=== PATIENT | female | born 1955 | race African-American/Black ===

== ENCOUNTER 2020-08-01 15:35 | Inpatient (IN) | payer MEDICARE, MEDICAID, SELFPAY ==
--- NOTE | ~2020-08-01 | XR_ITS ---
EXAMINATION: XR retrograde pyelo w/stent LT EXAM DATE: 08/02/2020 13:10 INDICATION: Left-sided obstructive nephropathy. TECHNIQUE: Fluoroscopy used during XR retrograde pyelo w/stent LT performed by Dr. Mario luna MD. The DAP for this procedure was 797 radcm2. FINDINGS: Left ureter was cannulated, injected. There is mild left hydroureteronephrosis. A double-J ureteral stent was placed. Bilateral hip replacements. Correlate with procedure note. IMPRESSION: Fluoroscopy used during XR retrograde pyelo w/stent LT. Reviewed, dictated and finalized at location A. S PROGRAM MANAGER
--- NOTE | ~2020-08-01 | XR_ITS ---
EXAMINATION: XR abdomen/kub 1V INDICATION: Left hydronephrosis and lower abdominal pain TECHNIQUE: Supine view of the abdomen is obtained. COMPARISON: None FINDINGS: No definite urolithiasis is identified. Vascular calcifications are noted. The bowel gas pa ttern is normal. There are changes of bilateral total hip arthroplasty. There is severe lower lumbar spondylosis. IMPRESSION: 1. No definite urolithiasis identified. Consider CT if there is high clinical suspicion for urolithia sis. Reviewed, dictated and finalized at location A. ESSION: 1. No definite urolithiasis identified. Consider CT if there is high clinical s uspicion for urolithiasis.
--- NOTE | ~2020-08-01 | XR_ITS ---
EXAMINATION: XR abdomen obstructive series DATE: 08/03/2020 11:42 INDICATION: Abdominal pain. TECHNIQUE: Upright and supine views of the abdomen were obtained. COMPARISON: CT abdomen and pelvis 08/02/2020 FINDINGS: There are no dilated loops of bowel. There is a left internal ureteral stent in expected po sition. There is no free intraperitoneal gas. There are bilateral hip arthroplasties. IMPRESSION: 1. Nonobstructive bowel gas pattern. Reviewed, dictated and finalized at location A. [employer]
--- NOTE | ~2020-08-01 | CT_ITS ---
EXAMINATION: CT abdomen pelvis wo con EXAM DATE: 08/02/2020 08:45 INDICATION: Left hydronephrosis TECHNIQUE: Spiral CT of the abdomen and pelvis was performed without contrast. Axial, coronal and sag ittal images were reviewed. The dose-length product (DLP) for this examination was 887.01 mGy-cm. T he exposure was tailored according to patient size (auto mA exposure control), and iterative reconstr uction (ASIR) was used as additional dose reduction technique. There is no prior study for compariso n. FINDINGS: There is mild left hydroureteronephrosis and perinephric fat stranding to the mid ureter. D istal half of the ureter is not distended. Can't evaluate the distal aspect of the ureters due to den se metallic artifact from the hip replacements. Fibroid uterus. The bladder is unremarkable. There is bilateral adrenal hyperplasia. Liver, spleen, pancreas are unremarkable. Gallbladder is unremark able. No biliary obstruction. There is no retroperitoneal or pelvic lymphadenopathy. There is mod erate to severe scattered arteriosclerotic disease. Probable identification of a normal appendix. No pericecal inflammation. The stomach and small ugo l are unremarkable. There is expected amount of colonic stool. No free intraperitoneal gas. The heart is normal in size. There are no pericardial or pleural effusions. The lung bases are unremark able. There are no osteoblastic or osteolytic lesions identified. IMPRESSION: 1. Mild left-sided hydronephrosis and proximal hydroureter, mild perinephric fat stranding. No nephr olithiasis. Can't evaluate the distal aspect of the ureters for obstructing stones due to artifact fr om hip replacements. 2. Fibroid uterus. 3. Adrenal hyperplasia. Reviewed, dictated and finalized at location A. [employer]KER [employer] IMPRESSION: 1. Mild left-sided hydronephrosis and proximal hydroureter, mild perinephric f at stranding. No nephrolithiasis. Can't evaluate the distal aspect of the urete rs for obstructing stones due to artifact from hip replacements. 2. Fibroid uterus. 3. Adrenal hyperplasia.
--- NOTE | 2020-08-01 14:30 | ADMGEN ---
This patient, Barbi Fernandes, was admitted to Medical Room 258-01. Patient/family oriented to hospital policies and general routines including ID bracelet, bed and alarms, visiting hours, pain management, procedures, bathroom and other care routines, personal items, smoking policy, room service/diet, and visiting hours. Information on how to activate the Rapid Response Team has been discussed. Patient/Family are encouraged to report perceived risks to care and to ask questions if they do not understand what they are told or what they should do.
[2020-08-01 15:00] VITALS: BP 145/87; PULSE 98; RESP 22; TEMP 36.4; O2SAT 96; BMI 32.3
--- NOTE | 2020-08-01 15:46 | PM.IMHP ---
H&P: HPI History of Present Illness Date/Time: 08/01/20 15:46 Chief Complaint: Abdominal pain Narrative: Barbi Fernandes is a 64 year old female who is a direct admit from [facility]. The patient does have chronic back pain and typically takes Arcadia for this pain. She has had nausea vomiting and diarrhea for at least 2 days. She is not been able to keep her Arcadia down. She is pointing to her left upper quadrant when I ask her were discomfort is. The patient came to [facility] with the nausea vomiting diarrhea for 2 days. She also took a laxative because she thought that maybe she was just constipated from the pain medication. This did cause her some diarrhea. However did not take away her discomfort. She does have some acid reflux and took some Rolaids and that did not help her discomfort either. She denied any burning when she urinates. She has not had any past history of having any kidney stones in the past. She was rating her pain an 8. She has a history of asthma but is not complaining of any shortness of breath at this time. The patient was given Zofran at the outside facility. She did not receive any pain medication as far as I could tell. She had Rocephin 1 g and IV fluids as well. Patient had blood cultures drawn there. The patient had a positive UA for UTI. I am unable to locate labs from [facility] and I am unable to locate any imaging however a disc did accompany her records that were sent. The patient stated that she was told that she does have a kidney stone. According to the ED records at [facility] it was noted that the patient had calculus of the kidney with calculus of ureter with UTI and vomiting. It is not known how big the kidney stone is or whether not she had hydronephrosis. These things were not documented on the papers that I received from [facility]. It looks like the patient received a COVID-19 rapid AG but I am not finding the results. My understanding that urology has been consulted for transfer. However I did consult them when the patient arrived. Patient is being admitted for observation on the date of service of 08/01/2020. Review of Systems Review of Systems: All systems reviewed & are unremarkable except as noted in HPI and below Constitutional: Constitutional: Reports as per HPI and Reports no additional constitutional complaints Eyes: Eyes: Reports as per HPI and Reports no additional eye complaints ENT: Reports system reviewed and no additional complaints, except as documented and Reports Normal hearing present Cardiovascular: Cardiovascular: Reports no additional cardiovascular complaints Respiratory: Respiratory: Reports no additional respiratory complaints and Reports no additional respiratory complaints Gastrointestinal: Gastrointestinal: Reports as per HPI and Reports no additional gastrointestinal complaints Musculoskeletal: Musculoskeletal: Reports no additional musculoskeletal complaints Integumentary/Breasts: Skin/Breast: Reports system reviewed and no additional complaints, except as docu and Reports as per HPI Neurologic: Reports system reviewed and no additional complaints, except as documented, Reports as per HPI and Reports Normal hearing present Psychiatric: Psychiatric: Reports no additional psychiatric complaints and Reports as per HPI Endocrine: Endocrine: Reports no additional endocrine complaints Hematologic/Lymphatic: Hematologic/Lymphatic: Reports no additional hematologic/lymphatic complaints Allergic/Immunologic: Allergic/Immunologic: Reports no additional allergic/immunologic complaints [facility] Past Medical History Medical History (Updated 08/01/20 @ 16:06 by Allie Moffett NP) Asthma Chronic back pain Chronic GERD Hiatal hernia Hypertension Nephrolithiasis Osteoarthritis Surgical History Surgical History (Updated 08/01/20 @ 16:06 by Allie Moffett NP) History of total hip replacement
[2020-08-01 16:04] LABS: Hematocrit 39.1 % (37.0-47.0); Mean Corpuscular HGB Conc 33.2 g/dl (32-36); Mean Corpuscular Hemoglobin 31.8 pg (26-34); Mean Corpuscular Volume 95.6 fl (80-100); Mean Platelet Volume 9.5 fl (7.4-10.4); Platelet Count Result 291 k/mm3 (150-375); Red Blood Count 4.09 M/mm3 (4.2-5.4); Red Cell Distribution Width 13.1 % (11.5-14.5); White Blood Count 17.6 K/mm3 (4.5-10.0)
[2020-08-01 16:15] LABS: Lactic Acid Reflex 1.5 mmol/L (0.7-2.1); Magnesium 2.1 mg/dL (1.6-2.3)
[2020-08-01 16:26] LABS: Band Neutrophils Percent 3 % (0-6); Lymphocytes Absolute Manual 0.17 K/mm3 (1.1-4.5); Monocytes Percent Manual 8 % (3-9); Neutrophils Absolute Manual 16.01 K/mm3 (1.7-7.2); Neutrophils Percent Manual 88 % (46-73); Platelet Estimate Adequate (Adequate); Total Cells Counted 100
[2020-08-01] MEDS: ONDANSETRON INJ 4 MG/2 ML VIAL IV PUSH (16:33)
[2020-08-01] MEDS: DEXTROSE 5%/0.9% SOD CHL 1,000 ML 100 ML IV CONT (16:33)
--- NOTE | 2020-08-01 16:53 | WPDURCON ---
Assessment and Plan Assessment and plan (1) UTI (urinary tract infection): Code(s): N39.0 - Urinary tract infection, site not specified Status: Acute Assessment and Plan: Continue Rocephin, obtain culture results from [facility] when posted. No need to repeat culture now as it will likely be negative d/t being on antibiotics. (2) Nephrolithiasis: Code(s): N20.0 - Calculus of kidney Status: Acute Assessment and Plan: Obtain Consent: Cystoscopy, left ureteroscopy with possible stone extraction, left stent placement, left retrograde pyelogram, possible holmium laser. Keep NPO after midnight. If unable to remove stone tomorrow, will place stent only and schedule for a ureteroscopy when UTI is resolved. Dr. Barreto will see patient in the morning prior to surgery. She is scheduled in the OR on 08/02/2020 at 1230. Urology Consult Note HPI Date Seen: 08/01/20 Requesting Physician: Talia Murillo MD Primary Care Provider: Hari Dowd, Consult Narrative Narrative: Barbi Fernandes is a 64 year old female who presented initially to [facility] for left abdominal pain and left flank pain, nausea and diarrhea that started two days ago. She states she also has pelvic pressure and thought maybe she had a UTI as she has had some in the past but not chronically. She denies history of a kidney stone or pyelonephritis. Her CT abdomen/pelvis from [facility] shows left moderate hydronephrosis and hydroureter without visualization of a distal ureteral calculi, likely d/t beam hardening artifact throughout the pelvis from bilateral hip arthroplasty. Her KUB shows multiple small calcifications which are identified int he pelvis bilaterally, some of which represent venous and arterial vascular calcifications. There is a left pelvic 3mm calculi which may represent a distal ureteral calculi. WBC is 17,000, no creatinine at this time. Urine culture is pending at [facility] that was done prior to starting Rocephin. Blood cultures are being done here but are pending. She is afebrile and denies dysuria, frequency, urgency or hematuria. Review of Systems Cardiovascular: Cardiovascular: Reports no additional cardiovascular complaints and Denies chest pain Respiratory: Respiratory: Reports no additional respiratory complaints Gastrointestinal: Gastrointestinal: Reports abdominal pain, Reports diarrhea, Reports nausea and Denies vomiting Genitourinary: Genitourinary: Denies hematuria, Denies nocturia, Denies dysuria, Reports pelvic pain and Denies urinary urgency PMF Past Medical History Medical History Asthma Chronic back pain Chronic GERD Hiatal hernia Hypertension Nephrolithiasis Osteoarthritis Surgical History Surgical History History of total hip replacement Family History Family History Mother Hypertension Social History Social History Social History: Patient stated she smoked about 30 years ago but has not smoke since then. She is disabled. She does not have a durable power banking attorney. She desires to be a full code. She has 3 children. She does not use alcohol marijuana or illicit drugs. Smoking status: Former smoker Tobacco type: cigarettes Alcohol intake: never Substance use type: marijuana Last use: 07/31/20 Gender identity (if verbalized by the patient): Female Spiritual care concerns: No Meds Home Medications and Allergies Home Medications Medication Instructions Recorded Confirmed Type albuterol sulfate 2.5 mg INHALATION TID PRN 08/01/20 08/01/20 History albuterol sulfate [ProAir HFA] 2 puff INHALATION Q4H PRN 08/01/20 08/01/20 History cetirizine [Zyrtec] 10 mg PO DAILY 08/01/20 08/01/20 History famotidine [Pepcid] 20 mg PO BID 08/01/20 03
[2020-08-01 18:00] VITALS: BP 157/76; PULSE 96; RESP 18; TEMP 36.6; O2SAT 97
[2020-08-01 20:00] VITALS: BP 171/86; PULSE 95; RESP 20; TEMP 36.1; O2SAT 97
[2020-08-01] MEDS: ALBUTEROL SULFATE NEB 2.5 MG/3 ML INH INHALATION (20:41)
[2020-08-01 20:44] VITALS: PULSE 96; RESP 18
[2020-08-01 20:49] VITALS: PULSE 93; RESP 18
--- NOTE | 2020-08-01 20:57 | PC.NURSE ---
[facility] ED called to report positive blood cultures for gram negative bacilli in both aerobic and anaerobic tubes, second check showing positive for gram negative bacilli in anaerobic tube only. Allie Moffett has been notified of results.
[2020-08-01] MEDS: PANTOPRAZOLE SODIUM IV 40 MG VIAL IV PUSH (21:19)
[2020-08-01 22:35] LABS: Add Urine Microscopic? YES; Appearance Urine Cloudy (Clear); Bilirubin Urine Negative (Negative); Blood Urine 1+ (Negative); Color Urine Yellow (Yellow); Glucose Urine UA Negative (Negative); Ketones Urine Negative (Negative); Leukocyte Esterase Ur 3+ LEU/UL (Negative); Mucus Urine Moderate /lpf; Nitrate Urine Negative (Negative); Protein Urine 2+ mg/dL (Negative); RBC Urine 21-50 /hpf (0-2); Specific Grav Ur 1.023 (1.001-1.035); Squamous Epithelial Cell Urine Many /hpf (Few); Urobilinogen Urine Negative mg/dL (<2.0); WBC Urine >75 /hpf
[2020-08-02] VITALS (15 sets, daily range): BP systolic 130–178; BP diastolic 69–101; PULSE 76–105; RESP 13–23; TEMP 36.1–36.9; O2SAT 92–100
[2020-08-02] MEDS: DEXTROSE 5%/0.9% SOD CHL 1,000 ML 100 ML IV CONT ×2 (04:50→19:20)
[2020-08-02 05:33] LABS: Basophils Percent Auto 0.1 % (0.2-1.2); Hematocrit 35.7 % (37.0-47.0); Hemoglobin 11.8 g/dL (12.0-15.0); Immature Granulocyte Absolute 0.08 K/mm3 (0.00-0.031); Immature Granulocyte Percent A 0.5 % (0-0.5); Lymphocytes Absolute Auto 1.19 K/mm3 (0.9-3.2); Lymphocytes Percent Auto 8.2 % (18.3-44.2); Mean Corpuscular HGB Conc 33.1 g/dl (32-36); Mean Corpuscular Hemoglobin 31.4 pg (26-34); Mean Corpuscular Volume 94.9 fl (80-100); Mean Platelet Volume 9.8 fl (7.4-10.4); Monocytes Absolute Auto 1.4 K/mm3 (0.1-0.6); Monocytes Percent Auto 9.7 % (2.6-8.5); Neutrophils Absolute Auto 11.9 K/mm3 (1.3-6.7); Neutrophils Percent Auto 81.5 % (45.5-73.1); Platelet Count Result 278 k/mm3 (150-375); Red Blood Count 3.76 M/mm3 (4.2-5.4); White Blood Count 14.6 K/mm3 (4.5-10.0)
[2020-08-02 05:48] LABS: Anion Gap 2 mmol/L (8-16); Blood Urea Nitrogen 22 mg/dL (7-17); Calcium 9.3 mg/dL (8.4-10.2); Carbon Dioxide 36 mmol/L (22-30); Chloride 102 mmol/L (98-107); Estimated CRCL calculation 79 ml/min; Estimated Glomerular Filt Rate > 60; Glucose 132 mg/dL (65-105); Potassium 3.3 mmol/L (3.4-5.0); Sodium 140 mmol/L (137-145)
[2020-08-02 06:40] LABS: Thyroid Stimulating Hormone Reflex 0.918 uIU/mL (0.465-4.68)
[2020-08-02] MEDS: FLUTICASONE PROPIONATE 0.05% NA SPR 16 GM BTL (*BKC) 2 SPRAY NASAL (08:23)
[2020-08-02] MEDS: PANTOPRAZOLE SODIUM IV 40 MG VIAL IV PUSH (08:24)
[2020-08-02] MEDS: ALBUTEROL SULFATE NEB 2.5 MG/3 ML INH INHALATION (08:56)
--- NOTE | 2020-08-02 11:51 | PC.NURSE ---
Pt to OR per stretcher. Family at bedside. Report to MELVI Dunn.
--- NOTE | 2020-08-02 12:04 | WPDHPUPDATE1 ---
History and Physical Update Update Date/Time: 08/02/20 12:04 History and Physical has been reviewed, including an updated exam of the patient. There are NO changes in the patient's condition. Risks, benefits, and alternatives have been discussed and questions answered. Patient agrees to proceed with procedure. Proceed with cysto, left retrograde, left ureteroscopy with possible stone extracion, laser and stent.
--- NOTE | 2020-08-02 12:09 | WPDANESEPPF ---
Anes - Initial Pre Proc Eval Procedure: Operation Date: 08/02/20 12:30 Proposed Procedures p Cystoscopy, Left Ureteroscopy with Stone Extraction, Left Stent Placement, Left Retrograde Pyeolgram - Mario Barreto MD s Possible Holmium Laser Procedure - Mario Barreto MD Date/Time: 08/02/20 12:09 Surgeon: Thea Leija PA-C Pre Op Diagnosis: Kidney Stone Patient Data Age: 64 Gender: F Height: 5 ft 2 in Weight: 80.3 kg Last Vital Signs Temp 36.8 C 08/02/20 12:05 Pulse 86 08/02/20 12:05 Resp 18 08/02/20 12:05 BP 130/82 08/02/20 12:05 Pulse Ox 99 08/02/20 12:05 Allergies Allergy/AdvReac Type Severity Reaction Status Date / Time No Known Allergies Allergy Unknown Unverified 08/01/20 14:40 Home Medications Medication Instructions Recorded Confirmed Type albuterol sulfate 2.5 mg INHALATION TID PRN 08/01/20 08/01/20 History albuterol sulfate [ProAir HFA] 2 puff INHALATION Q4H PRN 08/01/20 08/01/20 History cetirizine [Zyrtec] 10 mg PO DAILY 08/01/20 08/01/20 History famotidine [Pepcid] 20 mg PO BID 08/01/20 08/01/20 History fluticasone propionate [Flonase] 2 spray INTRANASAL DAILY 08/01/20 08/01/20 History hydrocodone-acetaminophen 1 tablet PO BID PRN 08/01/20 08/01/20 History ibuprofen 800 mg PO TID PRN 08/01/20 08/01/20 History losartan-hydrochlorothiazide 1 tablet PO DAILY 08/01/20 08/01/20 History [Hyzaar] montelukast [Singulair] 10 mg PO DAILY 08/01/20 08/01/20 History umeclidinium [Incruse Ellipta] 1 inh INHALATION DAILY 08/01/20 08/01/20 History Laboratory Tests 08/01/20 08/01/20 08/01/20 15:54 15:54 15:54 WBC 17.6 K/mm3 H K/mm3 (4.5-10.0) RBC 4.09 M/mm3 L M/mm3 (4.2-5.4) Hgb 13.0 g/dL g/dL (12.0-15.0) Hct 39.1 % % (37.0-47.0) MCV 95.6 fl fl (80-100) MCH 31.8 pg pg (26-34) MCHC 33.2 g/dl g/dl (32-36) RDW 13.1 % % (11.5-14.5) Plt Count 291 k/mm3 k/mm3 (150-375) MPV 9.5 fl fl (7.4-10.4) Immature Gran % (Auto) Not Reportable Neut % (Auto) Not Reportable Lymph % (Auto) Not Reportable Harris % (Auto) Not Reportable Eos % (Auto) Not Reportable Baso % (Auto) Not Reportable Lymph # (Auto) Not Reportable Harris # (Auto) Not Reportable Eos # (Auto) Not Reportable Baso # (Auto) Not Reportable Abs Immat Gran (auto) Not Reportable Absolute Neuts (auto) Not Reportable Absolute Nucleated RBC Not Reportable Total Counted 100 Neutrophils % (Manual) 88 % H % (46-73) Band Neutrophils % 3 % % (0-6) Lymphocytes % (Manual) 1.0 % L % (18-44) Monocytes % (Manual) 8 % % (3-9) Nucleated RBC % Not Reportable Abs Neuts (Manual) 16.01 K/mm3 H K/mm3 (1.7-7.2) Abs Lymphs (Manual) 0.17 K/mm3 L K/mm3 (1.1-4.5) Abs Monocytes (Manual) 1.40 K/mm3 H K/mm3 (0.1-0.90) Platelet Estimate Adequate (Adequate) Sodium Potassium Chloride Carbon Dioxide Anion Gap BUN Creatinine Estim Creat Clear Calc Estimated GFR Glucose Lactic Acid 1.5 mmol/L mmol/L (0.7-2.1) Calcium Magnesium 2.1 mg/dL mg/dL (1.6-2.3) TSH (Reflex) Urine Color Urine Appearance Urine pH Ur Specific Conway Urine Protein Urine Glucose (UA) Urine Ketones Ur Blood (Man) Urine Nitrate Urine Bilirubin Urine Urobilinogen Leukocyte Esterase Rfl Urine RBC Urine WBC Ur Squamous Epith Cells Urine Mucus
[2020-08-02] MEDS: LACTATED RINGERS 1,000 ML 30 ML IV CONT (12:13)
--- NOTE | 2020-08-02 12:21 | SUR.PREOP ---
1205; DR MCHUGH DOESNT WANT ANOTHER ANTIBIOTIC. LAST DOSE ROCEPHIN AT 1811 ON 08/01/20
[2020-08-02] MEDS: LIDOCAINE HCL 2% GEL UROJET 10 ML PKG MUCOUS MEM (12:39)
--- NOTE | 2020-08-02 13:17 | P.OP_ITS ---
Procedure Note - Detailed Date of procedure: 08/02/20 Pre-op diagnosis: Kidney Stone Left hydroureter Post-op diagnosis: same Procedure performed: Cystoscopy, left retrograde pyelogram, dilation of left ureteral narrowing, left ureteroscopy, left ureteral stent placement 6 Ghanaian contour Description of procedure: Patient is taken the operative suite and correctly identified. Once anesthesia was obtained she was placed in dorsal lithotomy position and prepped and draped usual sterile fashion. Twenty-two Ghanaian scope was inserted the bladder. The bladder is inspected. There are no tumors noted the patient is za trigone has prominent mounds were the ureteral orifices are there somewhat pinpoint in nature. We were able to only manipulate a wire in with the use of a rigid ureteral scope. We then dilated with an 8/10 dilator. It was felt to be tight along the mid ureter which coincided to the CT scan. We placed a 2nd access wire. We then used a mini flexible ureteral scope inserted over the wire. The kidney was inspected in its entirety. There is no tumors noted. The ureter was then inspected on the way out. There were no tumors noted. There was an area of narrowing which coincided again to the CT scan. This obviously was dilated with the 8/10 dilator. No stones were noted. A 6 Ghanaian contour stent was then placed without any difficulty with the proximal end coiled in the renal pelvis and the distal in the bladder. 2% viscous lidocaine was inserted urethra. She is taken recovery room stable condition. From urologic standpoint she can be discharged home later today. Will plan on removing the stent in 1-2 weeks time. Anesthesia: GLMA Surgeon: Mario Barreto MD Drains: Yes Packing: No Pathology: none sent Complications: No immediate complications Condition: stable Disposition: PACU
[2020-08-02] MEDS: fentaNYL CITRATE INJ (*CRX) 100 MCG/2 ML VIAL 25 MCG IV PUSH ×4 (13:36→13:49)
--- NOTE | 2020-08-02 14:15 | PC.NURSE ---
Pt returned from OR per stretcher. Report received from MELVI Gayle.
--- NOTE | 2020-08-02 14:19 | PC.NURSE ---
On 08/02/20, the student, [Nathaly Sesay ], provided care and completed [facility] documentation on this patient. I have reviewed the student's documentation and agree with the findings.
--- NOTE | 2020-08-02 14:31 | PM.IMPN ---
Progress Note: A&P Assessment and Plan (1) Nephrolithiasis: Code(s): N20.0 - Calculus of kidney Status: Acute Assessment and Plan: Patient was transferred to our facility from [facility] in [place] due to the kidney stone for urology services. Urology evaluated the patient and placed her NPO after midnight for a cystoscopy today. Patient underwent a cystoscopy today 08/02/2020 which showed dilation of left ureteral narrowing, left ureteroscopy, left ureteral stent placement Plan is for the patient follow-up with urology as an outpatient for stent removal in 2 weeks. Continue monitoring. Urology is input is greatly appreciated. (2) UTI (urinary tract infection): Code(s): N39.0 - Urinary tract infection, site not specified Status: Acute Assessment and Plan: Blood and urine cultures are pending. Continue Rocephin. Will call [place] tomorrow with culture results to see if we are treating her appropriately. Patient still having significant leukocytosis with a left shift today. Will keep overnight to continue IV antibiotics and to recheck labs in the morning. Patient and daughter understand agree with the plan all questions answered. (3) Chronic back pain: Code(s): M54.9 - Dorsalgia, unspecified; G89.29 - Other chronic pain Status: Acute Assessment and Plan: Patient still having her chronic back pain. Will restart her home medications at this time since she is not having any more issues with vomiting. (4) Asthma: Code(s): J45.909 - Unspecified asthma, uncomplicated Status: Chronic Assessment and Plan: Continue with inhalers. (5) Chronic GERD: Code(s): K21.9 - Gastro-esophageal reflux disease without esophagitis Status: Chronic Assessment and Plan: Continue with home medications. Time Spent With Patient Time with patient: 25 - 35 minutes Subjective Date/time seen: 08/02/20 14:31 Interval history: Date of service 08/02/2020: Patient is feeling slightly better after her cystoscopy this afternoon. She is having some abdominal discomfort and what she calls gas pains . She does report some slight belching but does not report any flatulence. She is having some slight nausea, no vomiting. Patient was having some urinary issues prior to arrival with pressure feeling at the end of her urinary stream and emptying her bladder. She denies much issues at this time. She denies any fevers, chills, chest pain, shortness of breath, cough, leg swelling, calf pain, or any other symptoms at this time. Review of Systems Review of Systems: All systems reviewed & are unremarkable except as noted in HPI and below Exam Narrative: Exam Narrative: General: 64-year-old woman sitting up on the side of the bed talking to her daughter. Appears comfortable. In no acute distress. Skin: No jaundice or cyanosis. Good skin turgor. Neck: Full range of motion. Supple. Respiratory: Lungs are clear. No wheezing, rales or rhonchi. No bony chest wall tenderness. Cardiovascular: The heart has a regular rate and rhythm without murmur. Lower extremities: No lower extremity edema. Distal pulses are easily palpated. No calf tenderness to palpation. Gastrointestinal: The abdomen is soft, nontender and nondistended with active bowel sounds. Psychiatric: Lucid and oriented. Memory intact. Neurologic: No focal deficits. Speech is clear. No facial drooping. Objective Data Vital Signs Vital Signs: Vital Signs - 24 hr 08/01/20 15:00 08/01/20 18:00 08/01/20 20:00 Temperature 97.5 F L 97.8 F 96.9 F L Pulse Rate 98 96 95 Respiratory Rate 22 H 18 20 Blood Pressure 145/87 H 157/76 H 171/86 H Pulse Oximetry 96 97 97 03/
[2020-08-02] MEDS: MONTELUKAST SODIUM 10 MG TABLET PO (15:34)
[2020-08-02] MEDS: POTASSIUM CHLORIDE 20 MEQ TABLET 40 MEQ PO (15:34)
[2020-08-02] MEDS: LORATADINE 10 MG TABLET PO (15:35)
[2020-08-02] MEDS: SIMETHICONE 80 MG TAB.CHEW PO (17:51)
[2020-08-02] MEDS: FAMOTIDINE 20 MG TABLET PO (18:40)
[2020-08-03 00:32] VITALS: BP 156/89; PULSE 76; RESP 20; TEMP 36.2; O2SAT 100
[2020-08-03] MEDS: SIMETHICONE 80 MG TAB.CHEW PO ×2 (02:54→05:17)
[2020-08-03 05:04] VITALS: BP 162/86; PULSE 87; RESP 20; TEMP 36.1; O2SAT 100
[2020-08-03 05:05] VITALS: BP 162/86; PULSE 87; RESP 20; TEMP 36.1; O2SAT 100
[2020-08-03 05:42] LABS: Basophils Percent Auto 0.2 % (0.2-1.2); Hematocrit 35.6 % (37.0-47.0); Hemoglobin 11.2 g/dL (12.0-15.0); Immature Granulocyte Absolute 0.08 K/mm3 (0.00-0.031); Immature Granulocyte Percent A 0.6 % (0-0.5); Lymphocytes Absolute Auto 1.61 K/mm3 (0.9-3.2); Lymphocytes Percent Auto 12.7 % (18.3-44.2); Mean Corpuscular HGB Conc 31.5 g/dl (32-36); Mean Corpuscular Volume 98.6 fl (80-100); Monocytes Absolute Auto 1.1 K/mm3 (0.1-0.6); Monocytes Percent Auto 8.6 % (2.6-8.5); Neutrophils Absolute Auto 9.8 K/mm3 (1.3-6.7); Neutrophils Percent Auto 77.9 % (45.5-73.1); Platelet Count Result 263 k/mm3 (150-375); Red Blood Count 3.61 M/mm3 (4.2-5.4); White Blood Count 12.6 K/mm3 (4.5-10.0)
[2020-08-03 05:54] LABS: Anion Gap 2 mmol/L (8-16); Blood Urea Nitrogen 19 mg/dL (7-17); Calcium 8.8 mg/dL (8.4-10.2); Carbon Dioxide 32 mmol/L (22-30); Chloride 106 mmol/L (98-107); Estimated CRCL calculation 69 ml/min; Estimated Glomerular Filt Rate > 60; Glucose 109 mg/dL (65-105); Potassium 3.9 mmol/L (3.4-5.0); Sodium 140 mmol/L (137-145)
[2020-08-03] MEDS: DEXTROSE 5%/0.9% SOD CHL 1,000 ML 100 ML IV CONT (06:00)
--- NOTE | 2020-08-03 07:09 | PCRCNOTE ---
Pt refused her respiratory meds. She is tired and has gas .
[2020-08-03] MEDS: polyethylene glycoL 3350 17 GM POWD.PACK PO (09:06)
[2020-08-03] MEDS: FLUTICASONE PROPIONATE 0.05% NA SPR 16 GM BTL (*BKC) 2 SPRAY NASAL (09:08)
[2020-08-03] MEDS: LOSARTAN POTASSIUM 100 MG TABLET PO (09:08)
[2020-08-03] MEDS: FAMOTIDINE 20 MG TABLET PO ×2 (09:08→16:34)
[2020-08-03] MEDS: MONTELUKAST SODIUM 10 MG TABLET PO (09:08)
[2020-08-03] MEDS: hydroCHLOROthiazide 25 MG TABLET PO (09:08)
[2020-08-03] MEDS: LORATADINE 10 MG TABLET PO (09:08)
[2020-08-03] MEDS: BISACODYL 10 MG SUPPOSITORY RECTAL (09:19)
--- NOTE | 2020-08-03 09:59 | WPDANESPN ---
Anes - Prog Note Post-Op Date/Time: 08/03/20 09:59 Cardiovascular status: normal Respiratory status: normal Airway patency: baseline Mental status: baseline Post-Op hydration status: normal Vital Signs: Last Vital Signs Temp 96.9 F L 08/03/20 05:05 Pulse 87 08/03/20 05:05 Resp 20 08/03/20 05:05 BP 162/86 H 08/03/20 05:05 Pulse Ox 100 08/03/20 05:05 Pain Score (VAS): 06/11 I/O: Intake & Output 08/02/20 08/03/20 08/03/20 23:59 07:59 15:59 Intake Total 1690 1390 514 Output Total 800 600 Balance 890 790 514 Laboratory Tests 08/03/20 05:11 08/03/20 05:11 08/03/20 08/03/20 05:11 05:11 WBC 12.6 H RBC 3.61 L Hgb 11.2 L Hct 35.6 L MCV 98.6 MCH 31.0 MCHC 31.5 L RDW 13.0 Plt Count 263 MPV 10.0 Immature Gran % (Auto) 0.6 H Neut % (Auto) 77.9 H Lymph % (Auto) 12.7 L [place] % (Auto) 8.6 H Eos % (Auto) 0.0 Baso % (Auto) 0.2 Lymph # (Auto) 1.61 [place] # (Auto) 1.1 H Eos # (Auto) 0.0 Baso # (Auto) 0.0 Abs Immat Gran (auto) 0.08 H Absolute Neuts (auto) 9.8 H Absolute Nucleated RBC 0.0 Nucleated RBC % 0.0 Sodium 140 Potassium 3.9 Chloride 106 Carbon Dioxide 32 H Anion Gap 2 L BUN 19 H Creatinine 0.70 Estim Creat Clear Calc 69 Estimated GFR > 60 Glucose 109 H Calcium 8.8 Microbiology 08/01/20 17:15 Urine Clean Catch Urine Culture - Final 08/01/20 15:54 Blood Blood Culture - Preliminary 08/01/20 15:54 Blood Blood Culture - Preliminary Post-procedural complaints: none Patient Feedback: Patient satisfied with anesthetic care.
--- NOTE | 2020-08-03 11:44 | WPDUROPN2 ---
Progress Note: A&P Assessment and Plan (1) Nephrolithiasis: Code(s): N20.0 - Calculus of kidney Status: Acute Assessment and Plan: Resolved, will need to follow up next week on 08/09/2020 in the office with DR. Barreto for stent removal. (2) Bladder spasm: Code(s): N32.89 - Other specified disorders of bladder Status: Acute Assessment and Plan: She is c/o pelvic pressure after urination. Urine culture is negative, likely stent irritation, will start Oxybutynin PRN. OK to discharge home at any time, no further evaluation. Subjective Subjective Date/Time Seen: 08/03/20 11:44 POD #1 Cystoscopy, left retrograde pyelogram, left dilation of the ureter, left stent placement, left ureteroscopy. Review of Systems Cardiovascular: Cardiovascular: Denies chest pain Respiratory: Respiratory: Reports no additional respiratory complaints Gastrointestinal: Gastrointestinal: Denies abdominal pain, Denies nausea and Denies vomiting Genitourinary: Genitourinary: Denies hematuria, Denies dysuria, Reports pelvic pain, Denies flank pain and Denies urinary urgency Exam Resp: Effort & Inspection: normal respiratory effort Cardio: Rate: regular rate GI: GI Palp: Yes Soft to palpation and No Tenderness to palpation present (GI) : General: Yes no CVA tenderness Extrem: General: no edema Objective Data Vital Signs Vital Signs: Vital Signs - 24 hr 08/02/20 12:05 08/02/20 13:17 08/02/20 13:31 Temperature 98.3 F 98.5 F Pulse Rate 86 105 H 97 Respiratory Rate 18 17 22 H Blood Pressure 130/82 172/78 H Pulse Oximetry 99 98 98 08/02/20 13:45 08/02/20 14:00 08/02/20 14:45 Temperature 98.3 F Pulse Rate 98 93 88 Respiratory Rate 23 H 13 19 Blood Pressure 152/78 H 133/81 158/79 H Pulse Oximetry 100 92 96 08/02/20 15:00 08/02/20 16:02 08/02/20 20:00 Temperature 98.1 F 97.9 F 97 F L Pulse Rate 89 85 76 Respiratory Rate 17 19 20 Blood Pressure 159/69 H 155/70 H 133/81 Pulse Oximetry 96 97 98 08/02/20 22:02 08/03/20 00:32 08/03/20 05:04 Temperature 97 F L 97.1 F L 96.9 F L Pulse Rate 76 76 87 Respiratory Rate 20 20 20 Blood Pressure 133/81 156/89 H 162/86 H Pulse Oximetry 98 100 100 08/03/20 05:05 Temperature 96.9 F L Pulse Rate 87 Respiratory Rate 20 Blood Pressure 162/86 H Pulse Oximetry 100 Intake/Output Intake/Output: Intake & Output 07/31/20 08/01/20 08/02/20 08/03/20 23:59 23:59 23:59 23:59 Intake Total 150 2910 1904 Output Total 1200 600 Balance 150 1710 1304 Meds/Results Medications: Active Medications Generic Name Dose Route Start Last Admin Trade Name Freq PRN Reason Stop Dose Admin Hydrocodone Bitart/Acetaminophen 1 tab 08/02/20 16:26 Hydrocodone/Acetaminophen (*Crx) 10-325 Mg Tablet PO BID PRN Pain (Scale Score 7-10) Albuterol 2 puff 08/01/20 16:38 Albuterol Sulfate (*Sp) Aerosol 1 Puff INHALATION Q4HRT PRN Shortness Of Breath Or Wheezing Albuterol 2.5 mg 08/01/20 20:00 08/03/20 07:07 Albuterol Sulfate Neb 2.5 Mg/3 Ml Inh INHALATION Not Given TIDRT ROBI Famotidine 20 mg 08/02/20 17:00 08/03/20 09:08 Famotidine 20 Mg Tablet PO 20 mg BID ROBI Administration Fluticasone Propionate 2 spray 08/02/20 09:00 08/03/20 09:08 Fluticasone Propionate 0.05% Na Spr 16 Gm Btl (*Bkc) NASAL 2 spray DAILY ROBI Administration Hydrochlorothiazide 25 mg 08/03/20 09:00 08/03/20 09:08 Hydrochlorothiazide 25 Mg Tablet PO 25 mg QAM ROBI Administration Hydromorphone HCl 0.5 mg 08/01/20 15:40 Hydromorphone Hcl Inj (*Crx) 1 Mg/Ml Syr IV PUSH Q3H PRN BREAKTHROUGH PAIN Ceftriaxone Sodium 2 gm in 100 mls @ 200 mls/hr 08/03/20 09:00 08/03/20 10:42 Rocephin 2 Gm/D5w 100 Ml IVPB 200 mls/hr Q24H ROBI Administration Loratadine 10 mg 08/02/20 09:00 08/03/20 09:08 Loratadine 10 Mg Tablet PO 09/01/20 09:01 10 mg DAILY ROBI Administration Losartan Nestor
[2020-08-03 12:00] VITALS: BP 132/64; PULSE 94; RESP 16; TEMP 36.1; O2SAT 100
[2020-08-03] MEDS: OXYBUTYNIN CHLORIDE 5 MG TABLET PO ×2 (12:19→16:54)
--- NOTE | 2020-08-03 14:30 | PM.IMPN ---
Progress Note: A&P Assessment and Plan (1) Bacteremia: Code(s): R78.81 - Bacteremia Status: Acute Assessment and Plan: I received information from [facility] which is where the patient originally went to the emergency room and her urine culture and blood cultures were positive x2 for E coli bacteremia with sensitivities to IV Rocephin. Patient is doing better at this time, IV Rocephin was switched to 2 g Q 24 hours for treatment of bacteremia Still with some leukocytosis will continue with IV antibiotics at this time Continue monitoring vital signs Blood cultures are facility are negative to date When she is stable for discharge he will need 10 days oral treatment for bacteremia Continue monitoring. (2) E. coli UTI: Code(s): N39.0 - Urinary tract infection, site not specified; B96.20 - Unspecified Escherichia coli [E. coli] as the cause of diseases classified elsewhere Status: Acute Assessment and Plan: Positive UTI at [facility]. Sensitive to Rocephin. She is receiving IV Rocephin at this time urinary symptoms are improving. (3) Nephrolithiasis: Code(s): N20.0 - Calculus of kidney Status: Acute Assessment and Plan: Patient was transferred to our facility from [facility] in [place] due to the kidney stone for urology services. Patient underwent a cystoscopy 08/02/2020 which showed left ureteral narrowing (underwent dilation), left ureteroscopy, left ureteral stent placement Plan is for the patient follow-up with urology as an outpatient for stent removal in 2 weeks. Continue monitoring. Urology is input is greatly appreciated. (4) Chronic back pain: Code(s): M54.9 - Dorsalgia, unspecified; G89.29 - Other chronic pain Status: Acute Assessment and Plan: Patient still having her chronic back pain. Continue home medications at this time since she is not having any more issues with vomiting. (5) Asthma: Code(s): J45.909 - Unspecified asthma, uncomplicated Status: Chronic Assessment and Plan: Continue with inhalers. (6) Chronic GERD: Code(s): K21.9 - Gastro-esophageal reflux disease without esophagitis Status: Chronic Assessment and Plan: Continue with home medications. (7) Bladder spasm: Code(s): N32.89 - Other specified disorders of bladder Status: Acute Assessment and Plan: Urology started p.r.n. oxybutynin for spasming. Time Spent With Patient Time with patient: 25 - 35 minutes Subjective Date/time seen: 08/03/20 14:30 Interval history: Date of service 08/03/2020: Patient states she is feeling well but feels bloated and has not been passing much gas since her procedure. She is concerned for constipation but she is not eat much in the last 4 days because of her nausea and vomiting. She is having some abdominal discomfort and what she calls gas pains . She has taken some MiraLax and a suppository without any relief yet. She is having some slight nausea, no vomiting. Patient was having some urinary issues prior to arrival with pressure feeling at the end of her urinary stream and emptying her bladder. She denies much issues at this time. She denies any fevers, chills, chest pain, shortness of breath, cough, leg swelling, calf pain, or any other symptoms at this time. Review of Systems Review of Systems: All systems reviewed & are unremarkable except as noted in HPI and below Exam Narrative: Exam Narrative: General: 64-year-old woman sitting up on the side of the bed talking to the nurses. Appears comfortable. In no acute d
[2020-08-03 16:00] VITALS: BP 140/77; PULSE 78; RESP 18; TEMP 36.4; O2SAT 100
[2020-08-03 21:45] VITALS: BP 143/72; PULSE 78; RESP 18; TEMP 36.1; O2SAT 100
[2020-08-04 01:49] VITALS: BP 135/82; PULSE 77; RESP 18; TEMP 35.9; O2SAT 100
[2020-08-04] MEDS: SIMETHICONE 80 MG TAB.CHEW PO ×2 (03:27→07:20)
[2020-08-04 05:35] LABS: Basophils Absolute Auto 0.1 K/mm3 (0.0-0.1); Basophils Percent Auto 0.5 % (0.2-1.2); Eosinophils Percent Auto 0.4 % (0-4.4); Hematocrit 36.3 % (37.0-47.0); Hemoglobin 11.6 g/dL (12.0-15.0); Immature Granulocyte Absolute 0.08 K/mm3 (0.00-0.031); Immature Granulocyte Percent A 0.8 % (0-0.5); Lymphocytes Absolute Auto 1.52 K/mm3 (0.9-3.2); Lymphocytes Percent Auto 15.3 % (18.3-44.2); Mean Corpuscular Hemoglobin 31.4 pg (26-34); Mean Corpuscular Volume 98.1 fl (80-100); Monocytes Absolute Auto 0.8 K/mm3 (0.1-0.6); Monocytes Percent Auto 7.9 % (2.6-8.5); Neutrophils Absolute Auto 7.5 K/mm3 (1.3-6.7); Neutrophils Percent Auto 75.1 % (45.5-73.1); Platelet Count Result 264 k/mm3 (150-375); Red Cell Distribution Width 12.9 % (11.5-14.5)
[2020-08-04 05:51] LABS: Anion Gap 0 mmol/L (8-16); Blood Urea Nitrogen 16 mg/dL (7-17); Calcium 9.1 mg/dL (8.4-10.2); Carbon Dioxide 32 mmol/L (22-30); Chloride 107 mmol/L (98-107); Estimated CRCL calculation 69 ml/min; Estimated Glomerular Filt Rate > 60; Glucose 91 mg/dL (65-105); Potassium 3.9 mmol/L (3.4-5.0); Sodium 139 mmol/L (137-145)
[2020-08-04 06:52] VITALS: BP 140/75; PULSE 81; RESP 18; TEMP 36.1; O2SAT 98
[2020-08-04 08:20] VITALS: BP 133/78; PULSE 95; RESP 16; TEMP 36.4; O2SAT 100
[2020-08-04] MEDS: FAMOTIDINE 20 MG TABLET PO (09:16)
[2020-08-04] MEDS: OXYBUTYNIN CHLORIDE 5 MG TABLET PO (09:17)
[2020-08-04] MEDS: LOSARTAN POTASSIUM 100 MG TABLET PO (09:18)
[2020-08-04] MEDS: MONTELUKAST SODIUM 10 MG TABLET PO (09:19)
[2020-08-04] MEDS: hydroCHLOROthiazide 25 MG TABLET PO (09:19)
[2020-08-04 09:20] VITALS: RESP 16; O2SAT 100
[2020-08-04] MEDS: LORATADINE 10 MG TABLET PO (09:20)
[2020-08-04] MEDS: FLUTICASONE PROPIONATE 0.05% NA SPR 16 GM BTL (*BKC) 2 SPRAY NASAL (09:22)
--- NOTE | 2020-08-04 11:00 | PM.DS ---
DS: Admitting Diagnosis Admitting Diagnosis Admitting Diagnosis: Flank/abdominal pain DS: Discharge Diagnosis Discharge Diagnosis (1) Bacteremia: Code(s): R78.81 - Bacteremia Status: Acute Assessment and Plan: I received information from [facility] which is where the patient originally went to the emergency room and her urine culture and blood cultures were positive x2 for E coli bacteremia with sensitivities to IV Rocephin. Patient is doing better at this time, IV Rocephin was switched to 2 g Q 24 hours for treatment of bacteremia Patient's leukocytosis had normalized, afebrile, non tachycardic, normal blood pressure and oxygenation. Blood cultures at our hospital and urine cultures were negative for any growth. Will give the patient 10 more days of Levaquin for treatment of bacteremia. (2) E. coli UTI: Code(s): N39.0 - Urinary tract infection, site not specified; B96.20 - Unspecified Escherichia coli [E. coli] as the cause of diseases classified elsewhere Status: Acute Assessment and Plan: Positive UTI at [facility]. Sensitive to Rocephin. Continue Levaquin for 10 days which is sensitive (3) Nephrolithiasis: Code(s): N20.0 - Calculus of kidney Status: Acute Assessment and Plan: Patient was transferred to our facility from [facility] in [place] due to the kidney stone for urology services. Patient underwent a cystoscopy 08/02/2020 which showed left ureteral narrowing (underwent dilation), left ureteroscopy, left ureteral stent placement Plan is for the patient follow-up with urology as an outpatient for stent removal in 2 weeks. (4) Chronic back pain: Code(s): M54.9 - Dorsalgia, unspecified; G89.29 - Other chronic pain Status: Acute Assessment and Plan: Patient still having her chronic back pain. Continue home medications at this time since she is not having any more issues with vomiting. (5) Asthma: Code(s): J45.909 - Unspecified asthma, uncomplicated Status: Chronic Assessment and Plan: Continue with inhalers. (6) Chronic GERD: Code(s): K21.9 - Gastro-esophageal reflux disease without esophagitis Status: Chronic Assessment and Plan: Continue with home medications. (7) Bladder spasm: Code(s): N32.89 - Other specified disorders of bladder Status: Acute Assessment and Plan: Urology started p.r.n. oxybutynin for spasming. DS: Summary Hospital Course Reason for hospitalization: Patient is a 64-year-old woman with a history of asthma, hypertension, chronic back pain, who was transferred to our hospital from [facility] for urology services for possible left-sided kidney stone. She had been started on IV ceftriaxone for possible UTI. Repeat urine and blood cultures were taken on arrival. She was placed NPO overnight for urology services. 08/02/2020 she underwent a cystoscopy with dilation of the left ureteral narrowing, left utero scabby, left ureteral stent placement. The patient was kept overnight for further monitoring of her urine culture and blood culture results. I called [facility] on 08/03/2020 to get her culture results which were growing E coli in her urine and both blood cultures. It was sensitive to IV ceftriaxone. Due to her bacteremia ceftriaxone was increased to 2 g and she was admitted for another day of antibiotics and monitoring are repeat blood and urine culture results which ended up coming back negative. Patient was feeling much better and she was stable for discharge to continue oral Levaquin for
--- NOTE | 2020-08-04 14:04 | PC.NURSE ---
On 08/04/20, the student, [Vivian Collazo ], provided care and completed [facility] documentation on this patient. I have reviewed the student's documentation and agree with the findings.
--- NOTE | 2020-08-04 15:25 | PC.NURSE ---
On 08/04/20, the student, [Vivian Collazo ], provided care and completed [facility] documentation on this patient. I have reviewed the student's documentation and agree with the findings.
== END 2020-08-04 11:30 | disposition home or self-care (01) | DRG 660 ==
PROVIDERS: Nurse Practitioner; Physician Assistant; Urology; Admitting Provider Family Medicine; PCP Family Medicine; Visit Provider Family Medicine
PROC: 0T778DZ Dilation of Left Ureter with Intraluminal Device, Via Natural or Artificial Opening Endoscopic (ICD-10-PCS; CPT 52352; principal; 2020-08-02 12:30)
DX: N13.6 Pyonephrosis (principal); R78.81 Bacteremia; B96.20 Unspecified Escherichia coli [E. coli] as the cause of diseases classified elsewhere; N20.0 Calculus of kidney; N32.89 Other specified disorders of bladder; M54.9 Dorsalgia, unspecified; G89.29 Other chronic pain; J45.909 Unspecified asthma, uncomplicated; K21.9 Gastro-esophageal reflux disease without esophagitis; I10 Essential (primary) hypertension; Z79.899 Other long term (current) drug therapy; Z87.891 Personal history of nicotine dependence; Z96.649 Presence of unspecified artificial hip joint
CPT/HCPCS: 36415; 74018; 74019; 74176; 74420; 80048; 81001; 83605; 83735; 84443; 85025; 87040; 87086; 94640; 96361; 96365; 96375; A9270; C1758; C1769; C2617; C9113; G0378; J0696; J1100; J2250; J2405; J2704; J3010; J7042; J7120; Q9966

== ENCOUNTER 2020-08-28 12:59 | Outpatient (CLI) | payer MEDICARE, MEDICAID, SELFPAY ==
--- NOTE | ~2020-08-28 | CT_ITS ---
EXAMINATION: CT abdomen pelvis wo/w con EXAM DATE: 08/28/2020 13:34 INDICATION: Hydronephrosis. Kidney stones, urinary tract infection. TECHNIQUE: Spiral CT of the abdomen and pelvis was performed without contrast. The patient was then injected with small bolus intravenous Omnipaque 350, followed by delay of approximately 10 minutes to allow collecting system to opacify. A post contrast scan abdomen and pelvis was performed during inj ection of remaining contrast. A total of 130 cc intravenous contrast was administered. The dose-eugenia th product (DLP) for this examination was 1764.75 mGy-cm. The exposure was tailored according to pat ient size (auto mA exposure control), and iterative reconstruction (ASIR) was used as additional dose reduction technique. Comparison is made to prior examination from 08/02/2020. FINDINGS: Mildly patulous left renal collecting system compared to the contralateral side, with impr ovement compared to prior study. Previously seen left perinephric fat stranding has resolved. Mid po rtions of both ureters are nondistended. The distal most aspects poorly visualized from metallic ivon fact due to hip replacements. The kidneys enhance symmetrically. There are no suspicious renal lesi ons. Again there is large mass contiguous to the uterus most likely an exophytic fibroid measuring 1 0 cm. The liver, spleen, and pancreas are unremarkable. There is left adrenal hyperplasia. Gallbladder is u nremarkable. No biliary obstruction. There is no retroperitoneal or pelvic lymphadenopathy. There is moderate scattered arteriosclerotic disease. The appendix is not positively visualized. There is no pericecal inflammatory change to suggest appe ndicitis. The stomach and small bowel are unremarkable. There is expected amount of colonic stool. No free intraperitoneal gas. The heart is normal in size. There are no pericardial or pleural e ffusions. The lung bases are unremarkable. There are no osteoblastic or osteolytic lesions identifi ed. There is severe lower lumbar facet arthropathy IMPRESSION: 1. Resolution of previously seen left perinephric fat stranding. Mildly patulous left collecting sys tem, could be transient. Bladder and distal aspects of the ureters are poorly evaluated due to artifa ct from hip replacements. 2. 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 3. Left adrenal hyperplasia. Reviewed, dictated and finalized at location A. IMPRESSION: 1. Resolution of previously seen left perinephric fat stranding. Mildly patulo us left collecting system, could be transient. Bladder and distal aspects of th e ureters are poorly evaluated due to artifact from hip replacements. 2. 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 3. Left adrenal hyperplasia.
== END 2020-08-28 13:00 | disposition home or self-care (01) ==
PROVIDERS: PCP Family Medicine; Visit Provider Urology
DX: N13.30 Unspecified hydronephrosis (principal)
CPT/HCPCS: 74178; Q9967

== ENCOUNTER 2021-02-13 15:42 | Emergency (ER) | payer MEDICARE, MEDICAID, SELFPAY ==
--- NOTE | ~2021-02-13 | US_ITS ---
EXAMINATION: US venous doppler LE RT EXAM DATE: 02/13/2021 16:45 INDICATION: edema, erythema, pain right leg. TECHNIQUE: Multiple grayscale, color flow, Doppler sonographic images of the right upper extremity ve ins obtained by technologist. Compression was performed where able. There is no prior study for monalisa glover. FINDINGS: Right upper extremity: Jugular vein: ------------> Normal. Subclavian vein: --------> Normal. Axillary vein:------------> Normal. Brachial vein:-----------> Normal. Basilic vein: ------------> Normal. Cephalic vein: ----------> Normal. Radial vein: ------------> Normal. Ulnar vein: > Normal. IMPRESSION: No deep venous thrombosis of the right upper extremity. Reviewed, dictated and finalized at location B.
[2021-02-13 15:54] VITALS: BP 164/105; PULSE 91; RESP 16; TEMP 36.7; O2SAT 99
--- NOTE | 2021-02-13 16:55 | ED.LOWEXIN ---
HPI - Extremity Injury (Lower) General Chief Complaint: Extremity Injury, Lower Stated Complaint: ?Rt leg DVT Time Seen by Provider: 02/13/21 16:17 Source: patient Mode of arrival: ambulatory Limitations: no limitations History of Present Illness HPI Narrative: This is a 65 year old female that presents to the ER for right lower extremity pain and swelling noted since yesterday. No recent injuries. Also reports redness. Reports pain in the foot and calf. She was seen at [facility] and started on Eliquis for suspected DVT. She was supposed to have an US scheduled for outpatient. She was unable to do this which prompted her to be seen at [place] today. Denies fever. Related Data Home Medications Medication Instructions Recorded Confirmed Incruse Ellipta 1 inh INHALATION DAILY 08/01/20 08/01/20 albuterol sulfate 2.5 mg INHALATION TID PRN 08/01/20 08/01/20 albuterol sulfate [ProAir HFA] 2 puff INHALATION Q4H PRN 08/01/20 08/01/20 cetirizine [Zyrtec] 10 mg PO DAILY 08/01/20 08/01/20 famotidine [Pepcid] 20 mg PO BID 08/01/20 08/01/20 fluticasone propionate 2 spray INTRANASAL DAILY 08/01/20 08/01/20 hydrocodone-acetaminophen 1 tablet PO BID PRN 08/01/20 08/01/20 ibuprofen 800 mg PO TID PRN 08/01/20 08/01/20 losartan-hydrochlorothiazide 1 tablet PO DAILY 08/01/20 08/01/20 [Hyzaar] montelukast [Singulair] 10 mg PO DAILY 08/01/20 08/01/20 Allergies Allergy/AdvReac Type Severity Reaction Status Date / Time No Known Allergies Allergy Unknown Unverified 08/01/20 14:40 Review of Systems Review of Systems: CONSTITUTIONAL: Denies fever CARDIOVASCULAR: Denies chest pain RESPIRATORY: Denies dyspnea. MUSCULOSKELETAL: Reports myalgia. All systems reviewed & are unremarkable except as noted in HPI and below PMFSH Past Medical History Medical History Asthma Chronic back pain Chronic GERD Hiatal hernia Hypertension Nephrolithiasis Osteoarthritis Surgical History Surgical History History of total hip replacement Family History Family History Mother Hypertension Social History Social History Social History: Patient stated she smoked about 30 years ago but has not smoke since then. She is disabled. 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 She desires to be a full code. She has 3 children. She does not use alcohol marijuana or illicit drugs. Smoking status: Former smoker Tobacco type: cigarettes Alcohol intake: never Substance use type: marijuana Last use: 07/31/20 Gender identity (if verbalized by the patient): Female Spiritual care concerns: No Exam Narrative: GENERAL: Well-appearing, well-nourished, and in no acute distress. HEAD: Normocephalic, atraumatic. EYES: EOMI. CHEST: No respiratory distress. HEART: Regular rate EXTREMITIES: Normal range of motion. Mild edema about the right lower leg and foot with overlying redness. Normal DP pulses. Normal sensation SKIN: Warm, dry, no rash. NEURO: No focal deficits. Alert and oriented x3. PSYCH: Normal mood and affect Course Vital Signs Vital signs: Vital Signs Temperature 98.0 F 02/13/21 15:54 Pulse Rate 91 02/13/21 15:54 Respiratory Rate 16 02/13/21 15:54 Blood Pressure 164/105 H 02/13/21 15:54 Pulse Oximetry 99 02/13/21 15:54 Temperature 98.0 F 02/13/21 15:54 Pulse Rate 91 02/13/21 15:54 Respiratory Rate 16 02/13/21 15:54 Blood Pressure 164/105 H 02/13/21 15:54 Pulse Oximetry 99 02/13/21 15:54 MDM - Extremity Injury (Lower) MDM Narrative Medical decision making narrative: Patient presents the emergency department for right lower extremity swelling and pain. Also with mild erythema. She is afebrile and nontoxic-appearing. Vitals are stable. CBC is without concerning
[2021-02-13 17:05] LABS: Basophils Percent Auto 0.4 % (0.2-1.2); Eosinophils Absolute Auto 0.1 K/mm3 (0-0.3); Eosinophils Percent Auto 1.5 % (0-4.4); Hematocrit 39.5 % (37.0-47.0); Hemoglobin 12.7 g/dL (12.0-15.0); Immature Granulocyte Absolute 0.05 K/mm3 (0.00-0.031); Immature Granulocyte Percent A 0.7 % (0-0.5); Lymphocytes Absolute Auto 1.22 K/mm3 (0.9-3.2); Lymphocytes Percent Auto 16.2 % (18.3-44.2); Mean Corpuscular HGB Conc 32.2 g/dl (32-36); Mean Corpuscular Hemoglobin 31.1 pg (26-34); Mean Corpuscular Volume 96.8 fl (80-100); Mean Platelet Volume 9.9 fl (7.4-10.4); Monocytes Absolute Auto 0.9 K/mm3 (0.1-0.6); Monocytes Percent Auto 12.4 % (2.6-8.5); Neutrophils Absolute Auto 5.2 K/mm3 (1.3-6.7); Neutrophils Percent Auto 68.8 % (45.5-73.1); Platelet Count Result 264 k/mm3 (150-375); Red Blood Count 4.08 M/mm3 (4.2-5.4); White Blood Count 7.5 K/mm3 (4.5-10.0)
[2021-02-13 17:14] LABS: INR 1.2; Prothrombin Time 15.4 Seconds (11.1-14.7)
[2021-02-13 17:15] LABS: Partial Thromboplastin Time 38.5 SECONDS (22.3-36.8)
[2021-02-13 17:20] LABS: Anion Gap 8 mmol/L (8-16); Blood Urea Nitrogen 16 mg/dL (7-17); Calcium 9.4 mg/dL (8.4-10.2); Carbon Dioxide 33 mmol/L (22-30); Chloride 98 mmol/L (98-107); Estimated CRCL calculation 75 ml/min; Estimated Glomerular Filt Rate > 60; Glucose 102 mg/dL (65-110); Potassium 2.9 mmol/L (3.4-5.0); Sodium 139 mmol/L (137-145)
[2021-02-13 17:25] LABS: CRP 6.7 mg/dL (<1.0)
[2021-02-13 17:40] LABS: Erythrocyte Sedimentation Rate 65 mm/hr (0-20)
[2021-02-13] MEDS: POTASSIUM CHLORIDE 20 MEQ TABLET 40 MEQ PO (17:48)
[2021-02-13] MEDS: ACETAMINOPHEN 500 MG TABLET 1000 MG PO (18:16)
[2021-02-13 18:24] VITALS: BP 131/96; PULSE 84; RESP 18; O2SAT 98
[2021-02-13 18:35] VITALS: TEMP 36.7
== END 2021-02-13 18:30 | disposition home or self-care (01) ==
PROVIDERS: Physician Assistant; Emergency Provider Emergency Medicine; PCP Family Medicine
DX: E87.6 Hypokalemia (principal); L03.115 Cellulitis of right lower limb; G89.29 Other chronic pain; I10 Essential (primary) hypertension; M19.90 Unspecified osteoarthritis, unspecified site; Z87.09 Personal history of other diseases of the respiratory system; Z87.19 Personal history of other diseases of the digestive system
CPT/HCPCS: 36415; 80048; 85025; 85610; 85652; 85730; 86140; 93971; 99284; A9270

== ENCOUNTER 2021-02-19 08:12 | Observation (INO) | payer MEDICARE, MEDICAID, SELFPAY ==
--- NOTE | ~2021-02-19 | US_ITS ---
EXAMINATION: US venous doppler LE RT DATE: 02/19/2021 12:32 INDICATION: Right lower limb edema. TECHNIQUE: Grayscale ultrasound images without and with compression and Doppler ultrasound images of the right lower extremity veins were obtained. COMPARISON: Ultrasound 02/13/2021 FINDINGS: The visualized portions of right common femoral vein, profunda (deep) femoral vein, femoral vein, pop liteal vein, peroneal veins, posterior tibial veins, and greater saphenous vein outflow are patent. IMPRESSION: 1. No deep venous thrombosis. Reviewed, dictated and finalized at location A.
--- NOTE | ~2021-02-19 | XR_ITS ---
EXAMINATION: XR ankle RT min 3V DATE: 02/19/2021 09:41 INDICATION: Right ankle pain. TECHNIQUE: 4 views of right ankle were obtained. COMPARISON: None. FINDINGS: Bone alignment is normal. No fracture. There is mild osteoarthritis of the ankle joint and talonavicular joint. There are enthesophytes at the posterior and plantar aspects of calcaneal tubero sity. Ankle soft tissue swelling is noted. IMPRESSION: 1. Polyarticular osteoarthritis. Reviewed, dictated and finalized at location A.
--- NOTE | ~2021-02-19 | XR_ITS ---
EXAMINATION: XR tibia fibula RT 2V EXAM DATE: 02/19/2021 09:41 INDICATION: Right leg pain, cellulitis. TECHNIQUE: Right tibia/fibula frontal and lateral projections obtained and reviewed. There is no eduard or study for comparison. FINDINGS: Right tibial and fibular shafts unremarkable. There is moderate right knee, mild ankle eduard iris osteoarthritis. There are no acute fractures or dislocations identified. There is no subcutaneo us gas. There is soft tissue swelling, subcutaneous edema over the lower leg. There are no radiopaq ue foreign bodies. IMPRESSION: Subcutaneous edema. Osteoarthritis. Reviewed, dictated and finalized at location B.
[2021-02-19 08:10] VITALS: BP 132/77; PULSE 82; RESP 16; TEMP 36.8; O2SAT 98
--- NOTE | 2021-02-19 09:06 | ED.GENADULT ---
HPI - General Adult General Chief complaint: Extremity Problem,Nontraumatic Stated complaint: right leg pain/swelling Time Seen by Provider: 02/19/21 08:14 History of Present Illness HPI narrative: Patient is a 65-year-old female with history of hypertension and COPD who comes into the ED today with concerns that her right leg cellulitis is not responding to the oral antibiotics. Patient reports that for about the last 10 days she has had right leg pain and swelling, this started shortly after coming back from a trip from [place]. While on the trip she did not do any swimming or was not any type of hot tubs. She denies any fevers or nausea or any systemic symptoms. She was seen here on February 13 for the symptoms, Doppler was negative for DVT, she had a normal WBC of 7.5. Her potassium was 2.9 incidentally. She was diagnosed with cellulitis and started on Keflex to take 4 times a day for 7 days. She has been compliant with this but has not noticed any change in her symptoms prompting her to return to the ED today. She does note that about 15 years ago she had cellulitis in her right leg that ended a requiring IV antibiotics. Related Data Home Medications Medication Instructions Recorded Confirmed Incruse Ellipta 1 inh INHALATION DAILY 08/01/20 08/01/20 albuterol sulfate 2.5 mg INHALATION TID PRN 08/01/20 08/01/20 albuterol sulfate [ProAir HFA] 2 puff INHALATION Q4H PRN 08/01/20 08/01/20 cetirizine [Zyrtec] 10 mg PO DAILY 08/01/20 08/01/20 famotidine [Pepcid] 20 mg PO BID 08/01/20 08/01/20 fluticasone propionate 2 spray INTRANASAL DAILY 08/01/20 08/01/20 hydrocodone-acetaminophen 1 tablet PO BID PRN 08/01/20 08/01/20 ibuprofen 800 mg PO TID PRN 08/01/20 08/01/20 losartan-hydrochlorothiazide 1 tablet PO DAILY 08/01/20 08/01/20 [Hyzaar] montelukast [Singulair] 10 mg PO DAILY 08/01/20 08/01/20 Allergies Allergy/AdvReac Type Severity Reaction Status Date / Time No Known Allergies Allergy Unknown Verified 02/19/21 08:20 Review of Systems Constitutional: Constitutional: Reports as per HPI, Denies fever(s), Denies night sweats and Denies weakness Cardiovascular: Cardiovascular: Denies chest pain, Denies edema, Denies leg edema, Denies dyspnea and Denies orthopnea Respiratory: Respiratory: Denies cough and Denies dyspnea Gastrointestinal: Gastrointestinal: Denies abdominal pain, Denies constipation, Denies diarrhea, Denies nausea and Denies vomiting Musculoskeletal: Musculoskeletal: Denies abnormal gait, Denies back pain, Denies numbness and Denies tingling Comments: See HPI for right leg pain Integumentary/Breasts: Comments: See HPI for right leg edema Neurologic: Denies Abnormal speech present, Denies abnormal gait, Denies numbness, Denies tingling and Denies weakness Psychiatric: Psychiatric: Denies homicidal ideation and Denies suicidal ideation FOR[facility]LY [facility], [facility] Past Medical History Medical History Asthma Chronic back pain Chronic GERD Hiatal hernia Hypertension Nephrolithiasis Osteoarthritis Surgical History Surgical History History of total hip replacement Family History Family History Mother Hypertension Social History Social History Social History: Patient stated she smoked about 30 years ago but has not smoke since then. She is disabled. She does not have a durable power environmental attorney. She desires to be a full code. She has 3 children. She does not use alcohol marijuana or illicit drugs. Smoking status: Former smoker Tobacco type: cigarettes Alcohol intake: never Substance use type: marijuana Last use: 07/31/20 Gender identity (if verbalized by the patient): Female Spiritual care concerns: No Exam Const: General: cooperative, healthy appearing, no acute distr
[2021-02-19] MEDS: KETOROLAC 15 MG/ML VIAL (*BKC) IV PUSH (10:08)
[2021-02-19] MEDS: CLINDAMYCIN 600 MG/D5W 50 ML 600 MG/50 ML PIGGYBACK 100 MG IVPB ×2 (10:10→17:09)
[2021-02-19 10:13] LABS: Basophils Percent Auto 0.3 % (0.2-1.2); Eosinophils Absolute Auto 0.1 K/mm3 (0-0.3); Eosinophils Percent Auto 0.8 % (0-4.4); Hematocrit 42.3 % (37.0-47.0); Hemoglobin 13.6 g/dL (12.0-15.0); Immature Granulocyte Absolute 0.08 K/mm3 (0.00-0.031); Immature Granulocyte Percent A 0.7 % (0-0.5); Lymphocytes Absolute Auto 1.35 K/mm3 (0.9-3.2); Lymphocytes Percent Auto 12.5 % (18.3-44.2); Mean Corpuscular HGB Conc 32.2 g/dl (32-36); Mean Corpuscular Hemoglobin 31.6 pg (26-34); Mean Corpuscular Volume 98.4 fl (80-100); Mean Platelet Volume 9.6 fl (7.4-10.4); Monocytes Absolute Auto 0.6 K/mm3 (0.1-0.6); Monocytes Percent Auto 5.5 % (2.6-8.5); Neutrophils Absolute Auto 8.7 K/mm3 (1.3-6.7); Neutrophils Percent Auto 80.2 % (45.5-73.1); Platelet Count Result 376 k/mm3 (150-375); Red Cell Distribution Width 13.2 % (11.5-14.5); White Blood Count 10.8 K/mm3 (4.5-10.0)
[2021-02-19 10:27] LABS: Alanine Aminotransferase 16 U/L (4-35); Albumin Level 4.4 g/dL (3.5-5.1); Alkaline Phosphatase 93 U/L (38-126); Anion Gap 7 mmol/L (8-16); Aspartate Amino Transferase 25 U/L (14-36); Bilirubin,Total 0.6 mg/dL (0.2-1.3); Blood Urea Nitrogen 13 mg/dL (7-17); Calcium 10.1 mg/dL (8.4-10.2); Carbon Dioxide 33 mmol/L (22-30); Chloride 101 mmol/L (98-107); Estimated CRCL calculation 68 ml/min; Estimated Glomerular Filt Rate > 60; Glucose 94 mg/dL (65-110); Magnesium 2.3 mg/dL (1.6-2.3); Potassium 3.6 mmol/L (3.4-5.0); Sodium 141 mmol/L (137-145)
[2021-02-19] MEDS: MORPHINE SULFATE (*CRX) 4 MG/ML INJ IV PUSH (10:56)
[2021-02-19] MEDS: BENZONATATE 100 MG CAPSULE 200 MG PO (12:32)
--- NOTE | 2021-02-19 13:25 | PM.IMHP ---
H&P: HPI History of Present Illness Date/Time: 02/19/21 13:25 Chief Complaint: Worsening right leg cellulitis. Narrative: This is a 65-year-old female with hypertension, COPD, and GERD who presented to the emergency department earlier today via private vehicle from home for evaluation of worsening right leg cellulitis. For about the last 10 days she has had pain and swelling in her right leg which started shortly after returning back from a trip to [place], [place]. She was seen in the emergency department last week on the at which time she was diagnosed with cellulitis and sent home on Keflex for total of 7 days. Venous Doppler ultrasound at that time was negative for DVT. She has been compliant with her antibiotics however has not noticed any significant improvement she continues to have discomfort in that leg with weight-bearing. She is now being admitted for IV antibiotics. She reports a history of cellulitis in the same leg about 15 years ago also requiring IV antibiotics. No known history of MRSA. She has not had any bites or scratches to the leg. She was not in any swimming pools or hot tubs while on vacation. She has not had fever, chills, or sweats. No nausea or vomiting. Review of Systems Review of Systems: Twelve systems were reviewed with pertinent positives and negatives as per HPI. Except as documented, all other systems were reviewed and are negative. [facility] Past Medical History Medical History Anxiety Asthma Chronic back pain Chronic GERD Chronic obstructive pulmonary disease Hiatal hernia Hypertension Nephrolithiasis Osteoarthritis Surgical History Surgical History (Updated 02/19/21 @ 13:36 by Laurel Jaquez PA-C) History of section History of total hip replacement (05/2013) History of total left hip replacement (12/2014) Family History Family History Mother Hypertension Social History Social History (Updated 02/19/21 @ 22:01 by Laurel Jaquez PA-C) Social History: Lives in [place], [place]. She has 3 children. Former [employer]. She smoked a pack of cigarettes a day for 27 years and quit in 1989. No alcohol or drug abuse. Candy Bowen, daughter. Code status: Full code. Meds Home Medications and Allergies Home Medications Medication Instructions Recorded Confirmed Type Incruse Ellipta 1 inh INHALATION DAILY 08/01/20 02/19/21 History albuterol sulfate [ProAir HFA] 2 puff INHALATION Q4H PRN 08/01/20 02/19/21 History cetirizine [Zyrtec] 10 mg PO DAILY 08/01/20 02/19/21 History famotidine [Pepcid] 20 mg PO BID 08/01/20 02/19/21 History fluticasone propionate 2 spray INTRANASAL DAILY 08/01/20 02/19/21 History hydrocodone-acetaminophen 1 tablet PO BID PRN 08/01/20 02/19/21 History ibuprofen 800 mg PO TID PRN 08/01/20 02/19/21 History losartan-hydrochlorothiazide 1 tablet PO DAILY 08/01/20 02/19/21 History [Hyzaar] montelukast [Singulair] 10 mg PO DAILY 08/01/20 02/19/21 History oxybutynin chloride 5 mg PO TID 7 Days #21 tablet 08/03/20 02/19/21 Rx Saccharomyces boulardii [Florastor] 250 mg PO DAILY #14 cap 08/04/20 02/19/21 Rx levofloxacin 750 mg PO DAILY 10 Days #10 tablet 08/04/20 02/19/21 Rx Allergies Allergy/AdvReac Type Severity Reaction Status Date / Time No Known Allergies Allergy Unknown Verified 02/19/21 19:13 Vital Signs Vital Signs - 24 hr 02/19/21 08:10 Temperature 98.2 F Pulse Rate 82 Respiratory Rate 16 Blood Pressure 132/77 Pulse Oximetry 98 Exam Narrative: General: Well-developed, well-nourished female sitting up in bed no distress. Weight: 81.8 kg. BMI: 33.0. HEENT: Normocephalic, atraumatic. PERRL, EOMI. Sclerae anicteric. Moist mucous membranes. Neck: Supple. Respiratory: Lungs are clear to auscultation bilaterally. Cardiovascular: Regular rate and rhythm with S1-S2. Gastrointestinal: Abdomen is soft, nontender, and
[2021-02-19 13:40] VITALS: BP 108/59; PULSE 80; RESP 16; O2SAT 97
[2021-02-19 14:00] VITALS: BP 131/63; PULSE 78; RESP 24; TEMP 36.3; O2SAT 98
--- NOTE | 2021-02-19 14:47 | ADMGEN ---
This patient, Barbi Fernandes, was admitted to [facility] S[facility] Room 327-01 at 1355. Patient/family oriented to hospital policies and general routines including ID bracelet, bed and alarms, visiting hours, pain management, procedures, bathroom and other care routines, personal items, smoking policy, room service/diet, and visiting hours. Information on how to activate the Rapid Response Team has been discussed. Patient/Family are encouraged to report perceived risks to care and to ask questions if they do not understand what they are told or what they should do.
[2021-02-19 15:41] LABS: CRP 3.3 mg/dL (<1.0)
[2021-02-19 22:00] VITALS: BP 130/70; PULSE 97; RESP 20; TEMP 36.6; O2SAT 98
[2021-02-20] MEDS: guaiFENesin 200 MG/10 ML UDC PO
[2021-02-20] MEDS: CLINDAMYCIN 600 MG/D5W 50 ML 600 MG/50 ML PIGGYBACK 100 MG IVPB ×3 (02:25→17:32)
[2021-02-20 06:00] VITALS: BP 135/73; PULSE 91; RESP 20; TEMP 37.1; O2SAT 99
[2021-02-20] MEDS: HYDROcodone/acetaminophen (*CRX) 10-325 MG TABLET 1 TAB PO ×2 (06:52→17:48)
[2021-02-20] MEDS: MONTELUKAST SODIUM 10 MG TABLET PO (08:35)
[2021-02-20] MEDS: LOSARTAN POTASSIUM 100 MG TABLET PO (08:35)
[2021-02-20] MEDS: FAMOTIDINE 20 MG TABLET PO ×2 (08:35→17:32)
[2021-02-20] MEDS: SACCHAROMYCES BOULARDII 250 MG CAPSULE PO (08:35)
[2021-02-20] MEDS: hydroCHLOROthiazide 25 MG TABLET PO (08:35)
[2021-02-20] MEDS: LORATADINE 10 MG TABLET PO (08:35)
[2021-02-20] MEDS: FLUTICASONE PROPIONATE 0.05% NA SPR 16 GM BTL (*BKC) 2 SPRAY NASAL (08:36)
[2021-02-20] MEDS: UMECLIDINIUM BROMIDE 62.5 MCG ELLIPTA 1 PUFF INHALATION (08:56)
[2021-02-20 08:59] VITALS: PULSE 107; RESP 20
[2021-02-20 09:01] VITALS: O2SAT 93
[2021-02-20] MEDS: ENOXAPARIN 40 MG/0.4 ML SYRINGE SUB-Q (10:35)
--- NOTE | 2021-02-20 13:50 | PM.IMPN ---
Progress Note: A&P Assessment and Plan (1) Cellulitis of right leg: Code(s): L03.115 - Cellulitis of right lower limb Status: Acute Assessment and Plan: Leg is red and swollen with an opening between the 3rd and 4th toe IV clindamycin Encourage elevation of affected extremity. Trend white count White blood cell count 10.8 Wound care nurse consult (2) Hypertension: Code(s): I10 - Essential (primary) hypertension Status: Chronic Assessment and Plan: Current blood pressure 135/73 Continue losartan/hydrochlorothiazide Trend blood pressures Adjust medications as needed (3) Chronic obstructive pulmonary disease: Code(s): J44.9 - Chronic obstructive pulmonary disease, unspecified Status: Acute Assessment and Plan: No acute issues. Continue maintenance inhalers. Continue singular 10 mg p.o. daily Incruse Ellipta 1 inhalation daily albuterol Time Spent With Patient Time with patient: 25 - 35 minutes Subjective Date/time seen: 02/20/21 10:00 Interval history: Patient is 65-year-old female who is here for right lower leg cellulitis. Patient states that she feels good today however she does have pain in that right foot. Her pain is at the ankle and it is hard for her to walk on it. She also reports that she has an opening between the 3rd and 4th toe. Leg does look red no heat however it is swollen with 2-3 pitting edema. She denied having chest pain, shortness of breath, weakness, fatigue, sweats, fevers, chills. Patient did state that she is ready to go home however I think the patient needs more IV antibiotics. Review of Systems Review of Systems: All systems reviewed & are unremarkable except as noted in HPI and below Exam Const: General: cooperative, healthy appearing, comfortable, no acute distress, well developed, alert and awake Nutritional Appearance: well nourished Orientation/consciousness: oriented to person, oriented to place, oriented to time and patient oriented x3 Limitations: physical limitations HENMT: Head: normal to inspection Ears: hearing grossly normal bilaterally General nose exam: Normal external nose present Mouth: Yes Normal oral and palatal mucosa present, Yes lip normal and Yes tongue normal Teeth and gingiva: abnormal tooth and associated gingiva and poor dentition Eyes: General: appearance normal, both eyes and all related structures Neck: Neck: normal visual inspection, full ROM, trachea midline and supple Chest: Chest palpation & inspection: normal inspection of the chest Resp: Effort & Inspection: normal respiratory effort and able to speak in complete sentences Auscultation: clear to auscultation bilaterally Cardio: Jugular venous distension: no JVD Rate: regular rate Rhythm: regular rhythm Heart sounds: S1 normal heart sound present and S2 normal heart sound present Peripheral pulses: Peripheral pulses 2+ throughout GI: Inspection: normal to inspection GI Palp: Yes Soft to palpation and No Tenderness to palpation present (GI) Auscultation: normal bowel sounds Skin: General skin exam: normal color and no rashes or lesions noted Lesions: no lesions Rashes: no rashes Trauma: no lacerations or abrasions Wounds: no wounds Hair: normal Nails: normal Neuro: General: patient oriented x3, moves all extremities and Normal light touch and pain sensation Speech: normal speech Gait exam (Neuro): Normal gait present Extrem: General: normal to inspection, full ROM and capillary refill normal Right upper extremity: normal to inspection, full ROM and normal capillary refill Left upper extremity: normal to inspection, full ROM and normal capillary refill Right lower extremity: normal to inspection, full ROM, normal capillary refill and edema Details: pitting and 2+ Left lower extremity: normal to inspection, full ROM and normal capillary refill Psych: Appearance: grossly normal Objective Data Vital Sign
[2021-02-20 14:00] VITALS: BP 135/81; PULSE 84; RESP 24; TEMP 36.4; O2SAT 98
[2021-02-20] MEDS: MICONAZOLE NITRATE 2% CREAM 30 GM TUBE 1 APPLIC TOPICAL ×2 (16:11→21:38)
[2021-02-20 20:30] VITALS: PULSE 89; RESP 20; O2SAT 95
[2021-02-20 22:00] VITALS: BP 100/58; PULSE 89; RESP 20; TEMP 36.8; O2SAT 95
[2021-02-21] MEDS: CLINDAMYCIN 600 MG/D5W 50 ML 600 MG/50 ML PIGGYBACK 100 MG IVPB ×3 (02:56→17:17)
[2021-02-21] MEDS: HYDROcodone/acetaminophen (*CRX) 10-325 MG TABLET 1 TAB PO ×3 (03:17→20:32)
[2021-02-21 06:00] VITALS: BP 103/76; PULSE 84; RESP 20; TEMP 36.7; O2SAT 96
[2021-02-21 07:05] LABS: Basophils Percent Auto 0.5 % (0.2-1.2); Eosinophils Absolute Auto 0.1 K/mm3 (0-0.3); Eosinophils Percent Auto 1.1 % (0-4.4); Hematocrit 36.3 % (37.0-47.0); Hemoglobin 11.5 g/dL (12.0-15.0); Immature Granulocyte Absolute 0.05 K/mm3 (0.00-0.031); Immature Granulocyte Percent A 0.6 % (0-0.5); Lymphocytes Absolute Auto 1.58 K/mm3 (0.9-3.2); Lymphocytes Percent Auto 18.8 % (18.3-44.2); Mean Corpuscular HGB Conc 31.7 g/dl (32-36); Mean Corpuscular Hemoglobin 31.1 pg (26-34); Mean Corpuscular Volume 98.1 fl (80-100); Mean Platelet Volume 9.9 fl (7.4-10.4); Monocytes Absolute Auto 0.6 K/mm3 (0.1-0.6); Monocytes Percent Auto 6.7 % (2.6-8.5); Neutrophils Absolute Auto 6.1 K/mm3 (1.3-6.7); Neutrophils Percent Auto 72.3 % (45.5-73.1); Platelet Count Result 347 k/mm3 (150-375); Red Cell Distribution Width 13.1 % (11.5-14.5); White Blood Count 8.4 K/mm3 (4.5-10.0)
[2021-02-21 07:16] LABS: Alanine Aminotransferase 13 U/L (4-35); Albumin Level 3.9 g/dL (3.5-5.1); Alkaline Phosphatase 69 U/L (38-126); Anion Gap 6 mmol/L (8-16); Aspartate Amino Transferase 21 U/L (14-36); Bilirubin,Total 0.3 mg/dL (0.2-1.3); Blood Urea Nitrogen 19 mg/dL (7-17); Calcium 9.6 mg/dL (8.4-10.2); Carbon Dioxide 30 mmol/L (22-30); Chloride 102 mmol/L (98-107); Estimated CRCL calculation 60 ml/min; Estimated Glomerular Filt Rate > 60; Glucose 130 mg/dL (65-110); Magnesium 2.1 mg/dL (1.6-2.3); Sodium 138 mmol/L (137-145)
--- NOTE | 2021-02-21 08:14 | PM.IMPN ---
Progress Note: A&P Assessment and Plan (1) Cellulitis of right leg: Code(s): L03.115 - Cellulitis of right lower limb Status: Acute Assessment and Plan: Leg is red and swollen with an opening between the 3rd and 4th toe IV clindamycin Encourage elevation of affected extremity. Trend white count White blood cell count 8.4 Wound care nurse consult (2) Hypertension: Code(s): I10 - Essential (primary) hypertension Status: Chronic Assessment and Plan: Current blood pressure 103/76 Continue losartan/hydrochlorothiazide Trend blood pressures Adjust medications as needed (3) Chronic obstructive pulmonary disease: Code(s): J44.9 - Chronic obstructive pulmonary disease, unspecified Status: Acute Assessment and Plan: No acute issues. Probably the cause of the chronic Continue maintenance inhalers. Continue singular 10 mg p.o. daily Incruse Ellipta 1 inhalation daily albuterol Time Spent With Patient Time with patient: Greater than 35 minutes Subjective Date/time seen: 02/21/21 08:14 Interval history: Patient is 65-year-old female who is here for right lower leg cellulitis. patient stated that she is doing okay today however she still has pain when she walks and her right ankle is hurting. She did state that the redness has gone down and swelling. She also stated that she is ready to go home however it seems that she has some heat in that leg particular in the ankle with 2 to 3+ pitting edema. She does also have a cough which she said she has had for about 10 years. She stated that she does not anything up with the and that is chronic. She denied having chest pain, shortness of breath, weakness, fatigue, sweats, fevers, chills. Review of Systems Review of Systems: All systems reviewed & are unremarkable except as noted in HPI and below Exam Const: General: cooperative, healthy appearing, comfortable, no acute distress, well developed, alert, awake and Physically active Nutritional Appearance: well nourished, obese and overweight Orientation/consciousness: oriented to person, oriented to place, oriented to time and patient oriented x3 Limitations: physical limitations HENMT: Head: normal to inspection Ears: hearing grossly normal bilaterally General nose exam: Normal external nose present Mouth: Yes Normal oral and palatal mucosa present, Yes lip normal and Yes tongue normal Teeth and gingiva: abnormal tooth and associated gingiva and poor dentition Eyes: General: appearance normal, both eyes and all related structures Neck: Neck: normal visual inspection, full ROM, trachea midline and supple Chest: Chest palpation & inspection: normal inspection of the chest Resp: Effort & Inspection: normal respiratory effort and able to speak in complete sentences Auscultation: clear to auscultation bilaterally Cardio: Jugular venous distension: no JVD Rate: regular rate Rhythm: regular rhythm Heart sounds: S1 normal heart sound present and S2 normal heart sound present Peripheral pulses: Peripheral pulses 2+ throughout GI: Inspection: normal to inspection Auscultation: normal bowel sounds Skin: General skin exam: normal color and no rashes or lesions noted Lesions: no lesions Rashes: no rashes Trauma: no lacerations or abrasions Wounds: no wounds Hair: normal Nails: normal Neuro: General: oriented to person, oriented to place, oriented to time, patient oriented x3, moves all extremities and Normal light touch and pain sensation Speech: normal speech Gait exam (Neuro): Normal gait present Extrem: General: normal to inspection, full ROM and capillary refill normal Right upper extremity: normal to inspection, full ROM and normal capillary refill Left upper extremity: normal to inspection, full ROM and normal capillary refill Right lower extremity: normal to inspection, full ROM, normal capillary refill, edema Details: pitting and 2+ and ankl
[2021-02-21] MEDS: hydroCHLOROthiazide 25 MG TABLET PO (08:17)
[2021-02-21] MEDS: SACCHAROMYCES BOULARDII 250 MG CAPSULE PO (08:17)
[2021-02-21] MEDS: MONTELUKAST SODIUM 10 MG TABLET PO (08:17)
[2021-02-21] MEDS: LOSARTAN POTASSIUM 100 MG TABLET PO (08:17)
[2021-02-21] MEDS: MICONAZOLE NITRATE 2% CREAM 30 GM TUBE 1 APPLIC TOPICAL ×2 (08:17→20:32)
[2021-02-21] MEDS: LORATADINE 10 MG TABLET PO (08:17)
[2021-02-21] MEDS: ENOXAPARIN 40 MG/0.4 ML SYRINGE SUB-Q (08:17)
[2021-02-21] MEDS: FAMOTIDINE 20 MG TABLET PO ×2 (08:17→17:18)
[2021-02-21] MEDS: FLUTICASONE PROPIONATE 0.05% NA SPR 16 GM BTL (*BKC) 2 SPRAY NASAL (08:18)
[2021-02-21 09:39] VITALS: O2SAT 95
[2021-02-21] MEDS: UMECLIDINIUM BROMIDE 62.5 MCG ELLIPTA 1 PUFF INHALATION (09:39)
[2021-02-21 14:00] VITALS: BP 123/65; PULSE 84; RESP 12; TEMP 36.2; O2SAT 97
[2021-02-21] MEDS: BISACODYL 5 MG TABLET EC 10 MG PO (16:07)
[2021-02-21 22:00] VITALS: BP 132/70; PULSE 81; RESP 18; TEMP 36.4; O2SAT 100
[2021-02-22] MEDS: guaiFENesin/DEXTROMETHORPHAN 10 ML UDC PO (00:59)
[2021-02-22] MEDS: CLINDAMYCIN 600 MG/D5W 50 ML 600 MG/50 ML PIGGYBACK 100 MG IVPB ×2 (01:03→09:37)
[2021-02-22 06:00] VITALS: BP 133/71; PULSE 84; RESP 18; TEMP 36.4; O2SAT 98
[2021-02-22 07:09] LABS: Basophils Percent Auto 0.4 % (0.2-1.2); Eosinophils Absolute Auto 0.1 K/mm3 (0-0.3); Eosinophils Percent Auto 1.6 % (0-4.4); Hematocrit 36.9 % (37.0-47.0); Hemoglobin 11.6 g/dL (12.0-15.0); Immature Granulocyte Absolute 0.05 K/mm3 (0.00-0.031); Immature Granulocyte Percent A 0.6 % (0-0.5); Lymphocytes Absolute Auto 1.64 K/mm3 (0.9-3.2); Lymphocytes Percent Auto 21.3 % (18.3-44.2); Mean Corpuscular HGB Conc 31.4 g/dl (32-36); Mean Corpuscular Volume 98.7 fl (80-100); Mean Platelet Volume 10.1 fl (7.4-10.4); Monocytes Absolute Auto 0.5 K/mm3 (0.1-0.6); Monocytes Percent Auto 6.7 % (2.6-8.5); Neutrophils Absolute Auto 5.4 K/mm3 (1.3-6.7); Neutrophils Percent Auto 69.4 % (45.5-73.1); Platelet Count Result 340 k/mm3 (150-375); Red Blood Count 3.74 M/mm3 (4.2-5.4); White Blood Count 7.7 K/mm3 (4.5-10.0)
[2021-02-22 07:32] LABS: Alanine Aminotransferase 11 U/L (4-35); Albumin Level 3.9 g/dL (3.5-5.1); Alkaline Phosphatase 70 U/L (38-126); Anion Gap 2 mmol/L (8-16); Aspartate Amino Transferase 21 U/L (14-36); Bilirubin,Total 0.3 mg/dL (0.2-1.3); Blood Urea Nitrogen 18 mg/dL (7-17); Calcium 9.6 mg/dL (8.4-10.2); Carbon Dioxide 33 mmol/L (22-30); Chloride 102 mmol/L (98-107); Estimated CRCL calculation 60 ml/min; Estimated Glomerular Filt Rate > 60; Glucose 102 mg/dL (65-110); Magnesium 2.2 mg/dL (1.6-2.3); Potassium 4.6 mmol/L (3.4-5.0); Sodium 137 mmol/L (137-145)
[2021-02-22 08:53] VITALS: PULSE 103; RESP 20
[2021-02-22] MEDS: UMECLIDINIUM BROMIDE 62.5 MCG ELLIPTA 1 PUFF INHALATION (08:53)
[2021-02-22 08:55] VITALS: O2SAT 97
[2021-02-22] MEDS: ENOXAPARIN 40 MG/0.4 ML SYRINGE SUB-Q (09:29)
[2021-02-22] MEDS: hydroCHLOROthiazide 25 MG TABLET PO (09:30)
[2021-02-22] MEDS: LORATADINE 10 MG TABLET PO (09:30)
[2021-02-22] MEDS: FLUTICASONE PROPIONATE 0.05% NA SPR 16 GM BTL (*BKC) 2 SPRAY NASAL (09:30)
[2021-02-22] MEDS: FAMOTIDINE 20 MG TABLET PO (09:30)
[2021-02-22] MEDS: LOSARTAN POTASSIUM 100 MG TABLET PO (09:31)
[2021-02-22] MEDS: MONTELUKAST SODIUM 10 MG TABLET PO (09:31)
[2021-02-22] MEDS: SACCHAROMYCES BOULARDII 250 MG CAPSULE PO (09:31)
[2021-02-22] MEDS: MICONAZOLE NITRATE 2% CREAM 30 GM TUBE 1 APPLIC TOPICAL (09:33)
--- NOTE | 2021-02-22 11:46 | PM.DS ---
DS: Admitting Diagnosis Discharge Date date of service 02/22/2021 at 11:00 a.m. Admitting Diagnosis cellulitis to the right lower extremity DS: Discharge Diagnosis Discharge Diagnosis (1) Cellulitis of right leg: Code(s): L03.115 - Cellulitis of right lower limb Status: Acute Assessment and Plan: Leg is red and swollen with an opening between the 3rd and 4th toe IV clindamycin Encourage elevation of affected extremity. Trend white count White blood cell count 8.4 Wound care nurse consult (2) Hypertension: Code(s): I10 - Essential (primary) hypertension Status: Chronic Assessment and Plan: Current blood pressure 103/76 Continue losartan/hydrochlorothiazide Trend blood pressures Adjust medications as needed (3) Chronic obstructive pulmonary disease: Code(s): J44.9 - Chronic obstructive pulmonary disease, unspecified Status: Acute Assessment and Plan: No acute issues. Probably the cause of the chronic Continue maintenance inhalers. Continue singular 10 mg p.o. daily Incruse Ellipta 1 inhalation daily albuterol DS: Summary Hospital Course Hospital Course: patient is a 65-year-old female with a past medical history GERD, hypertension, and COPD who presented to the ED for worsening leg cellulitis. She had recently been on Keflex for this after being seen the 1st time. Venous Dopplers were done and showed negative for a DVT. She denies seeing any improvement from the oral antibiotics and was sent here to be placed on IV antibiotics and to get venous Dopplers. Since admission patient has been placed on IV clindamycin. since admission patient has notable resolution with less reddening and less edema. It was determined that the patient does have an opening between the 3rd and 4th toe. Patient is being discharged on p.o. antibiotics. Patient's labs have remained stable throughout the visit along with her vital signs. Today patient states she feels little better she says that her ankle is a little tight however the pain, swelling and redness is better. She is able to walk on it and states she is ready to go home. Patient denies chest pain, shortness of breath, nausea, vomiting, diarrhea, constipation, weakness, fatigue, fevers, sweats, chills. Status at Discharge Functional status at discharge: independent ambulation Overall status at discharge: patient is back to baseline Time Spent with Patient Time attestation: Total time spent providing and/or coordinating discharge services: Time spent: Greater than 30 minutes Exam Const: General: cooperative, healthy appearing, comfortable, no acute distress, well developed, alert, awake and Physically active Nutritional Appearance: well nourished, obese and overweight Orientation/consciousness: oriented to person, oriented to place, oriented to time and patient oriented x3 Limitations: physical limitations HENMT: Head: normal to inspection Ears: hearing grossly normal bilaterally General nose exam: Normal external nose present Mouth: Yes Normal oral and palatal mucosa present, Yes lip normal and Yes tongue normal Teeth and gingiva: abnormal tooth and associated gingiva and poor dentition Eyes: General: appearance normal, both eyes and all related structures Neck: Neck: normal visual inspection, full ROM, trachea midline and supple Chest: Chest palpation & inspection: normal inspection of the chest Resp: Effort & Inspection: normal respiratory effort and able to speak in complete sentences Auscultation: clear to auscultation bilaterally Cardio: Jugular venous distension: no JVD Rate: regular rate Rhythm: regular rhythm Heart sounds: S1 normal heart sound present and S2 normal heart sound present Peripheral pulses: Peripheral pulses 2+ throughout GI: Inspection: normal to inspection Auscultation: normal bowel sounds Skin: General skin exam: normal color and no rashes or lesions noted Lesio
== END 2021-02-22 12:25 | disposition home or self-care (01) ==
LOC: ANHED 12:09 → ANH3MEDSUR 02-20 10:34
PROVIDERS: Nurse Practitioner; Physician Assistant; Physician Assistant Medical; Admitting Provider Family Medicine; Emergency Provider Emergency Medicine; PCP Family Medicine; Visit Provider Internal Medicine
DX: L03.115 Cellulitis of right lower limb (principal); R60.0 Localized edema; I10 Essential (primary) hypertension; J44.9 Chronic obstructive pulmonary disease, unspecified; K21.9 Gastro-esophageal reflux disease without esophagitis; Z87.891 Personal history of nicotine dependence
CPT/HCPCS: 36415; 73590; 73610; 80053; 83735; 85025; 86140; 87040; 93971; 94640; 96365; 96366; 96372; 96375; 99285; A9270; G0378; J1650; J1885; J2270

== ENCOUNTER 2021-03-06 22:36 | Observation (INO) | payer MEDICARE, MEDICAID, SELFPAY ==
--- NOTE | ~2021-03-06 | CT_ITS ---
EXAMINATION: CTA LE RT DATE: 03/07/2021 01:20 INDICATION: Right lower limb cellulitis. Assess for free air. TECHNIQUE: Computed tomographic angiography (CTA) of the right hemipelvis and right lower extremity w as performed with 150 mL Omnipaque 350 intravenous contrast. Automated exposure control and iterative reconstruction technique were employed. The dose-length product was 957.65 mGy-cm. COMPARISON: None. FINDINGS: Pelvis: Moderate to 50-70% stenosis at the bilateral common iliac and internal iliac arteries, mild, <50% jeannie nosis on the left external iliac artery and severe >70% stenosis at the origin of the right external iliac artery with multifocal moderate stenosis more distally along the right external iliac artery. Bilateral total hip arthroplasties resulting in dense metallic streak artifact which obscures the frantz tral lower pelvis including portions of the bladder and uterus. Again seen is a fibroid uterus with 1 0.1 cm exophytic fibroid exerting mass effect upon the dome of the partially decompressed bladder. Re gion of decreased attenuation at the central uterus most likely an additional fibroid although differ ential includes thickening of the endometrial complex. Visualized pelvis is otherwise unremarkable. N o pathologically enlarged inguinal or pelvic lymphadenopathy. Osteolysis in the right supra-acetabula r region consistent with particle disease but without suggestion of loosening. RIGHT LOWER EXTREMITY: Moderate stenosis in the right common femoral artery. Moderate stenosis at the origin of the right de ep femoral artery. Multifocal moderate and severe stenoses along the right superficial femoral and po pliteal arteries. Stenoses there is multifocal mild to moderate stenoses along the proximal half of t he atretic right peroneal artery with runoff to the ankle. Mild stenoses at a few locations along the proximal right anterior tibial and posterior tibial arteries both of which runoff into the feet. Subcutaneous edema relatively minimal at the proximal right thigh becoming progressively more severe distally some skin thickening at the right calf and ankle. No evident abscess or soft tissue gas. No osteolysis or periosteal reaction in the right lower limb to suggest osteomyelitis. Polyarticular ost eoarthritis, severe in the medial compartment of the right knee and mild at multiple joints in the ri ght foot and ankle. There are a degenerative cyst with corticated margins at the dorsal aspect of the mid cuneiform. Small right knee joint effusion without significant inflammatory stranding in the fat surrounding the suprapatellar pouch to elevate concern for septic arthritis in this is more likely r eactive related to the severe osteoarthritis. No right ankle joint effusion. IMPRESSION: 1. Severe multifocal peripheral arterial occlusive disease throughout the arteries of the right lowe r limb and right hemipelvis as detailed above. 2. Extensive subcutaneous edema most prominent at the right calf and ankle consistent with given hist ory of cellulitis. No abscess, soft tissue gas or osteomyelitis. 3. Small right knee joint effusion likely related to the severe osteoarthritis in the medial compartm ent. No inflammatory stranding in the surrounding fat to elevate suspicion for septic arthritis. 4. Low-attenuation region at the central aspect of the fibroid uterus which is partially obscured by metallic streak artifact. The most likely including representing an additional uterine fibroid the di fferential would include a thickened endometrial complex which could be seen in the setting of endome trial hyperplasia, polyp or less likely carcinoma. Consider follow-up pelvic ultrasound for further e valuation. Reviewed, dictated and finalized at location B. HALLE
--- NOTE | ~2021-03-06 | US_ITS ---
EXAMINATION: US arterial ankle brachial ind DATE: 03/07/2021 14:02 INDICATION: Peripheral vascular disease. Pain, numbness hypertrophic changes of the lower extremities . Past smoker. TECHNIQUE: Segmental pressures and plethysmographic and Doppler waveforms of the brachial and lower e xtremity arteries were obtained. COMPARISON: None. FINDINGS: Right and left brachial artery pressures of 149 mm Hg and 147 mm Hg, respectively, are concordant (no rmal difference <= 30 mmHg). The right ankle-brachial index (LULU) is 0.62 (normal >= 0.9-1.0). The right great toe-brachial index (TBI) is 0.52 (normal >= 0.65). Arterial Doppler waveforms low amplitude and monophasic. The left LULU is 0.81. The left TBI is 0.97. Arterial Doppler waveforms low amplitude monophasic at th e left posterior tibial artery and biphasic at the left dorsalis pedis artery.. IMPRESSION: Abnormally low right LULU of 0.62 Abnormally low left LULU of 0.52 Diminished left LULU of 0.81 Reviewed, dictated and finalized at Location A. Reviewed, dictated and finalized at location A.
--- NOTE | ~2021-03-06 | US_ITS ---
EXAMINATION: US venous doppler LE DATE: 03/07/2021 14:01 INDICATION: Right lower limb swelling TECHNIQUE: Grayscale ultrasound images without and with compression and Doppler ultrasound images of the right lower extremity veins were obtained. COMPARISON: None. FINDINGS: The visualized portions of right common femoral vein, profunda (deep) femoral vein, femoral vein, pop liteal vein, peroneal trunk, posterior tibial veins, peroneal veins, gastrocnemius vein and greater s aphenous vein outflow are patent. IMPRESSION: 1. No deep venous thrombosis in the right lower limb. Reviewed, dictated and finalized at location B.
--- NOTE | ~2021-03-06 | US_ITS ---
EXAMINATION: US pelvic complete EXAM DATE: 03/07/2021 14:06 INDICATION: Pelvic mass . TECHNIQUE: Pelvic transabdominal sonogram was performed. There are multiple grayscale and Doppler im ages available for interpretation. There is no prior study for comparison. FINDINGS: Uterus measures 7.6 x 4.3 x 5.4 cm, with 2 masses in the pelvis most likely fibroids, larg est measuring up to 8.7 cm, the smaller 2.4 cm. Endometrial stripe measures 9 mm, considered abnormal ly thickened for postmenopausal status There is no free pelvic fluid. Right adnexa: The ovary is not identified. There is no adnexal mass. Left adnexa: The ovary is not identified. There is no adnexal mass. IMPRESSION: 1. Mildly thickened endometrium for postmenopausal status. Differential diagnosis includes carcinoma , hyperplasia. 2. Pelvic masses probably exophytic fibroids. Reviewed, dictated and finalized at location A. IMPRESSION: 1. Mildly thickened endometrium for postmenopausal status. Differential diagno sis includes carcinoma, hyperplasia. 2. Pelvic masses probably exophytic fibroids.
--- NOTE | ~2021-03-06 | US_ITS ---
EXAMINATION: US arterial duplex LE DATE: 03/07/2021 14:02 INDICATION: Peripheral vascular disease. TECHNIQUE: Multiple grayscale and Doppler ultrasound images of the arteries of the bilateral lower li mbs were obtained. COMPARISON: None FINDINGS: There are atherosclerotic calcifications throughout the arteries of the right lower limb. No focal in creased peak systolic velocities. Monophasic waveforms with brisk systolic upstrokes at the right com mon femoral, profunda femoral, superficial femoral arteries. The systolic upstrokes gradually length and remain within normal limits in the more distal arteries including the right posterior tibial, per woods and dorsalis pedis arteries. Scattered atherosclerotic plaque is seen throughout the arteries of the left lower limb. No focally i ncreased peak systolic velocities. There triphasic waveforms with brisk systolic upstrokes at the lef t common femoral, profunda femoral, superficial femoral and popliteal arteries, biphasic waveforms at the left posterior tibial and dorsalis pedis arteries and monophasic waveform at the left peroneal a rtery with brisk systolic upstrokes throughout. IMPRESSION: 1. Extensive atherosclerotic calcifications throughout the arteries of both lower limbs more prominen t on the right where there are monophasic arterial waveforms throughout but with systolic upstrokes r emaining within normal limits. Reviewed, dictated and finalized at location B. IMPRESSION: 1. Extensive atherosclerotic calcifications throughout the arteries of both low er limbs more prominent on the right where there are monophasic arterial wavefo clem throughout but with systolic upstrokes remaining within normal limits.
[2021-03-06 22:43] VITALS: BP 135/77; PULSE 88; RESP 20; TEMP 36.8; O2SAT 99
[2021-03-07] VITALS (9 sets, daily range): BP systolic 111–153; BP diastolic 58–101; PULSE 83–93; RESP 15–20; TEMP 36.5–36.6; O2SAT 96–100; BMI 34.8
--- NOTE | 2021-03-07 00:24 | ED.LOWEXIN ---
HPI - Extremity Injury (Lower) General Chief Complaint: Extremity Injury, Lower Stated Complaint: rt lower leg cellulitis Time Seen by Provider: 03/06/21 23:26 Source: patient, RN notes reviewed and old records reviewed History of Present Illness HPI Narrative: Patient presents with right lower extremity pain. Patient reports she has had pain for over a month. She was admitted to the hospital for cellulitis and discharged on February 22 of this year. She discharged home with clindamycin. Patient reports she completed her last dose of clindamycin today but continues to have right lower extremity pain has not noted any improvement in her symptoms so she came back to the ER for evaluation. She denies any fevers or chills she denies any nausea or vomiting she reports pain all over her right lower extremity worse with ambulation achy, constant, radiates up her leg Related Data Home Medications Medication Instructions Recorded Confirmed albuterol sulfate [ProAir HFA] 2 puff INHALATION Q4H PRN 08/01/20 03/07/21 cetirizine [Zyrtec] 10 mg PO DAILY 08/01/20 03/07/21 famotidine [Pepcid] 20 mg PO BID 08/01/20 03/07/21 fluticasone propionate 2 spray INTRANASAL DAILY 08/01/20 03/07/21 hydrocodone-acetaminophen 1 tablet PO BID PRN 08/01/20 03/07/21 ibuprofen 800 mg PO TID PRN 08/01/20 03/07/21 losartan-hydrochlorothiazide 1 tablet PO DAILY 08/01/20 03/07/21 [Hyzaar] montelukast [Singulair] 10 mg PO DAILY 08/01/20 03/07/21 Allergies Allergy/AdvReac Type Severity Reaction Status Date / Time No Known Allergies Allergy Unknown Verified 03/07/21 05:13 Review of Systems Review of Systems: CONSTITUTIONAL: Denies fever, chills, or sweats. EYES: Denies visual changes, redness, or discharge. ENT: Denies rhinorrhea, congestion, sore throat, or otalgia. CARDIOVASCULAR: Denies chest pain, palpitations, or edema. RESPIRATORY: Denies cough or dyspnea. GASTROINTESTINAL: Denies abdominal pain, nausea, vomiting, or diarrhea. GENITOURINARY: Denies dysuria or hematuria. SKIN: Denies rash or itching. MUSCULOSKELETAL: Denies back pain, joint pain, or myalgia. NEUROLOGIC: Denies headache, numbness, dizziness, or weakness. PSYCHIATRIC: Denies anxiety or depression. All systems reviewed & are unremarkable except as noted in HPI and below PMFSH Past Medical History Medical History Anxiety Asthma Chronic back pain Chronic GERD Chronic obstructive pulmonary disease Hiatal hernia Hypertension Nephrolithiasis Osteoarthritis Surgical History Surgical History History of section History of total hip replacement (05/2013) History of total left hip replacement (12/2014) Family History Family History Mother Hypertension Social History Social History Social History: Lives in [place], [place]. She has 3 children. Former [employer]. She smoked a pack of cigarettes a day for 27 years and quit in 1989. No alcohol or drug abuse. Candy Bowen, daughter. Code status: Full code. Smoking status: Former smoker Alcohol intake: never Substance use: never Substance use type: does not use Spiritual care concerns: No Exam Narrative: GENERAL: Well-appearing, well-nourished, and in no acute distress. HEAD: Normocephalic, atraumatic. EYES: PERRLA and EOMI. ENT: Nares clear, no rhinorrhea or epistaxis. Mucous membranes moist. NECK: Supple. No masses. No JVD CHEST: Clear to auscultation. No respiratory distress. No wheezes rales or rhonchi HEART: Regular rate and rhythm. No murmur heard. Normal peripheral pulses. ABDOMEN: Soft, nontender, nondistended, normal active bowel sounds. EXTREMITIES: Edema to the right lower extremity up to the proximal rivera with warmth and erythema there is no focal fluctuance there is no crepitus there is
[2021-03-07] MEDS: MORPHINE SULFATE (*CRX) 4 MG/ML INJ IV PUSH (00:32)
[2021-03-07 00:37] LABS: Lactic Acid Reflex 0.7 mmol/L (0.7-2.1)
[2021-03-07 00:39] LABS: Basophils Percent Auto 0.5 % (0.2-1.2); Eosinophils Absolute Auto 0.2 K/mm3 (0-0.3); Eosinophils Percent Auto 3.1 % (0-4.4); Hematocrit 34.6 % (37.0-47.0); Immature Granulocyte Absolute 0.03 K/mm3 (0.00-0.031); Immature Granulocyte Percent A 0.5 % (0-0.5); Lymphocytes Absolute Auto 1.77 K/mm3 (0.9-3.2); Lymphocytes Percent Auto 27.1 % (18.3-44.2); Mean Corpuscular HGB Conc 31.8 g/dl (32-36); Mean Corpuscular Hemoglobin 31.3 pg (26-34); Mean Corpuscular Volume 98.3 fl (80-100); Mean Platelet Volume 9.8 fl (7.4-10.4); Monocytes Absolute Auto 0.5 K/mm3 (0.1-0.6); Monocytes Percent Auto 8.3 % (2.6-8.5); Neutrophils Percent Auto 60.5 % (45.5-73.1); Platelet Count Result 285 k/mm3 (150-375); Red Blood Count 3.52 M/mm3 (4.2-5.4); Red Cell Distribution Width 13.5 % (11.5-14.5); White Blood Count 6.5 K/mm3 (4.5-10.0)
[2021-03-07 00:41] LABS: Alanine Aminotransferase 11 U/L (4-35); Alkaline Phosphatase 73 U/L (38-126); Anion Gap 1 mmol/L (8-16); Aspartate Amino Transferase 21 U/L (14-36); Bilirubin,Total 0.3 mg/dL (0.2-1.3); Blood Urea Nitrogen 15 mg/dL (7-17); CRP < 0.5 mg/dL (<1.0); Calcium 9.2 mg/dL (8.4-10.2); Carbon Dioxide 31 mmol/L (22-30); Chloride 105 mmol/L (98-107); Estimated CRCL calculation 68 ml/min; Estimated Glomerular Filt Rate > 60; Glucose 101 mg/dL (65-110); Sodium 137 mmol/L (137-145)
[2021-03-07 01:31] LABS: Erythrocyte Sedimentation Rate 33 mm/hr (0-20)
--- NOTE | 2021-03-07 04:29 | PM.IMHP ---
H&P: HPI History of Present Illness Date/Time: 03/07/21 04:29 Chief Complaint: Right Lower extremity pain Narrative: Patient presents with right lower extremity pain. Patient reports she has had pain for over a month. She was admitted to the hospital for cellulitis and discharged on February 22 of this year. She discharged home with clindamycin. Patient reports she completed her last dose of clindamycin yesterday but continues to have right lower extremity pain has not noted any improvement in her symptoms so she came back to the ER for evaluation. She denies any fevers or chills she denies any nausea or vomiting she reports pain all over her right lower extremity worse with ambulation achy, constant, radiates up her leg Review of Systems Review of Systems: - CONSTITUTIONAL: Denies weight loss, fever and chills. - HEENT: Denies changes in vision and hearing - RESPIRATORY: Denies SOB and reports chronic cough. - CV: Denies palpitations and CP. - GI: Denies abdominal pain, nausea, vomiting and diarrhea. - : Denies dysuria and urinary frequency. - MSK: Denies myalgia and joint pain. Reports right lower extremity pain - SKIN: Denies rash and pruritus. - NEUROLOGICAL: Denies headache and syncope. - PSYCHIATRIC: Denies recent changes in mood. Denies anxiety and depression. All systems reviewed & are unremarkable except as noted in HPI and below Constitutional: Constitutional: Reports fatigue and Reports weakness Neurologic: Reports weakness Endocrine: Endocrine: Reports fatigue PMFSH Past Medical History Medical History Anxiety Asthma Chronic back pain Chronic GERD Chronic obstructive pulmonary disease Hiatal hernia Hypertension Nephrolithiasis Osteoarthritis Surgical History Surgical History History of section History of total hip replacement (05/2013) History of total left hip replacement (12/2014) Family History Family History Mother Hypertension Social History Social History Social History: Lives in [place], [place]. She has 3 children. Former [employer]. She smoked a pack of cigarettes a day for 27 years and quit in 1989. No alcohol or drug abuse. Candy Bowen, daughter. Code status: Full code. Smoking status: Former smoker Alcohol intake: never Substance use: never Substance use type: does not use Spiritual care concerns: No Meds Home Medications and Allergies Home Medications Medication Instructions Recorded Confirmed Type albuterol sulfate [ProAir HFA] 2 puff INHALATION Q4H PRN 08/01/20 02/19/21 History cetirizine [Zyrtec] 10 mg PO DAILY 08/01/20 02/19/21 History famotidine [Pepcid] 20 mg PO BID 08/01/20 02/19/21 History fluticasone propionate 2 spray INTRANASAL DAILY 08/01/20 02/19/21 History hydrocodone-acetaminophen 1 tablet PO BID PRN 08/01/20 02/19/21 History ibuprofen 800 mg PO TID PRN 08/01/20 02/19/21 History losartan-hydrochlorothiazide 1 tablet PO DAILY 08/01/20 02/19/21 History [Hyzaar] montelukast [Singulair] 10 mg PO DAILY 08/01/20 02/19/21 History Saccharomyces boulardii [Florastor] 250 mg PO DAILY #14 cap 08/04/20 02/19/21 Rx dextromethorphan-guaifenesin 10 ml PO Q6H PRN #237 ml 02/22/21 Rx Allergies Allergy/AdvReac Type Severity Reaction Status Date / Time No Known Allergies Allergy Unknown Verified 03/06/21 22:55 Vital Signs Vital Signs - 24 hr 03/06/21 22:43 03/07/21 00:32 03/07/21 01:44 Temperature 98.3 F Pulse Rate 88 90 87 Respiratory Rate 20 15 15 Blood Pressure 135/77 126/80 153/101 H Pulse Oximetry 99 100 100 03/07/21 03:40 Temperature Pulse Rate 85 Respiratory Rate 18 Blood Pressure 118/80 Pulse Oximetry 98 Exam Narrative: GENERAL: Well-appearing, well-nourished, and in no acute distre
--- NOTE | 2021-03-07 04:40 | ADMGEN ---
This patient, Barbi Fernandes, was admitted to [facility] Surg Room 331-01. Patient/family oriented to hospital policies and general routines including ID bracelet, bed and alarms, visiting hours, pain management, procedures, bathroom and other care routines, personal items, smoking policy, room service/diet, and visiting hours. Information on how to activate the Rapid Response Team has been discussed. Patient/Family are encouraged to report perceived risks to care and to ask questions if they do not understand what they are told or what they should do.
[2021-03-07] MEDS: SODIUM CHLORIDE 0.9% IV 1,000 ML 125 ML IV CONT (05:00)
[2021-03-07 06:52] LABS: Cholesterol 217 mg/dL (0-200); HDL Direct 75 mg/dL; Triglycerides 61 mg/dL (<150)
[2021-03-07 07:03] LABS: LDL Cholesterol Direct 100 mg/dL
[2021-03-07] MEDS: ASPIRIN 325 MG ENTERIC TABLET PO (09:20)
[2021-03-07] MEDS: ENOXAPARIN 40 MG/0.4 ML SYRINGE SUB-Q (09:20)
[2021-03-07] MEDS: FAMOTIDINE 20 MG TABLET PO ×2 (09:21→18:21)
[2021-03-07] MEDS: FLUTICASONE PROPIONATE 0.05% NA SPR 16 GM BTL (*BKC) 2 SPRAY NASAL (09:22)
[2021-03-07] MEDS: hydroCHLOROthiazide 25 MG TABLET PO (09:22)
[2021-03-07] MEDS: LOSARTAN POTASSIUM 100 MG TABLET PO (09:23)
[2021-03-07] MEDS: LORATADINE 10 MG TABLET PO (09:23)
[2021-03-07] MEDS: SACCHAROMYCES BOULARDII 250 MG CAPSULE PO (09:23)
[2021-03-07] MEDS: MONTELUKAST SODIUM 10 MG TABLET PO (09:23)
[2021-03-07] MEDS: guaiFENesin/DEXTROMETHORPHAN 10 ML UDC PO (09:39)
--- NOTE | 2021-03-07 16:22 | PC.NURSE ---
On 03/07/21, the student, Silke Chua, provided care and completed [facility] documentation on this patient. I have reviewed the student's documentation and agree with the findings.
[2021-03-07] MEDS: HYDROcodone/acetaminophen (*CRX) 10-325 MG TABLET 1 TAB PO (18:20)
[2021-03-07] MEDS: BETAMETHASONE/CLOTRIMAZOLE CR 15 GM TUBE 1 APPLIC TOPICAL (21:00)
[2021-03-07] MEDS: ATORVASTATIN 40 MG TABLET PO (21:00)
[2021-03-08 06:00] VITALS: BP 141/90; PULSE 91; RESP 18; TEMP 36.3; O2SAT 100
[2021-03-08] MEDS: hydroCHLOROthiazide 25 MG TABLET PO (10:00)
[2021-03-08] MEDS: SACCHAROMYCES BOULARDII 250 MG CAPSULE PO (10:00)
[2021-03-08] MEDS: ASPIRIN 325 MG ENTERIC TABLET PO (10:00)
[2021-03-08] MEDS: BETAMETHASONE/CLOTRIMAZOLE CR 15 GM TUBE 1 APPLIC TOPICAL ×2 (10:00→20:28)
[2021-03-08] MEDS: FAMOTIDINE 20 MG TABLET PO ×2 (10:00→18:05)
[2021-03-08] MEDS: MONTELUKAST SODIUM 10 MG TABLET PO (10:00)
[2021-03-08] MEDS: FLUTICASONE PROPIONATE 0.05% NA SPR 16 GM BTL (*BKC) 2 SPRAY NASAL (10:00)
[2021-03-08] MEDS: LORATADINE 10 MG TABLET PO (10:00)
[2021-03-08] MEDS: LOSARTAN POTASSIUM 100 MG TABLET PO (10:00)
[2021-03-08] MEDS: TERBINAFINE HCL 250 MG TABLET PO (10:00)
[2021-03-08] MEDS: ENOXAPARIN 40 MG/0.4 ML SYRINGE SUB-Q (10:01)
--- NOTE | 2021-03-08 13:03 | PM.IMPN ---
Progress Note: A&P Assessment and Plan (1) Cellulitis of right leg: Code(s): L03.115 - Cellulitis of right lower limb Status: Acute (2) Chronic obstructive pulmonary disease: Code(s): J44.9 - Chronic obstructive pulmonary disease, unspecified Status: Acute (3) Chronic GERD: Code(s): K21.9 - Gastro-esophageal reflux disease without esophagitis Status: Chronic (4) Hiatal hernia: Code(s): K44.9 - Diaphragmatic hernia without obstruction or gangrene Status: Chronic (5) Osteoarthritis: Code(s): M19.90 - Unspecified osteoarthritis, unspecified site Status: Chronic (6) Chronic back pain: Code(s): M54.9 - Dorsalgia, unspecified; G89.29 - Other chronic pain Status: Acute (7) Nephrolithiasis: Code(s): N20.0 - Calculus of kidney Status: Acute (8) Hypertension: Code(s): I10 - Essential (primary) hypertension Status: Chronic (9) Anxiety: Code(s): F41.9 - Anxiety disorder, unspecified Status: Acute (10) Asthma: Code(s): J45.909 - Unspecified asthma, uncomplicated Status: Chronic (11) Peripheral vascular disease: Code(s): I73.9 - Peripheral vascular disease, unspecified Status: Acute (12) Fibroid uterus: Code(s): D25.9 - Leiomyoma of uterus, unspecified Status: Acute Additional Plan # Right lower extremity persistent cellulitis CTA negative for any gas/necrotizing fascitis. Failed clindamycin WBC count is normal started on Ancef which will be continued. Will also check for DVT with venous duplex the previous studies has been negative. CTA suggestive of peripheral vascular disease with multi segment atherosclerosis of SFA, moderate atherosclerosis of the iliac arteries, common femoral arteries. Duplex scan was negative # R fungal infection in foot Pt is on Lamisil and Lotrimin # peripheral vascular disease start aspirin and statin check lipid profile. LULU is NL # fibroid uterus 10 cm in size will get ultrasound pelvis to further evaluate # COPD not in exacerbation # chronic tobacco use current smoker counseling done # chronic GERD/hiatal hernia # osteoarthritis # chronic back pain # hypertension # anxiety disorder # DVT prophylaxis Lovenox # full code status Subjective Date/time seen: 03/08/21 13:03 Interval history: Patient presents with right lower extremity pain. Admitted with cellulitis recurrent admission with cellulitis. Pt mentions her feet are scaling in between the toes. Review of Systems Review of Systems: All systems reviewed & are unremarkable except as noted in HPI and below Exam Narrative: GENERAL: Well-appearing, well-nourished, and in no acute distress. ENT: Nares clear, no rhinorrhea or epistaxis. Mucous membranes moist. NECK: Supple. No masses. No JVD CHEST: Clear to auscultation. No respiratory distress. No wheezes rales or rhonchi HEART: Regular rate and rhythm. No murmur heard. Normal peripheral pulses. ABDOMEN: Soft, nontender, nondistended, normal active bowel sounds. EXTREMITIES: Edema to the right lower extremity up to the proximal rivera with warmth and erythema. No induration SKIN: Itchy scaly rash in between the toes in the R foot NEURO: No focal deficits. Alert and oriented x3. PSYCH: Normal mood and affect. Objective Data Vital Signs Vital Signs: Vital Signs - 24 hr 03/07/21 14:31 03/07/21 21:32 03/07/21 21:39 Temperature 36.6 C 36.5 C Pulse Rate 87 87 93 Respiratory Rate 20 20 18 Blood Pressure 149/84 H 111/69 Pulse Oximetry 99 98 98 03/08/21 06:00 Temperature 36.3 C L Pulse Rate 91 Respiratory Rate 18 Blood Pressure 141/90 H Pulse Oximetry 100 Intake/Output Intake/Output: Intake & Output 03/05/21 03/06/21 03/07/21 03/08/21 23:59 23:59 23:59 23:59 Intake Total 1395 600 Output Total 1000 650 Balance 395 -50 Meds/Results Medications: Active Medications Generic Name Dose Route Start La
[2021-03-08 14:00] VITALS: BP 122/69; PULSE 92; RESP 18; TEMP 36.4; O2SAT 99
[2021-03-08] MEDS: guaiFENesin/DEXTROMETHORPHAN 10 ML UDC PO (14:36)
[2021-03-08] MEDS: HYDROcodone/acetaminophen (*CRX) 10-325 MG TABLET 1 TAB PO (18:45)
[2021-03-08] MEDS: polyethylene glycoL 3350 17 GM POWD.PACK PO (18:46)
[2021-03-08] MEDS: ATORVASTATIN 40 MG TABLET PO (20:28)
[2021-03-08 22:00] VITALS: BP 143/89; PULSE 86; RESP 18; TEMP 36.7; O2SAT 95
[2021-03-09 01:41] VITALS: PULSE 96; O2SAT 96
[2021-03-09 06:00] VITALS: BP 142/87; PULSE 79; RESP 18; TEMP 36.8; O2SAT 95
[2021-03-09] MEDS: MONTELUKAST SODIUM 10 MG TABLET PO (09:14)
[2021-03-09] MEDS: hydroCHLOROthiazide 25 MG TABLET PO (09:14)
[2021-03-09] MEDS: ENOXAPARIN 40 MG/0.4 ML SYRINGE SUB-Q (09:14)
[2021-03-09] MEDS: LOSARTAN POTASSIUM 100 MG TABLET PO (09:14)
[2021-03-09] MEDS: FLUTICASONE PROPIONATE 0.05% NA SPR 16 GM BTL (*BKC) 2 SPRAY NASAL (09:15)
[2021-03-09] MEDS: SACCHAROMYCES BOULARDII 250 MG CAPSULE PO (09:15)
[2021-03-09] MEDS: LORATADINE 10 MG TABLET PO (09:15)
[2021-03-09] MEDS: TERBINAFINE HCL 250 MG TABLET PO (09:15)
[2021-03-09] MEDS: FAMOTIDINE 20 MG TABLET PO (09:15)
[2021-03-09] MEDS: ASPIRIN 325 MG ENTERIC TABLET PO (09:15)
[2021-03-09] MEDS: BETAMETHASONE/CLOTRIMAZOLE CR 15 GM TUBE 1 APPLIC TOPICAL (09:15)
--- NOTE | 2021-03-09 12:25 | PM.DS ---
DS: Admitting Diagnosis Discharge Date 03/09/2021 Admitting Diagnosis Right Lower extremity pain DS: Discharge Diagnosis Discharge Diagnosis (1) Cellulitis of right leg: Code(s): L03.115 - Cellulitis of right lower limb Status: Acute Assessment and Plan: Right lower extremity persistent cellulitis CTA negative for any gas/necrotizing fascitis. Failed clindamycin WBC count is normal started on Ancef which will be continued. CTA suggestive of peripheral vascular disease with multi segment atherosclerosis of SFA, moderate atherosclerosis of the iliac arteries, common femoral arteries. Duplex scan was negative # Superimposed R fungal infection in foot Pt is on Lamisil and Lotrimin (2) Chronic obstructive pulmonary disease: Code(s): J44.9 - Chronic obstructive pulmonary disease, unspecified Status: Acute Assessment and Plan: CHronic and stable (3) Chronic GERD: Code(s): K21.9 - Gastro-esophageal reflux disease without esophagitis Status: Chronic Assessment and Plan: chronic and stable (4) Hiatal hernia: Code(s): K44.9 - Diaphragmatic hernia without obstruction or gangrene Status: Chronic Assessment and Plan: chronic and stable (5) Osteoarthritis: Code(s): M19.90 - Unspecified osteoarthritis, unspecified site Status: Chronic Assessment and Plan: chronic and stable (6) Chronic back pain: Code(s): M54.9 - Dorsalgia, unspecified; G89.29 - Other chronic pain Status: Acute Assessment and Plan: chronic and stable (7) Nephrolithiasis: Code(s): N20.0 - Calculus of kidney Status: Acute Assessment and Plan: chronic and stable (8) Hypertension: Code(s): I10 - Essential (primary) hypertension Status: Chronic (9) Anxiety: Code(s): F41.9 - Anxiety disorder, unspecified Status: Acute (10) Asthma: Code(s): J45.909 - Unspecified asthma, uncomplicated Status: Chronic (11) Peripheral vascular disease: Code(s): I73.9 - Peripheral vascular disease, unspecified Status: Acute Assessment and Plan: CTA suggestive of peripheral vascular disease with multi segment atherosclerosis of SFA, moderate atherosclerosis of the iliac arteries, common femoral arteries. LULU abnl pt advised to take ASA and never to smoke again. Pt has PAD - Extensive atherosclerotic calcifications throughout the arteries of both lower limbs more prominent on the right where there are monophasic arterial waveforms throughout but with systolic upstrokes remaining within normal limits. ABNL shows abnl artery flow -Abnormally low right LULU of 0.62 Abnormally low left LULU of 0.52 Diminished left LULU of 0.81 (12) Fibroid uterus: Code(s): D25.9 - Leiomyoma of uterus, unspecified Status: Acute Assessment and Plan: US of pelvis - Pelvic masses probably exophytic fibroids. DS: Summary Hospital Course Hospital Course: Patient presents with right lower extremity pain. Admitted with cellulitis recurrent admission with cellulitis. Pt mentions her feet are scaling in between the toes. PT also has issues with PAD. and fibroids Time Spent with Patient Time attestation: Total time spent providing and/or coordinating discharge services:40 minutes on day of dischrage Exam Narrative: GENERAL: Well-appearing, well-nourished, and in no acute distress. ENT: Nares clear, no rhinorrhea or epistaxis. Mucous membranes moist. NECK: Supple. No masses. No JVD CHEST: Clear to auscultation. No respiratory distress. No wheezes rales or rhonchi HEART: Regular rate and rhythm. No murmur heard. Normal peripheral pulses. ABDOMEN: Soft, nontender, nondistended, normal active bowel sounds. EXTREMITIES: Edema to the right lower extremity up to the proximal rivera with warmth and erythema. No induration SKIN: Itchy scaly rash in between the toes in the R foot NEURO: No focal deficits. A
[2021-03-10 11:36] LABS: Anti Streptolysin O Screen 125 IU/mL (<200)
== END 2021-03-09 13:35 | disposition home or self-care (01) ==
LOC: ANHED 03-07 03:05 → ANH3MEDSUR 03-07 13:21
PROVIDERS: Admitting Provider Internal Medicine; Emergency Provider Emergency Medicine; PCP Family Medicine; Visit Provider Family Medicine
DX: L03.115 Cellulitis of right lower limb (principal); I73.9 Peripheral vascular disease, unspecified; M79.89 Other specified soft tissue disorders; D25.9 Leiomyoma of uterus, unspecified; I10 Essential (primary) hypertension; J44.9 Chronic obstructive pulmonary disease, unspecified; K21.9 Gastro-esophageal reflux disease without esophagitis; K44.9 Diaphragmatic hernia without obstruction or gangrene; Z87.891 Personal history of nicotine dependence
CPT/HCPCS: 36415; 73706; 76856; 80053; 80061; 83605; 85025; 85652; 86060; 86140; 87040; 87081; 93922; 93925; 93971; 96361; 96365; 96366; 96372; 96375; 99285; A9270; G0378; J0690; J1650; J2270; J7030; Q9967

== ENCOUNTER 2021-09-21 17:14 | Emergency (ER) | payer MEDICARE, MEDICAID, SELFPAY ==
[2021-09-21] VITALS (7 sets, daily range): BP systolic 171–182; BP diastolic 81–85; PULSE 100–109; RESP 17–21; TEMP 36.5; O2SAT 71–100
--- NOTE | ~2021-09-21 | CT_ITS ---
EXAMINATION: CT abdomen pelvis w con INDICATION: Abdominal pain TECHNIQUE: Computed tomographic images of the abdomen and pelvis were obtained after the administrati on of 100 cc of Omnipaque 350 intravenous contrast. The dose-length product (DLP) was 1206.86 mGy-cm. Automated exposure control and iterative reconstruction technique were employed. COMPARISON: 08/28/2020 FINDINGS: Minimal dependent atelectasis is present in the lung bases. The heart size is normal. Respi ratory motion artifact limits evaluation of the upper abdomen. The liver, spleen, pancreas, gallbladd er, and adrenal glands appear normal. The left kidney is unremarkable. There are peripelvic cysts of the right kidney. There is calcified atherosclerosis of the aorta and many of the other arteries. Str eak artifact from bilateral hip arthroplasties limits evaluation of the pelvis. No pathologically enl arged abdominal lymph nodes are identified. There is no free intraperitoneal gas or evidence of bowel obstruction. An approximately 10.4 cm heterogeneous mass of the pelvis is not significantly changed there is severe lower lumbar spondylosis. IMPRESSION: 1. No CT correlate for the patient's symptoms. 2. Pelvic mass without significant change, most consistent with a pedunculated uterine fibroid. Reviewed, dictated and finalized at location F.
--- NOTE | 2021-09-21 19:26 | ED.NAVMDI ---
HPI - Nausea/Vomiting/Diarrhea General Chief complaint: Nausea/Vomiting/Diarrhea Stated complaint: vomiting/diarrhea/sob Time Seen by Provider: 09/21/21 19:06 Source: patient Mode of arrival: ambulatory Limitations: no limitations History of Present Illness HPI Narrative: Patient is a 65-year-old female complaining of nausea, vomiting, diarrhea accompanied by abdominal discomfort that started today. Patient describes her vomitus as nonbilious nonbloody. Patient describes her diarrhea as loose watery, nonbloody. Patient denies any urinary symptoms, fever or chills. Patient denies any sick contacts. Related Data Home Medications Medication Instructions Recorded Confirmed albuterol sulfate [ProAir HFA] 2 puff INHALATION Q4H PRN 08/01/20 03/07/21 cetirizine [Zyrtec] 10 mg PO DAILY 08/01/20 03/07/21 famotidine [Pepcid] 20 mg PO BID 08/01/20 03/07/21 fluticasone propionate 2 spray INTRANASAL DAILY 08/01/20 03/07/21 hydrocodone-acetaminophen 1 tablet PO BID PRN 08/01/20 03/07/21 ibuprofen 800 mg PO TID PRN 08/01/20 03/07/21 losartan-hydrochlorothiazide 1 tablet PO DAILY 08/01/20 03/07/21 [Hyzaar] montelukast [Singulair] 10 mg PO DAILY 08/01/20 03/07/21 Allergies Allergy/AdvReac Type Severity Reaction Status Date / Time No Known Allergies Allergy Unknown Verified 03/07/21 05:13 Review of Systems Review of Systems: All systems reviewed & are unremarkable except as noted in HPI and below Constitutional: Constitutional: Denies body ache(s), Denies chills, Denies excessive sweating, Denies fatigue, Denies fever(s), Denies headache(s), Denies lethargy, Denies malaise, Denies weakness and Denies weight loss Eyes: Eyes: Denies blurry vision, Denies change in vision and Denies loss of vision ENT: Denies dizziness, Denies ear discharge, Denies headache(s), Denies lip swelling, Denies epistaxis, Denies nasal congestion, Denies neck pain, Denies throat swelling and Denies tongue swelling Cardiovascular: Cardiovascular: Denies chest pain, Denies chest pain at rest, Denies chest pain with activity, Denies diaphoresis, Denies rapid heart rate, Denies edema, Denies irregular heart rhythm, Denies lightheadedness, Denies palpitations, Denies dyspnea and Denies dyspnea on exertion Respiratory: Respiratory: Denies chest congestion, Denies cough, Denies hemoptysis, Denies dyspnea and Denies dyspnea on exertion Gastrointestinal: Gastrointestinal: Denies melena, Denies hematochezia and Denies hematemesis Musculoskeletal: Musculoskeletal: Denies abnormal gait, Denies deformity, Denies joint swelling, Denies limited range of motion, Denies neck pain and Denies numbness Neurologic: Denies Abnormal speech present, Denies abnormal gait, Denies confusion, Denies dizziness, Denies headache(s), Denies focal weakness, Denies loss of vision, Denies numbness, Denies Other visual disturbances, Denies Sensory deficit (Neuro) and Denies weakness Psychiatric: Psychiatric: Denies confusion, Denies depression, Denies auditory hallucinations, Denies homicidal ideation and Denies suicidal ideation Endocrine: Endocrine: Denies cold intolerance, Denies excessive sweating, Denies fatigue, Denies heat intolerance and Denies palpitations Hematologic/Lymphatic: Hematologic/Lymphatic: Denies easy bleeding and Denies easy bruising Allergic/Immunologic: Allergic/Immunologic: Denies lip swelling, Denies throat swelling and Denies tongue swelling PMFSH Past Medical History Medical History Anxiety Asthma Chronic back pain Chronic GERD Chronic obstructive pulmonary disease Hiatal hernia Hypertension Nephrolithiasis Osteoarthritis Surgical History Surgical History History of section History of total hip replacement (05/2013) History of total left hip replacement (12/2014) Family History Family History (Reviewed 09/21/21 @ 19:27 by Cristian Roland
[2021-09-21 19:34] LABS: Basophils Percent Auto 0.2 % (0.2-1.2); Hematocrit 41.3 % (37.0-47.0); Hemoglobin 13.2 g/dL (12.0-15.0); Immature Granulocyte Absolute 0.05 K/mm3 (0.00-0.031); Immature Granulocyte Percent A 0.5 % (0-0.5); Lymphocytes Absolute Auto 0.54 K/mm3 (0.9-3.2); Lymphocytes Percent Auto 5.3 % (18.3-44.2); Mean Corpuscular Hemoglobin 30.7 pg (26-34); Mean Platelet Volume 10.2 fl (7.4-10.4); Monocytes Absolute Auto 0.3 K/mm3 (0.1-0.6); Monocytes Percent Auto 3.1 % (2.6-8.5); Neutrophils Absolute Auto 9.2 K/mm3 (1.3-6.7); Neutrophils Percent Auto 90.9 % (45.5-73.1); Platelet Count Result 262 k/mm3 (150-375); Red Cell Distribution Width 13.7 % (11.5-14.5); White Blood Count 10.1 K/mm3 (4.5-10.0)
[2021-09-21 19:40] LABS: Add Urine Microscopic? YES; Appearance Urine Cloudy (Clear); Bacteria Urine Trace /hpf; Bilirubin Urine Negative (Negative); Blood Urine 2+ (Negative); Color Urine Yellow (Yellow); Glucose Urine UA 1+ mg/dL (Negative); Ketones Urine Negative (Negative); Leukocyte Esterase Ur Trace LEU/UL (Negative); Mucus Urine Rare /lpf; Nitrate Urine Negative (Negative); Protein Urine 2+ mg/dL (Negative); Specific Grav Ur 1.026 (1.001-1.035); Squamous Epithelial Cell Urine Many /hpf (Few); Urobilinogen Urine Negative mg/dL (<2.0); WBC Urine 0-3 /hpf
[2021-09-21 19:45] LABS: Alanine Aminotransferase 17 U/L (4-35); Albumin Level 4.8 g/dL (3.5-5.1); Alkaline Phosphatase 86 U/L (38-126); Anion Gap 10 mmol/L (8-16); Aspartate Amino Transferase 27 U/L (14-36); Bilirubin,Total 0.4 mg/dL (0.2-1.3); Blood Urea Nitrogen 22 mg/dL (7-17); Calcium 9.7 mg/dL (8.4-10.2); Carbon Dioxide 26 mmol/L (22-30); Chloride 103 mmol/L (98-107); Estimated CRCL calculation 91 ml/min; Estimated Glomerular Filt Rate > 60; Glucose 178 mg/dL (65-110); Lipase 42 U/L (23-300); Potassium 3.3 mmol/L (3.4-5.0); Sodium 139 mmol/L (137-145)
[2021-09-21] MEDS: PROMETHAZINE HCL 25 MG/ML AMPUL 12.5 MG IV PUSH (20:03)
[2021-09-21] MEDS: SODIUM CHLORIDE 0.9% IV 100 ML 500 ML (20:03)
[2021-09-21] MEDS: LACTATED RINGERS 1,000 ML 999 ML IV CONT (20:05)
[2021-09-21] MEDS: POTASSIUM CHLORIDE 20 MEQ PACKET (FOR LIQUID) PO (22:09)
== END 2021-09-21 22:40 | disposition home or self-care (01) ==
PROVIDERS: Emergency Medicine; Emergency Provider Emergency Medicine; PCP Family Medicine
DX: A08.4 Viral intestinal infection, unspecified (principal); J44.9 Chronic obstructive pulmonary disease, unspecified; I10 Essential (primary) hypertension; Z87.442 Personal history of urinary calculi; M19.90 Unspecified osteoarthritis, unspecified site; Z96.642 Presence of left artificial hip joint; Z87.891 Personal history of nicotine dependence; Z79.82 Long term (current) use of aspirin
CPT/HCPCS: 36415; 74177; 80053; 81001; 83690; 85025; 96361; 96374; 99284; A9270; J2550; J7120; Q9967

== ENCOUNTER 2024-05-28 23:06 | Emergency (ER) | payer MEDICARE, MEDICAID, SELFPAY ==
--- NOTE | ~2024-05-28 | CT_ITS ---
EXAMINATION: CT diagnostic chest wo con DATE: 05/29/2024 08:54 INDICATION: Dypsnea TECHNIQUE: Computed tomography (CT) of the chest was performed without intravenous contrast. Addition al 3D reconstructions utilizing coronal maximum intensity projection (MIP) were performed. The dose- length product was 512.75 mGy-cm. COMPARISON: None FINDINGS: Mild elevation the left hemidiaphragm. There is reticulated pattern of bibasilar atelectasis. A coupl e 3-4 mm likely intrafissural lymph nodes along the right major fissure. No pneumonia, pulmonary teri a or pleural effusion. Heart size is normal. Atherosclerotic coronary artery calcifications. No peric ardial effusion. Thoracic aorta is normal in caliber. No pathologically enlarged thoracic lymphadenop athy. Visualized upper abdomen is unremarkable. Moderate thoracic spondylosis. Severe bilateral gleno humeral osteoarthritis with small right glenohumeral joint effusion.. IMPRESSION: 1. Mild elevation the left hemidiaphragm and mild bibasilar atelectasis Reviewed, dictated and finalized at location A. SAWYER
--- NOTE | ~2024-05-28 | XR_ITS ---
XR chest 2V Ordering provider: Chris Ruggiero MD History: 68 years Female with . sob, cp COPD RECENT PNEUMONIA . Comparison: None. FINDINGS: MEDIASTINUM: The cardiac silhouette is slightly enlarged. LUNGS: No effusions or pneumothorax. Minimal opacification in the left lower lobe area. Minimal bilat eral interstitial changes. OTHER: No free air under the diaphragm. IMPRESSION: Minimal opacification the left lung base which may indicate atelectasis versus pneumonia. Follow-up. Interstitial changes bilaterally more prominent in the right lung base which may indicate pneumonitis . Reviewed, dictated and finalized at location A. TH SCIENCE WRITER IMPRESSION: Minimal opacification the left lung base which may indicate atelectasis versus pneumonia. Follow-up. Interstitial changes bilaterally more prominent in the ri ght lung base which may indicate pneumonitis.
--- NOTE | ~2024-05-28 | US_ITS ---
EXAMINATION: US venous doppler LE RT DATE: 05/29/2024 09:07 INDICATION: Right lower limb swelling TECHNIQUE: Grayscale ultrasound images without and with compression and Doppler ultrasound images of the right lower extremity veins were obtained. COMPARISON: None. FINDINGS: The visualized portions of right common femoral vein, profunda (deep) femoral vein, femoral vein, pop liteal vein, peroneal trunk, posterior tibial veins, peroneal veins, gastrocnemius vein and greater s aphenous vein outflow are patent. IMPRESSION: 1. No deep venous thrombosis in the right lower limb. Reviewed, dictated and finalized at location A. YTICS CONSULTANT
--- NOTE | 2024-05-28 23:12 | ECG_ITS ---
Test Date: 2024-05-28 23:16:47 Measurements Intervals Rowena Rate: 93 P: 66 ND: 159 QRS: -6 QRSD: 124 T: 40 QT: 360 QTc: 450 Interpretive Statements SINUS RHYTHM POSSIBLE LEFT ATRIAL ENLARGEMENT [-0.1mV P WAVE IN V1/V2] INDETERMINATE AXIS RIGHT BUNDLE BRANCH BLOCK [120+ ms QRS DURATION, UPRIGHT V1, 40+ ms S IN I/aVL/V4/V5/V6] ABNORMAL ECG Electronically Signed On 05-29-2024 08:29:28 ADULT DAYCARE COORDINATOR by Riley Shannon M.D.
[2024-05-28 23:24] VITALS: BP 161/77; PULSE 93; RESP 18; TEMP 36.8; O2SAT 99
[2024-05-28 23:47] LABS: Basophils Percent Auto 0.5 % (0.2-1.2); Eosinophils Absolute Auto 0.1 K/mm3 (0-0.3); Eosinophils Percent Auto 1.6 % (0-4.4); Hematocrit 39.5 % (37.0-47.0); Hemoglobin 12.2 g/dL (12.0-15.0); Immature Granulocyte Absolute 0.02 K/mm3 (0.00-0.031); Immature Granulocyte Percent A 0.4 % (0-0.5); Lymphocytes Absolute Auto 1.06 K/mm3 (0.9-3.2); Lymphocytes Percent Auto 19.3 % (18.3-44.2); Mean Corpuscular HGB Conc 30.9 g/dl (32-36); Mean Corpuscular Hemoglobin 30.5 pg (26-34); Mean Corpuscular Volume 98.8 fl (80-100); Mean Platelet Volume 9.8 fl (7.4-10.4); Monocytes Absolute Auto 0.5 K/mm3 (0.1-0.6); Monocytes Percent Auto 8.6 % (2.6-8.5); Neutrophils Absolute Auto 3.8 K/mm3 (1.3-6.7); Neutrophils Percent Auto 69.6 % (45.5-73.1); Platelet Count Result 268 k/mm3 (150-375); Red Cell Distribution Width 13.7 % (11.5-14.5); White Blood Count 5.5 K/mm3 (4.5-10.0)
[2024-05-28 23:58] LABS: Alanine Aminotransferase 14 U/L (6-35); Albumin Level 3.9 g/dL (3.5-5.1); Alkaline Phosphatase 68 U/L (38-126); Anion Gap -1 mmol/L (4-12); Aspartate Amino Transferase 27 U/L (14-36); Bilirubin,Total 0.5 mg/dL (0.2-1.3); Blood Urea Nitrogen 15 mg/dL (7-17); Calcium 9.4 mg/dL (8.4-10.2); Carbon Dioxide 30 mmol/L (22-30); Chloride 108 mmol/L (98-107); Estimated Glomerular Filt Rate > 60; Glucose 115 mg/dL (65-110); Lipase 128 U/L (23-300); Potassium 4.1 mmol/L (3.4-5.0); Sodium 137 mmol/L (137-145)
[2024-05-28 23:59] LABS: Prothrombin Time 13.6 Seconds (11.1-14.7)
[2024-05-29] VITALS (10 sets, daily range): BP systolic 100–166; BP diastolic 77–116; PULSE 83–103; RESP 16–22; TEMP 36.5; O2SAT 96–100
[2024-05-29] LABS: Partial Thromboplastin Time 30.4 Seconds (22.3-36.8)
[2024-05-29 00:09] LABS: Troponin I < 0.012 ng/mL (0.000-0.034)
[2024-05-29 00:33] LABS: NT Pro B Type Natriuretic Pept 826 pg/mL (19.9-100)
[2024-05-29 06:03] LABS: Basophils Percent Auto 0.4 % (0.2-1.2); Eosinophils Absolute Auto 0.1 K/mm3 (0-0.3); Hematocrit 38.7 % (37.0-47.0); Hemoglobin 12.1 g/dL (12.0-15.0); Immature Granulocyte Absolute 0.02 K/mm3 (0.00-0.031); Immature Granulocyte Percent A 0.4 % (0-0.5); Lymphocytes Absolute Auto 1.04 K/mm3 (0.9-3.2); Lymphocytes Percent Auto 20.4 % (18.3-44.2); Mean Corpuscular HGB Conc 31.3 g/dl (32-36); Mean Corpuscular Hemoglobin 31.3 pg (26-34); Mean Platelet Volume 10.4 fl (7.4-10.4); Monocytes Absolute Auto 0.3 K/mm3 (0.1-0.6); Monocytes Percent Auto 6.7 % (2.6-8.5); Neutrophils Absolute Auto 3.6 K/mm3 (1.3-6.7); Neutrophils Percent Auto 70.1 % (45.5-73.1); Platelet Count Result 262 k/mm3 (150-375); Red Blood Count 3.87 M/mm3 (4.2-5.4); Red Cell Distribution Width 13.9 % (11.5-14.5); White Blood Count 5.1 K/mm3 (4.5-10.0)
[2024-05-29 06:14] LABS: Alanine Aminotransferase 14 U/L (6-35); Albumin Level 3.9 g/dL (3.5-5.1); Alkaline Phosphatase 70 U/L (38-126); Anion Gap 1 mmol/L (4-12); Aspartate Amino Transferase 24 U/L (14-36); Bilirubin,Total 0.5 mg/dL (0.2-1.3); Blood Urea Nitrogen 15 mg/dL (7-17); Calcium 9.5 mg/dL (8.4-10.2); Carbon Dioxide 31 mmol/L (22-30); Chloride 106 mmol/L (98-107); Estimated Glomerular Filt Rate > 60; Glucose 125 mg/dL (65-110); Potassium 3.9 mmol/L (3.4-5.0); Sodium 138 mmol/L (137-145)
[2024-05-29 06:41] LABS: Influenza A QL RT-PCR Negative (Negative); Influenza B QL RT-PCR Negative (Negative); RSV RNA, RT-PCR Negative (Negative); SARS-CoV-2 RNA PCR Negative (Negative)
[2024-05-29 06:54] LABS: Troponin I < 0.012 ng/mL (0.000-0.034)
[2024-05-29 07:31] LABS: D Dimer 0.49 ug/mL (<0.48)
[2024-05-29] MEDS: IPRATROPIUM 0.5 MG/ALBUTEROL SULFATE 2.5 MG AMPUL.NEB 3 ML 12 ML INHALATION (08:24)
[2024-05-29 08:30] LABS: Alveolar/Arterial O2 Gradient 32.2 mmHg; Base Excess ABG -0.9 mEq/l (+/-2.0); Device NASAL CANNULA; Fractional Inspired Oxygen 24 %; HCO3 ABG 22.9 mEq/l (22.0-26.0); Modified Allen's Test Pass; Oxygen Content ABG 17.5 %vol (16.0-22.0); Oxygen Saturation ABG 97.6 % (95.0-100.0); Oxyhemoglobin 96.8 % THb (90.0-100.0); PCO2 ABG 35.5 mmHg (35.0-45.0); PO2 ABG 96.7 mmHg (80.0-100.0); PO2 FiO2 Ratio Arterial Blood 4.03 %; Site Drawn RIGHT RADIAL; Total Hemoglobin 12.8 g/dL (12.0-18.0); pH ABG 7.428 (7.350-7.450)
[2024-05-29] MEDS: MAGNESIUM SULF 2 GM/WATER 50ML 2 GM/50 ML BAG IVPB (09:16)
--- NOTE | 2024-05-29 10:17 | PC.NURSE ---
Lunch tray ordered for pt.
--- NOTE | 2024-05-29 12:01 | ED.GENADULT ---
HPI - General Adult General Chief complaint: Shortness of Breath/Dyspnea Stated complaint: SOB, HAS COPE, SWELLING AND PAIN IN LEGS, CP Time Seen by Provider: 05/29/24 07:01 History of Present Illness HPI narrative: this is a 60-year-old female presenting with progressively worse shortness of breath over the last several weeks. Patient notes that she has had a productive cough and swelling of her lower extremities. she has been taking her breathing treatments with minimal relief. She is not on anticoagulation and she has no history of CHF DVT/PE. Related Data Home Medications ?Medication ?Instructions ?Recorded ?Confirmed ?Last Taken ?Type albuterol sulfate 90 mcg/actuation 2 puff inhalation Q4H PRN 08/01/20 03/07/21 Unknown History aerosol inhaler (ProAir HFA) Shortness Of Breath famotidine 20 mg tablet (Pepcid) 20 mg PO BID 08/01/20 03/07/21 Unknown History fluticasone propionate 50 2 spray intranasal DAILY 08/01/20 03/07/21 Unknown History mcg/actuation nasal spray,suspension ibuprofen 800 mg tablet 800 mg PO TID PRN Pain (Scale 08/01/20 03/07/21 Unknown History Score 4-6) azelastine 137 mcg (0.1 %) nasal 137 mcg intranasal Q12H 10/23/23 Unknown History spray cyclobenzaprine 10 mg tablet 10 mg PO TID 10/23/23 Unknown History hydrocodone 7.5 mg-acetaminophen 1 tablet PO QHS PRN 10/23/23 Unknown History 325 mg tablet Allergies Allergy/AdvReac Type Severity Reaction Status Date / Time No Known Allergies Allergy Unknown Verified 12/25/23 11:10 [facility] Past Medical History Medical History Anxiety Chronic obstructive pulmonary disease Chronic GERD Hiatal hernia Osteoarthritis Asthma Chronic back pain Nephrolithiasis Hypertension Surgical History Surgical History History of total left hip replacement (12/2014) History of section History of total hip replacement (05/2013) Family History Family History Mother Hypertension Social History Social History Social History: Lives in [place], [place]. She has 3 children. 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 She smoked a pack of cigarettes a day for 27 years and quit in 1989. No alcohol or drug abuse. Candy Bowen, daughter. Code status: Full code. Smoking status: Former smoker Alcohol intake: never Substance use: never Substance use type: does not use Do You Feel Safe in your Home?: Yes Lack of Transportation: No Lack of Food: Never True Current Housing: I Have Housing Concerned About Future Housing: No Difficulty Paying Gas/Electric Bills: No Difficulty Paying for Meds: No Currently Unemployed: No Education: High School Diploma/GED Difficulty w/ Childcare or Family Care: No Spiritual care concerns: No Exam Narrative: APPEARANCE: No apparent distress. Head: atraumatic. EYES: EOMI, NOSE: Atraumatic NECK: Trachea midline RESPIRATORY: Tachypneic, wheezing in all desouza CARDIOVASCULAR: RRR, pitting edema of the lower extremities right worse than left ABDOMINAL: Non-distended soft nontender MUSCULOSKELETAl: No obvious deformities NEURO: Alert. Moving 4/4 extremities SKIN:: Warm, dry. Normal color PSYCHIATRIC: Normal affect Course Vital Signs Vital signs: Vital Signs Temperature 98.2 F 05/28/24 23:24 Pulse Rate 93 05/28/24 23:24 Respiratory Rate 18 05/28/24 23:24 Blood Pressure 161/77 H 05/28/24 23:24 Pulse Oximetry 99 05/28/24 23:24 Oxygen Delivery Room Air 05/28/24 23:24 Temperature 97.7 F 05/29/24 02:55 Pulse Rate 94 05/29/24 11:10 Respiratory Rate 16 05/29/24 11:10 Blood Pressure 166/116 H 05/29/24 11:10 Pulse Oximetry 100 05/29/24 11:10 Oxygen Delivery Room Air 05/29/24 07:34 Medical Decision Making MDM Narrative Medical decision making narrative: -Course: 60-year-old female with a history of COPD presenting for difficulty breathing. She has wheezing on exam. patient has been edema of the lower extremities right worse than left however venous ultrasound was negative for DVT and her D-dimer was 0.49. PE unlikely. BNP within age adjusted limits. Patient given hour long breathing treatment with improvement. On re-evaluation patient is resting comfortable and is comfortable going home. vital signs stable and in her lungs are now clear and she is in no respiratory distress. She has breathing treatments at home. Patient be discharged on a course of antibiotics for COPD exacerbation. -DDX includes but is not limited to: COPD exacerbation, pneumonia, viral syndrome, PE/DVT -Co-morbidities complicating care: COPD -Independent interpretation of studies: labs imaging reviewed Independent EKG interpretation: Rhythm [sinus], Rate [93], [place] -[normal], [place] -[normal], QRS [narrow], QTC [normal], T waves -[negative for concerning inversions], ST Segments - [Negative for concerning elevations] Final interpretations: [Normal Sinus Rhythm] -Shared decision making / Disposition: Discharged -RX doxycycline Vital Signs Vital Signs: Vital Signs Temperature 98.2 F 05/28/24 23:24 Pulse Rate 93 05/28/24 23:24 Respiratory Rate 18 05/28/24 23:24 Blood Pressure 161/77 H 05/28/24 23:24 Pulse Oximetry 99 05/28/24 23:24 Oxygen Delivery Room Air 05/28/24 23:24 Temperature 97.7 F 05/29/24 02:55 Pulse Rate 94 05/29/24 11:10 Respiratory Rate 16 05/29/24 11:10 Blood Pressure 166/116 H 05/29/24 11:10 Pulse Oximetry 100 05/29/24 11:10 Oxygen Delivery Room Air 05/29/24 07:34 Lab Data 05/29/24 05:51 05/29/24 05:51 Labs: Lab Results 05/28/24 05/29/24 05/29/24 Range/Units 23:40 05:51 05:52 WBC 5.5 5.1 (4.5-10.0) K/mm3 RBC 4.00 L 3.87 L (4.2-5.4) M/mm3 Hgb 12.2 12.1 (12.0-15.0) g/dL Hct 39.5 38.7 (37.0-47.0) % MCV 98.8 100.0 (80-100) fl MCH 30.5 31.3 (26-34) pg MCHC 30.9 L 31.3 L (32-36) g/dl RDW 13.7 13.9 (11.5-14.5) % Plt Count 268 262 (150-375) k/mm3 MPV 9.8 10.4 (7.4-10.4) fl Immature Gran % (Auto) 0.4 0.4 (0-0.5) % Neut % (Auto) 69.6 70.1 (45.5-73.1) % Lymph % (Auto) 19.3 20.4 (18.3-44.2) % [place] % (Auto) 8.6 H 6.7 (2.6-8.5) % Eos % (Auto) 1.6 2.0 (0-4.4) % Baso % (Auto) 0.5 0.4 (0.2-1.2) % Lymph # (Auto) 1.06 1.04 (0.9-3.2) K/mm3 [place] # (Auto) 0.5 0.3 (0.1-0.6) K/mm3 Eos # (Auto) 0.1 0.1 (0-0.3) K/mm3 Baso # (Auto) 0.0 0.0 (0.0-0.1) K/mm3 Abs Immat Gran (auto) 0.02 0.02 (0.00-0.031) K/mm3 Absolute Neuts (auto) 3.8 3.6 (1.3-6.7) K/mm3 Absolute Nucleated RBC 0.000 0.000 (0.0-0.012) K/mm3 Nucleated RBC % 0.0 0.0 (0.0-0.2) % PT 13.6 (11.1-14.7) Seconds INR 1.0 APTT 30.4 (22.3-36.8) Seconds D-Dimer 0.49 H (<0.48) ug/mL Sodium 137 138 (137-145) mmol/L Potassium 4.1 3.9 (3.4-5.0) mmol/L Chloride 108 H 106 (98-107) mmol/L Carbon Dioxide 30 31 H (22-30) mmol/L Anion Gap -1 L 1 L (4-12) mmol/L BUN 15 D 15 (7-17) mg/dL Creatinine 0.60 L 0.60 L (0.7-1.0) mg/dL Estim Creat Clear Calc Not Reportable Not Reportable Estimated GFR > 60 > 60 (59 - ) Glucose 115 H 125 H (65-110) mg/dL Calcium 9.4 9.5 (8.4-10.2) mg/dL Total Bilirubin 0.5 0.5 (0.2-1.3) mg/dL AST 27 24 (14-36) U/L ALT 14 14 (6-35) U/L Alkaline Phosphatase 68 70 (38-126) U/L Troponin I < 0.012 < 0.012 (0.000-0.034) ng/mL NT-Pro-B Natriuret Pep 826 H (19.9-100) pg/mL Total Protein 7.0 7.0 (6.3-8.2) g/dL Albumin 3.9 3.9 (3.5-5.1) g/dL Lipase 128 (23-300) U/L Influenza A (RT-PCR) Negative (Negative) Influenza B (RT-PCR) Negative (Negative) RSV (RT-PCR) Negative (Negative) SARS-CoV-2 RNA (RT-PCR) Negative (Negative) ABG Data ABG results: 05/29/24 08:25 Puncture Site Right radial ABG pH 7.428 ABG pCO2 35.5 ABG pO2 96.7 ABG PO2/FiO2 Ratio 4.03 ABG HCO3 22.9 ABG O2 Saturation 97.6 ABG O2 Content 17.5 ABG Base Excess -0.9 A-a Gradient 32.2 Oxyhemoglobin 96.8 Total Hemoglobin 12.8 O2 Delivery Device Nasal cannula O2 Liters/Min 1.0 FiO2 24 Discharge Plan Discharge Clinical Impression: COPD (chronic obstructive pulmonary disease) Patient Disposition: Home, Self-Care Condition: Stable Instructions: Antibiotic Form, COPD (Chronic Obstructive Pulmonary Disease) (DC) Additional Instructions: Please complete a course of doxycycline. Please follow-up your primary care physician for further management. Return to the ED if you develop fevers, worsening chest pain shortness of breath. Patient Language: [place]i Prescriptions: New doxycycline hyclate 100 mg capsule 100 mg PO DAILY Qty: 20 0RF No Action cyclobenzaprine 10 mg tablet 10 mg PO TID hydrocodone-acetaminophen 7.5-325 mg tablet 1 tablet PO QHS PRN azelastine 137 mcg (0.1 %) aerosol,spray 137 mcg intranasal Q12H Rx Instructions: administer into each nostril ibuprofen 800 mg Tablet 800 mg PO TID PRN (Reason: Pain (Scale Score 4-6)) famotidine [Pepcid] 20 mg Tablet 20 mg PO BID fluticasone propionate 50 mcg/actuation [place],Suspension 2 spray INTRANASAL DAILY albuterol sulfate [ProAir HFA] 90 mcg/actuation Hfa Aerosol Inhaler 2 puff INHALATION Q4H PRN (Reason: Shortness Of Breath) Follow-up/Referrals: Nile,Hari Oh MD [Primary Care Provider] -
== END 2024-05-29 13:00 | disposition home or self-care (01) ==
PROVIDERS: Emergency Medicine; Emergency Provider Emergency Medicine; PCP Family Medicine
DX: J45.909 Unspecified asthma, uncomplicated (principal); J44.9 Chronic obstructive pulmonary disease, unspecified; I10 Essential (primary) hypertension; Z87.891 Personal history of nicotine dependence; Z20.822 Contact with and (suspected) exposure to COVID-19
CPT/HCPCS: 36415; 36600; 71046; 71250; 80053; 82805; 83690; 83880; 84484; 85018; 85025; 85380; 85610; 85730; 87637; 93005; 93971; 94640; 96365; 99284; J3475

== ENCOUNTER 2024-07-13 08:08 | Inpatient (IN) | payer MEDICARE, MEDICAID, SELFPAY ==
[2024-07-13] VITALS (21 sets, daily range): BP systolic 135–195; BP diastolic 75–146; PULSE 54–111; RESP 16–24; TEMP 36.2–36.6; O2SAT 93–100; BMI 32.8
--- NOTE | ~2024-07-13 | US_ITS ---
EXAMINATION: US venous doppler [facility] DATE: 07/13/2024 11:54 INDICATION: Lower limb swelling TECHNIQUE: Grayscale ultrasound images without and with compression and Doppler ultrasound images of the bilateral lower extremity veins were obtained. COMPARISON: None. FINDINGS: The visualized portions of right common femoral vein, profunda (deep) femoral vein, femoral vein, pop liteal vein, posterior tibial veins, peroneal veins and greater saphenous vein outflow are patent. Bruner bcutaneous edema at the right calf. The visualized portions of left common femoral vein, profunda femoral vein, femoral vein, popliteal v ein, posterior tibial veins, peroneal veins and greater saphenous vein outflow are patent. IMPRESSION: 1. No deep venous thrombosis in either lower limb. Reviewed, dictated and finalized at location A. DOWN HELPER
--- NOTE | ~2024-07-13 | XR_ITS ---
EXAMINATION: XR chest 2V DATE: 07/14/2024 08:48 INDICATION: Congestive heart failure. TECHNIQUE: Frontal and lateral views of the chest were obtained. COMPARISON: Chest 2 views 05/28/2024, chest CT 07/13/2024 FINDINGS: There is mild atelectasis at the lung bases. There are small pleural effusions. No pneumoth orax. Cardiomegaly is noted. There is an old healed right rib fracture. IMPRESSION: 1. Mild atelectasis at the lung bases. 2. Small pleural effusions. 3. Cardiomegaly. Reviewed, dictated and finalized at location A. STERED MASSAGE THERAPIST
--- NOTE | ~2024-07-13 | CT_ITS ---
EXAMINATION: CTA chest PE protocol DATE: 07/13/2024 12:51 INDICATION: COPD presenting with shortness of breath and elevated d-dimer. TECHNIQUE: Computed tomography (CT) pulmonary angiogram of the chest was performed with 100 mL Omnipa que-350 intravenous contrast. Additional 3D reconstructions utilizing coronal maximum intensity proje ction (MIP) were performed. Automated exposure control and iterative reconstruction technique were em ployed. The dose-length product was 791.68 mGy-cm. COMPARISON: 05/29/2024 FINDINGS: No pulmonary embolism. Evaluation is however essentially nondiagnostic in the basilar segmental and s ubsegmental pulmonary arteries of the bilateral lower lobes due to prominent respiratory motion at th e lung bases. There is a new and small peripheral region with couple subcentimeter nodular opacities with some surrounding groundglass opacity in the posterior segment of the right upper lobe. There is some smooth septal line thickening in the upper lungs consistent with mild pulmonary edema. Trace lef t and very small right pleural effusions. Mild cardiomegaly. Atherosclerotic coronary artery calcific ations. No pericardial effusion. Thoracic aorta is normal in caliber with no dissection. There is mil d likely reactive right hilar and mediastinal lymphadenopathy. Visualized upper abdomen is unremarkab le. Severe bilateral glenohumeral osteoarthritis with associated joint effusions, right greater than left. IMPRESSION: 1. No pulmonary embolism. Evaluation in the basilar segmental and subsegmental pulmonary arteries is nondiagnostic due to respiratory motion. 2. Groundglass opacity and probable small nodular opacities in the posterior segment right upper lobe most likely infectious/inflammatory in etiology. Recommend 3 month follow-up low-dose noncontrast est CT to document resolution. 3. Mild pulmonary edema at the visualized upper lungs with trace left and very small right pleural ef fusions. 4. Cardiomegaly. Reviewed, dictated and finalized at location A. 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 No pulmonary embolism. Evaluation in the basilar segmental and subsegmental pulmonary arteries is nondiagnostic due to respiratory motion. 2. Groundglass opacity and probable small nodular opacities in the posterior se gment right upper lobe most likely infectious/inflammatory in etiology. Recomme nd 3 month follow-up low-dose noncontrast chest CT to document resolution. 3. Mild pulmonary edema at the visualized upper lungs with trace left and very small right pleural effusions. 4. Cardiomegaly.
--- OUTSIDE RECORDS SUMMARY | 2024-07-13 08:36 | XMS_ITS | Data Portability ---
Author Organization [place] [facility], Main Office Address [address] [place] [address] Care Team Providers Care Miscellaneous Machine Operator Name Role Phone GM BRUNO Primary Care Provider [phone] BRUNO WORRELL Referring Provider Assessment Encounter Date Assessment Date Assessment LastModified by Organization Details LastModified Time 05/06/2023 05/06/2023 The patient has severe primary osteoarthritis both knee joints and left shoulder glenohumeral joint. She also has chronic low back pain particularly in the right sacroiliac region and mild lumbar spondylosis without radiculopathy. We talked about treatment options in detail today she wanted proceed with cortisone therefore under sterile conditions I injected the patient's bilateral knee joints, left shoulder joint, and right sacroiliac bursa in the office with 4 cc of 0.5% bupivacaine and 20 mg of Kenalog each for a total of 4 injections. The patient tolerated the procedure well. The patient currently is not taking any anti-inflammatory medication. We will do a course of oral prednisone she will then start meloxicam 15 mg daily I will see her back as needed. Again see her back in 3 months if necessary. We did talk about surgical intervention, we had a long detailed discussion about surgery for both knees and her left shoulder, what she really needs are bilateral knee replacements and a left shoulder arthroplasty however she has declined. She states she has afraid to go through surgery rather get by with conservative measures for now. She voiced understanding agrees above plan she will call for any further problems difficulties or questions. Not available 05/06/2023 10:51:19 07/21/2023 07/21/2023 The patient has severe glenohumeral osteoarthritis the left shoulder. She went a shot of cortisone here today therefore under sterile conditions I injected patient's left shoulder joint in the office with 4 cc 0.5% bupivacaine and 20 mg Kenalog. The patient tolerated procedure well. I will see her back for this as needed we can do this again in 3 months if necessary. As far as the patient's back go she has lumbar radiculopathy down the left lower extremity chronic issues with lumbar pain is noted. X-rays today do show some moderate lumbar spondylosis and loss of the normal lumbar curvature. We will start with a course of oral prednisone I refilled her Flexeril 10 mg every 8 hours as needed for muscle spasm low back. We will get her started in physical therapy she also wanted to try shots of cortisone bilateral sacroiliac regions as well as an MRI scan to see if she has herniated disc or significant stenosis. Therefore under sterile conditions I injected patient's bilateral sacroiliac bursa in the office today with 4 cc of 0.5% bupivacaine and 20 mg of Kenalog each. The patient tolerated the procedure well. I will see her back after the MRI is done if things worsen or change significantly she is instructed to call she voiced understanding and agrees with above plan. Not available 07/21/2023 13:09:28 08/05/2023 08/05/2023 The patient has chronic low back pain with radiculopathy mainly down the left leg but bilateral in nature. We talked about treatment options we reviewed the MRI scan in detail today together and agree with the above findings. We are going to get her a consultation with a spine surgeon to talk about options which may include epidural steroid injections versus surgical intervention. We will get her set up for this. She has tried a long course of other conservative measures which have failed her. As far as the knees go she has severe primary osteoarthritis both knee joints. At her request under sterile conditions I injected the patient's bilateral knee joints in the office today with 4 cc 0.5% bupivacaine and 20 mg of Kenalog each. Patient tolerated the procedure well. I will see her back as needed for her knees we can do cortisone injections again in 3 months if necessary. She voiced understanding agrees above plan she will follow up with orthopedic spine surgeon for her back she will call for any further problems difficulties or questions. Not available 08/05/2023 11:40:01 11/04/2023 11/04/2023 Patient has severe primary osteoarthritis both knee joints and left shoulder joint. Her x-rays today show fairly stable osteoarthritis all 3 joints. At her request under sterile conditions I injected the patient's left shoulder joint in the patient's bilateral knee joints in the office with 4 cc of 0.5% bupivacaine and 20 mg of Kenalog each. The patient tolerated the procedure well. I will see her back as needed we can do this again in 3 months if necessary we have talked about shoulder and/or knee replacements she is more concerned about her back for now she is and have that looked into in the near future. I will see her back as needed she voiced understanding and agrees above plan she will call for any further problems difficulties or questions. Not available 11/04/2023 10:15:18 03/04/2024 03/04/2024 Today I reviewed the patient's previous x-rays of her left shoulder in both knees with her in detail as she did have some questions about her osteoarthritis. She has severe primary osteoarthritis left glenohumeral joint as well as bilateral knee joints. We talked about treatment options she was asking about surgery however at this time she is not a good candidate for shoulder or knee arthroplasty due to her significant COPD and recent hospitalization. She is on other multiple medications for hypertension. most of her medications are related to treating her COPD issues. I have told her she would be at a high risk for postoperative complications she would have to be cleared by her regional medical director and not sure she would be able to get clearance for major elective surgery. I have told her we could try Voltaren gel she will do a trial this for the next month or so see how this works for her. A prescription was called in for her today to her pharmacy. She also wanted injections it has been several months since her last injections. Under sterile conditions I injected the patient's left shoulder joint and the bilateral knee joints in the office with 4 cc 0.5% bupivacaine and 20 mg of Kenalog each for a total of 3 injections. The patient tolerated the procedures well. I will see her back in 3 months if necessary for further cortisone injections. She is going to continue to work with her regional medical director she has some further long testing coming up after recent hospitalization. She voiced understanding and agrees above plan she will call for any further problems difficulties or questions. Not available 03/04/2024 10:41:07 Plan of Treatment Reminders Order Date Submit Date Provider Last Modified By Organization Details Last Modified Time Details Appointments Any 5 2024 09:15A ABDI Ayon Not available Not available Not available Lab None recorded. Referral physical therapist referral - Please contact patient to schedule 2023 024 [facility], [address] [place], [address], 07/21/2023 13:00:17 orthopedi c spine surgeon referral - Please contact patient to schedule ....Patie nt will bring disc 2023 024 JAY Wayne MD, [address], [place], [address], 08/05/2023 12:35:18 Procedures injection /aspirati on joint/bur sa (PROC) 2022 023 [email or web address] In-Office Order, Internal Use Only DO Not Attach Compendium DO Not Attach Compendium, Do Not Delete/merge, [id number] 05/06/2023 10:24:23 injection /aspirati on joint/bur sa (PROC) 2022 023 [email or web address] In-Office Order, Internal Use Only DO Not Attach Compendium DO Not Attach Compendium, Do Not Delete/merge, [id number] 05/06/2023 10:42:50 injection /aspirati on joint/bur sa (PROC) 2022 023 [email or web address] In-Office Order, Internal Use Only DO Not Attach Compendium DO Not Attach Compendium, Do Not Delete/merge, [id number] 05/06/2023 10:42:50 injection /aspirati on joint/bur sa (PROC) 2023 024 [email or web address] In-Office Order, Internal Use Only DO Not Attach Compendium DO Not Attach Compendium, Do Not Delete/merge, [id number] 07/21/2023 11:19:23 injection /aspirati on joint/bur sa (PROC) 2023 024 [email or web address] In-Office Order, Internal Use Only DO Not Attach Compendium DO Not Attach Compendium, Do Not Delete/merge, [id number] 07/21/2023 11:19:23 injection /aspirati on joint/bur sa (PROC) 2023 024 [email or web address] In-Office Order, Internal Use Only DO Not Attach Compendium DO Not Attach Compendium, Do Not Delete/merge, [id number] 07/21/2023 11:19:23 injection /aspirati on joint/bur sa (PROC) 2023 024 [email or web address] In-Office Order, Internal Use Only DO Not Attach Compendium DO Not Attach Compendium, Do Not Delete/merge, [id number] 08/05/2023 10:38:21 injection /aspirati on joint/bur sa (PROC) 2023 024 [email or web address] In-Office Order, Internal Use Only DO Not Attach Compendium DO Not Attach Compendium, Do Not Delete/merge, [id number] 11/04/2023 09:33:05 injection /aspirati on joint/bur sa (PROC) 2023 024 [email or web address] In-Office Order, Internal Use Only DO Not Attach Compendium DO Not Attach Compendium, Do Not Delete/merge, [id number] 11/04/2023 09:33:05 injection /aspirati on joint/bur sa (PROC) 2023 024 [email or web address] In-Office Order, Internal Use Only DO Not Attach Compendium DO Not Attach Compendium, Do Not Delete/merge, [id number] 03/04/2024 10:08:50 injection /aspirati on joint/bur sa (PROC) 2023 024 [email or web address] In-Office Order, Internal Use Only DO Not Attach Compendium DO Not Attach Compendium, Do Not Delete/merge, [id number] 03/04/2024 10:08:50 Surgeries None recorded. Imaging XR, lumbar spine 2023 024 [facility] [place], [address], [place], [address], 07/21/2023 13:12:09 MRI, lumbar spine, w/o contrast - Please contact patient to schedule. ...Thank you 2023 024 [facility] ([facility]), [address] [place], [address], 07/30/2023 16:34:01 XR, knee 2023 024 [email or web address] [facility] [address], [address], 11/04/2023 10:18:28 XR, shoulder 2023 024 [email or web address] [facility] [address], [address], 11/04/2023 10:18:28 Medication Orders bupivacai ne HCl 0.5 % (5 mg/mL) injection solution 2022 023 [facility], [address] [place], [address], 05/06/2023 11:07:02 Kenalog 10 mg/mL suspensio n for injection 2022 023 REPLACED BY [id number] 83 [facility], [address] [place], [address], 07/30/2023 11:33:30 prednison e 10 mg tablets in a dose pack 2022 023 [email or web address] [facility]64664, [address] [place], [place], [id number], 03/04/2024 10:18:51 meloxicam 15 mg tablet 2022 023 [email or web address] [facility] #18189, [address] [place], [place], [id number], 03/04/2024 10:17:44 bupivacai ne HCl 0.5 % (5 mg/mL) injection solution 2022 023 [email or web address], [address] [place] [address], [address], 05/06/2023 11:07:02 Kenalog 10 mg/mL suspensio n for injection 2022 023 [id number] [place] [address] [facility], [address] [place] [address], [address], 07/30/2023 11:33:30 bupivacai ne HCl 0.5 % (5 mg/mL) injection solution [address] [facility], [address] [place] [address], [address], 05/06/2023 11:07:02 Kenalog 10 mg/mL suspensio n for injection 2022 023 [id number] [place] [address] [facility], [address] [place] [address], [address], 07/30/2023 11:33:30 bupivacai ne HCl 0.5 % (5 mg/mL) injection solution [address] [facility], [address] [place] [address], [address], 07/21/2023 13:00:17 Kenalog 10 mg/mL suspensio n for injection 2023 024 [id number] 83 [facility], [address] [place] [address], [address], 07/30/2023 11:33:30 prednison e 10 mg tablets in a dose pack 2023 024 [email or web address] [facility] #67955, [address] [place], [place], [id number], 03/04/2024 10:18:51 cyclobenz aprine 10 mg tablet [address] [facility], [address] [place] [address], [address], 07/21/2023 13:00:17 bupivacai ne HCl 0.5 % (5 mg/mL) injection solution [address] [facility], [address] [place] [address], [address], 07/21/2023 13:00:17 Kenalog 10 mg/mL suspensio n for injection 2023 024 [id number] [place] [address] Pharmacy [facility], [address] [place] [address], [address], 07/30/2023 11:33:30 bupivacai ne HCl 0.5 % (5 mg/mL) injection solution [address] [facility], [address] [place] [address], [address], 07/21/2023 13:00:17 Kenalog 10 mg/mL suspensio n for injection 2023 024 [id number] [place] [address] Pharmacy [facility], [address] [place] [address], [address], 07/30/2023 11:33:30 bupivacai ne HCl 0.5 % (5 mg/mL) injection solution [address] [facility], [address] [place] [address], [address], 08/05/2023 11:41:25 Kenalog 10 mg/mL suspensio n for injection [address] [facility], [address] [place] [address], [address], 08/05/2023 11:41:25 bupivacai ne HCl 0.5 % (5 mg/mL) injection solution [address] [facility], [address] [place] [address], [address], 11/04/2023 09:36:30 Kenalog 10 mg/mL suspensio n for injection [address] [facility], [address] [place] [address], [address], 11/04/2023 09:36:30 bupivacai ne HCl 0.5 % (5 mg/mL) injection solution [address] [facility], [address] [place] [address], [address], 11/04/2023 09:36:30 Kenalog 10 mg/mL suspensio n for injection [address] [facility], [address] [place] [address], [address], 11/04/2023 09:36:30 bupivacai ne HCl 0.5 % (5 mg/mL) injection solution [address] [facility]68658, [address] [place] [address], [id number], 03/04/2024 11:14:02 Kenalog 10 mg/mL suspensio n for injection 2023 [facility] #[id number] [place], [id number], 03/04/2024 11:14:02 Voltaren Arthritis Pain 1 % topical gel 2023 no6 [facility] #[id number] [place], [id number], 03/04/2024 11:14:02 bupivacai ne HCl 0.5 % (5 mg/mL) injection solution 2023 no6 [facility] #[id number] [place], [place], [id number], 03/04/2024 11:14:02 Kenalog 10 mg/mL suspensio n for injection 2023 no6 [facility] #[id number] [place], [place], [id number], 03/04/2024 11:14:02 Patient TargetsNo targets recorded. Patient InstructionsNo instructions recorded. Reason for Referral Physical Therapist Referral for Spinal stenosis of lumbar region Please contact patient to schedule Referring Physician: Merary Posadas, Orthopedic Surgery, Encounter Date: 07/21/2023 Orthopedic Spine Surgeon Ref erral for Spinal stenosis of lumbar region Please contact patient to schedule ....Patient will bring disc Referring Physician: Merary Posadas, Orthopedic Surgery, Encounter Date: 08/05/2023 Results Created Date Observation Date Name Description Value Unit Range Abnormal Flag Note LastModifiedBy Organization Detail LastModifiedTime 07/21/19 24 XR, lumba r spine No observ ation record ed. [facility] [place] [address], [place], [address], 07/21/2023 13:12:08 07/30/19 24 07/30/2023 MRI, lumba r spine , w/o contr ast [facility] [address] [address] Patien t Name: JENARO FERNANDES Access ion #: [id number] Sex: F : 1955 7 Dictat ed By: Pawel Lagunas ms Attend ing Physic yessica: MERARY POSADAS Orderi ng Physic yessica: MERARY POSADAS Exam Date: 2023 10:46 AM Exam Name: MRI L SPINE WO Admitt ing Diagno sis(es ): PROCED URE: MRI lumbar spine withou t contra st. INDICA TION: Lower back pain with radicu lopath y. COMPAR JUN: None availa ble at time of dictat ion. TECHNI QUE: MRI lumbar spine withou t intrav enous contra st utiliz ing multip lanar, multis equenc e techni que. FINDIN GS: The alignm ent of the lumbar spine verteb ral bodies is preser grayson. Modic endpla te change s are noted at L3-L4, L4-L5 and L5-S1. No marrow replac ing proces s. The verteb ral body height s are mainta ined. There is interv ertebr al disc space narrow ing and disc desicc ation at L3-L4, L4-L5 and L5-S1. The conus medull alcon is normal in signal charac terist ics and termin ates at the L1-L2 with mild promin ence of the nerve roots. The spinal canal is narrow ed, likely on a develo pmenta l basis. Parasp inal muscle s are unrema rkable . At the T12-L1 level, there is no eviden ce of centra l spinal canal or neurof oramin al stenos is. At the L1-L2 level, there is modera te centra l canal stenos is second danny to mild centra l canal stenos is second danny to promin ent truss driver helper ior epidur al fat. There is crowdi ng of the nerve roots. There is no signif icant neural forami nal stenos is. At the L2-L3 level, there is promin ent truss driver helper ior epidur al fat and mild facet hypert rophy contri buting to modera te canal stenos is. There is crowdi ng of the nerve roots in the thecal sac. There is modera te left and modera te right neural forami nal stenos is. Page 1 [facility] [address] [facility] [place] [address] Patien t Name: JENARO FERNANDES Access ion #: [id number] Sex: F : 1955 7 Dictat ed By: Pawel Lagunas ms Attend ing Physic yessica: CUAUHTEMOC REAGAN Orderi ng Physic yessica: MERARY POSADAS Exam Date: 2023 10:46 AM Exam Name: MRI L SPINE WO Admitt ing Diagno sis(es ): At the L3-L4 level, there is a broad- based truss driver helper ior disc bulge, facet and ligame ntum flavum hypert rophy contri buting to severe canal stenos is. There is modera te to severe bilate ral neural forami nal stenos is. There is imping ement of the bilate ral L3 nerve roots. At the L4-L5 level, there is broad- based truss driver helper ior disc bulge, ligame ntum flavum and mild facet hypert rophy as well as promin ent truss driver helper ior epidur al fat contri buting to severe canal stenos is. There is modera te to severe left and modera te to severe right neural forami nal stenos is. At the L5-S1 level, there is broad- based truss driver helper ior disc bulge and facet hypert rophy. There is mild canal stenos is. There is modera te to severe bilate ral neural forami nal stenos is. Other: There is a right cortic al renal cyst measur ing 2.3 cm and a smalle r one measur ing 4.5 cm. IMPRES EDUARDO: 1. Develo pmenta l spinal canal stenos is. 2. Multil evel degene rative change s in the lumbar spine. This is most severe at L4-L5 where there is severe canal stenos is and modera te to severe bilate ral neural forami nal stenos is at L4-L5. Additi onal findin gs are descri bed at each level above. 3. Conus medull alcon termin ates at L1-L2 with mild crowdi ng of the nerve roots at L1-L2 and L2-L3. If there is any clinic al concer n for arachn oiditi s, MRI of the lumbar spine with contra st may be obtain ed. Electr onical ly Signed by: Pawel Lagunas ms at 2023 15:32: 45 PM Page 2 [email or web address] [facility] ([facility]) [address] [facility], [place], [address], 07/31/2023 08:33:16 11/04/19 24 XR, shoul carina No observ ation record ed. [facility] [address], [place], [address], 11/04/2023 10:16:43 11/04/19 24 XR, knee No observ ation record ed. [facility] [address], [place], [address], 11/04/2023 10:15:55 Result Notes None recorded. Problems Name Problem SNOMED Code Status Onset Date Resolution Date Notes Provider Name and Address Organization Details Recorded Time Spinal enthesopat hy 62836083 Active Not Available [facility] 3 07:33:54 Bilateral osteoarthr itis of knees 2107755643602 07 Active 2021 Not Available [facility] 3 07:33:54 Spinal stenosis of lumbar region 05836725 Active 2019 Not Available [facility] 3 07:33:54 Localized, primary osteoarthr itis of the shoulder region 629596507 Active Not Available [facility] 3 07:33:54 Osteoarthr itis of hip 890093488 Active Not Available [facility] 3 07:33:54 Low back pain 886138931 Active Not Available [facility] 3 07:33:54 Osteoarthr itis of left knee joint 3009997415760 09 Active 2021 Not Available [facility] 3 07:33:54 Osteoarthr itis 206382711 Active Not Available [facility] 3 07:33:54 Adhesive capsulitis of shoulder 096571230 Active Not Available [facility] 3 07:33:54 Lumbosacra l spondylosi s without myelopathy 39182462 Active Not Available [facility] 3 07:33:54 Hip pain 85204360 Active Not Available [facility] 3 07:33:55 Pain of left shoulder joint 9073645812254 9109 Active 2022 Tasha schroeder, [place] - [facility] 3 10:15:25 Pain in right sacroiliac joint 3849325299826 9107 Active 2022 ABDI Rios [address], [place], [address] , [place] [facility] 3 10:52:10 Osteoarthr itis of left glenohumer al joint 2390600635307 104 Active 2022 ABDI Rios [address], [place], [address] , [facility] 3 10:52:18 Contusion of knee 37751538 Active 2022 ABDI Rios [address], [place], [address] , [facility] 3 11:24:32 Pain of bilateral knee regions 2412762813675 02 Active 2022 ABDI Rios [address], [place], [address] , [facility] 3 11:26:19 Adhesive capsulitis of shoulder 691806076 Active 2022 CARLOS A Henriquez, [place] - [facility] 3 10:29:41 Pain in left sacroiliac joint 7937563513855 9102 Active 2023 Tasha schroeder, [facility] 11:15:10 Lumbar radiculopa thy 942510884 Active 2023 ABID Rios [address] [facility], [facility] [address], [place], [address] , [facility] 13:09:57 Localized, primary osteoarthr itis of the shoulder region 955797924 Active 2023 CARLOS A Henriquez, [facility] 10:06:13 Notes:Some problems listed i n Document: #[id number] could not be added to this patient's chart. Please review this document and add these problems to the patient's chart manually as needed. Problem Notes None recorded. Procedures Surgical History Date Name Laterality Status Provider Name and Address Organization Details Recorded Time total replacement of left hip joint completed ANGEL Roque [facility] 02/04/2023 10:35:30 total replacement of right hip joint completed ANGEL Roque [facility] 02/04/2023 10:35:49 Imaging Results Imaging Date Name Status LastModified by Organiz ation Details LastModified Time 07/21/2023 XR, lumbar spine completed [facility] [place] [address], [place], [address], 07/21/2023 13:12:08 07/30/2023 MRI, lumbar spine, w/o contrast completed [facility] ([facility]) [address] [facility], [place], [address], 07/31/2023 08:33:16 11/04/2023 XR, shoulder completed [facility] [place] [address] [facility], [place], [address], 11/04/2023 10:16:43 11/04/2023 XR, knee completed [facility] [place] [address], [place], [address], 11/04/2023 10:15:55 Procedure Notes None recorded. Medical Equipment None Reported. Allergies No known drug allergies Medications Name Sig Start Date Stop Date Status Note LastModified by Organization Details LastModified Time losartan 50 mg tablet TAKE 2 TABLETS BY MOUTH DAILY 03/04 completed Not Available Not Available Not Available cyclobenz aprine 10 mg tablet TAKE ONE TABLET BY MOUTH TWICE DAILY @9AM AND 5PM active Not Available Not Available No t Available atorvasta tin 40 mg tablet TAKE 1 TABLET BY MOUTH ONCE DAILY active Not Available Not Available No t Available Qvar 80 mcg/actua tion Metered Aerosol oral inhaler 07/13 completed Not Available Not Available Not Available prednison e 10 mg tablet TAKE 1 TABLET BY MOUTH 3 TIMES A DAY FOR 3 DAYS, THEN TAKE 1 TABLET BY MOUTH 2 TIMES A DAY FOR 2 DAYS, THEN TAKE 1 TABLET BY MOUTH ONCE FOR 1 DAY 03/04 completed Not Available Not Available Not Available doxycycli ne hyclate 100 mg capsule TAKE 1 CAPSULE BY MOUTH ONCE DAILY active Not Available Not Available No t Available atorvasta tin 20 mg tablet TAKE 2 TABLETS BY MOUTH DAILY 03/04 completed Not Available Not Available Not Available clindamyc in HCl 300 mg capsule TAKE 1 CAPSULE BY MOUTH EVERY 6 HOURS FOR 10 DAYS 11/20 completed Not Available Not Available Not Available albuterol sulfate 2.5 mg/3 mL (0.083 %) solution for nebulizat ion USE ONE VIAL VIA NEBULIZE R THREE TIMES DAILY active Not Available Not Available No t Available triamcino lone acetonide 0.5 % topical cream APPLY A THIN LAYER TO THE AFFECTED AREA(S) BY TOPICAL ROUTE 2 TIMES PER DAY active Not Available Not Available No t Available cetirizin e 10 mg tablet TAKE 1 TABLET BY MOUTH ONCE DAILY 03/04 completed Not Available Not Available Not Available azithromy isaias 250 mg tablet BY MOUTH DIRECTED ; TAKE 2 TABLETS FIRST DAY, 1 TABLET DAY 2,3,4,5 02/04 completed Not Available Not Available Not Available ibuprofen 800 mg tablet TAKE 1 TABLET BY MOUTH THREE TIMES DAILY NEEDED active Not Available Not Available No t Available meloxicam 15 mg tablet TAKE 1 TABLET BY MOUTH EVERY DAY 03/04 completed Not Available Not Available Not Available ondansetr on HCl 4 mg tablet TAKE 1 TABLET BY MOUTH EVERY 8 HOURS NEEDED FOR NAUSEA AND VOMITING 03/04 completed Not Available Not Available Not Available bupivacai ne HCl 0.5 % (5 mg/mL) injection solution Take 40 mg by injectio n route. 2023 active Not Available Not Available Not Avai lable prednison e 20 mg tablet 03/03 completed Not Available Not Available Not Available amlodipin e 5 mg tablet TAKE 1 TABLET BY MOUTH ONCE DAILY FOR 90 DAYS 02/04 completed Not Available Not Available Not Available ciproflox acin 500 mg tablet 03/03 completed Not Available Not Available Not Available hydrocodo ne 10 mg-acetam inophen 325 mg tablet TAKE 1 TABLET BY MOUTH TWICE DAILY 03/04 completed Not Available Not Available Not Available peg-elect rolyte solution 420 gram oral solution MIX AND DRINK 1/2 AT 5PM ON 11/24 AND 1/2 AT 5AM ON 11/25 completed Not Available Not Available Not Available tramadol 50 mg tablet 03/03 completed Not Available Not Available Not Available prednison e 10 mg tablets in a dose pack Take 1 tab by mouth, 3 times a day for 3 daysTake 1 tab by mouth 2 times a day for 2 daysTake 1 tab by mouth once a day for 1 day 03/04 completed Not Available Not Available Not Available meloxicam 7.5 mg tablet 03/03 completed Not Available Not Available Not Available losartan 100 mg-hydroc hlorothia zide 25 mg tablet TAKE 1 TABLET BY MOUTH ONCE DAILY 03/04 completed Not Available Not Available Not Available terbinafi ne HCl 250 mg tablet TAKE 1 TABLET BY MOUTH EVERY MORNING 02/04 completed Not Available Not Available Not Available amoxicill in 875 mg tablet TAKE 1 TABLET BY MOUTH EVERY 12 HOURS FOR 10 DAYS active Not Available Not Available No t Available famotidin e 20 mg tablet TAKE 1 TABLET BY MOUTH TWICE DAILY 02/04 completed Not Available Not Available Not Available aspirin 325 mg tablet,de layed release TAKE 1 TABLET BY MOUTH EVERY MORNING active Not Available Not Available No t Available Kenalog 10 mg/mL suspensio n for injection Take 40 mg by injectio n route. [address] [facility]: [id number] 4-20 Not Available Not Available Not Available benzonata te 100 mg capsule TAKE 1 CAPSULE BY MOUTH EVERY 6 HOURS NEEDED FOR COUGH 02/04 completed Not Available Not Available Not Available hydrocodo ne 7.5 mg-acetam inophen 325 mg tablet TAKE 1 TABLET BY MOUTH TWICE DAILY active Not Available Not Available No t Available cephalexi n 500 mg capsule TAKE 1 CAPSULE BY MOUTH EVERY 6 HOURS FOR 7 DAYS 11/20 completed Not Available Not Available Not Available pantopraz ole 40 mg tablet,de layed release TAKE 1 TABLET BY MOUTH EVERY 24 HOURS active Not Available Not Available No t Available ranitidin e 150 mg tablet 07/13 completed Not Available Not Available Not Available nitroglyc zina 0.4 mg sublingua l tablet DISSOLVE ONE TABLET UNDER TONGUE NEEDED FOR CHEST PAIN EVERY 5 MINUTES FOR UP TO 3 DOSES 03/04 completed Not Available Not Available Not Available betametha sone dipropion ate 0.05 % topical cream APPLY A THIN LAYER TO THE AFFECTED AREA TOPICALL Y ONCE DAILY 03/04 completed Not Available Not Available Not Available omeprazol e 20 mg capsule,d elayed release 02/04 completed Not Available Not Available Not Available monteluka st 10 mg tablet TAKE 1 TABLET BY MOUTH ONCE DAILY 03/04 completed Not Available Not Available Not Available bisacodyl 5 mg tablet,de layed release TAKE ALL 6 TABLETS BY MOUTH AT 8AM ON 11/24 completed Not Available Not Available Not Available hydrochlo rothiazid e 25 mg tablet TAKE 1 TABLET BY MOUTH EVERY DAY 02/04 completed Not Available Not Available Not Available furosemid e 20 mg tablet TAKE 1 TABLET BY MOUTH DAILY active Not Available Not Available No t Available azelastin e 137 mcg (0.1 %) nasal spray INSTILL TWO SPRAYS IN EACH NOSTRIL ONCE DAILY active Not Available Not Available No t Available levofloxa isaias 750 mg tablet TAKE 1 TABLET BY MOUTH ONCE DAILY 11/20 completed Not Available Not Available Not Available methylpre dnisolone 4 mg tablets in a dose pack FOLLOW PACKAGE DIRECTIO NS 03/04 completed Not Available Not Available Not Available albuterol sulfate HFA 90 mcg/actua tion aerosol inhaler INHALE 2 PUFFS BY MOUTH EVERY 4 HOURS active Not Available Not Available No t Available oxybutyni n chloride 5 mg tablet TAKE 1 TABLET BY MOUTH THREE TIMES DAILY FOR 7 DAYS 11/20 completed Not Available Not Available Not Available ondansetr on 4 mg disintegr ating tablet DIS 1 T ON THE TONGUE Q 8 H 03/03 completed Not Available Not Available Not Available cefdinir 300 mg capsule TAKE 1 CAPSULE BY MOUTH EVERY 12 HOURS 02/04 completed Not Available Not Available Not Available losartan 100 mg tablet TAKE 1 TABLET BY MOUTH ONCE DAILY FOR 90 DAYS active Not Available Not Available No t Available fluticaso ne propionat e 50 mcg/actua tion nasal spray,cristina pension USE 2 SPRAY(S) IN EACH NOSTRIL ONCE DAILY 03/04 completed Not Available Not Available Not Available loratadin e 10 mg tablet TAKE 1 CAPSULE BY MOUTH AT BEDTIME 02/04 completed Not Available Not Available Not Available naproxen 500 mg tablet TAKE 1 TABLET BY MOUTH WITH FOOD TWICE DAILY 03/04 completed Not Available Not Available Not Available nitrofura ntoin monohydra te/macroc rystals 100 mg capsule TAKE 1 CAPSULE BY MOUTH EVERY 12 HOURS FOR 10 DAYS 03/04 completed Not Available Not Available Not Available [place] 1 tab 2x daily 11/20 completed Not Available Not Available Not Available lidocaine (PF) 10 mg/mL (1 %) injection solution In office injectio n administ ered by the provider 11/[address] [facility]: [id number] 6-17 Not Available Not Available Not Available lidocaine (PF) 5 mg/mL (0.5 %) injection solution Take 40 mg by injectio n route. 02/04 completed Not Available Not Available Not Available cephalexi n 750 mg capsule TAKE 1 CAPSULE BY MOUTH EVERY 12 HOURS 11/20 completed Not Available Not Available Not Available Symbicort 160 mcg-4.5 mcg/actua tion HFA aerosol inhaler INHALE 2 PUFFS BY MOUTH TWICE DAILY 03/04 completed Not Available Not Available Not Available diclofena c 1 % topical gel APPLY 2 GRAMS TO THE AFFECTED AREA FOUR TIMES DAILY active Not Available Not Available No t Available Flovent Diskus 100 mcg/actua tion powder for inhalatio n 07/13 completed Not Available Not Available Not Available Synvisc-O ne 48 mg/6 mL intra-art icular syringe Injectio ns given in the office by the doctor 11/[address] [facility]: [id number] 001 Not Available Not Available Not Available azelastin e 205.5 mcg (0.15 %) nasal spray 01/17 completed Not Available Not Available Not Available Dulera 200 mcg-5 mcg/actua tion HFA aerosol inhaler INHALE 1 PUFF BY MOUTH TWICE DAILY active Not Available Not Available No t Available ropivacai ne (PF) 5 mg/mL (0.5 %) injection solution in office [address] [facility] [id number] 08-31 Not Available Not Available Not Available Combivent Respimat 20 mcg-100 mcg/actua tion solution for inhalatio n INHALE 1 PUFF BY MOUTH 4 TIMES DAILY 02/04 completed Not Available Not Available Not Available Eliquis 5 mg tablet TAKE 2 TABLETS BY MOUTH EVERY 12 HOURS FOR 7 DAYS 03/04 completed Not Available Not Available Not Available Incruse Ellipta 62.5 mcg/actua tion powder for inhalatio n INHALE 1 PUFF BY MOUTH ONCE DAILY FOR 90 DAYS 03/04 completed Not Available Not Available Not Available ProAir RespiClic k 90 mcg/actua tion breath activated INHALE 2 PUFFS EVERY 4 HOURS BY INHALATI ON FOR 90 DAYS active Not Available Not Available No t Available Robitussi n Cough-[place] st Congestio n DM 5 mg-50 mg/5 mL oral liquid TAKE 10 ML BY MOUTH 4 TIMES DAILY FOR 7 DAYS 11/20 completed Not Available Not Available Not Available Afluria Qd (36 mos up)(PF)60 mcg (15 mcg x4)/0.5 mL IM syringe ADM 0.5ML IM UTD 11/20 completed Not Available Not Available Not Available Breztri Aerospher e 160 mcg-9mcg- 4.8mcg/ac tuation HFA aerosol inhaler INHALE 2 PUFFS BY MOUTH TWICE DAILY 03/04 completed Not Available Not Available Not Available Paxlovid 300 mg (150 mg x 2)-100 mg tablets in a dose pack TAKE 2 TABS (300 MG) OF THE NIRMATRE LVIR AND 1 TAB OF RITONAVI R BY MOUTH TWICE DAILY FOR 5 DAYS 02/04 completed Not Available Not Available Not Available Vitals Date Recorded Body height Body mass index (BMI) Body weight Provider Name and Address Organization Details Last Updated DateTime 05/06/2023 157.48 cm 31.3 kg/m2 46730.3 g Delores Saeed [facility] [employer] 05/06/2023 10:22:13 Date Recorded Body height Body mass index (BMI) Body weight Provider Name and Address Organization Details Last Updated DateTime 07/21/2023 157.48 cm 31.1 kg/m2 49600.7 g Alyx Adams [facility] [employer] [facility] 07/21/2023 10:36:06 Date Recorded Body height Body mass index (BMI) Body weight Provider Name and Address Organization Details Last Updated DateTime 08/05/2023 157.48 cm 32.2 kg/m2 92594.26 g Delores Saeed [facility] [employer] [facility] 08/05/2023 10:11:57 Date Recorded Body height Body mass index (BMI) Body weight Provider Name and Address Organization Details Last Updated DateTime 11/04/2023 157.48 cm 32.2 kg/m2 14347.26 g Delores Saeed [facility] [employer] [facility] 11/04/2023 09:30:02 Date Recorded Body height Body mass index (BMI) Body weight Provider Name and Address Organization Details Last Updated DateTime 03/04/2024 157.48 cm 33.1 kg/m2 55902.22 g Delores Saeed [facility] [employer] [facility] 03/04/2024 10:15:14 Social History Question Answer Notes LastModified by Organizat ion Details LastModified Time Tobacco Smoking Status Former Smoker Not Available [employer] 07/31/2022 07:27:50 What Is Your Level Of Alcohol Consumption? None [email or web address] Information not available 03/04/2024 Sex: Unknown Functional Status None recorded. Mental Status None recorded. Family History Relationship Description Onset Age of this Age Resolved Age Notes LastModified by Organization Details LastModified Time Mother Hypertensive disorder [email or web address] Not available 2023 10:20:58 Sister Hypertensive disorder [email or web address] Not available 2023 10:21:02 Medical History Condition Response ARTHRITIS Y USE OF BLOOD THINNERS Y COPD Y HYPERTENSION Y Gynecological HistoryNo gynecological history recorded. Obstetrics History GPAL:G 0 P 0 0 0 0 Past Encounters Encounter ID Performer Location Encounter Start Date Encounter Closed Date Diagnosis/Indication Diagnosis SNOMED-CT Code Diagnosis ICD10 Code Diagnosis Note [id number] [facility] [address] [address] 09/05/2020 00:00:00 09/05/2020 11:03:[address] [id number] [facility] [address] [address] 11/20/2021 00:00:00 11/20/2021 11:36:30 [id number] [facility] [address] [address] 12/04/2021 00:00:00 12/04/2021 10:45:25 [id number] ABDI Rios [facility] [address] [address] 09/03/2022 09:55:12 09/03/2022 11:14:53 Osteoarthritis 795273737 M17.0 Low back pain 071918820 M54.50 Pain of le ft shoulder joint 2175391587 0283024 M25.512 Pain in ri ght sacroiliac joint 4182771386 6444514 M53.3 Osteoarthr itis of left glenohumeral joint 0140125616 101756 M19.012 [id number] ABDI Rios [facility] [address] [address] 11/05/2022 10:35:08 11/05/2022 11:07:34 Bilateral osteoarthritis of knees 8872240504 33108 M17.0 Low back pain 417527168 M54.50 Pain of le ft shoulder joint 2171004276 3030265 M25.512 Pain in ri ght sacroiliac joint 0722169861 5006143 M53.3 Osteoarthr itis of left glenohumeral joint 0993392935 037087 M19.012 Contusion of knee 738776 06 S80.01XA S80.02XA Pain of bi lateral knee regions 2517769770 08627 M25.561 M25.352 [id number] ABDI Rios [address] [address] 02/04/2023 10:15:02 02/04/2023 11:20:39 Contusion of knee 37816241 S80.01XA S80.02XA Bilateral osteoarthritis of knees 6585643423 33234 M17.0 Low back pain 346748105 M54.50 Pain of le ft shoulder joint 3582908030 0294603 M25.512 Pain in ri ght sacroiliac joint 6601106242 4724079 M53.3 Osteoarthr itis of left glenohumeral joint 4527176510 313688 M19.012 Pain of bi lateral knee regions 9329677929 91324 M25.561 M25.685 [id number] ABDI Rios [address] [address] 05/06/2023 10:17:43 05/06/2023 10:45:10 Bilateral osteoarthritis of knees 4756119022 75478 M17.0 Pain of bi lateral knee regions 6951524976 89544 M25.561 M25.562 Osteoarthr itis of left glenohumeral joint 9005729749 885587 M19.012 Pain in ri ght sacroiliac joint 0311405067 3759215 M53.3 Pain of le ft shoulder joint 7705806977 2929166 M25.512 Spinal carlos nosis of lumbar region 53212255 M48.061 Localized, primary osteoarthritis of the shoulder region 286086061 M19.012 Low back pain 986714905 M54.50 Adhesive c apsulitis of shoulder 607010249 M75.02 Lumbosacra l spondylosis without myelopathy 59292018 M47.058 [id number] ABDI Rios [facility] [address] [place] [address] 07/21/2023 10:31:49 07/21/2023 11:40:45 Bilateral osteoarthritis of knees 6762280074 87484 M17.0 Pain in ri ght sacroiliac joint 7800277172 3786958 M53.3 Pain of le ft shoulder joint 7546974742 0909959 M25.512 Pain of bi lateral knee regions 5240660523 56442 M25.561 M25.562 Osteoarthr itis of left glenohumeral joint 7631543693 751549 M19.012 Spinal carlos nosis of lumbar region 21659490 M48.061 Lumbosacra l spondylosis without myelopathy 35173985 M47.817 Low back pain 104818360 M54.50 Pain in le ft sacroiliac joint 0741430840 2218884 M53.3 Lumbar radiculopathy 128 116178 M54.16 [id number] ABDI Rios [employer] [address] [address] 08/05/2023 10:08:14 08/05/2023 10:52:38 Pain in left sacroiliac joint 1065284705 2446356 M53.3 Pain in ri ght sacroiliac joint 5091787516 6623433 M53.3 Lumbar radiculopathy 128 372534 M54.16 Spinal carlos nosis of lumbar region 50495220 M48.061 Low back pain 855479032 M54.50 Lumbosacra l spondylosis without myelopathy 21624938 M47.817 Pain of bi lateral knee regions 4251420523 90692 M25.561 M25.562 Bilateral osteoarthritis of knees 5214677833 16770 M17.0 [id number] ABDI Rios [employer] [address] [address] 11/04/2023 09:26:43 11/04/2023 10:18:28 Bilateral osteoarthritis of knees 7243346166 45200 M17.0 Pain of le ft shoulder joint 8066832789 6495737 M25.512 Localized, primary osteoarthritis of the shoulder region 563072806 M19.012 Pain of bi lateral knee regions 9096124144 43831 M25.561 M25.217 [id number] ABDI Rios [facility] [place] [facility] [address] [facility] [address] [address] [place] [address] 03/04/2024 09:58:25 03/04/2024 10:36:43 Bilateral osteoarthritis of knees 8991648062 48813 M17.0 Pain of le ft shoulder joint 4209645932 9498643 M25.512 Pain of bi lateral knee regions 6346111853 45594 M25.561 M25.562 Localized, primary osteoarthritis of the shoulder region 734380304 M19.012 Osteoarthr itis of left glenohumeral joint 1006991463 146904 M19.012 Health Concerns Section Related Observation LastModified by Organization Detai ls LastModified Time None Recorded Concern Status LastModified by Organization Details LastModified Time None Recorded Advance Directives Directive None Recorded Payers Encounter Date Sequence Insurance Name Policy Number Policy Chopra Covered Member ID Chopra Member ID Guarantor Name 05/06/2023 1 [facility] (MEDICARE REPLACEMENT/AD VANTAGE - HMO) [id number] Barbi L Dena [id number] [place] 05/06/2023 2 [place]ARE [place] MEDICARE REPLACEMENT PRIMARY) Barbi L Dena [id number] Barbi L Dena 07/21/2023 1 [facility] (MEDICARE REPLACEMENT/AD VANTAGE - HMO) [id number] Barbi L Dena [id number] [place] D[place] 07/21/2023 2 [place] OR MEDICARE REPLACEMENT PR[place]) [place] D[place] [id number] Barbi L Dnea 08/05/2023 1 [facility] (MEDICARE REPLACEMENT/AD VANTAGE - HMO) [id number] Barbi L Dena [id number] [place] L D[place] 08/05/2023 2 [place] OR MEDICARE REPLACEMENT PRIMARY) Barbi L Dena [id number] Barbi L Dena 11/04/2023 1 [facility] (MEDICARE REPLACEMENT/AD VANTAGE - HMO) [id number] [place] Dena [id number] [place] D[place] 11/04/2023 2 [place] OR MEDICARE REPLACEMENT PRIMARY) Barbi L Dena [id number] Barbi L Dena 03/04/2024 2 [place] OR MEDICARE REPLACEMENT PRIMARY) Barbi Stanley [facility] [id number] Barbi Stanley [facility] 03/04/2024 1 [facility] (MEDICARE REPLACEMENT/AD VANTAGE - PPO) [id number] Barbi Stanley Dena [id number] Barbi Stanley [facility] Notes Date Note Type Note Provider Name and Address Organization Details Recorded Time 05/06/2023 text/html Patient returns complaining of multiple issues she has low back pain right sacroiliac region, left shoulder pain due to severe osteoarthritis of glenohumeral joint and also severe primary osteoarthritis bilateral knees. Every now and then she comes in for cortisone injections of 1 her more sites today she would like all 4 sites injected. Denies any new symptoms no new trauma or injury. She has aching pain in both knees at limits her ability to stand or walk for any amount of time. She has no effusion or swelling no new symptoms or trauma previous x-rays show [id number] changes in medial compartments of both knees patellofemoral articulation show significant osteophytes and narrowing as well. As far as her left shoulder goes she has [id number] glenohumeral osteoarthritis with subchondral cystic formation and marginal osteophyte noted off the inferior humeral head. Denies any new symptoms here has aching pain that radiates into the upper arm she cannot do anything heavy repetitive sometimes keeps her awake at night cannot sleep on that side. She notes some limitation of motion crepitation as well she would like a shot of cortisone here today. Patient also has low back pain in the right sacroiliac region denies any radiculopathy no weakness in her legs no numbness or tingling no bowel or bladder symptoms shot of cortisone have previously helped her in the right sacroiliac region she would like another 1 here today. Previous x-rays show some mild lumbar spondylosis otherwise unremarkable. Currently she is not taking any arthritis medicine we talked about this today she would like to try a round of prednisone which has helped previously she would also like to restart meloxicam 15 mg daily. ABDI Rios [address] [facility] [address], [place], [address], [place] - [facility] [employer] 05/06/2023 10:51:35 07/21/2023 text/html Patient returns she is complaining of left shoulder pain which has known severe glenohumeral joint osteoarthritis with flattening of the humeral head and subchondral cystic changes and sclerotic changes as well. She reports chronic locking and catching in the shoulder due to her severe osteoarthritis. She has aching and pain almost all the time worse with activity if she is not moving really does not bother her too much. She comes in today requesting repeat cortisone injection into the left shoulder.The patient also is complaining of low back pain now she has had some chronic knee issues she states today her knees are not feeling too bad, her main new complaint is pain radiating down the back of her left leg and low back pain. She has had some chronic issues with her back but now has what appears to be sciatica on the left lower extremity. She states that she has had no trauma or injury denies any bowel or bladder symptoms no weakness but has a chronic deep aching radiating down the back of her left leg and at times she feels like she cannot ambulate normally he cannot trust the leg because it feels as though wants to give way. Strength testing today showed excellent strength. She states actually the right side of her lumbar region feels worse than the left but the radicular pain is down the left side. We will get x-rays of her back today for initial evaluation and treatment if necessary. She states she was having of pain that she did go to the emergency room recently but they did not do any x-rays of her back they recommended she see Orthopedics and have x-rays and/or MRI scan. They gave her pain medicine injection and some cyclobenzaprine and anti-inflammatory she states the anti-inflammatory really did not do much for her cyclobenzaprine did help somewhat. She has had previous right sacroiliac pain but denies having radiculopathy or sciatica. She has had this ongoing pain for the past week or so has trouble sleeping at night or getting around and comes in today for initial evaluation treatment. ABDI Rios [address], [facility] [address], [place], [address], [place] - [facility] [employer] 07/21/2023 13:12:39 08/05/2023 text/html Patient returns complaining of low back pain that radiates into both legs. She also has a history of severe left glenohumeral osteoarthritis and severe primary osteoarthritis both knees. She has gotten some relief from the cortisone injection into the left shoulder today her main complaint is her back. She is also complaining of pain in both knees it has been 3 months since her last cortisone injection both knees. She has lumbar radiculopathy more down the left lower extremity we tried a course of oral prednisone Flexeril and shot of cortisone bilateral sacroiliac regions. She states this really has not helped her much. An MRI scan was performed. She comes in today for results. MRI scan shows moderate central canal stenosis at L1-2 no significant neural foraminal stenosis. L2-3 level shows mild facet hypertrophy contributing to moderate canal stenosis with crowding of the nerve roots in the thecal sac moderate bilateral neural foraminal stenosis is noted. L3-4 level shows broad-based posterior disc bulge facet hypertrophy contributing to severe canal stenosis there is moderate to severe bilateral neural foraminal stenosis. L4-5 level shows broad-based disc bulging and hypertrophic changes as well contributing to severe canal stenosis moderate to severe left and moderate to severe right neural foraminal stenosis is noted. L5-S1 shows broad-based posterior disc bulging and facet hypertrophy mild central canal stenosis and moderate to severe bilateral neural foraminal stenosis is noted. Also of note is a right cortical renal cyst measuring 2.3 cm and another 1 measuring 4.5 cm. She states this has been present her daughter confirms this, since she has had previous kidney stones and had to have stents placed this is not an acute process despite this have advised her to follow-up with her urologist to make sure that this has not changed significantly since her kidney stone and stent placement previously. The patient denies any weakness in her legs no bowel or bladder symptoms main complaint is bilateral lower extremity aching and especially low back pain. ABDI Rios [address] [facility], [facility] [address] [place], [address], [facility] [employer] 08/05/2023 11:40:19 11/04/2023 text/html Patient returns with bilateral knee pain and left shoulder pain. She has severe primary osteoarthritis with [id number] changes of the glenohumeral joint left shoulder as well as bilateral knees in the medial compartments. She comes in to me now and then for cortisone injections. She is also having chronic back pain she is scheduled to undergo lumbar epidural steroid injections in about a month. She has spinal stenosis due to bulging discs and degenerative change. Her main complaint today is bilateral knee pain and left shoulder pain. She actually has pretty good function left shoulder but does report draining crepitation in the catching sensation with range of motion due to the nature of her osteoarthritis which is quite severe. She states she does have some painful giving way with trying to do anything heavy repetitive really cannot do much with her shoulder it limits her somewhat in her daily activities discharge to cortisone do give her some relief she also has bilateral knee pain with standing or walking for long periods she denies any effusion or swelling no new trauma or injury to her shoulder or her knees. She does take naproxen twice daily which gives her some slight relief. She comes in today requesting injections left shoulder and both knees. ABDI Rios [address] [facility], [facility] [address], [place], [address], [place] [facility] [employer] 11/04/2023 10:17:42 03/04/2024 text/html Patient returns complaining of bilateral knee pain and left shoulder pain. She has severe nzwg-[id number] glenohumeral osteoarthritis left shoulder with marginal osteophytes she reports mechanical symptoms crepitation aching pain that limits her daily activities. Bilateral knee x-rays previously also showed severe primary osteoarthritis with hzaz-mk-[id number] changes in medial compartments and varus deformities left slightly worse than right. These also cause her a significant amount of pain. Unfortunately she is not a good candidate for joint arthroplasty due to the fact that she has significant COPD she is on multiple medications to treat this she was recently hospitalized for her lungs as well. She has reported today that her pain is about a 9 on a scale 1-10 all 3 sites. Cortisone does help for short periods. Unfortunately we are somewhat limited in what we can do in terms of treatment for her what she really needs his total shoulder and bilateral total knee arthroplasties she is wondering what else we could do I said we could try some Voltaren gel for local affect. She would like to try that as well. New past medical history sheet was reviewed and signed on the intake sheet of today's date drug allergies current medications family social history previous surgical history 10 point review of systems was reviewed and discussed in detail today with the patient. ABDI Rios [address], [place], [address], [place] [facility] 03/04/2024 10:42:33 OBGyn Episode No OBEpisode recorded.
--- OUTSIDE RECORDS SUMMARY | 2024-07-13 08:36 | XMS_ITS | CONTINUITY OF CARE DOCUMENT ---
Author Name jericho echavarria Address Unknown Organization [facility] Address [address] [place] [address] Phone [phone] Care Team Providers Care Stitcher Feeder Name Role Phone Ani Cook MD Unavailable BRUNO WORRELL MD Unavailable BRUNO WORRELL MD Unavailable PROBLEMS Condition Status Date Provider Notes Diabetes mellitus, type 2 active Koki Velasco per Syncope active Koki Macias INSURANCE PROVIDERS Payer name Policy type / Coverage type [employer] party ID [id number] (PPO C-SNP) Commercial insurance company [id number] HEALTHCARE AND FAMILY SERVICES Medicaid 1 [id number] TREATMENT PLAN Date Name Stress Regadenoson
--- OUTSIDE RECORDS SUMMARY | 2024-07-13 08:37 | XMS_ITS | Data Portability ---
Author Organization [facility] Address [address] [place] [address] Care Team Providers Care Power Tong Operator Name Role Phone HARI DOWD Primary Care Provider Assessment No assessment recorded. Plan of Treatment Reminders Order Date Submit Date Provider Last Modified By Organization Details Last Modified Time Details Appointments NEW PATIENT 15 2024 10:30A Vicki Mauro MD Not available Not available Not available NEW PATIENT 15 2024 10:45A M Terry Vivar MD Not available Not available Not available ANY 15 2024 09:15A M Hari Dowd MD Not available Not available Not available Lab None recorded. Referral pulmonolo gist referral 2024 025 [email or web address] Terry Vivar, [address] [facility], [place], [address], 06/30/2024 10:31:33 cardiolog ist referral 2024 025 [email or web address] Elvia Mauro MD, [address] , [facility] [address], [place], [address], 06/28/2024 14:31:43 Procedures None recorded. Surgeries None recorded. Imaging None recorded. Medication Orders cyclobenz aprine 10 mg tablet 2023 024 [facility], [address] [facility], [place], [address], 12/10/2023 12:59:[address] 10 mg tablet 2023 [facility], [address] [place] [address], [id number], 12/10/2023 12:59:48 azelastin e 137 mcg (0.1 %) nasal spray 2023 [facility] [address], [address] [place] [address], [id number], 12/10/2023 12:59:49 fluticaso ne propionat e 50 mcg/actua tion nasal spray,cristina pension 2023 [facility] [address], [address] [place] [address], [id number], 12/10/2023 12:59:45 cetirizin e 10 mg tablet 2023 024 [facility] [address], [address] [place] [address], [id number], 12/10/2023 12:59:50 albuterol sulfate HFA 90 mcg/actua tion aerosol inhaler 2023 024 [facility] [address], [address] [place] [address], [id number], 12/10/2023 12:59:47 Breztri Aerospher e 160 mcg-9mcg- 4.8mcg/ac tuation HFA aerosol inhaler 2023 024 [facility] [address], [address] [place] [address], [address], 12/10/2023 12:59:48 hydrocodo ne 7.5 mg-acetam inophen 325 mg tablet 2023 024 [facility] [address], [address] [place] [address], [id number], 03/03/2024 15:52:57 atorvasta tin 40 mg tablet 2023 024 [facility] [address], [address] [place], [address], 03/03/2024 15:52:54 mometason e-formote rol HFA 200 mcg-5 mcg/actua tion aerosol inhaler 2023 024 [facility] [address], [address] [place] [address], [id number], 03/03/2024 15:52:49 albuterol sulfate HFA 90 mcg/actua tion aerosol inhaler 2023 024 [facility] [address], [address] [place] [address], [id number], 03/03/2024 15:52:52 losartan 100 mg tablet 2023 024 [facility] [address], [address] [place] [address], [id number], 04/26/2024 12:52:59 hydrocodo ne 7.5 mg-acetam inophen 325 mg tablet 2024 025 [facility], [address] [place] [address], [id number], 06/28/2024 11:12:12 omeprazol e 40 mg capsule,d elayed release 2024 025 [facility], [address] [place] [address], [id number], 06/28/2024 11:12:00 atorvasta tin 40 mg tablet 2024 025 [facility], [address] [place] [address], [id number], 06/28/2024 11:12:01 Patient TargetsNo targets recorded. Patient Instructions Encounter Date Encounter Id Patient Instructions Last Modified By Organization Details Last Modified Time 12/10/2023 [id number] osteoarthritis: care instructions Not available 12/10/2023 12:59:38 managing your allergies: care instructions Not available 12/10/2023 12:59:37 allergies: care instructions Not available 12/10/2023 12:59:37 A healthy lifest yle: care instructions Not available 12/10/2023 12:59:37 leg and ankle ed chandni: care instructions Not available 12/10/2023 12:59:37 learning about h igh blood pressure Not available 12/10/2023 12:59:38 learning about c opd and how to prevent lung infections Not available 12/10/2023 12:59:38 chronic obstruct sharath pulmonary disease (COPD): care instructions Not available 12/10/2023 12:59:37 03/03/2024 [id number] influenza (flu) vaccine: care instructions Not available 03/03/2024 15:52:43 gastroesophageal reflux disease (GERD): care instructions Not available 03/03/2024 15:52:43 high cholesterol : care instructions Not available 03/03/2024 15:52:43 chronic obstruct sharath pulmonary disease (COPD): care instructions Not available 03/03/2024 15:52:43 learning about c opd and how to prevent lung infections Not available 03/03/2024 15:52:43 A healthy lifest yle: care instructions Not available 03/03/2024 15:52:42 learning about h igh blood pressure Not available 03/03/2024 15:52:42 04/26/2024 [id number] gastroesophageal reflux disease (GERD): care instructions Not available 04/26/2024 12:54:51 chronic obstruct sharath pulmonary disease (COPD): care instructions Not available 04/26/2024 12:52:54 learning about c opd and how to prevent lung infections Not available 04/26/2024 12:52:54 sleep apnea: car e instructions Not available 04/26/2024 12:52:54 A healthy lifest yle: care instructions Not available 04/26/2024 12:52:54 learning about h igh blood pressure Not available 04/26/2024 12:52:54 06/08/2024 [id number] sleep apnea: car e instructions Not available 06/08/2024 11:59:20 A healthy lifest yle: care instructions Not available 06/08/2024 11:59:21 learning about h igh blood pressure Not available 06/08/2024 11:59:21 gastroesophageal reflux disease (GERD): care instructions Not available 06/08/2024 11:59:21 chronic obstruct sharath pulmonary disease (COPD): care instructions Not available 06/08/2024 11:59:21 learning about c opd and how to prevent lung infections Not available 06/08/2024 11:59:20 06/28/2024 [id number] A healthy lifest yle: care instructions Not available 06/28/2024 11:11:39 gastroesophageal reflux disease (GERD): care instructions Not available 06/28/2024 11:11:38 chronic obstruct sharath pulmonary disease (COPD): care instructions Not available 06/28/2024 11:11:39 learning about c opd and how to prevent lung infections Not available 06/28/2024 11:11:38 high cholesterol : care instructions Not available 06/28/2024 11:11:38 sleep apnea: car e instructions Not available 06/28/2024 11:11:38 learning about h igh blood pressure Not available 06/28/2024 11:11:39 Reason for Referral Medical Practice Assistant Referral for S leep apnea Referring Physician: [facility], Encounter Date: 06/28/2024 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 [facility] [address] [place], [address], 02/05/2024 14:04:47 02/01/20 24 02/01/2024 XR, tibia + fibul a, 2 view No observ ation record ed. [facility] [address] [place], [address], 02/05/2024 14:05:05 02/01/20 24 02/01/2024 XR, ankle , 3 or more view No observ ation record ed. [facility] [address] [place], [address], 02/05/2024 14:05:57 02/01/20 24 02/01/2024 CT, angio gram, chest , w/ contr ast No observ ation record ed. [facility] [address] [place], [address], 02/05/2024 14:06:17 02/07/20 24 02/07/2024 XR, chest No observ ation record ed. [facility] [address] [place], [address], 02/09/2024 10:21:57 02/07/20 24 02/07/2024 CT, angio gram, chest , w/ contr ast No observ ation record ed. [facility] [address] [place], [address], 02/09/2024 10:22:28 05/05/20 24 05/05/2024 XR, chest No observ ation record ed. [facility] [address] [place], [address], 05/10/2024 10:23:34 05/29/20 24 05/28/2024 XR, chest , 2 view No observ ation record ed. [address] [address], [place], [address], 06/10/2024 09:41:30 05/29/20 24 05/29/2024 CT, chest , w/o contr ast No observ ation record ed. [address], [place], [address], 06/10/2024 09:44:27 05/29/20 24 05/29/2024 US, doppl er, venou s No observ ation record ed. [address], [place], [address], 06/10/2024 09:44:46 06/09/19 25 06/09/2024 XR, chest No observ ation record ed. [address] [place], [address], 06/28/2024 11:00:06 06/09/19 25 06/09/2024 CT, abdom en + pelvi s, w/wo contr ast No observ ation record ed. [address] [place], [address], 06/28/2024 11:00:06 06/09/19 25 06/09/2024 CT, angio gram, chest + abdom en + pelvi s, w/wo contr ast No observ ation record ed. [address] [place], [address], 06/28/2024 11:00:06 Result Notes None recorded. Problems Name Problem SNOMED Code Status Onset Date Resolution Date Notes Provider Name and Address Organization Details Recorded Time Chronic rhinitis 79266632 Active 2021 MEIR Alvarez, [place] - [facility] 3 14:28:48 Localized swelling, mass and lump, lower limb Active La Virgen [place] null, [place] - [facility] 3 14:26:37 Gastroesopha geal reflux disease 916373052 Active La Vir[place] [facility] 3 14:28:48 Allergic rhinitis 79098684 Active La Vir[place] [facility] 3 14:28:48 Dermatitis Active La Vir[place] [facility] 3 14:28:48 Menopause present 150808497 Active [place] [facility] 3 14:28:48 Numbness of hand 359183633 Active [place] [facility] 3 14:28:48 Carpal tunnel syndrome 68174758 Active La Vir[place] [facility] 3 14:28:48 Spinal enthesopathy 28988332 Active La Vir[place] [facility] 3 14:28:48 Osteoarthrit is 143945246 Active La [place] [facility] 3 14:28:48 Chronic obstructive pulmonary disease 74769622 Active La [place] [facility] 3 14:28:48 Obesity 161165752 Active [place] [facility] 3 14:28:48 Essential hypertension 52383703 Active [place] [facility] 3 14:28:48 Notes:Some problems listed i n Documents: #[id number], #[id number], #[id number], #[id number], #[id number], #[id number], #[id number], #[id number], #[id number] could not be added to this patient's chart. Please review these documents and add these problems to the patient's chart manually as needed. Problem Notes None recorded. Procedures Surgical History Date Name Laterality Status Provider Name and Address Organization Details Recorded Time 2 Tubal Ligation completed Kristi Arenas MA [place] - [facility] 11/28/2014 10:25:14 1 Caesarean Section completed Kristi Arenas MA [facility] 11/28/2014 10:25:14 Imaging Results Imaging Date Name Status LastModified by Organ ation Details LastModified Time 02/01/2024 XR, chest completed [facility] [address] [place], [address], 02/05/2024 14:04:47 02/01/2024 XR, tibia + fibula, 2 view completed [facility] [address] [place], [address], 02/05/2024 14:05:05 02/01/2024 XR, ankle, 3 or more view completed [facility] [address] [place], [address], 02/05/2024 14:05:57 02/01/2024 CT, angiogram, chest, w/ contrast completed [facility] [address] [place], [address], 02/05/2024 14:06:17 02/07/2024 XR, chest completed [facility] [address] [place], [address], 02/09/2024 10:21:57 02/07/2024 CT, angiogram, chest, w/ contrast completed [facility] [address] [place], [address], 02/09/2024 10:22:28 05/05/2024 XR, chest completed [facility] [address] [place], [address], 05/10/2024 10:23:34 05/28/2024 XR, chest, 2 view completed [address] [address], [place], [address], 06/10/2024 09:41:30 05/29/2024 CT, chest, w/o contrast completed [address] [address], [place], [address], 06/10/2024 09:44:27 05/29/2024 US, doppler, venous completed [address] [address], [place], [address], 06/10/2024 09:44:46 06/09/2024 XR, chest completed [address] [place], [address], 06/28/2024 11:00:06 06/09/2024 CT, abdomen + pelvis, w/wo contrast completed [address] [place], [address], 06/28/2024 11:00:06 06/09/2024 CT, angiogram, chest + abdomen + pelvis, w/wo contrast completed [address] [place], [address], 06/28/2024 11:00:06 Procedure Notes None recorded. Medical Equipment None Reported. Allergies No known drug allergies Medications Name Sig Start Date Stop Date Status Note LastModified by Organization Details LastModified Time Prescriptio n - Prior Authorizati on Request 08/21 completed Not Available Not Available Not Available losartan 50 mg tablet TAKE 2 TABLETS BY MOUTH DAILY active Not Available Not Available No t Available cyclobenzap rine 10 mg tablet TAKE ONE TABLET BY MOUTH TWICE DAILY @9AM-5PM active Not Available Not Available No t Available amoxicillin 500 mg capsule Take 1 capsule every 12 hours by oral route. 10/09 completed Not Available Not Available Not Available atorvastati n 40 mg tablet TAKE 1 TABLET BY MOUTH ONCE DAILY active Not Available Not Available No t Available Qvar 80 mcg/actuati on Metered Aerosol oral inhaler INHALE TWO PUFFS BY MOUTH TWICE DAILY 08/21 completed Not Available Not Available Not Available albuterol sulfate 0.63 mg/3 mL solution for nebulizatio n Inhale 3 mL by inhalatio n route for 90 days. 08/21 completed Not Available Not Available Not Available prednisone 10 mg tablet TAKE 1 TABLET BY MOUTH 3 TIMES A DAY FOR 3 DAYS, THEN TAKE 1 TABLET BY MOUTH 2 TIMES A DAY FOR 2 DAYS, THEN TAKE 1 TABLET BY MOUTH ONCE FOR 1 DAY active Not Available Not Available No t Available doxycycline hyclate 100 mg capsule TAKE 1 CAPSULE BY MOUTH ONCE DAILY active Not Available Not Available No t Available atorvastati n 20 mg tablet TAKE 2 TABLETS BY MOUTH DAILY active Not Available Not Available No t Available clindamycin HCl 300 mg capsule TAKE 1 CAPSULE BY MOUTH EVERY 6 HOURS FOR 10 DAYS 08/02 completed Not Available Not Available Not Available albuterol sulfate 2.5 mg/3 mL (0.083 %) solution for nebulizatio n USE ONE VIAL VIA NEBULIZER THREE TIMES DAILY active Not Available Not Available No t Available triamcinolo ne acetonide 0.5 % topical cream APPLY A THIN LAYER TO THE AFFECTED AREA TWICE DAILY 03/02 completed Not Available Not Available Not Available cetirizine 10 mg tablet Take 1 tablet every day by oral route for 90 days. 2023 active Not Available Not Available Not Avai lable azithromyci n 250 mg tablet TAKE 2 TABLETS (500 MG) BY ORAL ROUTE ONCE DAILY FOR 1 DAY THEN 1 TABLET (250 MG) BY ORAL ROUTE ONCE DAILY FOR 4 DAYS 03/02 completed Not Available Not Available Not Available ibuprofen 800 mg tablet TAKE 1 TABLET BY MOUTH THREE TIMES DAILY NEEDED active Not Available Not Available No t Available hydrocodone 5 mg-acetamin ophen 325 mg tablet Take 1 tablet every 6 hours by oral route. 09/20 completed Not Available Not Available Not Available Isovue-370 76 % intravenous solution 100 mL by intraven. route. 06/13 completed Not Available Not Available Not Available meloxicam 15 mg tablet TAKE 1 TABLET BY MOUTH EVERY DAY 03/02 completed Not Available Not Available Not Available ondansetron HCl 4 mg tablet TAKE 1 TABLET BY MOUTH EVERY 8 HOURS NEEDED FOR NAUSEA AND VOMITING 03/02 completed Not Available Not Available Not Available prednisone 20 mg tablet active Not Available Not Available Not Available promethazin e 6.25 mg-codeine 10 mg/5 mL syrup Take 5 mL 3 times a day by oral route as needed for 10 days. 08/21 completed Not Available Not Available Not Available metronidazo le 500 mg tablet 500 mg by oral route. 06/13 completed Not Available Not Available Not Available amlodipine 5 mg tablet Take 1 tablet every day by oral route for 90 days. active Not Available Not Available No t Available ciprofloxac in 500 mg tablet 08/21 completed Not Available Not Available Not Available sulfamethox azole 800 mg-trimetho prim 160 mg tablet 08/21 completed Not Available Not Available Not Available hydrocodone 10 mg-acetamin ophen 325 mg tablet TAKE 1 TABLET BY MOUTH TWICE DAILY 03/02 completed Not Available Not Available Not Available peg-electro lyte solution 420 gram oral solution MIX AND DRINK 1/2 AT 5PM ON 11/24 AND 1/2 AT 5AM ON 11/25 completed Not Available Not Available Not Available omeprazole 40 mg capsule,del ayed release Take 1 capsule every day by oral route for 90 days. 2024 active Not Available Not Available Not Avai lable tramadol 50 mg tablet TAKE ONE TABLET BY MOUTH EVERY 12 HOURS FOR 30 DAYS 03/02 completed Not Available Not Available Not Available meloxicam 7.5 mg tablet 08/21 completed Not Available Not Available Not Available losartan 100 mg-hydrochl orothiazide 25 mg tablet TAKE ONE TABLET BY MOUTH ONCE DAILY 03/02 completed Not Available Not Available Not Available terbinafine HCl 250 mg tablet TAKE 1 TABLET BY MOUTH EVERY MORNING 08/02 completed Not Available Not Available Not Available amoxicillin 875 mg tablet Take 1 tablet every 12 hours by oral route for 10 days. 10/09 completed Not Available Not Available Not Available Protonix 40 mg intravenous solution 40 mg by intraven. route. 06/13 completed Not Available Not Available Not Available aspirin 325 mg tablet,tyra yed release TAKE 1 TABLET BY MOUTH EVERY MORNING 03/02 completed Not Available Not Available Not Available benzonatate 100 mg capsule TAKE 1 CAPSULE BY MOUTH DAILY NEEDED FOR COUGH active Not Available Not Available No t Available hydrocodone 7.5 mg-acetamin ophen 325 mg tablet TAKE 1 TABLET BY MOUTH TWICE DAILY active Not Available Not Available No t Available cephalexin 500 mg capsule TAKE 1 CAPSULE BY MOUTH EVERY 6 HOURS FOR 7 DAYS 08/02 completed Not Available Not Available Not Available pantoprazol e 40 mg tablet,tyra yed release TAKE 1 TABLET BY MOUTH EVERY 24 HOURS active Not Available Not Available No t Available ranitidine 150 mg tablet Take 1 tablet twice a day by oral route as directed for 90 days. 05/05 completed Not Available Not Available Not Available nitroglycer in 0.4 mg sublingual tablet DISSOLVE ONE TABLET UNDER TONGUE NEEDED FOR CHEST PAIN EVERY 5 MINUTES FOR UP TO 3 DOSES active Not Available Not Available No t Available betamethaso ne dipropionat e 0.05 % topical cream APPLY A THIN LAYER TO THE AFFECTED AREA TOPICALLY ONCE DAILY active Not Available Not Available No t Available omeprazole 20 mg capsule,del ayed release Take 1 capsule every day by oral route for 30 days. 03/02 completed Not Available Not Available Not Available montelukast 10 mg tablet TAKE ONE TABLET BY MOUTH ONCE DAILY FOR 90 DAYS active Not Available Not Available No t Available bisacodyl 5 mg tablet,tyra yed release TAKE ALL 6 TABLETS BY MOUTH AT 8AM ON 11/24 completed Not Available Not Available Not Available hydrochloro thiazide 25 mg tablet TAKE 1 TABLET BY MOUTH EVERY DAY 03/02 completed Not Available Not Available Not Available furosemide 20 mg tablet TAKE 1 TABLET BY MOUTH DAILY active Not Available Not Available No t Available sodium chloride 0.9 % intravenous solution 50 mL by intraven. route. 06/13 completed Not Available Not Available Not Available azelastine 137 mcg (0.1 %) nasal spray INSTILL TWO SPRAYS IN EACH NOSTRIL ONCE DAILY active Not Available Not Available No t Available Pepcid 20 mg tablet Take 1 tablet twice a day by oral route for 90 days. 03/02 completed Not Available Not Available Not Available levofloxaci n 500 mg tablet active Not Available Not Available Not Available Robafen 100 mg/5 mL oral liquid Take 10 mL every 4 hours by oral route for 30 days. 10/09 completed Not Available Not Available Not Available levofloxaci n 750 mg tablet TAKE 1 TABLET BY MOUTH ONCE DAILY 10/09 completed Not Available Not Available Not Available methylpredn isolone 4 mg tablets in a dose pack FOLLOW PACKAGE DIRECTION S active Not Available Not Available No t Available albuterol sulfate HFA 90 mcg/actuati on aerosol inhaler INHALE 2 PUFFS BY MOUTH EVERY 4 HOURS active Not Available Not Available No t Available oxybutynin chloride 5 mg tablet TAKE 1 TABLET BY MOUTH THREE TIMES DAILY FOR 7 DAYS 10/09 completed Not Available Not Available Not Available ondansetron 4 mg disintegrat ing tablet 03/02 completed Not Available Not Available Not Available cefdinir 300 mg capsule Take 1 capsule every 12 hours by oral route. 03/02 completed Not Available Not Available Not Available losartan 100 mg tablet Take 1 tablet every day by oral route for 90 days. active Not Available Not Available No t Available fluticasone propionate 50 mcg/actuati on nasal spray,suspe nsion USE TWO SPRAY(S) IN EACH NOSTRIL ONCE DAILY active Not Available Not Available No t Available loratadine 10 mg tablet TAKE 1 CAPSULE BY MOUTH AT BEDTIME 03/02 completed Not Available Not Available Not Available naproxen 500 mg tablet TAKE 1 TABLET BY MOUTH WITH FOOD TWICE DAILY active Not Available Not Available No t Available Klor-Con M20 mEq tablet,exte nded release 20 milliequi valents by oral route. 06/13 completed Not Available Not Available Not Available Spiriva with HandiHaler 18 mcg and inhalation capsules Inhale 1 capsule every day by inhalatio n route as directed for 90 days. 08/21 completed Not Available Not Available Not Available nitrofurant oin monohydrate /macrocryst als 100 mg capsule TAKE 1 CAPSULE BY MOUTH EVERY 12 HOURS FOR 10 DAYS 03/02 completed Not Available Not Available Not Available albuterol 08/21 completed Not Available Not Available Not Available albuterol sulfate 08/21 completed Not Available Not Available Not Available Flexeril 08/21 completed Not Available Not Available Not Available cephalexin 750 mg capsule TAKE 1 CAPSULE BY MOUTH EVERY 12 HOURS 08/02 completed Not Available Not Available Not Available ondansetron HCl (PF) 4 mg/2 mL injection solution 4 mg by injection route. 06/13 completed Not Available Not Available Not Available budesonide- formoterol HFA 160 mcg-4.5 mcg/actuati on aerosol inhaler Inhale 2 puffs twice a day by inhalatio n route for 90 days. active Not Available Not Available No t Available diclofenac 1 % topical gel APPLY 2 GRAMS TO THE AFFECTED AREA FOUR TIMES DAILY active Not Available Not Available No t Available Flovent Diskus 100 mcg/actuati on powder for inhalation Inhale 1 puff twice a day by inhalatio n route. 08/21 completed Not Available Not Available Not Available Astepro 205.5 mcg (0.15 %) nasal spray [place] 1 spray twice a day by intranasa l route for 30 days. 08/02 completed Not Available Not Available Not Available Dulera 200 mcg-5 mcg/actuati on HFA aerosol inhaler Inhale 2 puffs twice a day by inhalatio n route for 90 days. active Not Available Not Available No t Available Xarelto 10 mg tablet 08/21 completed Not Available Not Available Not Available lidocaine 5 % topical ointment APPLY 2 GRAMS UP TO 4 TIMES DAILY TO AFFECTED AREA(S) 08/02 completed Not Available Not Available Not Available Combivent Respimat 20 mcg-100 mcg/actuati on solution for inhalation INHALE 1 PUFF BY MOUTH 4 TIMES DAILY 03/02 completed Not Available Not Available Not Available Robafen DM Cough 10 mg-100 mg/5 mL oral liquid Take 10 mL 3 times a day by oral route for 7 days. 03/02 completed Not Available Not Available Not Available Eliquis 5 mg tablet TAKE 2 TABLETS BY MOUTH EVERY 12 HOURS FOR 7 DAYS active Not Available Not Available No t Available Incruse Ellipta 62.5 mcg/actuati on powder for inhalation Inhale 1 puff every day by inhalatio n route for 90 days. 03/02 completed Not Available Not Available Not Available ProAir RespiClick 90 mcg/actuati on breath activated Inhale 2 puffs every 4 hours by inhalatio n route for 30 days. 03/02 completed Not Available Not Available Not Available Robitussin Cough-Chest Congestion DM 5 mg-100 mg/5 mL oral liquid Take 10 mL 4 times a day by oral route for 7 days. 03/02 completed Not Available Not Available Not Available Trelegy Ellipta 100 mcg-62.5 mcg-25 mcg powder for inhalation Inhale 1 puff every day by inhalatio n route for 90 days. 03/02 completed Not Available Not Available Not Available Robitussin Cough-Chest Congestion DM 5 mg-50 mg/5 mL oral liquid 08/02 completed Not Available Not Available Not Available Proair Digihaler 90 mcg/actuati on aerosol powder breath act, sensor Inhale 2 puffs every 4 hours by inhalatio n route for 90 days. 03/02 completed Not Available Not Available Not Available Afluria Qd 2019- (36 mos up)(PF)60 mcg (15 mcg x4)/0.5 mL IM syringe ADM 0.5ML IM UTD 10/09 completed Not Available Not Available Not Available Breztri Aerosphere 160 mcg-9mcg-4. 8mcg/actuat ion HFA aerosol inhaler Inhale 2 puffs twice a day by inhalatio n route for 90 days. 2023 active Not Available Not Available Not Avai lable Paxlovid 300 mg (150 mg x 2)-100 mg tablets in a dose pack TAKE 2 TABS (300 MG) OF THE NIRMATREL VIR AND 1 TAB OF RITONAVIR BY MOUTH TWICE DAILY FOR 5 DAYS 03/02 completed Not Available Not Available Not Available Vitals Date Recorded Body height Body mass index (BMI) Body weight Oxygen saturation Oxygen saturation in Arterial blood by Pulse oximetry Pain severity - 0-10 verbal numeric rating [Score] - Reported Heart rate Respiratory rate Body temperature Systolic blood pressure Diastolic blood pressure Provider Name and Address Organization Details Last Updated DateTime 157.48 cm 33.2 kg/m2 67518.6 2 g 95 % 95 % 0 111 /min 18 /min 97.1 [degF] 178 mm[Hg] 96 mm[Hg] Helder No [place] [facility] 4 12:03:30 Date Recorded Body height Body mass index (BMI) Body weight Oxygen saturation Oxygen saturation in Arterial blood by Pulse oximetry Pain severity - 0-10 verbal numeric rating [Score] - Reported Heart rate Respiratory rate Body temperature Systolic blood pressure Diastolic blood pressure Provider Name and Address Organization Details Last Updated DateTime 4 157.48 cm 34.2 kg/m2 17249.1 7 g 93 % 93 % 9 98 /min 18 /min 97.8 [degF] 124 mm[Hg] 80 mm[Hg] Heledr No MA [facility] 4 15:02:38 Date Recorded Body height Body mass index (BMI) Body weight Oxygen saturation Oxygen saturation in Arterial blood by Pulse oximetry Heart rate Respiratory rate Body temperature Systolic blood pressure Diastolic blood pressure Provider Name and Address Organization Details Last Updated DateTime 4 157.48 cm 34.8 kg/m2 14788.5 5 g 93 % 93 % 81 /min 18 /min 97.6 [degF] 115 mm[Hg] 79 mm[Hg] Kristin Virgen MA [facility] 4 12:35:13 Date Recorded Body height Body mass index (BMI) Body weight Provider Name and Address Organization Details Last Updated DateTime 06/08/2024 157.48 cm 34.8 kg/m2 63539.55 g Helder No MA [facility] 06/08/2024 11:02:11 Date Recorded Body height Body mass index (BMI) Body weight Oxygen saturation Oxygen saturation in Arterial blood by Pulse oximetry Pain severity - 0-10 verbal numeric rating [Score] - Reported Heart rate Respiratory rate Body temperature Systolic blood pressure Diastolic blood pressure Provider Name and Address Organization Details Last Updated DateTime 5 157.48 cm 35.7 kg/m2 26352.5 1 g 96 % 96 % 0 99 /min 18 /min 97.8 [degF] 108 mm[Hg] 76 mm[Hg] Helder No MA [facility] 5 10:33:42 Social History Question Answer Notes LastModified by Organizat ion Details LastModified Time Tobacco Smoking Status Never Smoker Denise Arevalo MA [facility] 06/16/2014 11:45:42 Do You Have An Advance Directive? No [email or web address] Information n ot available 11/28/2014 What Is Your Level Of Alcohol Consumption? None [email or web address] Information not available 06/16/2014 What Is Your Level Of Caffeine Consumption? Occasional [email or web address] Information not available 06/16/2014 How Much Tobacco Do You Chew? None Information not available 11/28/2014 In The 14 Days Before Symptom Onset, Have You Had Close Contact With A Laboratory-confirm ed COVID-19 While That Case Was Ill? No Information n ot available 05/07/2022 In The 14 Days Before Symptom Onset, Have You Had Close Contact With A Person Who Is Under Investigation For COVID-19 While That Person Was Ill? No Information not available 05/07/2022 Have You Been To An Area Known To Be High Risk For COVID-19? No Information not available 05/07/2022 What Type Of Diet Are You Following? REGULAR [email or web address] Information n ot available 11/28/2014 Education 12 [email or web address] Information no t available 11/28/2014 Are There Any Guns Present In Your Home? No [email or web address] Information not available 11/28/2014 Hard Of Hearing Or Deaf In One Or Both Ears? No [email or web address] Information not available 11/28/2014 Legally Blind In One Or Both Eyes? No Information no t available 11/28/2014 Marital Status [email or web address] Informatio n not available 11/28/2014 What Was The Date Of Your Most Recent Tobacco Screening? 06/28/2024 [email or web address] Information not available 06/28/2024 Performs Monthly Self-breast Exam? Yes [email or web address] Information no t available 11/28/2014 Seat Belts Used Routinely Yes Information not available 11/28/2014 Smoke Alarm In Home Yes Information not available 11/28/2014 How Much Tobacco Do You Smoke? No Information not available 11/28/2014 Do You Use Sunscreen Routinely? No [email or web address] Information not available 11/28/2014 Has Tobacco Cessation Counseling Been Provided? No [email or web address] Information not available 07/25/2022 Sex: Female Functional Status Question Answer Note LastModified by Organization D etails LastModified Time What is your exercise level? None Information not available 11/28/2014 Mental Status None recorded. Family History Relationship Description Onset Age of this Age Resolved Age Notes LastModified by Organization Details LastModified Time Mother Hypertensive disorder [email or web address] Not available 2015 10:58:00 Maternal Grandmother Asthma 80 [email or web address] Not available 01/31 10:58:00 Maternal Grandmother Malignant tumor of lung [email or web address] Not available 2015 10:58:00 Maternal Grandfather Myocardial infarction 79 [email or web address] Not available 02/14 10:58:00 Medical History Condition Response Coronary Artery Disease N Other N Atrial Fibrillation N High Blood Pressure Y Depression N COPD Y Blood Clots N Anxiety Disorder N Muscle, Joint, or Bone Problems Y Arthritis Y Acid Reflux (GERD) Y Cancer N Stroke N High Cholesterol N Liver Disease N Headaches N Kidney or Bladder Problems N Thyroid Problems N GI Problems N Skin Problems N Anemia N Heart Attack ([place]) N Diabetes N Seizures/Epilepsy N Back Problems Y Asthma Y Allergies N Hepatitis N Hypertension Y Heart Failure N Osteoporosis N Gynecological History Statement/Question Response STIs/STDs N HPV Vaccine N Age at Menarche 10 Current Control Method Tubal Ligat ion Most Recent Mammogram If Post Menopausal, Age at Menopause 50 Sexually Active? Y Date of Last Pap Smear Sexual Problems? N LMP Unknown Desired Control Method N/A Obstetrics History GPAL:G 3 P 3 0 0 3 Type Value Full Term 3 Living 3 Total 3 Immunizations Vaccine Type Date Status Note Provider Nam e and Address Organization Details Recorded Time Influenza, split virus, quadrivalent, PF 06/20/2018 completed Not Available [facility] 3 16:24:08 COVID-19, mRNA, LNP-S, PF, 100 mcg/0.5mL dose or 50 mcg/0.25mL dose 07/07/2020 completed Not Available [facility] 3 16:24:08 COVID-19, mRNA, LNP-S, PF, 100 mcg/0.5mL dose or 50 mcg/0.25mL dose 08/04/2020 completed Not Available [facility] 3 16:24:08 COVID-19, mRNA, LNP-S, PF, 100 mcg/0.5mL dose or 50 mcg/0.25mL dose 04/06/2021 completed Not Available [facility] 3 16:24:08 Influenza, split virus, quadrivalent, PF 03/25/2020 completed Not Available [facility] 3 16:24:08 Influenza, high-dose, quadrivalent, PF 04/29/2022 completed ME[place], [place] [facility] 04/29/2022 12:20:05 COVID-19, mRNA, LNP-S, bivalent, PF, 50 mcg/0.5 mL or 25mcg/0.25 mL dose 04/29/2022 [place] ME[place] [facility] 04/29/2022 12:19:23 Influenza, high-dose, quadrivalent, PF 03/03/2023 [place] [facility] 03/03/2023 12:45:24 Influenza, high-dose, trivalent, PF 03/03/2024 completed ME[place] [facility] 03/03/2024 15:53:59 Past Encounters Encounter ID Performer Location Encounter Start Date Encounter Closed Date Diagnosis/Indication Diagnosis SNOMED-CT Code Diagnosis ICD10 Code Diagnosis Note [id number] Julita Chinchilla RN [address] [address] 06/16/2014 10:02:08 06/25/2014 10:44:52 Osteoarthritis 440748092 meds and follow up Chronic ob structive pulmonary disease 15710855 inhalers and follow up Obesity 001413386 exerci se as available Essential hypertension 40726591 meds and follow up [id number] [address] [address] 08/19/2014 11:56:07 08/19/2014 16:23:12 Chronic obstructive pulmonary disease 23991137 inhalers and follow up Essential hypertension 83350094 meds and follow up Obesity 347252002 exerci se as available Osteoarthritis 380037689 meds and follow up Gastroesop hageal reflux disease 337131748 meds and follow up Allergic rhinitis 23706858 meds and follow up Dermatitis 149942693 cre am and good skin care [id number] Diane Fuller [address] [address] 10/31/2014 10:03:51 11/11/2014 11:39:47 Chronic obstructive pulmonary disease 19780985 inhalers and follow up Dermatitis 188883941 cre am and good skin care Allergic rhinitis 27884084 meds and follow up Essential hypertension 59932844 meds and follow up Gastroesop hageal reflux disease 376448190 meds and follow up Obesity 064968088 exerci se as available Osteoarthritis 321283296 meds and follow up... reduce meds to twice daily thre months after surgery... hopefully off in 3 - 6 months [id number] Kristi Arenas MA [place] [id number] 3 11/28/2014 10:10:51 11/28/2014 16:00:12 Gynecologic examination 86925127 Menopause present 239560053 Complaints of hot flashes. OTC medication without improvemen t. Will obtain MMG and RTC to discuss HRT. [id number] [address] [address] 02/20/2015 12:48:19 02/28/2015 17:39:30 Essential hypertension 99694685 meds and follow up... Osteoarthritis 096882093 Patient need stress test r/t surgical clearance for hip surgery. Obesity 988261818 exerci se as available Chronic ob structive pulmonary disease 03725237 inhalers and follow up Numbness of hand 237118197 send to referral.. . [id number] Hari Dowd MD [address] [address] 05/15/2015 09:34:58 05/29/2015 18:44:21 Chronic obstructive pulmonary disease 80059976 J44.9 inhalers and follow up Essential hypertension 65630223 I10 meds and follow up... Obesity 457915771 E66.9 exercise as available Osteoarthritis 752696430 M19.90 Patient need stress test r/t surgical clearance for hip surgery. Numbness of hand 3570828 04 R20.0 send to referral.. . Allergic rhinitis 422334 04 J30.9 meds and follow up Dermatitis 180405659 L30 .9 cream and good skin care [id number] Hamida Childers MD [facility] [address] [place] [address] 07/24/2015 10:43:41 07/28/2015 11:23:46 Carpal tunnel syndrome 65899167 G56.01 [id number] Hari Dowd MD [address] [address] 08/14/2015 09:58:37 09/04/2015 17:39:25 Chronic obstructive pulmonary disease 42658277 J44.9 inhalers and follow up Essential hypertension 15570078 I10 meds and follow up... Gastroesop hageal reflux disease 217797246 K21.9 meds and follow up Dermatitis 144464863 L30 .9 cream and good skin care Osteoarthritis 902316012 M19.90 meds and follow up Obesity 191449182 E66.9 exercise as available Allergic rhinitis 536746 04 J30.9 meds and follow up [id number] Hari Dowd MD [address] [address] 11/15/2015 10:08:30 11/22/2015 16:49:11 Chronic obstructive pulmonary disease 25381586 J44.9 inhalers and follow up Essential hypertension 93601259 I10 meds and follow up... Gastroesop hageal reflux disease 831311169 K21.9 meds and follow up Osteoarthritis 876381081 M19.90 meds and follow up Allergic rhinitis 449681 04 J30.9 meds and follow up [id number] Pawel Cfofey MD [facility] [address] [place] [address] 12/25/2015 10:39:25 12/25/2015 13:08:50 Spinal enthesopathy 74437321 M46.06 [id number] Hari Dowd MD [address] [address] 02/15/2016 10:09:34 02/23/2016 12:21:34 Chronic obstructive pulmonary disease 26686818 J44.9 meds stop smoking... Essential hypertension 68077551 I10 meds and follow up... Gastroesop hageal reflux disease 891772115 K21.9 meds and follow up Osteoarthritis 364276226 M19.90 meds and follow up Allergic rhinitis 990682 04 J30.9 meds and follow up [id number] Hari Dowd MD [place] [address] 3 06/20/2016 12:36:45 06/24/2016 09:41:32 Chronic obstructive pulmonary disease 30235287 J44.9 inhalers and follow up Essential hypertension 34146536 I10 meds and follow up... Gastroesop hageal reflux disease 586941360 K21.9 meds and follow up Dermatitis 505796246 L30 .9 cream and good skin care Osteoarthritis 690830637 M19.90 meds and follow up Obesity 001741195 E66.9 exercise as available Allergic rhinitis 530302 04 J30.9 meds and follow up [id number] Hari Dowd MD [place] [address] 3 09/12/2016 11:32:58 09/20/2016 08:27:34 Essential hypertension 32594182 I10 meds and follow up... Chronic ob structive pulmonary disease 84725101 J44.9 inhalers and follow up Gastroesop hageal reflux disease 075703757 K21.9 meds and follow up Osteoarthritis 228221788 M19.90 meds and follow up Allergic rhinitis 281870 04 J30.9 meds and follow up Dermatitis 182535353 L30 .9 cream and good skin care [id number] [place] [address] 3 11/29/2016 10:08:14 12/13/2016 11:42:24 [id number] Hari Dowd MD [address] [address] 12/12/2016 10:45:11 12/13/2016 10:10:45 Osteoarthritis 724372554 M19.90 meds and follow up... hips done in 2012... Essential hypertension 08313525 I10 meds and follow up... Gastroesop hageal reflux disease 993334533 K21.9 meds and follow up Chronic ob structive pulmonary disease 27658384 J44.9 inhalers and follow up Allergic rhinitis 044452 04 J30.9 meds and follow up Obesity 996642985 E66.9 exercise as available Dermatitis 308335774 L30 .9 cream and good skin care [id number] Hari Dowd MD [place] [address] 3 03/14/2017 10:47:43 03/14/2017 15:28:52 Chronic obstructive pulmonary disease 98541256 J44.9 inhalers and follow up Osteoarthritis 343553098 M19.90 meds and follow up.... bilateral hip replacemen t history... has knee and low back pain... Gastroesop hageal reflux disease 396219910 K21.9 meds and follow up Allergic rhinitis 392456 04 J30.9 meds and follow up [id number] Hari Dowd MD [place] [address] 3 08/15/2017 15:40:54 08/18/2017 12:34:40 Chronic obstructive pulmonary disease 14232520 J44.9 inhalers and follow up Osteoarthritis 043226512 M19.90 meds and follow up.... bilateral hip replacemen t history... has knee and low back pain... Gastroesop hageal reflux disease 363672876 K21.9 meds and follow up Allergic rhinitis 039112 04 J30.9 meds and follow up Essential hypertension 38608612 I10 meds and follow up... [id number] Hari Dowd MD [place] [address] 3 11/17/2017 11:12:36 11/18/2017 09:59:03 Chronic obstructive pulmonary disease 02818152 J44.9 inhalers and follow up... Xyzal/Nasa edgardo Osteoarthritis 344118179 M19.90 meds and follow up.... bilateral hip replacemen t history... has knee and low back pain... Allergic rhinitis 226288 04 J30.9 meds and follow up Gastroesop hageal reflux disease 643312228 K21.9 meds and follow up Essential hypertension 44272568 I10 meds and follow up... Obesity 619845681 E66.9 exercise as available. .. 183 Dermatitis 320264136 L30 .9 cream and good skin care [id number] Hari Dowd MD [address] [address] 02/11/2018 10:55:29 02/12/2018 09:57:28 Obesity 484317336 E66.9 exercise as available. .. 183 [id number] Hari Dowd MD [place] [id number] 03/19/2018 16:14:08 03/20/2018 08:54:32 Essential hypertension 91349486 I10 meds and follow up... Chronic ob structive pulmonary disease 13177537 J44.9 inhalers and follow up... Xyzal/Nasa edgardo Osteoarthritis 356451935 M19.90 meds and follow up.... bilateral hip replacemen t history... has knee and low back pain... left shoulder Allergic rhinitis 639937 04 J30.9 meds and follow up Gastroesop hageal reflux disease 920518698 K21.9 meds and follow up Obesity 231884573 E66.9 exercise as available. .. 183 Dermatitis 160282341 L30 .9 cream and good skin care [id number] Hari Dowd MD [address] [address] 06/19/2018 10:37:19 06/23/2018 08:21:43 Essential hypertension 43916316 I10 meds and follow up... Chronic ob structive pulmonary disease 68095476 J44.9 inhalers and follow up... Xyzal/Nasa edgardo Osteoarthritis 511960646 M19.90 meds and follow up.... bilateral hip replacemen t history... has knee and low back pain... left shoulder Allergic rhinitis 112066 04 J30.9 meds and follow up Gastroesop hageal reflux disease 148469818 K21.9 meds and follow up Obesity 708581952 E66.9 exercise as available. .. 183 Dermatitis 342039028 L30 .9 cream and good skin care [id number] Hari Dowd MD [place] [address] 09/17/2018 10:53:11 09/17/2018 15:42:02 Essential hypertension 79132016 I10 meds and follow up... Chronic ob structive pulmonary disease 93199981 J44.9 inhalers and follow up... Xyzal/Nasa edgardo Osteoarthritis 196893636 M19.90 meds and follow up.... bilateral hip replacemen t history... has knee and low back pain... left shoulder Allergic rhinitis 316094 04 J30.9 meds and follow up Gastroesop hageal reflux disease 729510354 K21.9 meds and follow up Obesity 582480483 E66.9 exercise as available. .. 183 Dermatitis 569604679 L30 .9 cream and good skin care [id number] Hari Dowd MD [address] [address] 12/17/2018 11:04:11 12/18/2018 09:16:46 Essential hypertension 33045339 I10 meds and follow up... Chronic ob structive pulmonary disease 09321264 J44.9 inhalers and follow up... Xyzal/Nasa edgardo Allergic rhinitis 299380 04 J30.9 meds and follow up Gastroesop hageal reflux disease 004018730 K21.9 meds and follow up Obesity 575528562 E66.9 exercise as available. .. 183 Dermatitis 068307762 L30 .9 cream and good skin care Osteoarthritis of hip 23 5407037 M16.0 meds and follow up.... bilateral hip replacemen t history... has knee and low back pain... left shoulder Pain of le ft shoulder joint 5533467726 2334710 M25.512 see x-rays Osteoarthr itis of knee 388117602 M17.9 see x-rays Low back pain 296595292 M54.5 see x-ray [id number] Hari Dowd MD [address] [address] 03/19/2019 11:42:31 03/22/2019 09:10:02 Essential hypertension 98819398 I10 meds and follow up... Chronic ob structive pulmonary disease 25781147 J44.9 inhalers and follow up.. Allergic rhinitis 143526 04 J30.9 meds and follow up Gastroesop hageal reflux disease 915651811 K21.9 meds and follow up Obesity 757614604 E66.9 exercise as available. .. 183 Dermatitis 283736888 L30 .9 cream and good skin care Osteoarthritis of hip 23 2737144 M16.0 meds and follow up.... bilateral hip replacemen t history... has knee and low back pain... 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 Use fluticason e as directed, OTC antihistam ine Essential hypertension 87268353 I10 Continue Medication s. Continue to monitor blood pressure. Encourage low salt diet and exercise. Obesity 478628043 E66.9 Encouraged -Choosing low-fat, low-calori e foods -Eating smaller portions -Drinking water instead of sugary drinks -Being physically active [id number] Hari Dowd MD [address] [address] 06/18/2019 09:56:43 06/23/2019 13:39:28 Essential hypertension 68462235 I10 meds and follow up... Chronic ob structive pulmonary disease 58840638 J44.9 inhalers and follow up.. Allergic rhinitis 304207 04 J30.9 meds and follow up Gastroesop hageal reflux disease 803498179 K21.9 meds and follow up Obesity 795754668 E66.9 exercise as available. .. 183 Dermatitis 419195547 L30 .9 cream and good skin care Osteoarthritis of hip 23 2408283 M16.0 meds and follow up.... bilateral hip replacemen t history... has knee and low back pain... left shoulder Pain of le ft shoulder joint 9829699434 4125569 M25.512 see x-rays Osteoarthr itis of knee 936539750 M17.9 see x-rays Low back pain 400438720 M54.5 see x-ray [id number] Tai Drew MD [facility] [address] [place] [address] 07/12/2019 09:51:50 08/02/2019 16:51:24 Allergic rhinitis 08911378 J30.9 [id number] Hari Dowd MD [address] [address] 09/17/2019 11:08:21 09/21/2019 10:55:48 Essential hypertension 37394297 I10 meds and follow up... Chronic ob structive pulmonary disease 61097154 J44.9 inhalers and follow up... pulm pending Allergic rhinitis 992622 04 J30.9 meds and follow up... saw ENT Gastroesop hageal reflux disease 054557911 K21.9 meds and follow up Obesity 335227250 E66.9 exercise as available. .. 183 Dermatitis 240355405 L30 .9 cream and good skin care Osteoarthritis of hip 23 4124227 M16.0 meds and follow up.... bilateral hip replacemen t history... has knee and low back pain... left shoulder Osteoarthr itis of knee 451372590 M17.9 see x-rays Low back pain 651938180 M54.[address] Beltran Ellis.. . in PT, but on hold.. Thyroid st imulating hormone level below reference range 725866685 R94.6 [id number] Hari Dowd MD [address] [address] 12/20/2019 11:42:30 12/21/2019 07:24:26 Essential hypertension 37598418 I10 meds and follow up... Chronic ob structive pulmonary disease 04088837 J44.9 inhalers and follow up... pulm pending Allergic rhinitis 543608 04 J30.9 meds and follow up... saw ENT Gastroesop hageal reflux disease 362384770 K21.9 meds and follow up Obesity 324896388 E66.9 exercise as available. .. 183 Dermatitis 388331959 L30 .9 cream and good skin care Osteoarthritis of hip 23 0185704 M16.0 meds and follow up.... bilateral hip replacemen t history... has knee and low back pain... left shoulder Osteoarthr itis of knee 947024051 M17.9 see x-rays Low back pain 216609283 M54.[address] Beltran Ellis.. . in PT, but on hold.. Thyroid st imulating hormone level below reference range 980011212 R94.6 check once environmen t stable... patient is nervous about Covid-19.. [id number] Hari Dowd MD [place] [address] 3 03/21/2020 11:12:22 03/22/2020 07:44:05 Essential hypertension 68000313 I10 meds and follow up... Chronic ob structive pulmonary disease 71934876 J44.9 inhalers and follow up... pulm pending Allergic rhinitis 212024 04 J30.9 meds and follow up... saw ENT Gastroesop hageal reflux disease 792072643 K21.9 meds and follow up Obesity 080076769 E66.9 exercise as available. .. 183 Dermatitis 242561757 L30 .9 cream and good skin care Osteoarthritis of hip 23 4393005 M16.0 meds and follow up.... bilateral hip replacemen t history... has knee and low back pain... left shoulder Osteoarthr itis of knee 784545945 M17.9 see x-rays Low back pain 362816944 M54.[address] Beltran Ellis.. . in PT, but on hold.. Thyroid st imulating hormone level below reference range 887745910 R94.6 check once environmen t stable... patient is nervous about Covid-19.. . [id number] Hari Dowd MD [place] [address] 3 06/26/2020 12:02:47 06/27/2020 06:58:02 Essential hypertension 58309672 I10 meds and follow up... Chronic ob structive pulmonary disease 47824020 J44.9 inhalers and follow up... pulm pending Allergic rhinitis 878008 04 J30.9 meds and follow up... saw ENT Gastroesop hageal reflux disease 010444983 K21.9 meds and follow up Obesity 361813199 E66.9 exercise as available. .. 183 Dermatitis 479661542 L30 .9 cream and good skin care Osteoarthritis of hip 23 0701400 M16.0 meds and follow up.... bilateral hip replacemen t history... has knee and low back pain... left shoulder Osteoarthr itis of knee 498390944 M17.9 see x-rays Low back pain 783775551 M54.[address] Beltran Ellis.. . in PT, but on hold.. Thyroid st imulating hormone level below reference range 076487777 R94.6 check once environmen t stable... patient is nervous about Covid-19.. . [id number] Hari Dowd MD [address] [address] 08/22/2020 10:57:52 08/23/2020 07:47:53 Essential hypertension 64260895 I10 meds and follow up... Chronic ob structive pulmonary disease 32933123 J44.9 inhalers and follow up... pulm pending Allergic rhinitis 996756 04 J30.9 meds and follow up... saw ENT Gastroesop hageal reflux disease 833646574 K21.9 meds and follow up Obesity 811615120 E66.9 exercise as available. .. 183 Dermatitis 880948949 L30 .9 cream and good skin care Osteoarthritis of hip 23 1368884 M16.0 meds and follow up.... bilateral hip replacemen t history... has knee and low back pain... left shoulder Osteoarthr itis of knee 092381802 M17.9 see x-rays Low back pain 955607907 M54.[address] Beltran Ellis.. . in PT, but on hold.. Thyroid st imulating hormone level below reference range 407289304 R94.6 check once environmen t stable... patient is nervous about Covid-19.. . Calculus o f kidney and ureter 957516330 N20.2 h/o left 3 mm stone... seeing urology... [id number] Mukund Vanegas [facility] ([employer]) [address] [place] [address] 10/09/2020 08:31:44 10/10/2020 07:17:37 Uterine leiomyoma 31733291 D25.9 Patient presented with pelvic pain and was diagnosed with kidney stones and UTI. Incidental finding of uterine fibroid on CT that is asymptomat ic. Patient has been followed by urology, had stent placement and now pain is relieved. [id number] Hari Dowd MD [address] [address] 10/27/2020 12:12:35 10/29/2020 13:47:13 Essential hypertension 85374592 I10 meds and follow up... Chronic ob structive pulmonary disease 61882703 J44.9 inhalers and follow up... pulm pending Allergic rhinitis 688847 04 J30.9 meds and follow up... saw ENT Gastroesop hageal reflux disease 865911850 K21.9 meds and follow up Obesity 889590517 E66.9 exercise as available. .. 183 Dermatitis 507898674 L30 .9 cream and good skin care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
--- NOTE | 2024-07-13 10:22 | ECG_ITS ---
Test Date: 2024-07-13 10:32:17 Measurements Intervals [place] Rate: 102 P: 66 [place]: 158 QRS: -7 QRSD: 122 T: 42 QT: 343 QTc: 447 Interpretive Statements SINUS TACHYCARDIA LEFT ATRIAL ENLARGEMENT RIGHT BUNDLE BRANCH BLOCK CONSIDER INFERIOR INFARCT, AGE INDETERMINATE BASELINE ARTIFACT- I, II, AVR, AVL, AVF, V5 ABNORMAL ECG Compared to ECG 05/28/2024 23:16:47 HEART RATE HAS INCREASED Electronically Signed On 07-13-2024 10:38:35 FAMILY SUPPORT SPECIALIST by Heriberto Munoz D.O.
[2024-07-13 10:26] LABS: Influenza A QL RT-PCR Negative (Negative); Influenza B QL RT-PCR Negative (Negative); RSV RNA, RT-PCR Negative (Negative); SARS-CoV-2 RNA PCR Negative (Negative)
[2024-07-13 11:06] LABS: Basophils Percent Auto 0.4 % (0.2-1.2); Eosinophils Absolute Auto 0.2 K/mm3 (0-0.3); Eosinophils Percent Auto 2.1 % (0-4.4); Hematocrit 38.8 % (37.0-47.0); Immature Granulocyte Absolute 0.03 K/mm3 (0.00-0.031); Immature Granulocyte Percent A 0.4 % (0-0.5); Lymphocytes Absolute Auto 1.03 K/mm3 (0.9-3.2); Lymphocytes Percent Auto 14.5 % (18.3-44.2); Mean Corpuscular HGB Conc 30.9 g/dl (32-36); Mean Corpuscular Hemoglobin 30.6 pg (26-34); Mean Platelet Volume 10.5 fl (7.4-10.4); Monocytes Absolute Auto 0.7 K/mm3 (0.1-0.6); Monocytes Percent Auto 9.3 % (2.6-8.5); Neutrophils Absolute Auto 5.2 K/mm3 (1.3-6.7); Neutrophils Percent Auto 73.3 % (45.5-73.1); Platelet Count Result 260 k/mm3 (150-375); Red Blood Count 3.92 M/mm3 (4.2-5.4); Red Cell Distribution Width 13.9 % (11.5-14.5); White Blood Count 7.1 K/mm3 (4.5-10.0)
--- NOTE | 2024-07-13 11:15 | ED.SOB ---
HPI - SOB/Dyspnea General Chief Complaint: Shortness of Breath/Dyspnea <DAGOBERTO Vizcarra Last Filed: 07/13/24 19:28> Stated Complaint: shortness og breath <DAGOBERTO Vizcarra Last Filed: 07/13/24 19:28> Time Seen by Provider: 07/13/24 10:20 <DAGOBERTO Vizcarra Last Filed: 07/13/24 19:28> Source: patient <DAGOBERTO Vizcarra Last Filed: 07/13/24 19:28> Mode of arrival: ambulatory <DAGOBERTO Vizcarra Last Filed: 07/13/24 19:28> Limitations: no limitations <DAGOBERTO Vizcarra Last Filed: 07/13/24 19:28> History of Present Illness HPI Narrative: Patient is a 68 y/o female who presents to the ED with c/o SOB. Patient reports history of COPD. States she was admitted to [facility] in June for COPD exacerbation. Began having increased difficulty breathing over the last couple of days. Worse with any type of exertion. Has had wheezing. Has been using her inhaler and nebulizers at home without improvement. Reports mild cough, swelling in her lower extremities. Does have some chronic swelling to right lower extremity. Denies significant lower extremity pain. Denies chest pain, fevers. <DAGOBERTO Vizcarra Last Filed: 07/13/24 19:28> Related Data Home Medications: Home Medications ?Medication ?Instructions ?Recorded ?Confirmed ?Last Taken ?Type albuterol sulfate 90 mcg/actuation 2 puff inhalation Q4H PRN 08/01/20 07/13/24 07/13/24 History aerosol inhaler (ProAir HFA) Shortness Of Breath ibuprofen 800 mg tablet 800 mg PO TID PRN Pain (Scale 08/01/20 07/13/24 Unknown History Score 4-6) cyclobenzaprine 10 mg tablet 10 mg PO TID PRN pain 10/23/23 07/13/24 07/12/24 History hydrocodone 7.5 mg-acetaminophen 1 tablet PO QHS PRN pain 05/07/13/24 07/12/24 History 325 mg tablet amlodipine 5 mg tablet 5 mg PO DAILY 07/13/24 07/13/24 07/12/24 History atorvastatin 40 mg tablet 40 mg PO DAILY 07/13/24 07/13/24 Unknown History benzonatate 100 mg capsule 100 mg PO TID 07/13/24 07/13/24 Unknown History furosemide 20 mg tablet 20 mg PO DAILY 07/13/24 07/13/24 07/12/24 History losartan 100 mg tablet 100 mg PO DAILY 07/13/24 07/13/24 07/12/24 History mometasone-formoterol HFA 200 2 puff inhalation BID 07/13/24 07/13/24 07/13/24 History mcg-5 mcg/actuation aerosol inhaler (Dulera) omeprazole 40 mg capsule,delayed 40 mg PO DAILY 07/13/24 07/13/24 07/12/24 History release <Tiesha Palacios PA-C - Last Filed: 07/13/24 19:28> Allergies/Adverse Reactions: Allergies Allergy/AdvReac Type Severity Reaction Status Date / Time No Known Allergies Allergy Unknown Verified 07/13/24 10:25 <Tiesha Palacios PA-C - Last Filed: 07/13/24 19:28> Review of Systems Review of Systems: All systems reviewed & are unremarkable except as noted in HPI. <Tiesha Palacios PA-C - Last Filed: 07/13/24 19:28> All systems reviewed & are unremarkable except as noted in HPI and below <Tiesha Palacios PA-C - Last Filed: 07/13/24 19:28> [facility] Past Medical History Medical History: Medical History Anxiety Chronic obstructive pulmonary disease Chronic GERD Hiatal hernia Osteoarthritis Asthma Chronic back pain Nephrolithiasis Hypertension <Tiesha Palacios PA-C - Last Filed: 07/13/24 19:28> Surgical History Surgical History: Surgical History History of total left hip replacement (12/2014) History of section History of total hip replacement (05/2013) <Tiesha Palacios PA-C - Last Filed: 07/13/24 19:28> Family History Family History: Family History Mother Hypertension <Tiesha Palacios PA-C - Last Filed: 07/13/24 19:28> Social History Social History: Social History Social History: Lives in [place], [place]. She has 3 children. 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 She smoked a pack of cigarettes a day for 27 years and quit in 1989. No alcohol or drug abuse. Candy Bowen, daughter. Code status: Full code. Smoking packs per day: 1 Smoking cigarettes per day: 20.0 Years smoked: 24 Smoking pack-years: 24.00 Smoking status: Former smoker Tobacco type: cigarettes Smoking end date: 07/13/24 Alcohol intake: never Substance use: never Substance use type: does not use Do You Feel Safe in your Home?: Yes Lack of Transportation: No Lack of Food: Never True Current Housing: I Have Housing Concerned About Future Housing: No Difficulty Paying Gas/Electric Bills: No Difficulty Paying for Meds: No Currently Unemployed: No Education: High School Diploma/GED Difficulty w/ Childcare or Family Care: No Spiritual care concerns: No <Tiesha Palacios PA-C - Last Filed: 07/13/24 19:28> Exam Narrative: GENERAL: Mildly ill appearing, obese with BMI of 32.8, mild respiratory distress. HEAD: Normocephalic, atraumatic. RESPIRATORY: Airway patent, respirations labile ordered, tachypneic. Decreased lung sounds in bases bilaterally. Diffuse faint expiratory wheezing, worse throughout left lung field. CARDIOVASCULAR: Borderline tachycardic with regular rhythm without murmurs, rubs, or gallops. Peripheral pulses intact. ABDOMINAL: Soft, nontender, nondistended. Normoactive BS. MUSCULOSKELETAL: Moves all extremities. No gross deformities. Did trace pitting edema throughout BLE. Increased swelling throughout right lower extremity. No calf tenderness. SKIN: Warm, dry, normal color. NEURO: A&O X3. Speech clear. Cranial nerves II-XII grossly intact. No ataxic movements. PSYCHIATRIC: Appropriate mood and affect. Normal interaction. <Tiesha Palacios PA-C - Last Filed: 07/13/24 19:28> Course [employer]LE SQL DEVELOPER/PA Physician Supervision I agree with midlevel documentation; I performed the medical decision making component of this evaluation. <Tish Mcmanus MD - Last Filed: 07/13/24 17:42> Vital Signs Vital signs: Vital Signs Temperature 97.8 F 07/13/24 08:14 Pulse Rate 54 L 07/13/24 08:14 Respiratory Rate 20 07/13/24 08:14 Blood Pressure 161/89 H 07/13/24 08:14 Pulse Oximetry 96 07/13/24 08:14 Oxygen Delivery Room Air 07/13/24 08:14 Temperature 97.2 F L 07/13/24 18:23 Pulse Rate 77 07/13/24 18:23 Respiratory Rate 18 07/13/24 18:23 Blood Pressure 151/75 H 07/13/24 18:23 Pulse Oximetry 97 07/13/24 18:28 Oxygen Delivery Nasal Cannula 07/13/24 18:28 Oxygen Flow Rate 2 07/13/24 18:28 <Tiesha Palacios PA-C - Last Filed: 07/13/24 19:28> Vital Signs Temperature 97.8 F 07/13/24 08:14 Pulse Rate 54 L 07/13/24 08:14 Respiratory Rate 20 07/13/24 08:14 Blood Pressure 161/89 H 07/13/24 08:14 Pulse Oximetry 96 07/13/24 08:14 Oxygen Delivery Room Air 07/13/24 08:14 Temperature 97.2 F L 07/13/24 18:23 Pulse Rate 77 07/13/24 18:23 Respiratory Rate 18 07/13/24 18:23 Blood Pressure 151/75 H 07/13/24 18:23 Pulse Oximetry 97 07/13/24 18:28 Oxygen Delivery Nasal Cannula 07/13/24 18:28 Oxygen Flow Rate 2 07/13/24 18:28 <Tish Mcmanus MD - Last Filed: 07/13/24 17:42> MDM - SOB/Dyspnea MDM Narrative Medical decision making narrative: Patient presented to ED with several day history of increased shortness of breath. History of COPD. Has been using nebulizers inhalers at home without improvement. Vital signs are stable upon arrival. Patient's initial oxygen 94-99% on RA. Patient does have diffuse wheezing and decreased air movement on auscultation. Cbc without leukocytosis. Stable H&H. CMP is unremarkable. Viral swabs are negative. EKG with sinus tachycardia, nonspecific ST changes. Baseline troponin 0.015. Denying chest pain currently. Will continue to trend. BNP is mildly elevated to 1610. Patient does appear slightly fluid overloaded. With pitting peripheral edema BLE. Venous doppler BLE negative for DVT. D-dimer did result elevated to 0.89. Chest CTA negative for PE, does show some opacities throughout right upper lobe which may be infectious versus inflammatory. Does also show mild pulmonary edema, trace pleural effusions. Patient does report mild cough recently, but has been afebrile. Again no leukocytosis. Less suspicious for pneumonia. Likely a mix between COPD and CHF. Patient was ambulated throughout the ED and did become hypoxic down to 88% with ambulation, also very symptomatic with this. Will be admitted for further evaluation. Discussed case with Mary Lawrence ORACLE SQL DEVELOPER Hospitalist, accepted patient for admission. Will see the patient 1st before deciding on antibiotics for potential pneumonia. Patient in agreement with plan and admission. <Tiesha Palacios PA-C - Last Filed: 07/13/24 19:28> Patient presented to ED with several day history of increased shortness of breath. History of COPD. Has been using nebulizers inhalers at home without improvement. Vital signs are stable upon arrival. Patient's oxygen 94-99% on RA. Patient does have diffuse wheezing and decreased air movement on auscultation. Cbc without leukocytosis. Stable H&H. CMP is unremarkable. Viral swabs are negative. EKG with sinus tachycardia, nonspecific ST changes. Baseline troponin 0.015. Denying chest pain currently. BNP is mildly elevated to 16 10. Patient does appear slightly fluid overloaded. With pitting peripheral edema BLE. Venous doppler BLE negative for DVT. D-dimer did result elevated to 0.89. Chest CTA negative for PE, does show some opacities throughout right upper lobe which may be infectious versus inflammatory. Patient was ambulated throughout the ED and did become hypoxic down to 88% Likely a mix between COPD and CHF. Will be admitted for further evaluation. <Tish Mcmanus MD - Last Filed: 07/13/24 17:42> Medical Records Attestation: I reviewed the patient's medical records. <Tiesha Palacios PA-C - Last Filed: 07/13/24 19:28> Lab Data Attestation: I reviewed the patient's lab results. <Tiesha Palacios PA-C - Last Filed: 07/13/24 19:28> Result diagrams: 07/13/24 10:53 07/13/24 10:53 <Tiesha Palacios PA-C - Last Filed: 07/13/24 19:28> Labs: Lab Results 07/13/24 07/13/24 Range/Units 09:45 10:53 WBC 7.1 (4.5-10.0) K/mm3 RBC 3.92 L (4.2-5.4) M/mm3 Hgb 12.0 (12.0-15.0) g/dL Hct 38.8 (37.0-47.0) % MCV 99.0 (80-100) fl MCH 30.6 (26-34) pg MCHC 30.9 L (32-36) g/dl RDW 13.9 (11.5-14.5) % Plt Count 260 (150-375) k/mm3 MPV 10.5 H (7.4-10.4) fl Immature Gran % (Auto) 0.4 (0-0.5) % Neut % (Auto) 73.3 H (45.5-73.1) % Lymph % (Auto) 14.5 L (18.3-44.2) % [place] % (Auto) 9.3 H (2.6-8.5) % Eos % (Auto) 2.1 (0-4.4) % Baso % (Auto) 0.4 (0.2-1.2) % Lymph # (Auto) 1.03 (0.9-3.2) K/mm3 [place] # (Auto) 0.7 H (0.1-0.6) K/mm3 Eos # (Auto) 0.2 (0-0.3) K/mm3 Baso # (Auto) 0.0 (0.0-0.1) K/mm3 Abs Immat Gran (auto) 0.03 (0.00-0.031) K/mm3 Absolute Neuts (auto) 5.2 (1.3-6.7) K/mm3 Absolute Nucleated RBC 0.000 (0.0-0.012) K/mm3 Nucleated RBC % 0.0 (0.0-0.2) % PT 13.4 (11.1-14.7) Seconds INR 1.0 APTT 31.4 (22.3-36.8) Seconds D-Dimer 0.89 H (<0.48) ug/mL Sodium 141 (137-145) mmol/L Potassium 4.0 (3.4-5.0) mmol/L Chloride 106 (98-107) mmol/L Carbon Dioxide 27 (22-30) mmol/L Anion Gap 8 (4-12) mmol/L BUN 19 H (7-17) mg/dL Creatinine 0.78 (0.7-1.0) mg/dL Estim Creat Clear Calc 62 ml/min Estimated GFR > 60 (59 - ) Glucose 84 (65-110) mg/dL Calcium 9.8 (8.4-10.2) mg/dL Total Bilirubin 0.8 (0.2-1.3) mg/dL AST 27 (14-36) U/L ALT 16 (6-35) U/L Alkaline Phosphatase 64 (38-126) U/L Troponin I 0.015 (0.000-0.034) ng/mL NT-Pro-B Natriuret Pep 1610 H (19.9-100) pg/mL Total Protein 7.0 (6.3-8.2) g/dL Albumin 4.0 (3.5-5.1) g/dL Influenza A (RT-PCR) Negative (Negative) Influenza B (RT-PCR) Negative (Negative) RSV (RT-PCR) Negative (Negative) SARS-CoV-2 RNA (RT-PCR) Negative (Negative) <Tiesha Palacios PA-C - Last Filed: 07/13/24 19:28> Lab Results 07/13/24 07/13/24 Range/Units 09:45 10:53 WBC 7.1 (4.5-10.0) K/mm3 RBC 3.92 L (4.2-5.4) M/mm3 Hgb 12.0 (12.0-15.0) g/dL Hct 38.8 (37.0-47.0) % MCV 99.0 (80-100) fl MCH 30.6 (26-34) pg MCHC 30.9 L (32-36) g/dl RDW 13.9 (11.5-14.5) % Plt Count 260 (150-375) k/mm3 MPV 10.5 H (7.4-10.4) fl Immature Gran % (Auto) 0.4 (0-0.5) % Neut % (Auto) 73.3 H (45.5-73.1) % Lymph % (Auto) 14.5 L (18.3-44.2) % [place] % (Auto) 9.3 H (2.6-8.5) % Eos % (Auto) 2.1 (0-4.4) % Baso % (Auto) 0.4 (0.2-1.2) % Lymph # (Auto) 1.03 (0.9-3.2) K/mm3 [place] # (Auto) 0.7 H (0.1-0.6) K/mm3 Eos # (Auto) 0.2 (0-0.3) K/mm3 Baso # (Auto) 0.0 (0.0-0.1) K/mm3 Abs Immat Gran (auto) 0.03 (0.00-0.031) K/mm3 Absolute Neuts (auto) 5.2 (1.3-6.7) K/mm3 Absolute Nucleated RBC 0.000 (0.0-0.012) K/mm3 Nucleated RBC % 0.0 (0.0-0.2) % PT 13.4 (11.1-14.7) Seconds INR 1.0 APTT 31.4 (22.3-36.8) Seconds D-Dimer 0.89 H (<0.48) ug/mL Sodium 141 (137-145) mmol/L Potassium 4.0 (3.4-5.0) mmol/L Chloride 106 (98-107) mmol/L Carbon Dioxide 27 (22-30) mmol/L Anion Gap 8 (4-12) mmol/L BUN 19 H (7-17) mg/dL Creatinine 0.78 (0.7-1.0) mg/dL Estim Creat Clear Calc 62 ml/min Estimated GFR > 60 (59 - ) Glucose 84 (65-110) mg/dL Calcium 9.8 (8.4-10.2) mg/dL Total Bilirubin 0.8 (0.2-1.3) mg/dL AST 27 (14-36) U/L ALT 16 (6-35) U/L Alkaline Phosphatase 64 (38-126) U/L Troponin I 0.015 (0.000-0.034) ng/mL NT-Pro-B Natriuret Pep 1610 H (19.9-100) pg/mL Total Protein 7.0 (6.3-8.2) g/dL Albumin 4.0 (3.5-5.1) g/dL Influenza A (RT-PCR) Negative (Negative) Influenza B (RT-PCR) Negative (Negative) RSV (RT-PCR) Negative (Negative) SARS-CoV-2 RNA (RT-PCR) Negative (Negative) <Tish Mcmanus MD - Last Filed: 07/13/24 17:42> Imaging Data Attestation: I personally reviewed and interpreted this imaging study as follows: <Tiesha Palacios PA-C - Last Filed: 07/13/24 19:28> Radiologist's impression: ITS Impressions Venous Doppler Study 07/13/24 12:05 IMPRESSION: 1. No deep venous thrombosis in either lower limb. Chest CTA 07/13/24 12:57 IMPRESSION: 1. No pulmonary embolism. Evaluation in the basilar segmental and subsegmental pulmonary arteries is nondiagnostic due to respiratory motion. 2. Groundglass opacity and probable small nodular opacities in the posterior segment right upper lobe most likely infectious/inflammatory in etiology. Recommend 3 month follow-up low-dose noncontrast chest CT to document resolution. 3. Mild pulmonary edema at the visualized upper lungs with trace left and very small right pleural effusions. 4. Cardiomegaly. <Tiesha Palacios PA-C - Last Filed: 07/13/24 19:28> ECG Data EKG #1: Attestation: I personally reviewed and interpreted this ECG as follows: <DAGOBERTO Vizcarra Last Filed: 07/13/24 19:28> ECG completion date: 07/13/24 <DAGOBERTO Vizcarra Last Filed: 07/13/24 19:28> ECG completion time: 10:32 <DAGOBERTO Vizcarra Last Filed: 07/13/24 19:28> EKG Interpretation: tachycardia (102), sinus rhythm, non-specific ST changes and RBBB <DAGOBERTO Vizcarra Last Filed: 07/13/24 19:28> Discharge Plan Discharge Clinical Impression: Acute hypoxic respiratory failure, Acute exacerbation of chronic heart failure, Acute exacerbation of chronic obstructive pulmonary disease <DAGOBERTO Vizcarra Last Filed: 07/13/24 19:28> Patient Disposition: Still a Patient <DAGOBERTO Vizcarra Last Filed: 07/13/24 19:28> Condition: Stable <DAGOBERTO Vizcarra Last Filed: 07/13/24 19:28>
[2024-07-13 11:16] LABS: Alanine Aminotransferase 16 U/L (6-35); Alkaline Phosphatase 64 U/L (38-126); Anion Gap 8 mmol/L (4-12); Aspartate Amino Transferase 27 U/L (14-36); Bilirubin,Total 0.8 mg/dL (0.2-1.3); Blood Urea Nitrogen 19 mg/dL (7-17); Calcium 9.8 mg/dL (8.4-10.2); Carbon Dioxide 27 mmol/L (22-30); Chloride 106 mmol/L (98-107); Estimated CRCL calculation 62 ml/min; Estimated Glomerular Filt Rate > 60; Glucose 84 mg/dL (65-110); Sodium 141 mmol/L (137-145)
[2024-07-13 11:18] LABS: Partial Thromboplastin Time 31.4 Seconds (22.3-36.8); Prothrombin Time 13.4 Seconds (11.1-14.7)
[2024-07-13 11:28] LABS: D Dimer 0.89 ug/mL (<0.48); NT Pro B Type Natriuretic Pept 1610 pg/mL (19.9-100); Troponin I 0.015 ng/mL (0.000-0.034)
[2024-07-13] MEDS: LEVALBUTEROL NEB 1.25 MG/3 ML 2.5 MG INHALATION (11:30)
[2024-07-13] MEDS: IPRATROPIUM BR 0.02% INH SOLN 0.5 MG/2.5 ML VIAL 1.5 MG INHALATION (11:30)
--- OUTSIDE RECORDS SUMMARY | 2024-07-13 12:00 | XMS_ITS | CONTINUITY OF CARE DOCUMENT ---
Author Name jericho echavarria Address Unknown Organization [facility] Address [address] [place] [address] Phone [phone] Care Team Providers Care Deadener Name Role Phone Ani Cook MD Unavailable BRUNO WORRELL MD Unavailable BRUNO WORRELL MD Unavailable PROBLEMS Condition Status Date Provider Notes Diabetes mellitus, type 2 active Koki Velasco per Syncope active Koki Macias [employer] Payer name Policy type / Coverage type [place] red green party ID [id number] (PPO C-SNP) Commercial insurance company [id number] HEALTHC[employer] AND FAMILY SERVICES Medicaid 1 [id number] TREATMENT PLAN Date Name Stress Regadenoson
[2024-07-13] MEDS: methylPREDNISolone SOD SUCC 125 MG VIAL IV PUSH (12:02)
[2024-07-13] MEDS: IPRATROPIUM 0.5 MG/ALBUTEROL SULFATE 2.5 MG AMPUL.NEB 3 ML INHALATION ×2 (13:30→20:31)
[2024-07-13] MEDS: FUROSEMIDE INJ 40 MG/4 ML VIAL IV PUSH (14:08)
--- NOTE | 2024-07-13 14:26 | ECG_ITS ---
Test Date: 2024-07-13 14:31:53 Measurements Intervals [place] Rate: 98 P: 66 IN: 155 QRS: 13 QRSD: 118 T: 41 QT: 358 QTc: 459 Interpretive Statements SINUS RHYTHM WITH OCCASIONAL SUPRAVENTRICULAR PREMATURE COMPLEXES LEFT ATRIAL ENLARGEMENT RIGHT BUNDLE BRANCH BLOCK CONSIDER INFERIOR INFARCT, AGE INDETERMINATE BASELINE ARTIFACT- I, III ABNORMAL ECG Compared to ECG 07/13/2024 10:32:17 NO SIGNIFICANT CHANGE Electronically Signed On 07-13-2024 14:40:33 MUTUAL FUND ACCOUNTANT by Heriberto Munoz D.O.
--- NOTE | 2024-07-13 14:35 | P.HP_ITS ---
H&P: HPI History of Present Illness Date/Time: 07/13/24 14:35 Chief Complaint: Shortness of breath Narrative: 68-year-old female with history of COPD, presents the hospital with increasing shortness of breath. Patient states that her DuoNebs were not helping at home so she came into the emergency room. Patient denies history of CHF. Patient states that she has been increasingly getting more short of breath with activities over last few days with lower extremity edema. She denies fevers chills nausea or vomiting. BNP 1610, influenza A/B, RSV and COVID negative. Chest CTA shows no pulmonary embolism. With ground-glass opacity most likely infectious or inflammatory, mild pulmonary edema and right pleural effusion. Venous Doppler showed no deep vein thrombosis. In the ED she was given an hour long nebulizer treatment, 40 of IV Lasix, Solu-Medrol 125 mg IV, due to the patient not having leukocytosis, or fever antibiotics are on hold at this time. Will re-evaluate. Review of Systems Review of Systems: 12 systems were reviewed and are negativ e except for as per HPI. [facility] Past Medical History Medical History Anxiety Chronic obstructive pulmonary disease Chronic GERD Hiatal hernia Osteoarthritis Asthma Chronic back pain Nephrolithiasis Hypertension Surgical History Surgical History History of total left hip replacement (12/2014) History of section History of total hip replacement (05/2013) Family History Family History Mother Hypertension Social History Social History Social History: Lives in [place], [place]. She has 3 children. 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 She smoked a pack of cigarettes a day for 27 years and quit in 1989. No alcohol or drug abuse. Candy Bowen, daughter. Code status: Full code. Smoking packs per day: 1 Smoking cigarettes per day: 20.0 Years smoked: 24 Smoking pack-years: 24.00 Smoking status: Former smoker Tobacco type: cigarettes Smoking end date: 07/13/24 Alcohol intake: never Substance use: never Substance use type: does not use Do You Feel Safe in your Home?: Yes Lack of Transportation: No Lack of Food: Never True Current Housing: I Have Housing Concerned About Future Housing: No Difficulty Paying Gas/Electric Bills: No Difficulty Paying for Meds: No Currently Unemployed: No Education: High School Diploma/GED Difficulty w/ Childcare or Family Care: No Spiritual care concerns: No Meds Home Medications and Allergies Home Medications ?Medication ?Instructions ?Recorded ?Confirmed ?Type albuterol sulfate 90 mcg/actuation 2 puff inhalation Q4H PRN 08/01/20 07/13/24 History aerosol inhaler (ProAir HFA) Shortness Of Breath ibuprofen 800 mg tablet 800 mg PO TID PRN Pain (Scale 08/01/20 07/13/24 History Score 4-6) cyclobenzaprine 10 mg tablet 10 mg PO TID PRN pain 10/23/23 07/13/24 History hydrocodone 7.5 mg-acetaminophen 1 tablet PO QHS PRN pain 10/23/23 07/13/24 History 325 mg tablet amlodipine 5 mg tablet 5 mg PO DAILY 07/13/24 07/13/24 History atorvastatin 40 mg tablet 40 mg PO DAILY 07/13/24 07/13/24 History benzonatate 100 mg capsule 100 mg PO TID 07/13/24 07/13/24 History furosemide 20 mg tablet 20 mg PO DAILY 07/13/24 07/13/24 History losartan 100 mg tablet 100 mg PO DAILY 07/13/24 07/13/24 History mometasone-formoterol HFA 200 2 puff inhalation BID 07/13/24 07/13/24 History mcg-5 mcg/actuation aerosol inhaler (Dulera) omeprazole 40 mg capsule,delayed 40 mg PO DAILY 07/13/24 07/13/24 History release Allergies Allergy/AdvReac Type Severity Reaction Status Date / Time No Known Allergies Allergy Unknown Verified 07/13/24 10:25 Vital Signs Vital Signs - 24 hr 07/13/24 08:14 07/13/24 10:26 07/13/24 10:29 Temperature 97.8 F Pulse Rate 54 L 108 H 104 H Respiratory Rate 20 24 H Blood Pressure 161/89 H 164/97 H Pulse Oximetry 96 96 Oxygen Delivery Room Air Oxygen Flow Rate 07/13/24 10:48 07/13/24 11:30 07/13/24 12:08 Temperature Pulse Rate 96 96 Respiratory Rate 18 17 Blood Pressure 156/105 H Pulse Oximetry 95 100 Oxygen Delivery Room Air Oxygen Flow Rate 07/13/24 12:20 07/13/24 13:08 07/13/24 13:08 Temperature Pulse Rate 94 102 H Respiratory Rate 18 21 H Blood Pressure 163/84 H Pulse Oximetry 94 94 Oxygen Delivery Room Air Oxygen Flow Rate 07/13/24 13:14 07/13/24 13:30 07/13/24 13:40 Temperature Pulse Rate 100 102 H Respiratory Rate 18 18 Blood Pressure Pulse Oximetry 96 Oxygen Delivery Nasal Cannula Oxygen Flow Rate 2 Exam Narrative: General: well appearing, appears stated age. HEENT: normocephalic, atraumatic. Mucous membranes moist. EOMI, PERRLA, bilateral sclera anicteric, no conjunctival injection. Neck supple without JVD, lymphadenopathy, or bruit. Respiratory: clear to ascultation bilaterally. No rales/rhonic/wheezes. Cardiovascular: Regular rate and rhythm, normal S1-S2 upon ascultation. No murmurs, rubs, or clicks. PMI is nondisplaced, capillary refill less than 3 second. Abdomen: Soft, round, no pulsatile masses, nondistended and nontender. No rebound, no guarding. No CVA tenderness, no hepatosplenomegaly. Bowel sounds present to all four quadrants. No high pitch or tinkling sounds, resonant to percussion. Extremities: No cyanosis, clubbing, or edema present. Pulses are palpable 2/2. Active ROM to all four extremities. Neuro: Alert and orientated x 4. PERRLA. Cranial nerves 2-12 intact without focal deficit. Skin: Warm, dry, and intact, without rash, erythema, or lesion. Psych: pleasant, cooperative, normal speech, normal affect, no hallucinations, no dysarthia 2 L nasal cannula H&P: Results Labs Labs: Short CBC 07/13/24 Range/Units 10:53 WBC 7.1 (4.5-10.0) K/mm3 Hgb 12.0 (12.0-15.0) g/dL Hct 38.8 (37.0-47.0) % Plt Count 260 (150-375) k/mm3 BMP 07/13/24 10:53 Sodium 141 Potassium 4.0 Chloride 106 Carbon Dioxide 27 BUN 19 H Creatinine 0.78 Glucose 84 Calcium 9.8 Cardiac Enzymes 07/13/24 Range/Units 10:53 Troponin I 0.015 (0.000-0.034) ng/mL Liver Function 07/13/24 Range/Units 10:53 Total Bilirubin 0.8 (0.2-1.3) mg/dL AST 27 (14-36) U/L ALT 16 (6-35) U/L Alkaline Phosphatase 64 (38-126) U/L Albumin 4.0 (3.5-5.1) g/dL Assessment and Plan Assessment and plan (1) Acute exacerbation of chronic heart failure: Code(s): I50.9 - Heart failure, unspecified Status: Acute Assessment and Plan: No diagnosis of CHF Cardiology consulted for patient Pepito x1 in the ED Will defer to Cardiology for diuretics, Lasix on home meds however patient states that she was not taking diuretics or has CHF Heart healthy diet with fluid restriction Echocardiogram pending (2) Pulmonary edema: Code(s): J81.1 - Chronic pulmonary edema Status: Acute Assessment and Plan: With no diagnosis of CHF, does have cardiomegaly on x-ray 40 of IV Lasix given in ED Cardiology consulted pending recommendations No echo on file Echocardiogram pending 20 mg of p.o. Lasix ordered adjust as needed Heart healthy diet Fluid restriction Daily weight Repeat chest x-ray in a.m. to assess for possible pneumonia (3) Chronic back pain: Code(s): M54.9 - Dorsalgia, unspecified; G89.29 - Other chronic pain Status: Acute Assessment and Plan: Tylenol and Percocet ordered Quality VTE Prophylaxis VTE prophylaxis: mechanical ordered and pharmacologic ordered Hospitalist MIPS Advance Care Plan I have confirmed that the patient's Advanced Care Plan is present, code status is documented, or surrogate decision maker is listed in patient medical record.: Yes Medication Reconciliation I have utilized all available resources to obtain, update and review the patients current medications (includes all prescriptions, OTC, herbals, cannabis, and nutritional supplements).: Yes
[2024-07-13 14:40] LABS: Troponin I 0.018 ng/mL (0.000-0.034)
[2024-07-13] MEDS: amLODIPine BESYLATE 5 MG TABLET PO (17:11)
--- NOTE | 2024-07-13 17:20 | ECG_ITS ---
Test Date: 2024-07-13 17:25:56 Measurements Intervals [place] Rate: 105 P: 58 TX: 148 QRS: 22 QRSD: 125 T: 31 QT: 360 QTc: 477 Interpretive Statements SINUS TACHYCARDIA WITH FREQUENT SUPRAVENTRICULAR PREMATURE COMPLEXES POSSIBLE LEFT ATRIAL ENLARGEMENT RIGHT BUNDLE BRANCH BLOCK CONSIDER INFERIOR INFARCT, AGE INDETERMINATE ABNORMAL ECG Compared to ECG 07/13/2024 14:31:53 HEART RATE HAS INCREASED Electronically Signed On 07-13-2024 20:05:45 [facility] TECHNICIAN by Heriberto Munoz D.O.
[2024-07-13 17:57] LABS: Troponin I < 0.012 ng/mL (0.000-0.034)
--- NOTE | 2024-07-13 18:00 | ADMGEN ---
This patient, Barbi Fernandes, was admitted to Medical Room 244-. Patient/family oriented to hospital policies and general routines including ID bracelet, bed and alarms, visiting hours, pain management, procedures, bathroom and other care routines, personal items, smoking policy, room service/diet, and visiting hours. Information on how to activate the Rapid Response Team has been discussed. Patient/Family are encouraged to report perceived risks to care and to ask questions if they do not understand what they are told or what they should do.
[2024-07-13] MEDS: DOCUSATE SODIUM 100 MG CAPSULE PO (18:26)
[2024-07-13] MEDS: LOSARTAN POTASSIUM 100 MG TABLET PO (18:26)
[2024-07-13] MEDS: HYDROcodone/acetaminophen (*CRX) 5-325 MG TABLET 1 TAB PO (20:58)
[2024-07-13] MEDS: CYCLOBENZAPRINE HCL 10 MG TABLET PO (20:59)
[2024-07-14] VITALS (19 sets, daily range): BP systolic 126–134; BP diastolic 69–74; PULSE 95–114; RESP 18–20; TEMP 36.5–36.8; O2SAT 92–98
--- NOTE | 2024-07-14 | ECHO_ITS ---
Patient Info Name: Barbi Fernandes Age: 68 years : 1955 Gender: Female Ht: 63 in Wt: 206 lbs BSA: 2.08 m2 HR: 104 bpm BP: 129 / 69 mmHg Heart Rhythm: Sinus Rhythm Technical Quality: Fair Exam Date: 07/14/2024 10:59 AM Exam Location: Echo Lab Patient Status: Inpatient Admit Date: 07/13/2024 Staff Ordering Physician: Mary Lawrence APRN Saw Straightener: Mali Viveros RDCS Attending Provider: Taryn Nevarez Referring Physician: Howard STARKEY; Exam Type: CA echo dop color flow w con Study Info Indications - acute chf Complete two-dimensional, color flow and Doppler transthoracic echocardiogram is performed with contrast to opacify the left ventricle and to improve the deliniation of the left ventricle endocardial borders. Contrast/Agitated Saline Contrast/Ag. Saline: Definity Amount: 2.00 ml Administered By: Mali Viveros RDCS Existing IV Access: Yes IV Access Condition: patent with no signs of infiltration Summary 1. Technically difficult study with limited views. 2. Left ventricular chamber dimension is normal. 3. Left ventricular systolic function is mildly reduced, estimated at 40-45%. 4. There is mildly increased left ventricular wall thickness. 5. The left ventricular diastolic function is grade I diastolic dysfunction. 6. Right ventricular systolic function is normal. 7. Left atrial chamber dimension is mildly enlarged. 8. There is mild mitral valve regurgitation. Left Ventricle Left ventricular chamber dimension is normal. Left ventricular systolic function is mildly reduced, estimated at 40-45%. There is mildly increased left ventricular wall thickness. The left ventricular diastolic function is grade I diastolic dysfunction. Right Ventricle Right ventricular chamber dimension is normal. Right ventricular systolic function is normal. Left Atria Left atrial chamber dimension is mildly enlarged. Right Atria Right atrial chamber dimension is normal. Atrial Septum Intact interatrial septum visualized by color flow imaging. Aortic Valve The aortic valve is not well visualized. There is no aortic valve regurgitation. Pulmonic Valve The pulmonic valve is not well visualized. Mitral Valve There is mild mitral valve regurgitation. Tricuspid Valve There is trace tricuspid valve regurgitation. Pericardium/Pleural There is no pericardial effusion. Inferior Vena Cava Normal inferior vena cava with <50% collapse upon inspiration consistent with elevated right atrial pressure, 8 mmHg. Aorta The aortic root size at the sinus of Valsalva is normal. Tricuspid Valve Name Value Normal Estimated PAP/RSVP RA Pressure 8 mmHg <=5 Report Signatures
[2024-07-14] MEDS: IPRATROPIUM 0.5 MG/ALBUTEROL SULFATE 2.5 MG AMPUL.NEB 3 ML INHALATION ×3 (02:42→20:02)
[2024-07-14 05:55] LABS: Basophils Percent Auto 0.1 % (0.2-1.2); Hematocrit 37.1 % (37.0-47.0); Hemoglobin 11.5 g/dL (12.0-15.0); Immature Granulocyte Absolute 0.04 K/mm3 (0.00-0.031); Immature Granulocyte Percent A 0.5 % (0-0.5); Lymphocytes Absolute Auto 0.71 K/mm3 (0.9-3.2); Lymphocytes Percent Auto 8.8 % (18.3-44.2); Mean Corpuscular Hemoglobin 29.9 pg (26-34); Mean Corpuscular Volume 96.4 fl (80-100); Mean Platelet Volume 10.6 fl (7.4-10.4); Monocytes Absolute Auto 0.7 K/mm3 (0.1-0.6); Monocytes Percent Auto 8.8 % (2.6-8.5); Neutrophils Absolute Auto 6.6 K/mm3 (1.3-6.7); Neutrophils Percent Auto 81.8 % (45.5-73.1); Platelet Count Result 288 k/mm3 (150-375); Red Blood Count 3.85 M/mm3 (4.2-5.4); Red Cell Distribution Width 13.4 % (11.5-14.5); White Blood Count 8.1 K/mm3 (4.5-10.0)
[2024-07-14 06:09] LABS: Anion Gap 8 mmol/L (4-12); Blood Urea Nitrogen 23 mg/dL (7-17); Calcium 9.5 mg/dL (8.4-10.2); Carbon Dioxide 28 mmol/L (22-30); Chloride 103 mmol/L (98-107); Estimated CRCL calculation 73 ml/min; Estimated Glomerular Filt Rate > 60; Glucose 129 mg/dL (65-110); Potassium 4.1 mmol/L (3.4-5.0); Sodium 139 mmol/L (137-145)
[2024-07-14] MEDS: FLUTICASONE/SALMETEROL 230-21 MCG INHALER 1 PUFF 2 PUFF INHALATION ×2 (07:33→20:02)
[2024-07-14] MEDS: ATORVASTATIN 40 MG TABLET PO (10:13)
[2024-07-14] MEDS: amLODIPine BESYLATE 5 MG TABLET PO (10:13)
[2024-07-14] MEDS: PANTOPRAZOLE 40 MG TABLET PO ×2 (10:13→20:32)
[2024-07-14] MEDS: LOSARTAN POTASSIUM 100 MG TABLET PO (10:13)
[2024-07-14] MEDS: DOCUSATE SODIUM 100 MG CAPSULE PO ×2 (10:13→17:01)
[2024-07-14] MEDS: FUROSEMIDE 20 MG TABLET PO (10:13)
[2024-07-14] MEDS: BENZONATATE 100 MG CAPSULE PO ×3 (10:13→17:01)
[2024-07-14] MEDS: predniSONE 20 MG TABLET 60 MG PO (10:14)
[2024-07-14] MEDS: ENOXAPARIN 40 MG/0.4 ML SYRINGE SUB-Q (10:14)
--- NOTE | 2024-07-14 11:18 | PM.CNCAR ---
Assessment and Plan Assessment and plan (1) Acute exacerbation of chronic heart failure: Code(s): I50.9 - Heart failure, unspecified Status: Acute Plan 1. Acute heart failure, unclear if systolic or diastolic CHF 2. Acute COPD exacerbation 3. Hypertension 4. Hyperlipidemia PLAN: -Will continue IV diuresis for now with Lasix 40mg once daily. Please monitor strict I/Os. -Echocardiogram ordered and pending, will follow up on the results. -Start Jardiance 10mg once daily. -Continue Losartan 100mg once daily. -Stop Amlodipine as this may be contributing to lower extremity edema. -Further optimization of heart failure GDMT depending on LVEF. -Continue Atorvastatin. -Management of COPD exacerbation as per primary team. History of Present Illness History of Present Illness Consult date/time: 07/14/24 11:18 Requesting physician: Mary Lawrence APRN Consult reason: congestive heart failure Reason For Visit: COPD/CHF exacerbation, acute hypoxia Narrative: We are consulted for CHF. Barbi is a 68 year old female with COPD, hypertension who presented with shortness of breath x 2 days. Has been having lower extremity edema for some time now. Workup shows negative troponins. NT pro BNP elevated at 1610. Venous duplex negative for DVT. Chest CTA negative for PE, mild pulmonary edema, small pleural effusions. EKG with sinus tachycardia, RBBB. No prior echocardiogram in our system. She was started on Lasix, reports some improvement in her edema. Review of Systems Review of Systems: All systems reviewed & are unremarkable except as noted in HPI and below (HPI) [facility] Past Medical History Medical History Anxiety Chronic obstructive pulmonary disease Chronic GERD Hiatal hernia Osteoarthritis Asthma Chronic back pain Nephrolithiasis Hypertension Surgical History Surgical History History of total left hip replacement (12/2014) History of section History of total hip replacement (05/2013) Family History Family History Mother Hypertension Social History Social History Social History: Lives in [place], [place]. She has 3 children. 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 She smoked a pack of cigarettes a day for 27 years and quit in 1989. No alcohol or drug abuse. Candy Bowen, daughter. Code status: Full code. Smoking packs per day: 1 Smoking cigarettes per day: 20.0 Years smoked: 24 Smoking pack-years: 24.00 Smoking status: Former smoker Tobacco type: cigarettes Smoking end date: 07/13/24 Alcohol intake: never Substance use: never Substance use type: does not use Do You Feel Safe in your Home?: Yes Lack of Transportation: No Lack of Food: Never True Current Housing: I Have Housing Concerned About Future Housing: No Difficulty Paying Gas/Electric Bills: No Difficulty Paying for Meds: No Currently Unemployed: No Education: High School Diploma/GED Difficulty w/ Childcare or Family Care: No Spiritual care concerns: No Meds Home Medications and Allergies Home Medications ?Medication ?Instructions ?Recorded ?Confirmed ?Type albuterol sulfate 90 mcg/actuation 2 puff inhalation Q4H PRN 08/01/20 07/13/24 History aerosol inhaler (ProAir HFA) Shortness Of Breath ibuprofen 800 mg tablet 800 mg PO TID PRN Pain (Scale 08/01/20 07/13/24 History Score 4-6) cyclobenzaprine 10 mg tablet 10 mg PO TID PRN pain 10/23/23 07/13/24 History hydrocodone 7.5 mg-acetaminophen 1 tablet PO QHS PRN pain 10/23/23 07/13/24 History 325 mg tablet amlodipine 5 mg tablet 5 mg PO DAILY 07/13/24 07/13/24 History atorvastatin 40 mg tablet 40 mg PO DAILY 07/13/24 07/13/24 History benzonatate 100 mg capsule 100 mg PO TID 07/13/24 07/13/24 History furosemide 20 mg tablet 20 mg PO DAILY 07/13/24 07/13/24 History losartan 100 mg tablet 100 mg PO DAILY 07/13/24 07/13/24 History mometasone-formoterol HFA 200 2 puff inhalation BID 07/13/24 07/13/24 History mcg-5 mcg/actuation aerosol inhaler (Dulera) omeprazole 40 mg capsule,delayed 40 mg PO DAILY 07/13/24 07/13/24 History release Allergies Allergy/AdvReac Type Severity Reaction Status Date / Time No Known Allergies Allergy Unknown Verified 07/13/24 10:25 Vital Signs Vital Signs - 24 hr 07/13/24 11:30 07/13/24 12:08 07/13/24 12:20 Temperature Pulse Rate 96 96 94 Respiratory Rate 18 17 18 Blood Pressure 156/105 H Pulse Oximetry 100 Oxygen Delivery Oxygen Flow Rate Fraction of Inspired Oxygen 07/13/24 13:08 07/13/24 13:08 07/13/24 13:14 Temperature Pulse Rate 102 H Respiratory Rate 21 H Blood Pressure 163/84 H Pulse Oximetry 94 94 96 Oxygen Delivery Room Air Nasal Cannula Oxygen Flow Rate 2 Fraction of Inspired Oxygen 07/13/24 13:30 07/13/24 13:40 07/13/24 15:07 Temperature Pulse Rate 100 102 H 111 H Respiratory Rate 18 18 24 H Blood Pressure 195/146 H Pulse Oximetry 95 Oxygen Delivery Oxygen Flow Rate Fraction of Inspired Oxygen 07/13/24 16:32 07/13/24 17:48 07/13/24 18:23 Temperature 36.6 C 36.2 C L Pulse Rate 102 H 107 H 77 Respiratory Rate 17 23 H 18 Blood Pressure 169/90 H 152/77 H 151/75 H Pulse Oximetry 96 98 97 Oxygen Delivery Oxygen Flow Rate Fraction of Inspired Oxygen 07/13/24 18:28 07/13/24 20:00 07/13/24 20:00 Temperature Pulse Rate 104 H Respiratory Rate Blood Pressure Pulse Oximetry 97 95 Oxygen Delivery Nasal Cannula Nasal Cannula Oxygen Flow Rate 2 2 Fraction of Inspired Oxygen 07/13/24 20:35 07/13/24 20:37 07/13/24 20:43 Temperature Pulse Rate 96 94 96 Respiratory Rate 18 16 18 Blood Pressure Pulse Oximetry 93 Oxygen Delivery Nasal Cannula Oxygen Flow Rate 2 Fraction of Inspired Oxygen 28 07/13/24 20:47 07/14/24 00:00 07/14/24 02:44 Temperature 36.6 C Pulse Rate 101 H 104 H 98 Respiratory Rate 20 20 Blood Pressure 135/77 Pulse Oximetry 95 Oxygen Delivery Oxygen Flow Rate Fraction of Inspired Oxygen 07/14/24 02:51 07/14/24 04:00 07/14/24 04:11 Temperature 36.8 C Pulse Rate 98 112 H 104 H Respiratory Rate 20 20 Blood Pressure 129/69 Pulse Oximetry 98 Oxygen Delivery Oxygen Flow Rate Fraction of Inspired Oxygen 07/14/24 07:37 07/14/24 07:37 07/14/24 07:51 Temperature Pulse Rate 102 H 107 H Respiratory Rate 20 20 Blood Pressure Pulse Oximetry 96 Oxygen Delivery Nasal Cannula Oxygen Flow Rate 2 Fraction of Inspired Oxygen 07/14/24 10:23 Temperature Pulse Rate Respiratory Rate Blood Pressure Pulse Oximetry 97 Oxygen Delivery Nasal Cannula Oxygen Flow Rate 2 Fraction of Inspired Oxygen Exam Const: General: no acute distress HENMT: Mouth: Yes moist mucous membranes Eyes: General: appearance normal, both eyes and all related structures Sclera: sclerae normal Resp: Effort & Inspection: normal respiratory effort Auscultation: clear to auscultation bilaterally Other: On supplemental oxygen Cardio: Rate: regular rate Rhythm: regular rhythm Heart sounds: no murmurs Other: + Bilateral lower extremity edema Skin: General skin exam: normal color Neuro: Speech: normal speech Psych: Mental Status: mental status grossly normal Affect: normal affect Results Labs and Meds 07/14/24 05:18 07/14/24 05:18 Lab results: Cardiac Enzymes 07/13/24 07/13/24 07/13/24 Range/Units 10:53 13:56 17:31 Troponin I 0.015 0.018 < 0.012 D (0.000-0.034) ng/mL Coagulation 07/13/24 Range/Units 10:53 PT 13.4 (11.1-14.7) Seconds APTT 31.4 (22.3-36.8) Seconds CBC 07/13/24 07/14/24 Range/Units 10:53 05:18 WBC 7.1 8.1 (4.5-10.0) K/mm3 RBC 3.92 L 3.85 L (4.2-5.4) M/mm3 Hgb 12.0 11.5 L (12.0-15.0) g/dL Hct 38.8 37.1 (37.0-47.0) % Plt Count 260 288 (150-375) k/mm3 Lymph # (Auto) 1.03 0.71 L (0.9-3.2) K/mm3 [place] # (Auto) 0.7 H 0.7 H (0.1-0.6) K/mm3 Eos # (Auto) 0.2 0.0 (0-0.3) K/mm3 Baso # (Auto) 0.0 0.0 (0.0-0.1) K/mm3 Comprehensive Metabolic Panel 07/14/24 Range/Units 05:18 Sodium 139 (137-145) mmol/L Potassium 4.1 (3.4-5.0) mmol/L Chloride 103 (98-107) mmol/L Carbon Dioxide 28 (22-30) mmol/L BUN 23 H (7-17) mg/dL Creatinine 0.69 L (0.7-1.0) mg/dL Glucose 129 H (65-110) mg/dL Calcium 9.5 (8.4-10.2) mg/dL Intake and Output 07/13/24 07/14/24 07/14/24 23:59 07:59 15:59 Intake Total 237 590 0 Output Total 1100 600 Balance -863 -10 0 Intake: Oral 237 590 0 Output: Urine 600 Catheter Urine 1100 External/Condom 1100 Other: # Urine Diapers 1 Patient Weight 07/14/24 23:59 Weight 93.5 kg
[2024-07-14] MEDS: PERFLUTREN LIPID MICROSPHERES 1.5 ML VIAL DILUTED TO 10 ML TOTAL VOLUME IV PUSH (11:28)
--- NOTE | 2024-07-14 11:38 | P.PNIM_ITS ---
Progress Note: A&P Assessment and Plan (1) Acute exacerbation of chronic heart failure: Code(s): I50.9 - Heart failure, unspecified Status: Acute Assessment and Plan: No diagnosis of CHF Cardiology consulted for patient Albertoix x1 in the ED Will defer to Cardiology for diuretics, Lasix on home meds however patient states that she was not taking diuretics or has CHF Heart healthy diet with fluid restriction Echocardiogram pending 07/14/24: * Awaiting ECHO and Cardiology evaluation. * Continue fluid restriction. (2) Pulmonary edema: Code(s): J81.1 - Chronic pulmonary edema Status: Acute Assessment and Plan: With no diagnosis of CHF, does have cardiomegaly on x-ray 40 of IV Lasix given in ED Cardiology consulted pending recommendations No echo on file Echocardiogram pending 20 mg of p.o. Lasix ordered adjust as needed Heart healthy diet Fluid restriction Daily weight Repeat chest x-ray in a.m. to assess for possible pneumonia 07/14/24: * Repeat CXR shows mild atelectasis at lung bases, small pleural effusions and cardiomegaly. * Continue daily weights, and fluid restriction. * Obtain ECHO (3) Chronic back pain: Code(s): M54.9 - Dorsalgia, unspecified; G89.29 - Other chronic pain Status: Acute Assessment and Plan: Tylenol and Percocet ordered Time Spent With Patient Time with patient: 15 - 25 minutes Subjective Date/time seen: 07/14/24 0930 Interval history: Pt examined at the bedside. She is wearing supplemental oxygen that she does not normally wear at baseline. She was admitted to the hospital for presumed exacerbation of Heart Failure, but has no known hx of it. She is awaiting an ECHO to be performed and Cardiology evaluation. Her troponins while here were flat. Pt has no other acute complaints or concerns today. She reports that her edema in her legs has been present for a long time. Review of Systems Review of Systems: All systems reviewed & are unremarkable except as noted in HPI and below Exam Narrative: General: well appearing, appears stated age. HEENT: normocephalic, atraumatic. Mucous membranes moist. EOMI, PERRLA, bilateral sclera anicteric, no conjunctival injection. Neck supple without JVD, lymphadenopathy, or bruit. Respiratory: Decreased breath sounds in the bases with fine crackles LLL. Cardiovascular: Regular rate and rhythm, normal S1-S2 upon auscultation. No m,r,g,h Abdomen: Soft, round, no pulsatile masses, nondistended and nontender. No rebound, no guarding. No CVA tenderness, no hepatosplenomegaly. Bowel sounds present to all four quadrants. No high pitch or tinkling sounds, resonant to percussion. Extremities: No cyanosis, clubbing, or edema present. Pulses are palpable 2/2. Active ROM to all four extremities. Neuro: Alert and orientated x 4. PERRLA. Cranial nerves 2-12 intact without fo anna deficit. Skin: Warm, dry, and intact, without rash, erythema, or lesion. Psych: pleasant, cooperative, normal speech, normal affect, no hallucinations, no dysarthia Objective Data Vital Signs Vital Signs: Vital Signs - 24 hr 07/13/24 12:08 07/13/24 12:20 07/13/24 13:08 Temperature Pulse Rate 96 94 Respiratory Rate 17 18 Blood Pressure 156/105 H Pulse Oximetry 100 94 Oxygen Delivery Room Air Oxygen Flow Rate Fraction of Inspired Oxygen 07/13/24 13:08 07/13/24 13:14 07/13/24 13:30 Temperature Pulse Rate 102 H 100 Respiratory Rate 21 H 18 Blood Pressure 163/84 H Pulse Oximetry 94 96 Oxygen Delivery Nasal Cannula Oxygen Flow Rate 2 Fraction of Inspired Oxygen 07/13/24 13:40 07/13/24 15:07 07/13/24 16:32 Temperature Pulse Rate 102 H 111 H 102 H Respiratory Rate 18 24 H 17 Blood Pressure 195/146 H 169/90 H Pulse Oximetry 95 96 Oxygen Delivery Oxygen Flow Rate Fraction of Inspired Oxygen 07/13/24 17:48 07/13/24 18:23 07/13/24 18:28 Temperature 98 F 97.2 F L Pulse Rate 107 H 77 Respiratory Rate 23 H 18 Blood Pressure 152/77 H 151/75 H Pulse Oximetry 98 97 97 Oxygen Delivery Nasal Cannula Oxygen Flow Rate 2 Fraction of Inspired Oxygen 07/13/24 20:00 07/13/24 20:00 07/13/24 20:35 Temperature Pulse Rate 104 H 96 Respiratory Rate 18 Blood Pressure Pulse Oximetry 95 Oxygen Delivery Nasal Cannula Oxygen Flow Rate 2 Fraction of Inspired Oxygen 07/13/24 20:37 07/13/24 20:43 07/13/24 20:47 Temperature 97.8 F Pulse Rate 94 96 101 H Respiratory Rate 16 18 20 Blood Pressure 135/77 Pulse Oximetry 93 95 Oxygen Delivery Nasal Cannula Oxygen Flow Rate 2 Fraction of Inspired Oxygen 28 07/14/24 00:00 07/14/24 02:44 07/14/24 02:51 Temperature Pulse Rate 104 H 98 98 Respiratory Rate 20 20 Blood Pressure Pulse Oximetry Oxygen Delivery Oxygen Flow Rate Fraction of Inspired Oxygen 07/14/24 04:00 07/14/24 04:11 07/14/24 07:37 Temperature 98.2 F Pulse Rate 112 H 104 H Respiratory Rate 20 Blood Pressure 129/69 Pulse Oximetry 98 96 Oxygen Delivery Nasal Cannula Oxygen Flow Rate 2 Fraction of Inspired Oxygen 07/14/24 07:37 07/14/24 07:51 07/14/24 08:00 Temperature Pulse Rate 102 H 107 H 114 H Respiratory Rate 20 20 Blood Pressure Pulse Oximetry Oxygen Delivery Oxygen Flow Rate Fraction of Inspired Oxygen 07/14/24 10:23 Temperature Pulse Rate Respiratory Rate Blood Pressure Pulse Oximetry 97 Oxygen Delivery Nasal Cannula Oxygen Flow Rate 2 Fraction of Inspired Oxygen Intake/Output Intake/Output: Intake & Output 07/11/24 07/12/24 07/13/24 07/14/24 23:59 23:59 23:59 23:59 Intake Total 237 590 Output Total 1100 600 Balance -863 -10 Meds/Results Medications: Active Medications Generic Name Dose Route Start Last Admin Trade Name Freq PRN Reason Stop Dose Admin Acetaminophen 650 mg 07/13/24 14:44 Acetaminophen 325 Mg Tablet PO Q4H PRN Mild Pain (1-3) or Fever Hydrocodone Bitart/Acetaminophen 1 tab 07/13/24 14:44 07/13/24 20:58 Hydrocodone/Acetaminophen (*Crx) 5-325 Mg Tablet PO 1 tab Q4H PRN Administration Moderate Pain (4-6) Albuterol/Ipratropium 3 ml 07/13/24 14:00 07/14/24 07:34 Ipratropium 0.5 Mg/Albuterol Sulfate 2.5 Mg Ampul.Neb 3 Ml INHALATION 3 ml Q6HRT ROBI Administration Atorvastatin Calcium 40 mg 07/14/24 09:00 07/14/24 10:13 Atorvastatin 40 Mg Tablet PO 40 mg DAILY ROBI Administration Benzonatate 100 mg 07/14/24 09:00 07/14/24 10:13 Benzonatate 100 Mg Capsule PO 100 mg TID ROBI Administration Cyclobenzaprine HCl 10 mg 07/13/24 16:59 07/13/24 20:59 Cyclobenzaprine Hcl 10 Mg Tablet PO 10 mg TID PRN Administration pain Dextrose 12.5 gm 07/13/24 13:29 Dextrose 50% 25 Gm/50 Ml Syringe IV PUSH PRN PRN Hypoglycemia Protocol Docusate Sodium 100 mg 07/13/24 17:00 07/14/24 10:13 Docusate Sodium 100 Mg Capsule PO 100 mg BID ROBI Administration Empagliflozin 10 mg 07/14/24 11:20 Empagliflozin 10 Mg Tablet PO DAILY [facility] Enoxaparin Sodium 40 mg 07/14/24 09:00 07/14/24 10:14 Enoxaparin 40 Mg/0.4 Ml Syringe SUB-Q 40 mg DAILY ROBI Administration Furosemide 40 mg 07/14/24 11:20 Furosemide Inj 40 Mg/4 Ml Vial IV PUSH DAILY [facility] Glucagon 1 mg 07/13/24 13:29 Glucagon For Inj 1 Mg Vial IM PRN PRN Hypoglycemia Protocol Glucose 15 gm 07/13/24 13:29 Glucose Oral Gel 15 Gm Of Glucse In 37.5 Gm Tube PO PRN PRN Hypoglycemia Protocol Dextrose 1,000 mls @ 100 mls/hr 07/13/24 13:29 Dextrose 5% 1,000 Ml IVPB PRN PRN Hypoglycemia Protocol Losartan Potassium 100 mg 07/13/24 17:00 07/14/24 10:13 Losartan Potassium 100 Mg Tablet PO 100 mg DAILY ROBI Administration Ondansetron HCl 4 mg 07/13/24 13:29 Ondansetron Inj 4 Mg/2 Ml Vial IV PUSH Q4H PRN Nausea Pantoprazole Sodium 40 mg 07/14/24 09:00 07/14/24 10:13 Pantoprazole 40 Mg Tablet PO 40 mg Q12HR ROBI Administration Perflutren Lipid Microsphere 0 ml 07/13/24 14:42 Perflutren Lipid Microspheres 1.5 Ml Vial Diluted To 10 Ml Total Volume IV PUSH 07/16/24 14:43 ONCE PRN adequate visualization Protocol Prednisone 60 mg 07/14/24 08:00 07/14/24 10:14 Prednisone 20 Mg Tablet PO 60 mg DAILY@0800 ROBI Administration Fluticasone/Salmeterol 2 puff 07/14/24 08:00 07/14/24 07:33 Fluticasone/Salmeterol 230-21 Mcg Inhaler 1 Puff INHALATION 2 puff Q12HRT ROBI Administration Radiology Results: ITS Impressions Venous Doppler Study 07/13/24 12:05 IMPRESSION: 1. No deep venous thrombosis in either lower limb. Chest CTA 07/13/24 12:57 IMPRESSION: 1. No pulmonary embolism. Evaluation in the basilar segmental and subsegmental pulmonary arteries is nondiagnostic due to respiratory motion. 2. Groundglass opacity and probable small nodular opacities in the posterior segment right upper lobe most likely infectious/inflammatory in etiology. Recommend 3 month follow-up low-dose noncontrast chest CT to document resolution. 3. Mild pulmonary edema at the visualized upper lungs with trace left and very small right pleural effusions. 4. Cardiomegaly. Chest X-Ray 07/14/24 09:02 IMPRESSION: 1. Mild atelectasis at the lung bases. 2. Small pleural effusions. 3. Cardiomegaly. Labs Labs: Laboratory Results - last 24 hr 07/13/24 07/13/24 07/13/24 10:53 13:56 17:31 WBC 7.1 RBC 3.92 L Hgb 12.0 Hct 38.8 MCV 99.0 MCH 30.6 MCHC 30.9 L RDW 13.9 Plt Count 260 MPV 10.5 H Immature Gran % (Auto) 0.4 Neut % (Auto) 73.3 H Lymph % (Auto) 14.5 L [place] % (Auto) 9.3 H Eos % (Auto) 2.1 Baso % (Auto) 0.4 Lymph # (Auto) 1.03 [place] # (Auto) 0.7 H Eos # (Auto) 0.2 Baso # (Auto) 0.0 Abs Immat Gran (auto) 0.03 Absolute Neuts (auto) 5.2 Absolute Nucleated RBC 0.000 Nucleated RBC % 0.0 Sodium Potassium Chloride Carbon Dioxide Anion Gap BUN Creatinine Estim Creat Clear Calc Estimated GFR Glucose Calcium Troponin I 0.018 < 0.012 D 07/14/24 05:18 WBC 8.1 RBC 3.85 L Hgb 11.5 L Hct 37.1 MCV 96.4 MCH 29.9 MCHC 31.0 L RDW 13.4 Plt Count 288 MPV 10.6 H Immature Gran % (Auto) 0.5 Neut % (Auto) 81.8 H Lymph % (Auto) 8.8 L [place] % (Auto) 8.8 H Eos % (Auto) 0.0 Baso % (Auto) 0.1 L Lymph # (Auto) 0.71 L [place] # (Auto) 0.7 H Eos # (Auto) 0.0 Baso # (Auto) 0.0 Abs Immat Gran (auto) 0.04 H Absolute Neuts (auto) 6.6 Absolute Nucleated RBC 0.000 Nucleated RBC % 0.0 Sodium 139 Potassium 4.1 Chloride 103 Carbon Dioxide 28 Anion Gap 8 BUN 23 H Creatinine 0.69 L Estim Creat Clear Calc 73 Estimated GFR > 60 Glucose 129 H Calcium 9.5 Troponin I Quality VTE Prophylaxis VTE prophylaxis: pharmacologic ordered
[2024-07-14] MEDS: EMPAGLIFLOZIN 10 MG TABLET PO (12:57)
[2024-07-14] MEDS: FUROSEMIDE INJ 40 MG/4 ML VIAL IV PUSH (12:58)
[2024-07-14] MEDS: HYDROcodone/acetaminophen (*CRX) 5-325 MG TABLET 1 TAB PO ×2 (13:00→20:31)
--- NOTE | 2024-07-14 13:33 | IVDEFINITY ---
Prior to administration of IV Definity the patient was educated on the risks and benefits of the imaging enhancing agent including potential adverse side effects. The patient verbalized understanding. Allergies were verified. No exclusion criteria were identified and at least one of the following inclusion criteria were met: 1) physician request, 2) patient technically difficult to image (per the [place] [employer]ocardi[employer] guidelines of two or more segments not discernable within the apical view), or 3) questionable left ventricular function. ?
[2024-07-14] MEDS: METOPROLOL SUCCINATE EXT REL 50 MG TABCR PO (17:01)
[2024-07-15] VITALS (17 sets, daily range): BP systolic 114–137; BP diastolic 54–83; PULSE 74–102; RESP 16–20; TEMP 36–36.8; O2SAT 93–100
[2024-07-15] MEDS: HYDROcodone/acetaminophen (*CRX) 5-325 MG TABLET 1 TAB PO ×2 (01:51→20:53)
[2024-07-15] MEDS: IPRATROPIUM 0.5 MG/ALBUTEROL SULFATE 2.5 MG AMPUL.NEB 3 ML INHALATION ×4 (03:02→20:14)
[2024-07-15 05:03] LABS: Basophils Percent Auto 0.2 % (0.2-1.2); Eosinophils Percent Auto 0.1 % (0-4.4); Hemoglobin 11.3 g/dL (12.0-15.0); Immature Granulocyte Absolute 0.03 K/mm3 (0.00-0.031); Immature Granulocyte Percent A 0.3 % (0-0.5); Lymphocytes Absolute Auto 1.32 K/mm3 (0.9-3.2); Lymphocytes Percent Auto 14.2 % (18.3-44.2); Mean Corpuscular HGB Conc 30.5 g/dl (32-36); Mean Corpuscular Hemoglobin 30.1 pg (26-34); Mean Corpuscular Volume 98.7 fl (80-100); Mean Platelet Volume 10.6 fl (7.4-10.4); Monocytes Absolute Auto 0.9 K/mm3 (0.1-0.6); Neutrophils Percent Auto 75.2 % (45.5-73.1); Platelet Count Result 261 k/mm3 (150-375); Red Blood Count 3.75 M/mm3 (4.2-5.4); Red Cell Distribution Width 13.6 % (11.5-14.5); White Blood Count 9.3 K/mm3 (4.5-10.0)
[2024-07-15 05:30] LABS: Alanine Aminotransferase 19 U/L (6-35); Albumin Level 3.9 g/dL (3.5-5.1); Alkaline Phosphatase 61 U/L (38-126); Anion Gap 12 mmol/L (4-12); Aspartate Amino Transferase 29 U/L (14-36); Bilirubin,Total 0.4 mg/dL (0.2-1.3); Blood Urea Nitrogen 31 mg/dL (7-17); Calcium 9.7 mg/dL (8.4-10.2); Carbon Dioxide 28 mmol/L (22-30); Chloride 102 mmol/L (98-107); Estimated CRCL calculation 65 ml/min; Estimated Glomerular Filt Rate > 60; Glucose 105 mg/dL (65-110); Potassium 4.1 mmol/L (3.4-5.0); Sodium 142 mmol/L (137-145)
[2024-07-15] MEDS: FLUTICASONE/SALMETEROL 230-21 MCG INHALER 1 PUFF 2 PUFF INHALATION ×2 (08:22→20:14)
[2024-07-15] MEDS: ATORVASTATIN 40 MG TABLET PO (09:56)
[2024-07-15] MEDS: DOCUSATE SODIUM 100 MG CAPSULE PO ×2 (09:56→16:41)
[2024-07-15] MEDS: predniSONE 20 MG TABLET 60 MG PO (09:56)
[2024-07-15] MEDS: EMPAGLIFLOZIN 10 MG TABLET PO (09:56)
[2024-07-15] MEDS: METOPROLOL SUCCINATE EXT REL 50 MG TABCR PO (09:57)
[2024-07-15] MEDS: PANTOPRAZOLE 40 MG TABLET PO ×2 (09:57→20:53)
[2024-07-15] MEDS: LOSARTAN POTASSIUM 100 MG TABLET PO (09:58)
[2024-07-15] MEDS: BENZONATATE 100 MG CAPSULE PO ×3 (09:58→16:41)
[2024-07-15] MEDS: SPIRONOLACTONE 25 MG TABLET PO (09:58)
[2024-07-15] MEDS: ENOXAPARIN 40 MG/0.4 ML SYRINGE SUB-Q (10:00)
[2024-07-15] MEDS: FUROSEMIDE INJ 40 MG/4 ML VIAL IV PUSH (10:00)
--- NOTE | 2024-07-15 10:31 | PM.PNCARD ---
Progress Note: A&P Assessment and Plan (1) Hypertension: Code(s): I10 - Essential (primary) hypertension Status: Chronic (2) Acute exacerbation of chronic heart failure: Code(s): I50.9 - Heart failure, unspecified Status: Acute Plan 60-year-old woman with hypertension and COPD presented with shortness of breath admitted for acute systolic heart failure Acute systolic heart failure -continue Lasix 40 mg IV daily -continue losartan 100 mg p.o. daily, metoprolol succinate 50 mg p.o. daily, spironolactone 25 mg p.o. daily, Jardiance 10 mg p.o. daily Hypertension -well controlled on losartan 100 mg p.o. daily and spironolactone 25 mg p.o. daily Hyperlipidemia -continue atorvastatin 40 mg every evening Subjective Date/time seen: 07/15/24 10:31 Interval history: Shortness of breath is improving. She still has orthopnea. Lower extremity swelling has improved. Denies any chest discomfort Review of Systems Cardiovascular: Cardiovascular: Reports as per HPI Respiratory: Respiratory: Reports as per HPI Exam Const: General: comfortable HENMT: Mouth: Yes moist mucous membranes Eyes: EOM: EOMs intact bilaterally Neck: Neck: no JVD Resp: Auscultation: rales Cardio: Rate: regular rate Rhythm: regular rhythm Extrem: General: pedal edema Objective Data Vital Signs Vital Signs: Vital Signs - 24 hr 07/14/24 12:00 07/14/24 13:07 07/14/24 14:00 Temperature 36.6 C Pulse Rate 111 H 105 H Respiratory Rate 18 Blood Pressure 126/71 Pulse Oximetry 94 95 Oxygen Delivery Nasal Cannula Oxygen Flow Rate 1 Fraction of Inspired Oxygen 07/14/24 16:00 07/14/24 17:01 07/14/24 17:03 Temperature Pulse Rate 102 H 103 H Respiratory Rate Blood Pressure Pulse Oximetry 93 Oxygen Delivery Room Air Oxygen Flow Rate Fraction of Inspired Oxygen 07/14/24 20:00 07/14/24 20:00 07/14/24 20:02 Temperature Pulse Rate 95 108 H Respiratory Rate 20 Blood Pressure Pulse Oximetry 92 Oxygen Delivery Nasal Cannula Oxygen Flow Rate 1 Fraction of Inspired Oxygen 07/14/24 20:02 07/14/24 20:08 07/14/24 20:10 Temperature 36.5 C Pulse Rate 108 H 98 106 H Respiratory Rate 18 20 Blood Pressure 134/74 Pulse Oximetry 92 92 Oxygen Delivery Room Air Oxygen Flow Rate Fraction of Inspired Oxygen 21 07/15/24 00:00 07/15/24 03:02 07/15/24 03:09 Temperature Pulse Rate 89 90 96 Respiratory Rate 20 20 Blood Pressure Pulse Oximetry Oxygen Delivery Oxygen Flow Rate Fraction of Inspired Oxygen 07/15/24 04:00 07/15/24 04:25 07/15/24 07:35 Temperature 36.0 C L Pulse Rate 84 102 H 90 Respiratory Rate 20 20 Blood Pressure 134/83 Pulse Oximetry 100 Oxygen Delivery Oxygen Flow Rate Fraction of Inspired Oxygen 07/15/24 09:57 Temperature Pulse Rate 93 Respiratory Rate Blood Pressure Pulse Oximetry Oxygen Delivery Oxygen Flow Rate Fraction of Inspired Oxygen Intake/Output Intake/Output: Intake & Output 07/12/24 07/13/24 07/14/24 07/15/24 23:59 23:59 23:59 23:59 Intake Total 237 830 0 Output Total 1100 1600 750 [place] -920 -946 -460 Meds/Results Medications: Active Medications Generic Name Dose Route Start Last Admin Trade Name Freq PRN Reason Stop Dose Admin Acetaminophen 650 mg 07/13/24 14:44 Acetaminophen 325 Mg Tablet PO Q4H PRN Mild Pain (1-3) or Fever Hydrocodone Bitart/Acetaminophen 1 tab 07/13/24 14:44 07/15/24 01:51 Hydrocodone/Acetaminophen (*Crx) 5-325 Mg Tablet PO 1 tab Q4H PRN Administration Moderate Pain (4-6) Albuterol/Ipratropium 3 ml 07/13/24 14:00 07/15/24 08:22 Ipratropium 0.5 Mg/Albuterol Sulfate 2.5 Mg Ampul.Neb 3 Ml INHALATION 3 ml Q6HRT ROBI Administration Atorvastatin Calcium 40 mg 07/14/24 09:00 07/15/24 09:56 Atorvastatin 40 Mg Tablet PO 40 mg DAILY ROBI Administration Benzonatate 100 mg 07/14/24 09:00 07/15/24 09:58 Benzonatate 100 Mg Capsule PO 100 mg TID ROBI Administration Cyclobenzaprine HCl 10 mg 07/13/24 16:59 07/13/24 20:59 Cyclobenzaprine Hcl 10 Mg Tablet PO 10 mg TID PRN Administration pain Dextrose 12.5 gm 07/13/24 13:29 Dextrose 50% 25 Gm/50 Ml Syringe IV PUSH PRN PRN Hypoglycemia Protocol Docusate Sodium 100 mg 07/13/24 17:00 07/15/24 09:56 Docusate Sodium 100 Mg Capsule PO 100 mg BID ROBI Administration Empagliflozin 10 mg 07/14/24 11:20 07/15/24 09:56 Empagliflozin 10 Mg Tablet PO 10 mg DAILY ROBI Administration Enoxaparin Sodium 40 mg 07/14/24 09:00 07/15/24 10:00 Enoxaparin 40 Mg/0.4 Ml Syringe SUB-Q 40 mg DAILY ROBI Administration Furosemide 40 mg 07/14/24 11:20 07/15/24 10:00 Furosemide Inj 40 Mg/4 Ml Vial IV PUSH 40 mg DAILY ROBI Administration Glucagon 1 mg 07/13/24 13:29 Glucagon For Inj 1 Mg Vial IM PRN PRN Hypoglycemia Protocol Glucose 15 gm 07/13/24 13:29 Glucose Oral Gel 15 Gm Of Glucse In 37.5 Gm Tube PO PRN PRN Hypoglycemia Protocol Dextrose 1,000 mls @ 100 mls/hr 07/13/24 13:29 Dextrose 5% 1,000 Ml IVPB PRN PRN Hypoglycemia Protocol Losartan Potassium 100 mg 07/13/24 17:00 07/15/24 09:58 Losartan Potassium 100 Mg Tablet PO 100 mg DAILY ROBI Administration Metoprolol Succinate 50 mg 07/14/24 15:15 07/15/24 09:57 Metoprolol Succinate Ext Rel 50 Mg Tabcr PO 50 mg QAM ROBI Administration Ondansetron HCl 4 mg 07/13/24 13:29 Ondansetron Inj 4 Mg/2 Ml Vial IV PUSH Q4H PRN Nausea Pantoprazole Sodium 40 mg 07/14/24 09:00 07/15/24 09:57 Pantoprazole 40 Mg Tablet PO 40 mg Q12HR ROBI Administration Prednisone 60 mg 07/14/24 08:00 07/15/24 09:56 Prednisone 20 Mg Tablet PO 60 mg DAILY@0800 ROBI Administration Fluticasone/Salmeterol 2 puff 07/14/24 08:00 07/15/24 08:22 Fluticasone/Salmeterol 230-21 Mcg Inhaler 1 Puff INHALATION 2 puff Q12HRT ROBI Administration Spironolactone 25 mg 07/15/24 09:00 07/15/24 09:58 Spironolactone 25 Mg Tablet PO 25 mg QAM ROBI Administration Radiology Results: ITS Impressions Venous Doppler Study 07/13/24 12:05 IMPRESSION: 1. No deep venous thrombosis in either lower limb. Chest CTA 07/13/24 12:57 IMPRESSION: 1. No pulmonary embolism. Evaluation in the basilar segmental and subsegmental pulmonary arteries is nondiagnostic due to respiratory motion. 2. Groundglass opacity and probable small nodular opacities in the posterior segment right upper lobe most likely infectious/inflammatory in etiology. Recommend 3 month follow-up low-dose noncontrast chest CT to document resolution. 3. Mild pulmonary edema at the visualized upper lungs with trace left and very small right pleural effusions. 4. Cardiomegaly. Chest X-Ray 07/14/24 09:02 IMPRESSION: 1. Mild atelectasis at the lung bases. 2. Small pleural effusions. 3. Cardiomegaly. Labs Labs: Laboratory Results - last 24 hr 07/15/24 04:32 WBC 9.3 RBC 3.75 L Hgb 11.3 L Hct 37.0 MCV 98.7 MCH 30.1 MCHC 30.5 L RDW 13.6 Plt Count 261 MPV 10.6 H Immature Gran % (Auto) 0.3 Neut % (Auto) 75.2 H Lymph % (Auto) 14.2 L [place] % (Auto) 10.0 H Eos % (Auto) 0.1 Baso % (Auto) 0.2 Lymph # (Auto) 1.32 [place] # (Auto) 0.9 H Eos # (Auto) 0.0 Baso # (Auto) 0.0 Abs Immat Gran (auto) 0.03 Absolute Neuts (auto) 7.0 H Absolute Nucleated RBC 0.000 Nucleated RBC % 0.0 Sodium 142 Potassium 4.1 Chloride 102 Carbon Dioxide 28 Anion Gap 12 BUN 31 H Creatinine 0.78 Estim Creat Clear Calc 65 Estimated GFR > 60 Glucose 105 Calcium 9.7 Magnesium 2.0 Total Bilirubin 0.4 AST 29 ALT 19 Alkaline Phosphatase 61 Total Protein 7.0 Albumin 3.9
--- NOTE | 2024-07-15 15:12 | P.PNIM_ITS ---
Progress Note: A&P Assessment and Plan (1) Acute hypoxic respiratory failure: Code(s): J96.01 - Acute respiratory failure with hypoxia Status: Acute Assessment and Plan: Likely secondary to CHF exacerbation versus COPD exacerbation * Echocardiogram showing mildly reduced LV systolic function with an estimated EF of 40-45%, grade 1 diastolic dysfunction * Cardiology following * Continue DuoNebs q.6 hour * We will go ahead and DC prednisone as patient is presenting more and CHF than COPD * Continue to wean O2 for sat greater than 92% * Venous Doppler negative for DVT * Chest CTA negative for PE, showed ground-glass opacity and probable small nodular opacity in the posterior segment of the right upper lobe, mild pulmonary edema, cardiomegaly * Chest x-ray showed mild atelectasis at the lung bases, small pleural effusions, cardiomegaly * Will get [facility]nea[facility] tonight to assess for obstructive sleep apnea and/or nocturnal O2 needs (2) Acute exacerbation of chronic heart failure: Code(s): I50.9 - Heart failure, unspecified Status: Acute Assessment and Plan: * Echocardiogram showing mildly reduced LV systolic function with an estimated EF of 40-45%, grade 1 diastolic dysfunction * ProBNP 1610 * Cardiology consulted * Continue IV Lasix * Continue losartan, metoprolol, spironolactone, Jardiance * Heart healthy diet * Continue with a 1600 mL fluid restriction * Continue to wean O2 for sat greater than 92%, currently on 1 L nasal cannula * Continue daily weights * Continue strict I&O * Will go ahead and DC continuous telemetry monitoring as patient has been stable * Will obtain [facility] tonight as she desaturated overnight on room air requiring 1 L nasal cannula be placed. She states a long time ago she was nose with sleep apnea however she does not use a CPAP or O2 at home. * She will likely need assessed for home O2 needs upon discharge (3) Pulmonary edema: Code(s): J81.1 - Chronic pulmonary edema Status: Acute Assessment and Plan: See above (4) Hypertension: Code(s): I10 - Essential (primary) hypertension Status: Chronic Assessment and Plan: * Continue losartan and metoprolol Time Spent With Patient Time with patient: 25 - 35 minutes Subjective Date/time seen: 07/15/24 15:12 Interval history: Interval history: This is a 68-year-old female with a significant past medical history of COPD, anxiety, GERD, osteoarthritis, asthma, hypertension who presented with shortness of breath x2 days. Workup in the hospital included venous Doppler which was negative for DVT. Chest CTA was negative for PE, ground-glass opacity and probable small nodular opacities in the posterior segment right upper lobe most likely infectious versus inflammatory, mild pulmonary edema, cardiomegaly. Chest x-ray showed mild atelectasis at the lung bases, small pleural effusion, c ardiomegaly. Initial labs showed a normal white blood cell count 7.1 INR 1.0, D-dimer 0.89, troponin flat this x3, proBNP 1610. Respiratory panel was negative for influenza a and B, RSV, COVID. Initial EKG showing sinus tachycardia with a right bundle branch block with a rate of 102, QTC 447. Echocardiogram was obtained on 07/14/2024 and shown mildly reduced LV systolic function with an estimated EF of 40-45%, grade 1 diastolic dysfunction. Patient was started on prednisone 60 mg, DuoNeb while in the ED. Subjective: Patient denies any new complaints today. Labs and imaging reviewed. Review of Systems Review of Systems: All systems reviewed & are unremarkable except as noted in HPI and below Exam Narrative: General: In no acute distress, well nourished Head: atraumatic, no encephalopathy Eyes: PERRLA, sclera clear ENT: moist mucous membranes, nasal passages clear Neck: supple, no JVD, no adenopathy, trachea midline Cardiac: Normal S1 and S2. No murmur, gallops or friction rubs, peripheral pulses intact. Respiratory: Lungs clear to auscultation, no adventitious lung sounds, currently on 1 L nasal cannula Gastrointestinal: soft, non-distended, non-tender, normoactive bowel sounds. : voiding without difficulty clear yellow urine Extremities: moves all extremities well, mild bilateral lower extremity edema Skin: clean, dry, intact. No wounds or lesions. Neuro: Alert and oriented x4, cranial nerves intact, no neuro deficits. Psych: normal mood, normal affect, interactive Objective Data Vital Signs Vital Signs: Vital Signs - 24 hr 07/14/24 16:00 07/14/24 17:01 07/14/24 17:03 Temperature Pulse Rate 102 H 103 H Respiratory Rate Blood Pressure Pulse Oximetry 93 Oxygen Delivery Room Air Oxygen Flow Rate Fraction of Inspired Oxygen 07/14/24 20:00 07/14/24 20:00 07/14/24 20:02 Temperature Pulse Rate 95 108 H Respiratory Rate 20 Blood Pressure Pulse Oximetry 92 Oxygen Delivery Nasal Cannula Oxygen Flow Rate 1 Fraction of Inspired Oxygen 07/14/24 20:02 07/14/24 20:08 07/14/24 20:10 Temperature 97.7 F Pulse Rate 108 H 98 106 H Respiratory Rate 18 20 Blood Pressure 134/74 Pulse Oximetry 92 92 Oxygen Delivery Room Air Oxygen Flow Rate Fraction of Inspired Oxygen 21 07/15/24 00:00 07/15/24 03:02 07/15/24 03:09 Temperature Pulse Rate 89 90 96 Respiratory Rate 20 20 Blood Pressure Pulse Oximetry Oxygen Delivery Oxygen Flow Rate Fraction of Inspired Oxygen 07/15/24 04:00 07/15/24 04:25 07/15/24 07:35 Temperature 96.8 F L Pulse Rate 84 102 H 90 Respiratory Rate 20 20 Blood Pressure 134/83 Pulse Oximetry 100 Oxygen Delivery Oxygen Flow Rate Fraction of Inspired Oxygen 07/15/24 08:03 07/15/24 09:57 07/15/24 10:00 Temperature Pulse Rate 88 93 Respiratory Rate 20 Blood Pressure Pulse Oximetry 100 Oxygen Delivery Nasal Cannula Oxygen Flow Rate 1 Fraction of Inspired Oxygen 07/15/24 12:01 07/15/24 14:00 07/15/24 14:00 Temperature 98.3 F Pulse Rate 89 92 86 Respiratory Rate 20 16 Blood Pressure 114/54 L Pulse Oximetry 97 Oxygen Delivery Oxygen Flow Rate Fraction of Inspired Oxygen Intake/Output Intake/Output: Intake & Output 07/12/24 07/13/24 07/14/24 07/15/24 23:59 23:59 23:59 23:59 Intake Total 237 830 222 Output Total 1100 1600 2250 [facility] [phone] Meds/Results Medications: Active Medications Generic Name Dose Route Start Last Admin Trade Name Freq PRN Reason Stop Dose Admin Acetaminophen 650 mg 07/13/24 14:44 Acetaminophen 325 Mg Tablet PO Q4H PRN Mild Pain (1-3) or Fever Hydrocodone Bitart/Acetaminophen 1 tab 07/13/24 14:44 07/15/24 01:51 Hydrocodone/Acetaminophen (*Crx) 5-325 Mg Tablet PO 1 tab Q4H PRN Administration Moderate Pain (4-6) Albuterol/Ipratropium 3 ml 07/13/24 14:00 07/15/24 14:09 Ipratropium 0.5 Mg/Albuterol Sulfate 2.5 Mg Ampul.Neb 3 Ml INHALATION 3 ml Q6HRT ROBI Administration Atorvastatin Calcium 40 mg 07/14/24 09:00 07/15/24 09:56 Atorvastatin 40 Mg Tablet PO 40 mg DAILY ROBI Administration Benzonatate 100 mg 07/14/24 09:00 07/15/24 12:59 Benzonatate 100 Mg Capsule PO 100 mg TID ROBI Administration Cyclobenzaprine HCl 10 mg 07/13/24 16:59 07/13/24 20:59 Cyclobenzaprine Hcl 10 Mg Tablet PO 10 mg TID PRN Administration pain Dextrose 12.5 gm 07/13/24 13:29 Dextrose 50% 25 Gm/50 Ml Syringe IV PUSH PRN PRN Hypoglycemia Protocol Docusate Sodium 100 mg 07/13/24 17:00 07/15/24 09:56 Docusate Sodium 100 Mg Capsule PO 100 mg BID ROBI Administration Empagliflozin 10 mg 07/14/24 11:20 07/15/24 09:56 Empagliflozin 10 Mg Tablet PO 10 mg DAILY ROBI Administration Enoxaparin Sodium 40 mg 07/14/24 09:00 07/15/24 10:00 Enoxaparin 40 Mg/0.4 Ml Syringe SUB-Q 40 mg DAILY ROBI Administration Furosemide 40 mg 07/14/24 11:20 07/15/24 10:00 Furosemide Inj 40 Mg/4 Ml Vial IV PUSH 40 mg DAILY ROBI Administration Glucagon 1 mg 07/13/24 13:29 Glucagon For Inj 1 Mg Vial IM PRN PRN Hypoglycemia Protocol Glucose 15 gm 07/13/24 13:29 Glucose Oral Gel 15 Gm Of Glucse In 37.5 Gm Tube PO PRN PRN Hypoglycemia Protocol Dextrose 1,000 mls @ 100 mls/hr 07/13/24 13:29 Dextrose 5% 1,000 Ml IVPB PRN PRN Hypoglycemia Protocol Losartan Potassium 100 mg 07/13/24 17:00 07/15/24 09:58 Losartan Potassium 100 Mg Tablet PO 100 mg DAILY ROBI Administration Metoprolol Succinate 50 mg 07/14/24 15:15 07/15/24 09:57 Metoprolol Succinate Ext Rel 50 Mg Tabcr PO 50 mg QAM ROBI Administration Ondansetron HCl 4 mg 07/13/24 13:29 Ondansetron Inj 4 Mg/2 Ml Vial IV PUSH Q4H PRN Nausea Pantoprazole Sodium 40 mg 07/14/24 09:00 07/15/24 09:57 Pantoprazole 40 Mg Tablet PO 40 mg Q12HR ROBI Administration Prednisone 60 mg 07/14/24 08:00 07/15/24 09:56 Prednisone 20 Mg Tablet PO 60 mg DAILY@0800 ROBI Administration Fluticasone/Salmeterol 2 puff 07/14/24 08:00 07/15/24 08:22 Fluticasone/Salmeterol 230-21 Mcg Inhaler 1 Puff INHALATION 2 puff Q12HRT ROBI Administration Spironolactone 25 mg 07/15/24 09:00 07/15/24 09:58 Spironolactone 25 Mg Tablet PO 25 mg QAM ROBI Administration Radiology Results: ITS Impressions Venous Doppler Study 07/13/24 12:05 IMPRESSION: 1. No deep venous thrombosis in either lower limb. Chest CTA 07/13/24 12:57 IMPRESSION: 1. No pulmonary embolism. Evaluation in the basilar segmental and subsegmental pulmonary arteries is nondiagnostic due to respiratory motion. 2. Groundglass opacity and probable small nodular opacities in the posterior segment right upper lobe most likely infectious/inflammatory in etiology. Recommend 3 month follow-up low-dose noncontrast chest CT to document resolution. 3. Mild pulmonary edema at the visualized upper lungs with trace left and very small right pleural effusions. 4. Cardiomegaly. Chest X-Ray 07/14/24 09:02 IMPRESSION: 1. Mild atelectasis at the lung bases. 2. Small pleural effusions. 3. Cardiomegaly. Labs Labs: Laboratory Results - last 24 hr 07/15/24 04:32 WBC 9.3 RBC 3.75 L Hgb 11.3 L Hct 37.0 MCV 98.7 MCH 30.1 MCHC 30.5 L RDW 13.6 Plt Count 261 MPV 10.6 H Immature Gran % (Auto) 0.3 Neut % (Auto) 75.2 H Lymph % (Auto) 14.2 L [place] % (Auto) 10.0 H Eos % (Auto) 0.1 Baso % (Auto) 0.2 Lymph # (Auto) 1.32 [place] # (Auto) 0.9 H Eos # (Auto) 0.0 Baso # (Auto) 0.0 Abs Immat Gran (auto) 0.03 Absolute Neuts (auto) 7.0 H Absolute Nucleated RBC 0.000 Nucleated RBC % 0.0 Sodium 142 Potassium 4.1 Chloride 102 Carbon Dioxide 28 Anion Gap 12 BUN 31 H Creatinine 0.78 Estim Creat Clear Calc 65 Estimated GFR > 60 Glucose 105 Calcium 9.7 Magnesium 2.0 Total Bilirubin 0.4 AST 29 ALT 19 Alkaline Phosphatase 61 Total Protein 7.0 Albumin 3.9 Quality VTE Prophylaxis VTE prophylaxis: pharmacologic ordered
[2024-07-16] VITALS (16 sets, daily range): BP systolic 123–138; BP diastolic 59–96; PULSE 75–126; RESP 18–20; TEMP 36.5–36.7; O2SAT 94–99
[2024-07-16] MEDS: FLUTICASONE/SALMETEROL 230-21 MCG INHALER 1 PUFF 2 PUFF INHALATION (07:21)
[2024-07-16] MEDS: IPRATROPIUM 0.5 MG/ALBUTEROL SULFATE 2.5 MG AMPUL.NEB 3 ML INHALATION ×2 (07:21→14:16)
[2024-07-16 07:53] LABS: Basophils Percent Auto 0.2 % (0.2-1.2); Eosinophils Percent Auto 0.1 % (0-4.4); Immature Granulocyte Absolute 0.03 K/mm3 (0.00-0.031); Immature Granulocyte Percent A 0.3 % (0-0.5); Lymphocytes Absolute Auto 1.72 K/mm3 (0.9-3.2); Lymphocytes Percent Auto 19.2 % (18.3-44.2); Mean Corpuscular HGB Conc 30.8 g/dl (32-36); Mean Corpuscular Hemoglobin 30.4 pg (26-34); Mean Corpuscular Volume 98.7 fl (80-100); Mean Platelet Volume 10.3 fl (7.4-10.4); Monocytes Absolute Auto 0.7 K/mm3 (0.1-0.6); Monocytes Percent Auto 7.9 % (2.6-8.5); Neutrophils Absolute Auto 6.5 K/mm3 (1.3-6.7); Neutrophils Percent Auto 72.3 % (45.5-73.1); Platelet Count Result 274 k/mm3 (150-375); Red Blood Count 3.95 M/mm3 (4.2-5.4); Red Cell Distribution Width 13.7 % (11.5-14.5)
[2024-07-16 08:07] LABS: Alanine Aminotransferase 17 U/L (6-35); Alkaline Phosphatase 73 U/L (38-126); Anion Gap 7 mmol/L (4-12); Aspartate Amino Transferase 23 U/L (14-36); Bilirubin,Total 0.6 mg/dL (0.2-1.3); Blood Urea Nitrogen 29 mg/dL (7-17); Calcium 9.4 mg/dL (8.4-10.2); Carbon Dioxide 33 mmol/L (22-30); Chloride 101 mmol/L (98-107); Estimated CRCL calculation 75 ml/min; Estimated Glomerular Filt Rate > 60; Glucose 93 mg/dL (65-110); Magnesium 2.1 mg/dL (1.6-2.3); Potassium 3.8 mmol/L (3.4-5.0); Sodium 141 mmol/L (137-145)
[2024-07-16] MEDS: LOSARTAN POTASSIUM 100 MG TABLET PO (09:29)
[2024-07-16] MEDS: DOCUSATE SODIUM 100 MG CAPSULE PO ×2 (09:29→16:39)
[2024-07-16] MEDS: METOPROLOL SUCCINATE EXT REL 50 MG TABCR PO (09:29)
[2024-07-16] MEDS: PANTOPRAZOLE 40 MG TABLET PO (09:30)
[2024-07-16] MEDS: SPIRONOLACTONE 25 MG TABLET PO (09:30)
[2024-07-16] MEDS: ATORVASTATIN 40 MG TABLET PO (09:31)
[2024-07-16] MEDS: EMPAGLIFLOZIN 10 MG TABLET PO (09:31)
[2024-07-16] MEDS: BENZONATATE 100 MG CAPSULE PO ×3 (09:31→16:39)
[2024-07-16] MEDS: FUROSEMIDE INJ 40 MG/4 ML VIAL IV PUSH (09:32)
[2024-07-16] MEDS: ENOXAPARIN 40 MG/0.4 ML SYRINGE SUB-Q (09:32)
[2024-07-16] MEDS: CYCLOBENZAPRINE HCL 10 MG TABLET PO (09:36)
--- NOTE | 2024-07-16 10:21 | P.PNCA_ITS ---
Progress Note: A&P Assessment and Plan (1) Acute heart failure with mildly reduced ejection fraction (HFmrEF, 41-49%): Code(s): I50.21 - Acute systolic (congestive) heart failure Status: Acute Plan 1. Acute heart failure with mildly reduced LVEF of 40-45% per TTE 07/14/2024. This is a new diagnosis for the patient. 2. Acute COPD exacerbation 3. Hypertension 4. Hyperlipidemia PLAN: -Has diuresed well. Will stop IV Lasix and transition to Lasix 40mg PO once daily. -Started Jardiance 10mg once daily. -Continue Losartan 100mg once daily. -Stopped Amlodipine as this may be contributing to lower extremity edema. Please do not resume this medication upon discharge. -Started Toprol. -Started Spironolactone. -Continue Atorvastatin. -Ischemic evaluation for HFmrEF can be done as outpatient. -Management of COPD exacerbation as per primary team. From my standpoint, okay to discharge home. Will arrange close outpatient follow up in my office. Recommendations and plan discussed with Hospitalist. Subjective Date/time seen: 07/16/24 10:21 Interval history: Reason for visit: Heart failure HPI: We are consulted for CHF. Barbi is a 68 year old female with COPD, hypertension who presented with shortness of breath x 2 days. Has been having lower extremity edema for some time now. Workup shows negative troponins. NT pro BNP elevated at 1610. Venous duplex negative for DVT. Chest CTA negative for PE, mild pulmonary edema, small pleural effusions. EKG with sinus tachycardia, RBBB. No prior echocardiogram in our system. She was started on Lasix, reports some improvement in her edema. Date of service 07/15: Shortness of breath is improving. She still has orthopnea. Lower extremity swelling has improved. Denies any chest discomfort. Date of service 07/16: Feeling better. On room air. Review of Systems Respiratory: Respiratory: Reports as per HPI Exam Const: General: no acute distress HENMT: Mouth: Yes moist mucous membranes Eyes: General: appearance normal, both eyes and all related structures Sclera: sclerae normal Resp: Effort & Inspection: normal respiratory effort Cardio: Rate: regular rate Rhythm: regular rhythm Other: Mild lower extremity edema in right leg. No edema in left lower extremity Skin: General skin exam: normal color Neuro: General: gait normal Speech: normal speech Psych: Mental Status: mental status grossly normal Affect: normal affect Objective Data Vital Signs Vital Signs: Vital Signs - 24 hr 07/15/24 12:01 07/15/24 14:00 07/15/24 14:00 Temperature 36.8 C Pulse Rate 89 92 86 Respiratory Rate 20 16 Blood Pressure 114/54 L Pulse Oximetry 97 Oxygen Delivery Oxygen Flow Rate Fraction of Inspired Oxygen 07/15/24 16:03 07/15/24 20:00 07/15/24 20:00 Temperature Pulse Rate 92 78 Respiratory Rate Blood Pressure Pulse Oximetry 96 Oxygen Delivery Nasal Cannula Oxygen Flow Rate 1 Fraction of Inspired Oxygen 07/15/24 20:14 07/15/24 20:14 07/15/24 20:28 Temperature Pulse Rate 74 80 Respiratory Rate 20 20 Blood Pressure Pulse Oximetry 93 Oxygen Delivery Nasal Cannula Oxygen Flow Rate 1 Fraction of Inspired Oxygen 24 07/15/24 20:44 07/15/24 23:00 07/16/24 02:53 Temperature 36.6 C 36.5 C Pulse Rate 76 86 Respiratory Rate 20 20 Blood Pressure 137/72 135/89 Pulse Oximetry 97 96 97 Oxygen Delivery Room Air Oxygen Flow Rate Fraction of Inspired Oxygen 21 07/16/24 04:00 07/16/24 07:22 07/16/24 07:22 Temperature Pulse Rate 75 86 Respiratory Rate 20 Blood Pressure Pulse Oximetry 96 Oxygen Delivery Room Air Oxygen Flow Rate Fraction of Inspired Oxygen 07/16/24 07:30 07/16/24 07:48 07/16/24 09:29 Temperature 36.6 C Pulse Rate 80 90 90 Respiratory Rate 20 18 Blood Pressure 138/96 H Pulse Oximetry 96 Oxygen Delivery Oxygen Flow Rate Fraction of Inspired Oxygen Intake/Output Intake/Output: Intake & Output 07/13/24 07/14/24 07/15/24 07/16/24 23:59 23:59 23:59 23:59 Intake Total 237 050 728 2396 Output Total 1100 1600 1640 600 [facility] [phone] Meds/Results Medications: Active Medications Generic Name Dose Route Start Last Admin Trade Name Freq PRN Reason Stop Dose Admin Acetaminophen 650 mg 07/13/24 14:44 Acetaminophen 325 Mg Tablet PO Q4H PRN Mild Pain (1-3) or Fever Hydrocodone Bitart/Acetaminophen 1 tab 07/13/24 14:44 07/15/24 20:53 Hydrocodone/Acetaminophen (*Crx) 5-325 Mg Tablet PO 1 tab Q4H PRN Administration Moderate Pain (4-6) Albuterol/Ipratropium 3 ml 07/13/24 14:00 07/16/24 07:21 Ipratropium 0.5 Mg/Albuterol Sulfate 2.5 Mg Ampul.Neb 3 Ml INHALATION 3 ml Q6HRT ROBI Administration Atorvastatin Calcium 40 mg 07/14/24 09:00 07/16/24 09:31 Atorvastatin 40 Mg Tablet PO 40 mg DAILY ROBI Administration Benzonatate 100 mg 07/14/24 09:00 07/16/24 09:31 Benzonatate 100 Mg Capsule PO 100 mg TID ROBI Administration Cyclobenzaprine HCl 10 mg 07/13/24 16:59 07/16/24 09:36 Cyclobenzaprine Hcl 10 Mg Tablet PO 10 mg TID PRN Administration pain Dextrose 12.5 gm 07/13/24 13:29 Dextrose 50% 25 Gm/50 Ml Syringe IV PUSH PRN PRN Hypoglycemia Protocol Docusate Sodium 100 mg 07/13/24 17:00 07/16/24 09:29 Docusate Sodium 100 Mg Capsule PO 100 mg BID ROBI Administration Empagliflozin 10 mg 07/14/24 11:20 07/16/24 09:31 Empagliflozin 10 Mg Tablet PO 10 mg DAILY ROBI Administration Enoxaparin Sodium 40 mg 07/14/24 09:00 07/16/24 09:32 Enoxaparin 40 Mg/0.4 Ml Syringe SUB-Q 40 mg DAILY ROBI Administration Glucagon 1 mg 07/13/24 13:29 Glucagon For Inj 1 Mg Vial IM PRN PRN Hypoglycemia Protocol Glucose 15 gm 07/13/24 13:29 Glucose Oral Gel 15 Gm Of Glucse In 37.5 Gm Tube PO PRN PRN Hypoglycemia Protocol Dextrose 1,000 mls @ 100 mls/hr 07/13/24 13:29 Dextrose 5% 1,000 Ml IVPB PRN PRN Hypoglycemia Protocol Losartan Potassium 100 mg 07/13/24 17:00 07/16/24 09:29 Losartan Potassium 100 Mg Tablet PO 100 mg DAILY ROBI Administration Metoprolol Succinate 50 mg 07/14/24 15:15 07/16/24 09:29 Metoprolol Succinate Ext Rel 50 Mg Tabcr PO 50 mg QAM ROBI Administration Ondansetron HCl 4 mg 07/13/24 13:29 Ondansetron Inj 4 Mg/2 Ml Vial IV PUSH Q4H PRN Nausea Pantoprazole Sodium 40 mg 07/14/24 09:00 07/16/24 09:30 Pantoprazole 40 Mg Tablet PO 40 mg Q12HR ROBI Administration Fluticasone/Salmeterol 2 puff 07/14/24 08:00 07/16/24 07:21 Fluticasone/Salmeterol 230-21 Mcg Inhaler 1 Puff INHALATION 2 puff Q12HRT ROBI Administration Spironolactone 25 mg 07/15/24 09:00 07/16/24 09:30 Spironolactone 25 Mg Tablet PO 25 mg QAM ROBI Administration Radiology Results: ITS Impressions Venous Doppler Study 07/13/24 12:05 IMPRESSION: 1. No deep venous thrombosis in either lower limb. Chest CTA 07/13/24 12:57 IMPRESSION: 1. No pulmonary embolism. Evaluation in the basilar segmental and subsegmental pulmonary arteries is nondiagnostic due to respiratory motion. 2. Groundglass opacity and probable small nodular opacities in the posterior segment right upper lobe most likely infectious/inflammatory in etiology. Recommend 3 month follow-up low-dose noncontrast chest CT to document resolut ion. 3. Mild pulmonary edema at the visualized upper lungs with trace left and very small right pleural effusions. 4. Cardiomegaly. Chest X-Ray 07/14/24 09:02 IMPRESSION: 1. Mild atelectasis at the lung bases. 2. Small pleural effusions. 3. Cardiomegaly. Labs Labs: Laboratory Results - last 24 hr 07/16/24 07:46 WBC 9.0 RBC 3.95 L Hgb 12.0 Hct 39.0 MCV 98.7 MCH 30.4 MCHC 30.8 L RDW 13.7 Plt Count 274 MPV 10.3 Immature Gran % (Auto) 0.3 Neut % (Auto) 72.3 Lymph % (Auto) 19.2 [place] % (Auto) 7.9 Eos % (Auto) 0.1 Baso % (Auto) 0.2 Lymph # (Auto) 1.72 [place] # (Auto) 0.7 H Eos # (Auto) 0.0 Baso # (Auto) 0.0 Abs Immat Gran (auto) 0.03 Absolute Neuts (auto) 6.5 Absolute Nucleated RBC 0.000 Nucleated RBC % 0.0 Sodium 141 Potassium 3.8 Chloride 101 Carbon Dioxide 33 H Anion Gap 7 BUN 29 H Creatinine 0.65 L Estim Creat Clear Calc 75 Estimated GFR > 60 Glucose 93 Calcium 9.4 Magnesium 2.1 Total Bilirubin 0.6 AST 23 ALT 17 Alkaline Phosphatase 73 Total Protein 7.0 Albumin 4.0
[2024-07-16] MEDS: ACETAMINOPHEN 325 MG TABLET 650 MG PO (12:45)
--- NOTE | 2024-07-16 15:39 | PC.NURSE ---
On 07/16/24, the student, Chely Hidalgo, provided care and completed [facility] documentation on this patient. I have reviewed the student's documentation and agree with the findings.
--- NOTE | 2024-07-16 16:07 | P.DS_ITS ---
DS: Admitting Diagnosis Discharge Date 07/16/2024 Admitting Diagnosis Acute Heart Failure Pulmonary edema DS: Discharge Diagnosis Discharge Diagnosis (1) Hypertension: Code(s): I10 - Essential (primary) hypertension Status: Chronic (2) Acute exacerbation of chronic heart failure: Code(s): I50.9 - Heart failure, unspecified Status: Acute DS: Summary Hospital Course Reason for hospitalization: Copied from [facility] 07/13: 68-year-old female with history of COPD, presents the hospital with increasing shortness of breath. Patient states that her DuoNebs were not helping at home so she came into the emergency room. Patient denies history of CHF. Patient states that she has been increasingly getting more short of breath with activities over last few days with lower extremity edema. She denies fevers chills nausea or vomiting. BNP 1610, influenza A/B, RSV and COVID negative. Chest CTA shows no pulmonary embolism. With ground-glass opacity most likely infectious or inflammatory, mild pulmonary edema and right pleural effusion. Venous Doppler showed no deep vein thrombosis. In the ED she was given an hour long nebulizer treatment, 40 of IV Lasix, Solu-Medrol 125 mg IV, due to the patient not having leukocytosis or fever Hospital Course: Acute hypoxic respiratory failure: Likely secondary to CHF exacerbation versus COPD exacerbation. Initially treated with duonebs and steroids for possible COPD exacerbation but stopped since more likely CHF and improved with diuresis. Cardiology followed during admission and she was weaned off oxygen. * Echocardiogram showing mildly reduced LV systolic function with an estimated EF of 40-45%, grade 1 diastolic dysfunction * Venous Doppler negative for DVT * Chest CTA negative for PE, showed ground-glass opacity and probable small nodular opacity in the posterior segment of the right upper lobe, mild pulmonary edema, cardiomegaly * Chest x-ray showed mild atelectasis at the lung bases, small pleural effusions, cardiomegaly * ApneaLink showed evidence of hypoxia without hypercarbia on recent blood gas or emphesematous changes on imaging. Tried to arrange oxygen for home will need a repeat study. Set up for repeat testing at home on Friday Heart failure, acute * Echocardiogram showed mildly reduced LV systolic function with an estimated EF of 40-45%, grade 1 diastolic dysfunction * ProBNP 1610 * Cardiology consulted as noted and diuresed * Continue IV Lasix, discharge with lasix 40mg daily * Continued losartan, metoprolol, spironolactone, Jardiance * Heart healthy diet * Continue with a 1600 mL fluid restriction during admission * Continue daily weights * Continue strict I&O Hypertension: * Continued losartan and metoprolol Status at Discharge Cognitive/behavioral status at discharge: A&Ox4 Time Spent with Patient Time attestation: Total time spent providing and/or coordinating discharge services: 59 minutes Exam Narrative: General: In no acute distress, well nourished Head: atraumatic, no encephalopathy Eyes: PERRLA, sclera clear ENT: moist mucous membranes, nasal passages clear Neck: supple, no JVD, no adenopathy, trachea midline Cardiac: Normal S1 and S2. No murmur, gallops or friction rubs, peripheral pulses intact. Respiratory: Lungs clear to auscultation, no adventitious lung sounds, currently on 1 L nasal cannula Gastrointestinal: soft, non-distended, non-tender, normoactive bowel sounds. : voiding without difficulty clear yellow urine Extremities: moves all extremities well, mild bilateral lower extremity edema Skin: clean, dry, intact. No wounds or lesions. Neuro: Alert and oriented x4, cranial nerves intact, no neuro deficits. Psych: normal mood, normal affect, interactive DS: Data Data Completed and Pending Labs on day of discharge: Labs from last 24 hours 07/16/24 07:46 WBC 9.0 RBC 3.95 L Hgb 12.0 Hct 39.0 MCV 98.7 MCH 30.4 MCHC 30.8 L RDW 13.7 Plt Count 274 MPV 10.3 Immature Gran % (Auto) 0.3 Neut % (Auto) 72.3 Lymph % (Auto) 19.2 Lee % (Auto) 7.9 Eos % (Auto) 0.1 Baso % (Auto) 0.2 Lymph # (Auto) 1.72 Lee # (Auto) 0.7 H Eos # (Auto) 0.0 Baso # (Auto) 0.0 Abs Immat Gran (auto) 0.03 Absolute Neuts (auto) 6.5 Absolute Nucleated RBC 0.000 Nucleated RBC % 0.0 Sodium 141 Potassium 3.8 Chloride 101 Carbon Dioxide 33 H Anion Gap 7 BUN 29 H Creatinine 0.65 L Estim Creat Clear Calc 75 Estimated GFR > 60 Glucose 93 Calcium 9.4 Magnesium 2.1 Total Bilirubin 0.6 AST 23 ALT 17 Alkaline Phosphatase 73 Total Protein 7.0 Albumin 4.0 Discharge Plan Discharge Attending physician on discharge: Yumiko Lainez Consulting providers: Riley Shannon Discharging Clinician: Yumiko Lainez Anticipated Discharge Date/Time: 07/16/24 16:07 Patient Disposition: Home, Self-Care Activity: may shower Diet: heart healthy Discharge Instructions: Follow up with your PCP in 1-2 weeks. Recommend repeat labs at that time to check your electrolytes (BMP). Also recommend follow up for the sleep study as recommended. Also placed a referral for oxygen was placed for a home study on Friday. A referral was placed to pulmonary. Patient Instructions: Antibiotic Form, Heart Failure (GEN) Patient Language: Slovak Stand Alone Forms: General Discharge Information Follow-up/Referrals: Riley Shannon MD [Physician] - Nile,Hari Oh MD [Primary Care Provider] - Wale Waller MD [Physician] - Discharge Medications: New furosemide 40 mg Tablet 40 mg PO DAILY 30 Days Qty: 30 0RF metoprolol succinate 50 mg Tablet Extended Release 24 Hr 50 mg PO QAM 60 Days Qty: 60 1RF spironolactone 25 mg Tablet 25 mg PO QAM 60 Days Qty: 60 1RF Jardiance 10 mg Tablet 10 mg PO DAILY Qty: 30 1RF Combivent Respimat 20-100 mcg/actuation mist 1 puff inhalation QID PRN (Reason: shortness of breath or wheezing) Qty: 4 1RF Rx Instructions: space evenly during waking hours Continued cyclobenzaprine 10 mg tablet 10 mg PO TID PRN (Reason: pain) hydrocodone-acetaminophen 7.5-325 mg tablet 1 tablet PO QHS PRN (Reason: pain) ibuprofen 800 mg Tablet 800 mg PO TID PRN (Reason: Pain (Scale Score 4-6)) amlodipine 5 mg tablet 5 mg PO DAILY atorvastatin 40 mg tablet 40 mg PO DAILY losartan 100 mg tablet 100 mg PO DAILY omeprazole 40 mg capsule,delayed release(DR/EC) 40 mg PO DAILY Dulera 200-5 mcg/actuation HFA aerosol inhaler 2 puff INHALATION BID benzonatate 100 mg capsule 100 mg PO TID Discontinued albuterol sulfate [ProAir HFA] 90 mcg/actuation Hfa Aerosol Inhaler 2 puff INHALATION Q4H PRN (Reason: Shortness Of Breath) furosemide 20 mg tablet 20 mg PO DAILY Other Ambulatory Orders: Basic Metabolic Panel (Routine) Timeframe: 1 Week Location: Determined by Patient Ordered By: Yumiko Lainez Magnesium (Routine) Timeframe: 1 Week Location: Determined by Patient Ordered By: Yumiko Lainez Date of admission: 07/14/24 14:09 Primary Care Provider: NileHari Admitting Provider: Mich Cummings Attending physician on admission: Yumiko Lainez Condition: Stable Quality VTE Prophylaxis VTE prophylaxis: pharmacologic ordered Hospitalist MIPS Heart Failure (Exclusion) Patient has history of Heart Transplant or Left Ventricular Assistive Device?: No IF YES, STOP HERE Heart Failure (Qualifier) Patient has current or prior documentation of LVEF less than or equal to 40%, or mod/servere depressed LVSF?: Yes IF NO, STOP HERE If Yes, Heart Failure (Qualifier) Patient was prescribed or already taking an Angiotensin-Converting Enzyme (ANDREW) Inhibitor, or Antiotensin Receptor [place]lio (ARB): Yes Patient was prescribed or already taking bisoprolol, carvedilol, or sustained release metoprolol succinate: Yes
--- NOTE | 2024-07-16 16:16 | PCRCNOTE ---
Faxed order for overnight oximetry to be done in the home after patient discharges, done on Friday. [facility] is DME. If qualifies she may need order faxed to [facility] from Yumiko Lainez APRN for home o2 for use nocturnally.
--- NOTE | 2024-07-16 16:23 | PCRCNOTE ---
[facility] will be reaching out to patient for this home O2 study.
== END 2024-07-16 17:26 | disposition home or self-care (01) | DRG 291 ==
LOC: ANHED 13:38 → ANH3MEDSUR 14:20 → ANH2MED 17:01
PROVIDERS: Emergency Medicine; Nurse Practitioner Adult Health; Nurse Practitioner Gerontology; Admitting Provider Internal Medicine; Emergency Provider Physician Assistant; PCP Family Medicine; Visit Provider Nurse Practitioner Acute Care
DX: I11.0 Hypertensive heart disease with heart failure (principal); I50.23 Acute on chronic systolic (congestive) heart failure; J96.01 Acute respiratory failure with hypoxia; J44.9 Chronic obstructive pulmonary disease, unspecified; E78.5 Hyperlipidemia, unspecified; G89.29 Other chronic pain; K21.9 Gastro-esophageal reflux disease without esophagitis; M19.90 Unspecified osteoarthritis, unspecified site; M54.9 Dorsalgia, unspecified; Z20.822 Contact with and (suspected) exposure to COVID-19; Z96.642 Presence of left artificial hip joint; Z87.891 Personal history of nicotine dependence; Z28.21 Immunization not carried out because of patient refusal
CPT/HCPCS: 36415; 71046; 71275; 80048; 80053; 83735; 83880; 84484; 85025; 85380; 85610; 85730; 87637; 93005; 93970; 94618; 94640; 94762; 96372; 96374; 96375; 99285; A9270; C8929; G0378; J1650; J1940; J2919; J7512; Q9957; Q9967

== ENCOUNTER 2024-10-23 21:55 | Emergency (ER) | payer MEDICARE, MEDICAID, SELFPAY ==
--- NOTE | ~2024-10-23 | CT_ITS ---
CLINICAL INDICATION: Vaginal bleeding COMPARISON: 09/21/2021 and dating back to 08/28/2020 TECHNIQUE: Multiple contiguous axial images of the abdomen and pelvis were performed following the ad ministration of with 100 mL Omnipaque-350 intravenous contrast The dose-length product (DLP) was 977.16 mGy-cm. Automated exposure control and iterative reconstruction technique were employed. FINDINGS/OBSERVATIONS: Visualized lower thorax: The bilateral lung bases are clear. The heart is of normal size, without pericardial effusion. Small hiatal hernia is present. Liver: The liver demonstrates homogeneous enhancement and is not enlarged. Gallbladder and biliary system: The gallbladder is only minimally distended, and otherwise unremarkable. Pancreas: The pancreas enhances homogeneously without ductal dilatation. Spleen: The spleen enhances homogeneously and is not enlarged. Kidneys: The bilateral kidneys enhance symmetrically without hydronephrosis or renal calculi. Adrenal glands: Unremarkable. Gastrointestinal tract: Colonic diverticulosis without surrounding inflammatory change. Fecal stasis within the colon. Appendix: The air-filled appendix is of normal caliber (axial series, images 76 through 93) Vasculature: Unremarkable. Lymph nodes: No pathologically enlarged or morphologically suspicious lymph nodes within the retroperitoneum or at the root of the mesentery. Pelvic structures: The bladder is poorly visualized on the current examination secondary to streak artifact from the pat ient's bilateral hip prostheses. The uterus is anteverted and anteflexed. Soft tissue attenuation mass within the right hemipelvis with limited evaluation secondary to streak artifact from patient's bilateral hip prostheses. Focused ultrasound examination is recommended for further evaluation. Body wall and musculoskeletal: Limited evaluation of the lumbar spine is present secondary to bilateral hip prostheses. Age-appropriate degenerative change without acute fracture. IMPRESSION: Soft tissue mass within the right hemipelvis for which ultrasound examination is recommended as the p atient is clinically able. Reviewed, dictated and finalized at location A. IMPRESSION: Soft tissue mass within the right hemipelvis for which ultrasound examination i s recommended as the patient is clinically able.
--- OUTSIDE RECORDS SUMMARY | 2024-10-23 21:57 | XMS_ITS | Data Portability ---
Author Organization [place] [facility] [place] [facility], Main Office Address [address] [place] [address] Care Team Providers Care Marketing Finance Specialist Name Role Phone BRUNO WORRELL Primary Care Provider BRUNO WORRELL Referring Provider [phone] Assessment Encounter Date Assessment Date Assessment LastModified by Organization Details LastModified Time 07/21/2023 07/21/2023 The patient has severe glenohumeral [...] would have to be cleared by her evaporator helper and not sure she would be able [...] going to continue to work with her evaporator helper she has some further long testing coming up after recent hospitalization. She voiced understanding and agrees above plan she will call for any further problems difficulties or questions. Not available 03/04/2024 10:41:07 07/27/2024 07/27/2024 The patient has severe lpix-ny-kvnz glenohumeral osteoarthritis both shoulders as well as severe grzj-ua-ytcg primary osteoarthritis both knees as described. At her request under sterile conditions I injected the patient's bilateral knee joints and the patient's bilateral shoulder joints in the office with 4 cc of 0.5% bupivacaine and 20 mg of Kenalog each for a total of 4 injections. The patient tolerated the procedures well. I will see her back as needed. She was asking about oral steroids, she has been recently hospitalized for her CHF and COPD couple of times I have advised her that she needs to talk to her primary care doctor about taking steroids we will see if he approves sees. If so we could proceed. She will let us know if she voiced understanding and agreed with the above plan she will call for any further problems difficulties or questions. We can do the injections again in 3 months if necessary. Not available 07/27/2024 11:12:04 Plan of Treatment Reminders Order Date Submit Date Provider Last Modified By Organization Details Last Modified Time Details Appointments None recorded. Lab None recorded. Referral orthopedic spine surgeon referral - Please contact patient to schedule ....Yemi pink will bring disc 2023 024 JAY Wayne MD, [address], [place], [address], 4 12:35:18 physical therapist referral - Please contact patient to schedule 2023 024 [facility], [address] [place], [address], 4 13:00:17 Procedures injection/ aspiration joint/burs a (PROC) 2024 025 [email or web address] In-Office Order, Internal Use Only DO Not Attach Compendium DO Not Attach Compendium, Do Not Delete/merge, [id number] 5 10:43:39 injection/ aspiration joint/burs a (PROC) 2024 025 [email or web address] In-Office Order, Internal Use Only DO Not Attach Compendium DO Not Attach Compendium, Do Not Delete/merge, [id number] 5 10:43:39 injection/ aspiration joint/burs a (PROC) 2023 024 [email or web address] In-Office Order, Internal Use Only DO Not Attach Compendium DO Not Attach Compendium, Do Not Delete/merge, [id number] 4 10:08:50 injection/ aspiration joint/burs a (PROC) 2023 024 [email or web address] In-Office Order, Internal Use Only DO Not Attach Compendium DO Not Attach Compendium, Do Not Delete/merge, [id number] 4 10:08:50 injection/ aspiration joint/burs a (PROC) 2023 024 [email or web address] In-Office Order, Internal Use Only DO Not Attach Compendium DO Not Attach Compendium, Do Not Delete/merge, [id number] 4 09:33:05 injection/ aspiration joint/burs a (PROC) 2023 024 [email or web address] In-Office Order, Internal Use Only DO Not Attach Compendium DO Not Attach Compendium, Do Not Delete/merge, [id number] 4 09:33:05 injection/ aspiration joint/burs a (PROC) 2023 024 [email or web address] In-Office Order, Internal Use Only DO Not Attach Compendium DO Not Attach Compendium, Do Not Delete/merge, [id number] 4 10:38:21 injection/ aspiration joint/burs a (PROC) 2023 024 [email or web address] In-Office Order, Internal Use Only DO Not Attach Compendium DO Not Attach Compendium, Do Not Delete/merge, [id number] 4 11:19:23 injection/ aspiration joint/burs a (PROC) 2023 024 [email or web address] In-Office Order, Internal Use Only DO Not Attach Compendium DO Not Attach Compendium, Do Not Delete/merge, [id number] 4 11:19:23 injection/ aspiration joint/burs a (PROC) 2023 024 [email or web address] In-Office Order, Internal Use Only DO Not Attach Compendium DO Not Attach Compendium, Do Not Delete/merge, [id number] 4 11:19:23 Surgeries None recorded. Imaging XR, shoulder 2024 025 [email or web address] [facility] [address], [address], 5 11:51:40 XR, knee 2023 024 [email or web address] [facility] [address], [place], [address], 4 10:18:28 XR, shoulder 2023 024 [email or web address] [facility] [address], [address], 4 10:18:28 XR, lumbar spine 2023 024 [facility] [place], [address], [place], [address], 4 13:12:09 MRI, lumbar spine, w/o contrast - Please contact patient to schedule.. ..Thank you 2023 024 [facility] ([facility]), [address] [place], [address], 4 16:34:01 Medication Orders bupivacain e HCl 0.5 % (5 mg/mL) injection solution 2024 025 [facility], [address], [place], [id number], 5 10:56:53 Kenalog 10 mg/mL suspension for injection 2024 025 [facility] #45799, [address], [place], [id number], 5 10:56:53 bupivacain e HCl 0.5 % (5 mg/mL) injection solution 2024 025 [facility], [address], [place], [id number], 5 10:56:53 Kenalog 10 mg/mL suspension for injection 2024 025 [facility], [address], [place], [id number], 5 10:56:53 bupivacain e HCl 0.5 % (5 mg/mL) injection solution [email or web address] [facility]97823, [address], [place], [id number], 4 11:14:02 Kenalog 10 mg/mL suspension for injection [email or web address] [facility]79637, [address], [place], [id number], 4 11:14:02 Voltaren Arthritis Pain 1 % topical gel [address] [facility]05626, [address] [place], [place], [id number], 4 11:14:02 bupivacain e HCl 0.5 % (5 mg/mL) injection solution [address] [facility]36288, [address], [place], [id number], 4 11:14:02 Kenalog 10 mg/mL suspension for injection [address] [facility] #43278, [address], [place], [id number], 11:14:02 bupivacain e HCl 0.5 % (5 mg/mL) injection solution [address] [facility], [address] [place] [address], [address], 4 09:36:30 Kenalog 10 mg/mL suspension for injection [address] [facility], [address] [place] [address], [address], 4 09:36:30 bupivacain e HCl 0.5 % (5 mg/mL) injection solution [address] [facility], [address] [place] [address], [address], 4 09:36:30 Kenalog 10 mg/mL suspension for injection [address] [facility], [address] [place] [address], [address], 4 09:36:30 bupivacain e HCl 0.5 % (5 mg/mL) injection solution [address] [facility], [address] [place] [address], [address], 4 11:41:25 Kenalog 10 mg/mL suspension for injection [address] [facility], [address] [place] [address], [address], 4 11:41:25 bupivacain e HCl 0.5 % (5 mg/mL) injection solution [address], [address] [place] [address], [address], 4 13:00:17 Kenalog 10 mg/mL suspension for injection 2023 024 [facility]-[address] [place] [address], [address] [place] [address], [address], 4 11:33:30 prednisone 10 mg tablets in a dose pack 2023 024 [email or web address] [facility] #51260, [address] [place] [address], [id number], 4 10:18:51 cyclobenza safia 10 mg tablet 2023 024 [facility], [address] [place] [address], [address], 4 13:00:17 bupivacain e HCl 0.5 % (5 mg/mL) injection solution 2023 024 [facility], [address] [place] [address], [address], 4 13:00:17 Kenalog 10 mg/mL suspension for injection 2023 024 [facility] [place] [address] Pharmacy [address], [address] [place] [address], [address], 4 11:33:30 bupivacain e HCl 0.5 % (5 mg/mL) injection solution 2023 024 [facility], [address] [place] [address], [address], 4 13:00:17 Kenalog 10 mg/mL suspension for injection 2023 024 [facility] [place] [address] Pharmacy [facility], [address] [place] [address], [address], 4 11:33:30 Patient TargetsNo targets recorded. Patient InstructionsNo instructions [...] No observ ation record ed. [facility] [place] [address], [place], [address], 07/21/2023 13:12:08 07/30/19 24 07/30/2023 MRI, lumba r spine , w/o contr ast [facility] [address] [place] [address] Patien t Name: JENARO HER Access ion #: [id number] Sex: F : 1955 7 Dictat [...] stenos is second danny to promin ent report specialist ior epidur al fat. There is crowdi ng of the nerve roots. There is no signif icant neural forami nal stenos is. At the L2-L3 level, there is promin ent report specialist ior epidur al fat and mild facet hypert rophy contri buting to modera te canal stenos is. There is crowdi ng of the nerve roots in the thecal sac. There is modera te left and modera te right neural forami nal stenos is. Page 1 [facility] [address] [place] [address] [phone] Patien t Name: JENARO HER Access ion #: [id number] Sex: F : 1955 7 Dictat ed By: Pawel Lagunas ms Attend ing Physic yessica: CUAUHTEMOC REAGAN Orderi ng Physic yessica: MERARY POSADAS Exam Date: 2023 10:46 AM Exam Name: MRI L SPINE WO Admitt ing Diagno sis(es ): At the L3-L4 level, there is a broad- based report specialist ior disc bulge, facet and ligame ntum flavum hypert rophy contri buting to severe canal stenos is. There is modera te to severe bilate ral neural forami nal stenos is. There is imping ement of the bilate ral L3 nerve roots. At the L4-L5 level, there is broad- based report specialist ior disc bulge, ligame ntum flavum and mild facet hypert rophy as well as promin ent report specialist ior epidur al fat contri buting to severe canal stenos is. There is modera te to severe left and modera te to severe right neural forami nal stenos is. At the L5-S1 level, there is broad- based report specialist ior disc bulge and facet hypert rophy. [...] at 2023 15:32: 45 PM Page 2 [email or web address] ([facility]) [address] [place], [address], 07/31/2023 08:33:16 11/04/19 24 XR, shoul carina No observ ation record ed. [facility] [address], [place], [address], 11/04/2023 10:16:43 11/04/19 24 XR, knee No observ ation record ed. [facility] [address], [address], 11/04/2023 10:15:55 07/27/19 25 XR, shoul carina No observ ation record ed. [facility] [address], [place], [address], 07/27/2024 11:13:44 Result Notes None recorded. Problems Name Problem SNOMED Code Status Onset Date Resolution Date Notes Provider Name and Address Organization Details Recorded Time Spinal enthesopat 99787239 Active Not Available [facility] 3 07:33:54 Bilateral osteoarthr itis of knees 7887715188080 07 Active 2021 Not Available [facility] 3 07:33:54 Spinal stenosis of lumbar region 33940532 Active 2019 Not Available [facility] 3 07:33:54 Localized, primary osteoarthr itis of the shoulder region 412279977 Active Not Available [facility] 3 07:33:54 Osteoarthr itis of hip 615914277 Active Not Available [facility] 3 07:33:54 Low back pain 796066440 Active Not Available [facility] 3 07:33:54 Osteoarthr itis of left knee joint 8984116199553 09 Active 2021 Not Available [facility] 3 07:33:54 Osteoarthr itis 824759154 Active Not Available [facility] 3 07:33:54 Adhesive capsulitis of shoulder 693167384 Active Not Available [facility] 3 07:33:54 Lumbosacra l spondylosi s without myelopathy 48251448 Active Not Available [facility] 3 07:33:54 Pain of hip region 53567232 Active Not Available [facility] 3 07:33:55 Pain of left shoulder joint 1309695351757 9109 Active 2022 Tasha schroeder, [place] [facility] 3 10:15:25 Pain in right sacroiliac joint 3223924712061 9107 Active 2022 ABDI Rios [address], [place], [address] , [place] [facility] 3 10:52:10 Osteoarthr itis of left glenohumer al joint 6057369459279 104 Active 2022 ABDI Rios [address], [address], [place], [address] , [place] [facility] 3 10:52:18 Contusion of knee 96450920 Active 2022 ABDI Rios [address], [address], [place], [address] , [facility] 3 11:24:32 Pain of bilateral knee regions 7934257130438 02 Active 2022 ABDI Rios [address], [place], [address] , [facility] 3 11:26:19 Adhesive capsulitis of shoulder 329314184 Active 2022 Delores Saeed DITCHING MACHINE OPERATING ENGINEER null, [place] [facility] 3 10:29:41 Pain in left sacroiliac joint 1623758636187 9102 Active 2023 Tasha Shelby null, [place] [facility] 4 11:15:10 Lumbar radiculopa thy 782447904 Active 2023 ABDI Rios [address], [place], [address] , [facility] 4 13:09:57 Localized, primary osteoarthr itis of the shoulder region 147309765 Active 2023 Delores Saeed DITCHING MACHINE OPERATING ENGINEER null, [place] [facility] 4 10:06:13 Bilateral shoulder joint pain 9102544301580 9104 Active 2024 Delores Saeed DITCHING MACHINE OPERATING ENGINEER null, [place] [facility] 5 10:41:15 Localized, primary osteoarthr itis of the shoulder region Active 2024 ABDI Rios [address], [place], [address] , [facility] 5 11:12:11 Notes:Some problems listed i n Document: #[id number] could not be added to this patient's chart. Please review this document and add these problems to the patient's chart manually as needed. Problem Notes None recorded. Procedures Surgical History Date Name Laterality Status Provider Name and Address Organization Details Recorded Time total replacement of left hip joint completed ANGEL Roque [place] [facility] 02/04/2023 10:35:30 total replacement of right hip joint completed ANGEL Roque [place] [facility] 02/04/2023 10:35:49 Imaging Results Imaging Date Name Status LastModified by Organiz [facility] Details LastModified Time 07/21/2023 XR, lumbar spine completed [facility] [place] [address], [place], [address], 07/21/2023 13:12:08 07/30/2023 MRI, lumbar spine, w/o contrast completed [email or web address] [facility] (Im[facility]) [address], [place], [address], 07/31/2023 08:33:16 11/04/2023 XR, shoulder completed [facility] [address] [facility], [place], [address], 11/04/2023 10:16:43 11/04/2023 XR, knee completed [facility] [address] [facility], [place], [address], 11/04/2023 10:15:55 07/27/2024 XR, shoulder completed [facility] [address] [place], [address], 07/27/2024 11:13:44 Procedure Notes None recorded. Medical Equipment None [...] Not Available Not Available No t Available furosemid e 40 mg tablet TAKE 1 TABLET BY [...] Not Available Not Available No t Available metoprolo l succinate ER 50 mg tablet,ex tended release 24 hr TAKE 1 TABLET BY MOUTH EVERY MORNING [...] Take 40 mg by injectio n route. 2024 active Not Available Not Available Not [...] completed Not Available Not Available Not Available spironola ctone 25 mg tablet TAKE 1 TABLET BY MOUTH EVERY MORNING active Not Available Not Available No t Available prednison e 10 mg tablets in [...] Take 40 mg by injectio n route. 2024 active [facility]: [phone] 4-20 Not Available Not Available Not [...] completed Not Available Not Available Not Available [place] 1 tab 2x daily 11/20 completed Not Available Not Available Not Available lidocaine (PF) 10 mg/mL (1 %) injection solution In office injectio n administ ered by the provider 11/20 completed [facility]DC: 0409-427 11-16 Not Available Not Available Not Available lidocaine [...] the office by the doctor 11/20 completed [facility]DC: [id number] 001 Not Available Not Available Not Available azelastin e 205.5 mcg (0.15 %) nasal spray 01/17 completed Not Available Not Available Not Available Dulera 200 mcg-5 mcg/actua tion HFA aerosol inhaler INHALE 1 PUFF BY MOUTH TWICE DAILY active Not Available Not Available No t Available ropivacai ne (PF) 5 mg/mL (0.5 %) injection solution in office 2022 active [facility] [address] 08-31 Not Available Not Available Not Available Combivent Respimat 20 mcg-100 mcg/actua tion solution for inhalatio n INHALE 1 PUFF BY MOUTH 4 TIMES DAILY 02/04 completed Not Available Not Available Not Available Eliquis 5 mg tablet TAKE 2 TABLETS BY MOUTH EVERY 12 HOURS FOR 7 DAYS 03/04 completed Not Available Not Available Not Available Jardiance 10 mg tablet TAKE 1 TABLET BY MOUTH DAILY active Not Available Not Available No t Available Incruse Ellipta 62.5 mcg/actua tion powder [...] Updated DateTime 07/21/2023 157.48 cm 31.1 kg/m2 21349.7 g Alyx [place] [employer] [facility] [employer] 07/21/2023 10:36:06 Date Recorded Body height Body mass index (BMI) Body weight Provider Name and Address Organization Details Last Updated DateTime 08/05/2023 157.48 cm 32.2 kg/m2 49788.26 g Delores Saeed [facility] [employer] [facility] [employer] 08/05/2023 10:11:57 Date Recorded Body height Body mass index (BMI) Body weight Provider Name and Address Organization Details Last Updated DateTime 11/04/2023 157.48 cm 32.2 kg/m2 63797.26 g Delores Saeed [facility] [employer] 11/04/2023 09:30:02 Date Recorded Body height Body mass index (BMI) Body weight Provider Name and Address Organization Details Last Updated DateTime 03/04/2024 157.48 cm 33.1 kg/m2 03004.22 g Delores Saeed [facility] 03/04/2024 10:15:14 Date Recorded Body height Body mass index (BMI) Body weight Provider Name and Address Organization Details Last Updated DateTime 07/27/2024 160.02 cm 31.9 kg/m2 16803.63 g Delores Christophe, [facility] [employer] 07/27/2024 10:40:26 Social History None recorded. Functional Status Question Answer Note LastModified by Organization D etails LastModified Time What is your level of alcohol consumption? None [email or web address] Information not available 03/04/2024 Mental Status None recorded. Family History Relationship [...] SNOMED-CT Code Diagnosis ICD10 Code Diagnosis Note [id number] ABDI Rios [facility] [address] [address] 09/05/2020 00:00:00 09/05/2020 11:03:23 [id number] Beltran Ellis MD [address] [address] 11/20/2021 00:00:00 11/20/2021 11:36:30 [id number] Beltran Ellis MD [address] [address] 12/04/2021 00:00:00 12/04/2021 10:45:25 [id number] Beltran Ellis MD [address] [address] 09/03/2022 09:55:12 09/03/2022 11:14:53 Osteoarthritis 752148671 M17.0 Low back pain 082982379 M54.50 Pain of le ft shoulder joint 1855563550 5617912 M25.512 Pain in ri ght sacroiliac joint 0182164367 9800945 M53.3 Osteoarthr itis of left glenohumeral joint 7257180090 301889 M19.012 [id number] Beltran Ellis MD [address] [address] 11/05/2022 10:35:08 11/05/2022 11:07:34 Bilateral osteoarthritis of knees 8162661649 78636 M17.0 Low back pain 942631821 M54.50 Pain of le ft shoulder joint 0256804047 0502223 M25.512 Pain in ri ght sacroiliac joint 1090225542 1905141 M53.3 Osteoarthr itis of left glenohumeral joint 1106992729 985724 M19.012 Contusion of knee 136401 06 S80.01XA S80.02XA Pain of bi lateral knee regions 9559608136 19992 M25.561 M25.154 [id number] Beltran Ellis MD [address] [address] 02/04/2023 10:15:02 02/04/2023 11:20:39 Contusion of knee 85694846 S80.01XA S80.02XA Bilateral osteoarthritis of knees 5033741938 17651 M17.0 Low back pain 828568189 M54.50 Pain of le ft shoulder joint 3843232342 9819183 M25.512 Pain in ri ght sacroiliac joint 4523361849 9306833 M53.3 Osteoarthr itis of left glenohumeral joint 2240704499 092950 M19.012 Pain of bi lateral knee regions 2124561369 48863 M25.561 M25.804 [id number] ABDI Rios [facility] [address] [place] [address] 05/06/2023 10:17:43 05/06/2023 10:45:10 Bilateral osteoarthritis of knees 2887834987 94509 M17.0 Pain of bi lateral knee regions 0596544343 45112 M25.561 M25.562 Osteoarthr itis of left glenohumeral joint 5688927277 373396 M19.012 Pain in ri ght sacroiliac joint 6770826014 5038525 M53.3 Pain of le ft shoulder joint 3850754082 3882911 M25.512 Spinal carlos nosis of lumbar region 88157725 M48.061 Localized, primary osteoarthritis of the shoulder region 570692106 M19.012 Low back pain 104158603 M54.50 Adhesive c apsulitis of shoulder 415519329 M75.02 Lumbosacra l spondylosis without myelopathy 16131026 M47.508 [id number] Serge Garcia MD [facility] [address] [place] [address] 07/21/2023 10:31:49 07/21/2023 11:40:45 Bilateral osteoarthritis of knees 6081402840 50168 M17.0 Pain in ri ght sacroiliac joint 0372425425 7138575 M53.3 Pain of le ft shoulder joint 5274528651 5230940 M25.512 Pain of bi lateral knee regions 7143168723 53295 M25.561 M25.562 Osteoarthr itis of left glenohumeral joint 7971628742 009332 M19.012 Spinal carlos nosis of lumbar region 18210109 M48.061 Lumbosacra l spondylosis without myelopathy 79714607 M47.817 Low back pain 261014521 M54.50 Pain in le ft sacroiliac joint 4248833391 8779735 M53.3 Lumbar radiculopathy 128 610143 M54.16 [id number] Serge Garcia MD [address] [address] 08/05/2023 10:08:14 08/05/2023 10:52:38 Pain in left sacroiliac joint 7986138960 2667939 M53.3 Pain in ri ght sacroiliac joint 7017169468 1798375 M53.3 Lumbar radiculopathy 128 947827 M54.16 Spinal carlos nosis of lumbar region 28184722 M48.061 Low back pain 664325633 M54.50 Lumbosacra l spondylosis without myelopathy 95539665 M47.817 Pain of bi lateral knee regions 4655033873 66539 M25.561 M25.562 Bilateral osteoarthritis of knees 1778758220 43335 M17.0 [id number] Serge Garcia MD [address] [address] 11/04/2023 09:26:43 11/04/2023 10:18:28 Bilateral osteoarthritis of knees 2559397175 46649 M17.0 Pain of le ft shoulder joint 7170628290 1059828 M25.512 Localized, primary osteoarthritis of the shoulder region 005742605 M19.012 Pain of bi lateral knee regions 8355165697 70890 M25.561 M25.486 [id number] Serge Garcia MD [facility] [address] [place] [address] 03/04/2024 09:58:25 03/04/2024 10:36:43 Bilateral osteoarthritis of knees 1214337805 06509 M17.0 Pain of le ft shoulder joint 8519607333 8613436 M25.512 Pain of bi lateral knee regions 3638979759 61517 M25.561 M25.562 Localized, primary osteoarthritis of the shoulder region 746313992 M19.012 Osteoarthr itis of left glenohumeral joint 3379486079 462733 M19.730 [id number] Serge Garcia MD [facility] [address] [address] 07/27/2024 10:32:59 07/27/2024 11:51:40 Bilateral osteoarthritis of knees 2545093263 19834 M17.0 Osteoarthr itis of left glenohumeral joint 9379593637 748802 M19.012 Pain of bi lateral knee regions 5923118258 01115 M25.561 M25.562 Localized, primary osteoarthritis of the shoulder region 101248761 M19.012 M19.011 Adhesive c apsulitis of shoulder 239805453 M75.02 Bilateral shoulder joint pain 6237246123 1561237 M25.511 M25.512 Health Concerns Section Related Observation LastModified by Organization Detai ls LastModified Time None Recorded Concern Status LastModified by Organization Details LastModified Time None Recorded Advance Directives Directive None Recorded Payers Encounter Date Sequence Insurance Name Policy Number Policy Chopra Covered Member ID Chopra Member ID Guarantor Name 07/21/2023 1 [facility] (MEDICARE REPLACEMENT/AD VANTAGE - HMO) [id number] [place] [id number] Barbi L Dena 07/21/2023 2 [place]ARE OR [place]ICARE REPLACEMENT PRIMARY) Barbi L Dena [id number] [place] D[place] 08/05/2023 1 [facility] (MEDICARE REPLACEMENT/AD VANTAGE - HMO) [id number] [place] [id number] [place] L D[place] 08/05/2023 2 [place] REPLACEMENT [place]) [place] D[place] [id number] Barbi L Dena 11/04/2023 1 [facility] (MEDICARE REPLACEMENT/AD VANTAGE - HMO) [id number] Barbi L Dena [id number] Barbi L Dena 11/04/2023 2 [place] REPLACEMENT [place]) Barbi L Dena [id number] [place] L D[place] 03/04/2024 2 [place] REPLACEMENT [place]) [place] D[place] [id number] Barbi L Dena 03/04/2024 1 [facility] (MEDICARE REPLACEMENT/AD VANTAGE - PPO) [id number] Barbi L Dena [id number] Barbi L Dena 07/27/2024 2 [place] REPLACEMENT PRIMARY) Barbi L Dena [id number] [place] L D[place] 07/27/2024 1 [facility] (MEDICARE REPLACEMENT/AD VANTAGE - PPO) [id number] Barbi L Dena [id number] [place] L Dena Notes Date Note Type Note Provider Name and Address Organization Details Recorded Time 07/21/2023 text/html Patient returns she is complaining [...] for initial evaluation treatment. ABDI Rios [address], [address], [place], [address], [place] [facility] [place] [employer] at work 07/21/2023 13:12:39 08/05/2023 text/html Patient returns complaining [...] especially low back pain. ABDI Rios [address], [facility] [address], [place], [address], [employer] 08/05/2023 11:40:19 11/04/2023 text/html Patient returns with bilateral knee pain and left shoulder pain. She has severe primary osteoarthritis with hopu-zj-evuu changes of the glenohumeral joint left shoulder as well as bilateral knees in the medial compartments. She comes in to [place] now and then for cortisone injections. She [...] shoulder and both knees. ABDI Rios [address], [facility] [address], [place], [address], [employer] 11/04/2023 10:17:42 03/04/2024 text/html Patient returns complaining of bilateral knee pain and left shoulder pain. She has severe ihtb-su-abht glenohumeral osteoarthritis left shoulder with marginal osteophytes she reports mechanical symptoms crepitation aching pain that limits her daily activities. Bilateral knee x-rays previously also showed severe primary osteoarthritis with mnbo-mw-rgnt changes in medial compartments and varus deformities [...] with the patient. ABDI Rios [address], [address], [place], [address], [employer] 03/04/2024 10:42:33 07/27/2024 text/html The patient retu rns requesting repeat cortisone injections both shoulders and both knees. She has severe osteoarthritis all 4 joints. She has primary osteoarthritis with jnpv-lw-fqnj changes in the medial compartments of both knees with varus deformities left slightly worse than right. She has severe iilp-cp-crjy glenohumeral primary osteoarthritis both shoulders left worse than right she has large marginal osteophytes off the inferior joint surface of the left shoulder minimal on the right. She has fairly significant COPD and was recently in the hospital a couple of times for exacerbation of CHF and COPD so she is not a candidate for any type of surgical intervention. Shots of cortisone to give her some relief for short periods we are somewhat limited in what we can do because of her other significant medical issues. She denies any new trauma or injury she would like all 4 sites injected with cortisone again today. ABDI Rios [address], [address], [place], [address], [employer] 07/27/2024 11:17:37 OBGyn Episode No OBEpisode recorded.
--- OUTSIDE RECORDS SUMMARY | 2024-10-23 21:57 | XMS_ITS | CONTINUITY OF CARE DOCUMENT ---
Author Name jericho echaavrria Address Unknown Organization [facility] Address [address] [place] [address] Phone [phone] Care Team Providers Care Oakes Machine Operator Name Role Phone Ani Cook MD Unavailable BRUNO WORRELL MD Unavailable BRUNO WORRELL MD Unavailable [phone] PROBLEMS Condition Status Date Provider Notes Diabetes mellitus, type 2 active Koki Velasco per Syncope active Koki Macias [employer] Payer name Policy type / Coverage type Warren red republican ID [facility] COM[facility]TE [facility] [id number] (PPO C-SNP) Commercial insurance company [id number] [employer] Medicaid 1 [id number] TREATMENT PLAN Date Name Stress Regadenoson
--- OUTSIDE RECORDS SUMMARY | 2024-10-23 21:57 | XMS_ITS | Referral Summary ---
Author Organization [facility] Address [address] [place] [address] Care Team Providers Care Family Support Specialist Name Role Phone Hari Dowd MD Primary Care Provider [phone] Encounters Date Type Department Care Team Description 10/14/2024 10:00 AM CDT - 10/14/2024 10:[address] [facility] Cardiac Half Backer [address] [place] [address] Jesse Beatty MD LEFT HEART CATHETERIZATION WITH CORONARY ANGIOGRAPHY AND WITH OR WITHOUT LEFT VENTRICULOGRAM [id number] 10/14/2024 8:04 AM CDT - 10/14/2024 2:24 PM CDT Hospital Encounter 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 09/23/2024 Telephone [facility] Cardiology [address] [facility] [address] [phone] Sergio Moreno MD 09/03/2024 2:00 PM CDT - 09/03/2024 11:59 PM CDT Hospital Encounter [facility] [address] [place] [address], [place] [address] Cardiomyopathy, unspecified type (HCC); Abnormal findings on diagnostic imaging of heart and coronary circulation Discharge Disposition: Discharge to home or self care 08/26/2024 2:09 PM CDT - 08/26/2024 11:59 PM CDT Hospital Encounter [facility] Radiology [facility] [address] [place] [address] Cardiomyopathy, unspecified type (HCC) Discharge Disposition: Discharge to home or self care 07/26/2024 Orders Only [facility] Medical [facility] Cardiology [address] [place] [address] Quynh Moreno MD from Last 3 Months Allergies No known active allergies Medications montelukast (SINGULAIR) 10 mg tablet Take 1 tablet (10 mg total) by mouth nightly Active cetirizine (ZyrTEC) 10 mg tablet Take by mouth daily Active HYDROcodone-acet aminophen (NORCO) 10-325 mg per tabletIndication s:Pain Take 1 tablet by mouth every 6 (six) hours as needed for pain Active isosorbide mononitrate ER (IMDUR) 30 mg 24 hr tablet Take 1 tablet (30 mg total) by mouth every morning 5 Active amLODIPine (NORVASC) 5 mg tablet Take 1 tablet (5 mg total) by mouth daily 5 Active furosemide (LASIX) 40 mg tablet Take 1 tablet (40 mg total) by mouth daily Active aspirin 81 mg chewable tablet Take 1 tablet (81 mg total) by mouth daily Active atorvastatin (LIPITOR) 40 mg tablet Take 1 tablet (40 mg total) by mouth daily Active metoprolol XL (TOPROL-XL) 50 mg extended release tablet Take 1 tablet (50 mg total) by mouth daily 5 Active spironolactone (ALDACTONE) 25 mg tablet Take 1 tablet (25 mg total) by mouth every morning Active losartan (COZAAR) 100 mg tablet Take 1 tablet (100 mg total) by mouth daily Active omeprazole (PriLOSEC) 40 mg capsule Take by mouth daily 5 Active Jardiance 10 mg tablet Take 1 tablet (10 mg total) by mouth daily Active cyclobenzaprine (FLEXERIL) 10 mg tablet Take 1 tablet (10 mg total) by mouth 2 (two) times a day Active aspirin 325 mg tablet Take 325 mg by mouth daily 10/15/19 Discontinu ed(Therapy completed) losartan-hydroch lorothiazide (HYZAAR) 100-25 mg per tablet Take 1 tablet by mouth daily 10/15/19 Discontinu ed(Alterna te therapy) famotidine (PEPCID) 20 mg tablet Take 20 mg by mouth 2 (two) times a day 10/15/19 Discontinu ed(Alterna te therapy) Active Problems Problem Noted Date Diagnosed Date 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 Continue ASA. Recommend statin therapy. CT a ordered to evaluate for inflow stenosis, pending this she may benefit from lower extremity angiography with possible intervention. Risks benefits and alternatives were discussed. Risks including bleeding, infection, perforation, chronic chest these nephropathy, thrombosis embolization and need further surgery. I will give her a call with her CT a result. Gastroesophageal reflux disease without esophagi tis 08/06/2021 Assessment & Plan (08/06/2021 4:15 PM MANAGEMENT NURSE RN): Assessment/plan: Pepcid Ovarian retention cyst 10/07/2012 Hypertension 08/17/2012 Assessment & Plan (08/06/2021 4:15 PM MANAGEMENT NURSE RN): Assessment/plan: Losartan Immunizations Immunization Administration Dates Next Due Hep A, Unspecified 06/02/1980 Social History Tobacco Use Types Packs/Day Years Used Date Smoking Tobacco: Former AUDIT-C Answer Date Recorded Q1: How often do you have a drink containing alcohol? Never 10/14/2024 Q2: How many drinks containi ng alcohol do you have on a typical day when you are drinking? Patient does not drink Q3: How often do you have si x or more drinks on one occasion? Never 10/14/2024 Personal Safety Answer Date Recorded Have you ever been in or are you currently in a harmful physical or emotional relationship or is someone making you feel afraid or unsafe? Denies 10/14/2024 Comments Unknown Sex and Gender Information Value Date Recorded Sex Assigned at Not on file Legal Sex Female 3:16 AM MANAGEMENT NURSE RN Gender Identity Not on file Sexual Orientation Not on file Last Filed Vital Signs Vital Sign Reading Time Taken Comments Blood Pressure 123/74 10/14/2024 1:30 PM CDT Pulse 80 10/14/2024 1:30 PM CDT Temperature - - Respiratory Rate 14 10/14/2024 1:30 PM CDT Oxygen Saturation 97% 10/14/2024 1:30 PM CDT Inhaled Oxygen Concentration - - Weight 90.5 kg (199 lb 9.6 oz) 10/14/2024 9:00 A M CDT Height 157.5 cm (5' 2) 08/06/2021 1:41 PM MANAGEMENT NURSE RN Body Mass Index 36.51 08/06/2021 1:41 PM MANAGEMENT NURSE RN Plan of Treatment Not on file Procedures Procedure Name Priority Date/Time Associated Diagnosis Comments CORONARY FLOW VELOCITY (CFR) / INSTATANEOUS FLOW VELOCITY (IFR), 1ST VESSEL Routine 10/14/2024 10:01 AM CDT 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 LEFT HEART CATHETERIZATION WITH CORONARY ANGIOGRAPHY AND WITH AND WITHOUT LEFT VENTRICULOGRAM Routine 10/14/2024 10:01 AM CDT 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 B ABO / RH CONFIRMATION TESTING STAT 10/14/2024 9:02 AM CDT EGFR STAT 10/14/2024 8:45 AM CDT DIFFERENTIAL AUTO STAT 10/14/2024 8:4 5 AM CDT ANTIBODY SCREEN STAT 10/14/2024 8:45 AM CDT ABO/RH STAT 10/14/2024 8:45 AM CDT PROTIME-INR STAT 10/14/2024 8:45 AM CDT TYPE AND SCREEN STAT 10/14/2024 8:45 AM CDT APTT STAT 10/14/2024 8:45 AM CDT CBC WITH AUTO DIFFERENTIAL STAT 10/14/2024 8:45 AM CDT BASIC METABOLIC PANEL STAT 10/14/2024 8:45 AM CDT ECG 12-LEAD Routine 10/14/2024 8:[address] CORONARY FRACTIONAL FLOW RESERVE Schedule Routine, Read Routine (OP Routine) 09/04/2024 1:14 PM CDT Cardiomyopathy, unspecified type (HCC) Abnormal findings on diagnostic imaging of heart and coronary circulation CT HEART MORPHOLOGY AND CORONARY ARTERIES W CONTRAST Schedule Routine, Read Routine (OP Routine) 08/26/2024 3:34 PM CDT Cardiomyopathy, unspecified type (HCC) POCT CREATININE - DEVICE Routine 08/26/2024 2:42 PM CDT SCREENING MAMMOGRAM Routine 08/17/2012 3 :04 PM CDT from Last 3 Months or Most Recently Relevant to Health Maintenance Results * LEFT HEART CATHETERIZATION WITH CORONARY ANGIOGRAPHY AND WITH AND WITHOUT LEFT VENTRICULOGRAM, CORONARY FLOW VELOCITY (CFR) / INSTATANEOUS FLOW VELOCITY (IFR), 1ST VESSEL (10/14/2024 10:01 AM CDT) Anatomical Region Laterality Modality X-Ray Angiograph y Impressions 10/14/2024 10:15 AM CDT 60% narrowing proximal and mid right coronary, IFR 0.96. Minimal plaquing in the left coronary system. THERAPEUTIC RECOMMENDATIONS: Continue medical management and risk factor modification. DC later this morning. Hemostasis was achieved using a TR band. The case was reviewed and discussed with the referring physician and patient. Narrative 10/14/2024 10:15 AM CDT CORONARY ANGIOGRAM REPORT Patient: Barbi Fernandes : 1955 Date of Service: 10/14/2024 Lead Applications Developer: Jesse Beatty MD Referring physician: Elvia Mauro MD PATIENT CLINICAL PROFILE: Barbi Fernandes is a 68 y.o. female with a history of cardiomyopathy and coronary cta w/ lesions in the left anterior descending and right coronary artery. PROCEDURE: The risks, benefits and alternatives of the procedures and moderate sedation were explained to the patient and informed consent was obtained. The patient was brought to the quality assurance qa lab analyst and placed on the table. Right radial site and bilateral groins were prepped and draped in the usual sterile fashion. The right radial artery site was infiltrated with 2 % lidocaine. The vessel was accessed using a Cook needle and the modified Seldinger technique and a 6 Fr slender sheath was advanced over the wire into the vessel. 5000 units of unfractionated heparin was administered. Left Coronary Artery Angiogram was performed using a [place] Catheter. Right Coronary Artery Angiogram was performed using a [place] Catheter. Left Ventricular Hemodynamics were measured using [place] Catheter, no left ventriculogram was done. At the end of the procedure, hemostasis was obtained via TR band Patient was transferred to holding area in stable condition. RESULTS: Hemodynamics: Systemic Aortic blood pressure was 120/80. Left ventricular blood pressure was 120/25. There was no gradient on pull back across the aortic valve Coronary Arteriography: Left main coronary: normal Left Anterior Decending: mild luminal irregularities but no significant narrowings Left Circumflex: no significant disease Right Coronary Artery: Right Dominant System with 60% proximal and mid narrowing IFR was performed in the right coronary artery. The wire was normalized in the aorta and advanced distally. Value was recorded at 0.96, which is a nonischemic result. COMPLICATIONS: none Estimated Blood Loss: 10 cc Specimens: none DIAGNOSTIC us Jesse Beatty MD CV CARDIAC CATH PROCEDURE S Final Result * ABO / Rh Confirmation Testing (10/14/2024 9:02 AM CDT) ABO/Rh Confirmation O Positive B Comment:Testing performed by : [facility], [address] [place] [address]., [id number] Blood 10/14/2024 9:02 AM CDT 10/14/2024 9:11 AM CDT us Jesse Beatty MD LAB BLOOD ORDERABLES Katelin masterson Result Performing Organization Address [facility] Co de Phone Number VENANCIO [address] [place] [address] MHB * eGFR (10/14/2024 8:45 AM CDT) eGFR 76 >=60 mL/min/1. 73 m2 Comment: Interpretive Data Reference Interval Normal >/= 90 mL/min/1.73m2 Mildly decreased* 60 - 89 mL/min/1.73m2 Mildly to moderately decreased 45 - 59 mL/min/1.73m2 Moderately to severely decreased 30 - 44 mL/min/1.73m2 Severely decreased 15 - 29 mL/min/1.73m2 Kidney Failure < 15 mL/min/1.73m2 *Relative to young adult level Estimated glomerular filtration rate is determined by the 2020 CKD-EPI equation recommended by the National Kidney Foundation (A Unifying Approach to GFR Estimation: Recommendations of the NKF-ASK Task Force on Reassessing the Inclusion of Race in Diagnosing Kidney Disease, JASN 2020). The CKD-EPI equation should not be used for patients with unstable renal function and has not been validated in children and those over 70. Current interpretive data was last reviewed 2021. Testing performed by: [facility], [address] [place] [address]., [id number] Blood 10/14/2024 8:45 AM CDT 10/14/2024 8:52 AM CDT us Jesse Beatty MD LAB BLOOD ORDERABLES Katelin l Result Performing Organization Address City/[facility]/ZIP Co de Phone Number VENANCIO [address] [place] [address] * Differential, auto (10/14/2024 8:45 AM CDT) Neutrophil abs 3.35 1.50 - 6.50 K/cumm Comment:Testing performed by : [address], [place]., [address] Imm gran abs 0.03 0.00 - 0.10 K/cumm [facility] Comment:Testing performed by : [facility], [address] [place] [address], [place]., [address] Lymphocyte abs 1.21 0.80 - 3.30 K/cumm [facility] Comment:Testing performed by : [address], [place]., [address] Monocyte abs 0.53 0.20 - 0.80 K/cumm [facility] Comment:Testing performed by : [address], [place]., [address] Eosinophil abs 0.22 0.00 - 0.50 K/cumm [facility] Comment:Testing performed by : [address], [place]., [address] Basophil abs 0.05 0.00 - 0.10 K/cumm [facility] Comment:Testing performed by : [address] [address] Neutrophil pct 62.2 % [facility] Comment: Interpretive Data Percent cell count reference ranges are not reported, since discordance with absolute values may lead to misinterpretation of CBC data. Current Interpretive Data was last revised on 2017. Testing performed by: [address] [address] Imm gran pct 0.6 % [facility] Comment: Interpretive Data Percent cell count reference ranges are not reported, since discordance with absolute values may lead to misinterpretation of CBC data. Current Interpretive Data was last revised on 2017. Testing performed by: [address] [address] Lymphocyte pct 22.4 % [facility] Comment: Interpretive Data Percent cell count reference ranges are not reported, since discordance with absolute values may lead to misinterpretation of CBC data. Current Interpretive Data was last revised on 2017. Testing performed by: [address] [address] Monocyte pct 9.8 % [facility] Comment: Interpretive Data Percent cell count reference ranges are not reported, since discordance with absolute values may lead to misinterpretation of CBC data. Current Interpretive Data was last revised on 2017. Testing performed by: [address] [address] Eosinophil pct 4.1 % VENANCIO Comment: Interpretive Data Percent cell count reference ranges are not reported, since discordance with absolute values may lead to misinterpretation of CBC data. Current Interpretive Data was last revised on 2017. Testing performed by: [address] [address] Basophil pct 0.9 % VENANCIO Comment: Interpretive Data Percent cell count reference ranges are not reported, since discordance with absolute values may lead to misinterpretation of CBC data. Current Interpretive Data was last revised on 2017. Testing performed by: [address] [address] Blood 10/14/2024 8:45 AM CDT 10/14/2024 8:52 AM CDT us Jesse Beatty MD LAB BLOOD ORDERABLES Katelin l Result [facility] [address] [facility] [place] [address] * (ABNORMAL) CBC with auto differential (10/14/2024 8:45 AM CDT) WBC 5.39 3.80 - 9.90 K/cumm Comment:Testing performed by : [address] [address] Hgb 11.9 11.9 - 15.5 g/dL VENANCIO Comment:Testing performed by : [address] [address] Hct 38.5 35.6 - 45.5 % VENANCIO Comment:Testing performed by : [address] [address] Plt 286 150 - 400 K/cumm VENANCIO Comment:Testing performed by : [address] [address] MPV 9.7 9.1 - 12.3 fL VEANNCIO Comment:Testing performed by : [address] [address] RBC 3.83(L) 3.90 - 5.20 M/cumm VENANCIO Comment:Testing performed by : [address] [address] MCV 100.5(H) 81.3 - 96.4 fL VENANCIO Comment:Testing performed by : [address] [address] MCH 31.1 27.1 - 33.3 pg VENANCIO Comment:Testing performed by : [address] [address] MCHC 30.9(L) 32.3 - 35.7 g/dL VENANCIO Comment:Testing performed by : [address] [address] RDW CV 13.7 11.1 - 14.9 % VENANCIO Comment:Testing performed by : [address] [address] RDW SD 50.7(H) 35.7 - 48.1 fL VENANCIO Comment:Testing performed by : [address] [address] NRBC abs 0.00 0.00 - 0.01 K/cumm VENANCIO Comment:Testing performed by : [address] [address] Blood 10/14/2024 8:45 AM CDT 10/14/2024 8:52 AM CDT Narrative VENANCIO - 10/14/2024 9:02 AM CDT If most recent labs were drawn prior to 4 AM, draw only prior to initiating procedure. us Jesse Beatty MD LAB BLOOD ORDERABLES Katelin masterson Result VENANCIO [address] [facility] Department [place] [address] * ABO/Rh (10/14/2024 8:45 AM CDT) ABO/Rh O Positive Comment:Testing performed by : [address] [address] Blood 10/14/2024 8:45 AM CDT 10/14/2024 8:52 AM CDT Narrative VENANCIO - 10/14/2024 9:31 AM CDT Has the patient had Daratumumab or Isatuximab in the past 6 months?->Unknown Jesse Beatty MD LAB BLOOD BANK TEST ORDER BHAVANA Final Result Performing Organization Address [facility] de Phone Number [address] [place] [address] * aPTT (10/14/2024 8:45 AM CDT) Pathologist [facility] aPTT 31 22 - 37 sec Comment: Interpretive data aPTT test has not been evaluated for monitoring heparin therapy. The anti-Xa is the preferred test. Current interpretive data was last revised on 2019. Testing performed by: [address] [address] Blood 10/14/2024 8:45 AM CDT 10/14/2024 8:52 AM CDT Jesse Beatty MD LAB BLOOD ORDERABLES Katelin l Result Performing Organization Address [facility] Co de Phone Number [address] [place] [address] * Protime-INR (10/14/2024 8:45 AM CDT) Pathologist [facility] PT 12.8 12.0 - 14.6 sec Comment:Testing performed by : [address] [address] INR 1.0 0.9 - 1.2 VENANCIO Comment: Ref Range High Interpretive data Oral anticoagulant therapeutic ranges: Venous thromboembolism prophylaxis or treatment: 2.0-3.0 CARDIOLOGY Standard range: 2.0-3.0 High-intensity range: 2.5-3.5 Refer to indication-specific guidelines for appropriate target ranges for prosthetic heart valve replacement. Current interpretive data was last revised on 2019. Testing performed by: [address] [address] Blood 10/14/2024 8:45 AM CDT 10/14/2024 8:52 AM CDT Jesse Beatty MD LAB BLOOD ORDERABLES Katelin l Result Performing Organization Address [facility] Co de Phone Number [address] [place] [address] * Antibody screen (10/14/2024 8:45 AM CDT) Pathologist [facility] Maria C, indirect, Gel Interpretation Negative ABSC Comment:Testing performed by : [address] [address] Blood 10/14/2024 8:45 AM CDT 10/14/2024 8:52 AM CDT Narrative VENANCIO - 10/14/2024 9:31 AM CDT Has the patient had Daratumumab or Isatuximab in the past 6 months?->Unknown Jesse Beatty MD LAB BLOOD BANK TEST ORDER BHAVANA Final Result Performing Organization Address [facility] de Phone Number [address] [place] [address] * Basic metabolic panel (10/14/2024 8:45 AM CDT) Pathologist [facility] Sodium 139 135 - 145 mmol/L Comment:Testing performed by : [address] [address] Potassium, pl 4.8 3.3 - 4.9 mmol/L VENANCIO Comment: Hemolyzed; Potassium value may be falsely elevated by as much as 1.0 mmol/L. Suggest redraw and reanalysis. Testing performed by: [address] [address] Chloride 103 97 - 110 mmol/L VENANCIO Comment:Testing performed by : [address] [address] CO2 28 22 - 32 mmol/L VENANCIO Comment:Testing performed by : [address] [address] Anion gap 8 2 - 15 mmol/L VENANCIO Comment:Testing performed by : [address] [address] BUN 18 6 - 25 mg/dL VENANCIO Comment:Testing performed by : [address] [address] Creatinine 0.84 0.60 - 1.10 mg/dL VENANCIO Comment:Testing performed by : [address] [address] Glucose 94 70 - 199 mg/dL VENANCIO Comment: Interpretive Data Fasting glucose >/= 126 mg/dl is diagnostic for diabetes. Fasting is defined as no caloric intake for at least 8 hours. Fasting glucose between 100 mg/dl to 125 mg/dl is diagnostic of prediabetes. In a patient with classic symptoms of hyperglycemia or hyperglycemic crisis, a random glucose >/= 200 mg/dl is diagnostic for diabetes. In the absence of unequivocal hyperglycemia, results should be confirmed by repeat testing. The classification and Diagnosis of Diabetes Diabetes Care 202; 46: S19-S40. Current interpretive data was last revised 2022. Testing performed by: [address] [address] Calcium 9.9 8.5 - 10.3 mg/dL VENANCIO Comment:Testing performed by : [address] [address] Blood 10/14/2024 8:45 AM CDT 10/14/2024 8:52 AM CDT us Jesse Beatty MD LAB BLOOD ORDERABLES Katelin masterson Result VENANCIO [address] [facility] Department [place] [address] * ECG 12 lead (10/14/2024 8:24 AM CDT) Ventricular Rate EKG/Min 81 BPM [facility] Atrial Rate 81 BPM [facility] OR-Interval (MSEC) 158 ms [facility] QRS-Interval (MSEC) 120 ms [facility] QT-Interval (MSEC) 384 ms [facility] QTc 446 ms [facility] P [place] 80 degrees [facility] R [place] 6 degrees [facility] T [place] 63 degrees [facility] Diagnosis Normal sinus rhythm Right bundle branch block Abnormal ECG No previous ECGs available Confirmed by JESSE BEATTY M.D. ([id number]) on 10/14/2024 11:09:52 AM [facility] 10/14/2024 8:24 AM CDT 10/14/2024 11:09 AM CDT us Jesse Beatty MD ECG ORDERABLES Final Res ult [facility] * CT Coronary Fractional Flow [place] (09/04/2024 1:14 PM CDT) Anatomical Region Laterality Modality Chest N/A Computed Tomogra phy 09/06/2024 8:57 AM CDT Impressions 09/06/2024 7:47 PM CDT ADDENDUM: Coronary CTA Fractional Flow [place] (FFR) The below FFR CT results are associated with the coronary CTA report at IMPRESSION: FFR CT Results: There is an acute FFR drop across an atherosclerotic plaque in the vertical segment of the right coronary artery with a delta FFR greater than 0.10. The FFR value distal to the lesion is 0.53. There are borderline diminished FFR values in the distal left circumflex, diagonal, and left anterior descending arteries which are not associated with the definitive plaque. The maximum anatomical stenosis is located in the mid right coronary artery with lesion specific abnormal FFR CT of 0.53. There is an acute FFR change across the lesion. Recommendation: Consider ICA for confirmation and management. Dictated by: Enio Coles M.D. The radiology attending physician has personally reviewed this study, and had reviewed and/or edited this written report and agrees with it. Electronically signed by: Hank Padgett M.D. Narrative Procedure Note Hank Padgett MD PhD - 09/06/2024 IMPRESSION: ADDENDUM: Coronary CTA Fractional Flow [place] (FFR) The below FFR CT results are associated with the coronary CTA report at IMPRESSION: FFR CT Results: There is an acute FFR drop across an atherosclerotic plaque in the vertical segment of the right coronary artery with a delta FFR greater than 0.10. The FFR value distal to the lesion is 0.53. There are borderline diminished FFR values in the distal left circumflex, diagonal, and left anterior descending arteries which are not associated with the definitive plaque. The maximum anatomical stenosis is located in the mid right coronary artery with lesion specific abnormal FFR CT of 0.53. There is an acute FFR change across the lesion. Recommendation: Consider ICA for confirmation and management. Dictated by: Enio Coles M.D. The radiology attending physician has personally reviewed this study, and had reviewed and/or edited this written report and agrees with it. Electronically signed by: Hank Padgett M.D. us Elvia Mauro MD IMG CT PROCEDURES Final Resu lt * CTA Heart and Coronary Arteries W Morphology when Performed (08/26/2024 3:34 PM CDT) Anatomical Region Laterality Modality Chest N/A Computed Tomogra phy 08/27/2024 10:2 2 AM CDT Impressions 08/29/2024 10:58 AM CDT Evaluation is mildly limited secondary to motion artifact. 1. Multivessel calcified atherosclerosis resulting in up to moderate stenosis of the proximal right and left anterior descending coronary arteries. There is an area of focal outpouching of the mid left anterior descending coronary artery, which may represent an area of positive remodeling versus artifact. 2. Calculated calcium score of 1027.4. Dictated by: Donavan Dent MD The radiology attending physician has personally reviewed this study, and had reviewed and/or edited this written report and agrees with it. Electronically signed by: Mario Nascimento M.D. Narrative 08/29/2024 10:58 AM CDT EXAMINATION: CORONARY CT ANGIOGRAM HISTORY: Evaluate for coronary artery disease TECHNIQUE: CT angiography of the coronary arteries was performed after the administration of 94 mL of Optiray 350. Images were also obtained precontrast for the purposes of calcium scoring. 10 mg of metoprolol was administered intravenously, and 2 puffs of sublingual nitroglycerin was administered prior to the examination. The patient's heart rate and blood pressure at the time of the examination were 80 beats per minute and 108/69 mmHg. Images were transferred to a 3D workstation for additional post-processing. FINDINGS: The coronary arteries are right system dominant. There is no anomalous coronary origin or course. The left main coronary artery gives rise to the left anterior descending, left circumflex, and a ramus intermedius branch. Right coronary system: Calcified atherosclerosis of the proximal right coronary artery with associated blooming artifact resulting in moderate, approximately 50%, stenosis. However, evaluation distally is limited secondary to significant motion artifact. Left coronary system: No significant atherosclerosis or luminal narrowing of the left main coronary artery. Calcified atherosclerosis of the proximal left anterior descending coronary artery resulting in a moderate, approximately 50%, stenosis with an area of outpouching distally, which may represent positive remodeling versus artifact. Calcified atherosclerosis of the proximal left circumflex coronary artery resulting in mild, less than 25%, stenosis. The calculated calcium score is 1027.4. This places the patient greater than the 90th percentile for age and gender. Other findings: Heart size is normal. No pericardial effusion. Esophagus is nondistended. Imaged portions of the lungs are clear. Procedure Note Mario Nascimento MD - 08/29/2024 EXAMINATION: CORONARY CT ANGIOGRAM HISTORY: Evaluate for coronary artery disease TECHNIQUE: CT angiography of the coronary arteries was performed after the administration of 94 mL of Optiray 350. Images were also obtained precontrast for the purposes of calcium scoring. 10 mg of metoprolol was administered intravenously, and 2 puffs of sublingual nitroglycerin was administered prior to the examination. The patient's heart rate and blood pressure at the time of the examination were 80 beats per minute and 108/69 mmHg. Images were transferred to a 3D workstation for additional post-processing. FINDINGS: The coronary arteries are right system dominant. There is no anomalous coronary origin or course. The left main coronary artery gives rise to the left anterior descending, left circumflex, and a ramus intermedius branch. Right coronary system: Calcified atherosclerosis of the proximal right coronary artery with associated blooming artifact resulting in moderate, approximately 50%, stenosis. However, evaluation distally is limited secondary to significant motion artifact. Left coronary system: No significant atherosclerosis or luminal narrowing of the left main coronary artery. Calcified atherosclerosis of the proximal left anterior descending coronary artery resulting in a moderate, approximately 50%, stenosis with an area of outpouching distally, which may represent positive remodeling versus artifact. Calcified atherosclerosis of the proximal left circumflex coronary artery resulting in mild, less than 25%, stenosis. The calculated calcium score is 1027.4. This places the patient greater than the 90th percentile for age and gender. Other findings: Heart size is normal. No pericardial effusion. Esophagus is nondistended. Imaged portions of the lungs are clear. IMPRESSION: Evaluation is mildly limited secondary to motion artifact. 1. Multivessel calcified atherosclerosis resulting in up to moderate stenosis of the proximal right and left anterior descending coronary arteries. There is an area of focal outpouching of the mid left anterior descending coronary artery, which may represent an area of positive remodeling versus artifact. 2. Calculated calcium score of 1027.4. Dictated by: Donavan Dent MD The radiology attending physician has personally reviewed this study, and had reviewed and/or edited this written report and agrees with it. Electronically signed by: Mario Nascimento M.D. us Elvia Mauro MD IMG CT PROCEDURES Final Resu lt * (ABNORMAL) POCT creatinine (08/26/2024 2:42 PM CDT) Creatinine POC 1.4(H) 0.6 - 1.1 mg/dL Blood 08/26/2024 2:42 PM CDT 08/26/2024 2:42 PM CDT us Elvia Mauro MD LAB POCT ORDERABLES - DEVICE Final Result [facility] Department [place] [address] * Screening Mammogram (08/17/2012 3:04 PM CDT) Anatomical Region Laterality Modality Breast N/A Mammography 08/17/2012 3:04 PM CDT Narrative 09/08/2012 1:48 PM CDT TAYLOR PICKERING M.D. FINAL REPORT ACC# Date Time Exam [id number] Aug 17, 2012 15:04:00 [facility] [id number] Screening Mamm Bilat Technologist(s): Lydia Gutiérrez; ; EXAMINATION: ADDENDUM 09/08/2012 01:48PM ADDENDUM: 09/07/2012 The present examination has been compared to a prior imaging study performed at [facility] on 07/26/2008. Masses in both breasts are benign. Annual screening mammography is recommended. OVERALL FINAL ASSESSMENT: BI-RADS CATEGORY 2: Benign. END OF ADDENDUM Mammogram Findings: A Full-Field Digital Screening Mammogram was performed. Views obtained: bilateral craniocaudal; bilateral mediolateral oblique. Computer Aided Detection was performed with Wellcoin.3 version 9.3. There are scattered fibroglandular densities. There are multiple masses in both breasts. IMPRESSION: Masses in both breasts require additional evaluation. COMPARISON TO PRIOR FILMS is recommended. OVERALL FINAL ASSESSMENT: BI-RADS CATEGORY 0: Incomplete: Need Additional Imaging Evaluation - Comparison with Prior Studies Requested By: PEBBLES MEDINA M.D. Dictated By: TAYLOR PICKERING M.D. on Aug 18 2012 2:03P This document has been electronically signed by: TAYLOR PICKERING M.D. on Aug 18 2012 2:03P on Sep 08 2012 1:49P This Addendum has been electronically signed by: TAYLOR PICKERING M.D. on Sep 08 2012 1:48P Procedure Note Provider, MD Kevan - 09/27/2016 TAYLOR PICKERING M.D. FINAL REPORT ACC# Date Time Exam [id number] Aug 17, 2012 15:04:00 [facility] [id number] Screening Mamm Bilat Technologist(s): Lydia Gutiérrez; ; EXAMINATION: ADDENDUM 09/08/2012 01:48PM ADDENDUM: 09/07/2012 The present examination has been compared to a prior imaging study performed at [facility] on 07/26/2008. Masses in both breasts are benign. Annual screening mammography is recommended. OVERALL FINAL ASSESSMENT: BI-RADS CATEGORY 2: Benign. END OF ADDENDUM Mammogram Findings: A Full-Field Digital Screening Mammogram was performed. Views obtained: bilateral craniocaudal; bilateral mediolateral oblique. Computer Aided Detection was performed with Well[employer].3 version 9.3. There are scattered fibroglandular densities. There are multiple masses in both breasts. IMPRESSION: Masses in both breasts require additional evaluation. COMPARISON TO PRIOR FILMS is recommended. OVERALL FINAL ASSESSMENT: BI-RADS CATEGORY 0: Incomplete: Need Additional Imaging Evaluation - Comparison with Prior Studies Requested By: PEBBLES MEDINA M.D. Dictated By: TAYLOR PICKERING M.D. on Aug 18 2012 2:03P This document has been electronically signed by: TAYLOR PICKERING M.D. on Aug 18 2012 2:03P on Sep 08 2012 1:49P This Addendum has been electronically signed by: TAYLOR PICKERING M.D. on Sep 08 2012 1:48P us Historical Provider MD AUGUSTINE MAMMO PROCEDURES Katelin l Result from Last 3 Months or Most Recently Relevant to Health Maintenance Insurance [facility] MDCR HMO REF [facility] MEDICARE Address: [address] [address] [place] [address] [facility] MEDICARE [facility] MED[facility] Address: [address] [address] [place] [address] [facility] MEDICARE AD[facility]ANTAGE [facility] MEDIC[facility] Address: [address] [address] [place] [address] Care Teams Family Support Specialist Relationship Specialty Start Date End Date Hari Dowd MD [address] [place] [id number] PCP - General Family Medicine 08/06/21
--- OUTSIDE RECORDS SUMMARY | 2024-10-23 21:57 | XMS_ITS | Clinical Summary ---
Author Organization 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 09/24/2024 PVD (peripheral vascular disease) 08/06/2021 Assessment & Plan (08/06/2021 4:15 PM PUBLIC SERVICE DIRECTOR): Assessment/plan: Bilateral lower extremity claudication with noninvasives [...] 08/06/2021 Assessment & Plan (08/06/2021 4:15 PM PUBLIC SERVICE DIRECTOR): Assessment/plan: Pepcid Ovarian retention cyst 10/07/2012 Hypertension 08/17/2012 Assessment & Plan (08/06/2021 4:15 PM PUBLIC SERVICE DIRECTOR): Assessment/plan: Losartan Encounters Date Type Department Care Team Description 10/14/2024 10:00 AM CDT - 10/14/2024 10:45 AM CDT Surgery [facility] [address] [place] [id number] Jesse Beatty MD LEFT HEART CATHETERIZATION WITH CORONARY ANGIOGRAPHY AND WITH OR WITHOUT LEFT VENTRICULOGRAM [id number] 10/14/2024 8:04 AM CDT - 10/14/2024 2:24 PM CDT Hospital Encounter [facility] [address] [place] [address] Jesse Beatty MD 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 Discharge Disposition: Discharge to home or self care 09/23/2024 Telephone [facility] [address] [facility] [address] [place] [address] Jesse Beatty MD [facility] 09/23/2024 Telephone [facility] Cardiology [address] [facility] [address] [address] Sergio Moreno MD 09/03/2024 2:00 PM CDT - 09/03/2024 11:59 PM CDT Hospital Encounter [facility] [address] [place] [address] Cardiomyopathy, unspecified type (HCC); Abnormal findings on diagnostic imaging of heart and coronary circulation Discharge Disposition: Discharge to home or self care 08/26/2024 2:09 PM CDT - 08/26/2024 11:59 PM CDT Hospital Encounter [facility] [address] [place] [address] Cardiomyopathy, unspecified type (HCC) Discharge Disposition: Discharge to home or self care 07/26/2024 Orders Only [facility]iology [address] [place] [phone] Quynh Moreno MD from Last 3 Months Immunizations Immunization Administration Dates Next Due Hep A, Unspecified 06/02/1980 Surgical History Surgery Date Site/Laterality Comments TOTAL HIP ARTHROPLASTY bilateral SECTION CARDIAC CATHETERIZATION 10/14/2024 N/A Procedure: LEFT HEART CATHETERIZATION WITH CORONARY ANGIOGRAPHY AND WITH OR WITHOUT LEFT VENTRICULOGRAM [id number]; Surgeon: Jesse Beatty MD; Location: [facility] CARDIAC COMPUTER SUPPORT SPECIALIST INSTRUCTOR; Service: Cardiovascular; Laterality: N/A; CARDIAC CATHETERIZATION 10/14/2024 N/A Procedure: Coronary Flow Velocity (CFR) / Instantaneous Flow Velocity (IFR), 1st Vessel; Surgeon: Jesse Beatty MD; Location: [facility] CARDIAC COMPUTER SUPPORT SPECIALIST INSTRUCTOR; Service: Cardiovascular; Laterality: N/A; Medical History Medical History Date Comments Seasonal allergies Hypertension GERD (gastroesophageal reflux disease) Asthma Hyperlipidemia CHF (congestive heart failure) (HCC) Family History Medical History Relation Name Comments Heart disease Maternal Grandfather Heart disease Paternal Grandmother Relation Name Status Comments Maternal Grandfather Paternal Grandmother Social History Tobacco Use Types Packs/Day Years [...] on file Legal Sex Female 3:16 AM PUBLIC SERVICE DIRECTOR Gender Identity Not on file Sexual Orientation Not on file Obstetrics History Last Filed Vital Signs Vital Sign Reading [...] 157.5 cm (5' 2) 08/06/2021 1:41 PM PUBLIC SERVICE DIRECTOR Body Mass Index 36.51 08/06/2021 1:41 PM PUBLIC SERVICE DIRECTOR Plan of Treatment Health Maintenance Due Date Last Done Comments Colon Cancer Screening-Colonoscopy 1955 Depression Screening 1955 Hepatitis C Screening 1955 Osteoporosis Screening-Bone Density Scan 1955 DTaP/Tdap/Td Vaccine (1 - Tdap) 10/27/1966 Hepatitis B Screening 10/27/1973 Pneumococcal vaccine 65+ (1 of 2 - PCV) 10/27/1974 Zoster Vaccine (1 of 2) 10/27/2005 Breast Cancer Screening-Mammogram 08/17/2013 013 Well Visit 65+ 10/27/2020 Covid-19 Vaccine ( season) 2024 04/06/2021, 08/04/2020, 07/07/2020 Influenza Vaccine (Season Ended) 2025 03/25/20, 06/20/2018 Fall Risk Assessment 10/14/2025 10/14/2024 Procedures Procedure Name Priority Date/Time Associated Diagnosis Comments CORONARY FLOW VELOCITY (CFR) / INSTATANEOUS FLOW VELOCITY (IFR), 1ST VESSEL Routine 10/14/2024 10:01 AM CDT 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 The patient was brought to the lab engineer and placed on the table. Right radial [...] Coronary Artery Angiogram was performed using a Helotes Catheter. Right Coronary Artery Angiogram was performed using a Helotes Catheter. Left Ventricular Hemodynamics were measured using Helotes Catheter, no left ventriculogram was done. At [...] Rh Confirmation Testing (10/14/2024 9:02 AM CDT) Pathologist [facility] ABO/Rh Confirmation O Positive [facility] Comment:Testing performed by : [facility], [address] [place] [address]., [id number] Blood 10/14/2024 9:02 AM CDT 10/14/2024 9:11 AM CDT Jesse Beatty MD LAB BLOOD ORDERABLES Katelin l Result ELANDOU [address] [facility] Department [place] [address] MHB * eGFR (10/14/2024 8:45 AM CDT) [...] was last reviewed 2021. Testing performed by: [address] [address] Blood 10/14/2024 8:45 AM CDT 10/14/2024 8:52 AM CDT us Jesse Beatty MD LAB BLOOD ORDERABLES Katelin masterson Result Performing Organization Address City/State/[facility] Co de Phone Number [facility] [address] [facility] Department [place] [address] * Differential, auto (10/14/2024 8:45 AM CDT) Neutrophil abs 3.35 1.50 - 6.50 K/cumm Comment:Testing performed by : [address] [address] Imm gran abs 0.03 0.00 - 0.10 K/cumm [facility] Comment:Testing performed by : [address] [address] Lymphocyte abs 1.21 0.80 - 3.30 K/cumm [facility] Comment:Testing performed by : [address] [address] Monocyte abs 0.53 0.20 - 0.80 K/cumm [facility] Comment:Testing performed by : [address] [address] Eosinophil abs 0.22 0.00 - 0.50 K/cumm [facility] Comment:Testing performed by : [address] [address] Basophil abs 0.05 0.00 - 0.10 K/cumm [facility] Comment:Testing performed by : [address] [address] Neutrophil pct 62.2 % [facility] Comment: Interpretive Data Percent cell count reference ranges are not reported, since discordance with absolute values may lead to misinterpretation of CBC data. Current Interpretive Data was last revised on 2017. Testing performed by: [address] [address] Imm gran pct 0.6 % [facility] Comment: Interpretive Data Percent cell count reference ranges are not reported, since discordance with absolute values may lead to misinterpretation of CBC data. Current Interpretive Data was last revised on 2017. Testing performed by: [address] [address] Lymphocyte pct 22.4 % [facility] Comment: Interpretive Data Percent cell count reference ranges are not reported, since discordance with absolute values may lead to misinterpretation of CBC data. Current Interpretive Data was last revised on 2017. Testing performed by: [address] [address] Monocyte pct 9.8 % [facility] Comment: Interpretive Data Percent cell count reference ranges are not reported, since discordance with absolute values may lead to misinterpretation of CBC data. Current Interpretive Data was last revised on 2017. Testing performed by: [address] [address] Eosinophil pct 4.1 % [facility] Comment: Interpretive Data Percent cell count reference ranges are not reported, since discordance with absolute values may lead to misinterpretation of CBC data. Current Interpretive Data was last revised on 2017. Testing performed by: [address] [address] Basophil pct 0.9 % [facility] Comment: Interpretive Data Percent cell count reference ranges are not reported, since discordance with absolute values may lead to misinterpretation of CBC data. Current Interpretive Data was last revised on 2017. Testing performed by: [address] [address] Blood 10/14/2024 8:45 AM CDT 10/14/2024 8:52 AM CDT us Jesse Beatty MD LAB BLOOD ORDERABLES Katelin masterson Result [facility] Department [place] [address] * (ABNORMAL) CBC with auto differential (10/14/2024 8:45 AM CDT) WBC 5.39 3.80 - 9.90 K/cumm Comment:Testing performed by : [address] [address] Hgb 11.9 11.9 - 15.5 g/dL [facility] Comment:Testing performed by : [address] [address] Hct 38.5 35.6 - 45.5 % [facility] Comment:Testing performed by : [address] [address] Plt 286 150 - 400 K/cumm [facility] Comment:Testing performed by : [address] [address] MPV 9.7 9.1 - 12.3 fL [facility] Comment:Testing performed by : [address] [address] RBC 3.83(L) 3.90 - 5.20 M/cumm [facility] Comment:Testing performed by : [address] [address] MCV 100.5(H) 81.3 - 96.4 fL [facility] Comment:Testing performed by : [address] [address] MCH 31.1 27.1 - 33.3 pg [facility] Comment:Testing performed by : [address] [address] MCHC 30.9(L) 32.3 - 35.7 g/dL [facility] Comment:Testing performed by : [address] [address] RDW CV 13.7 11.1 - 14.9 % [facility] Comment:Testing performed by : [address] [address] RDW SD 50.7(H) 35.7 - 48.1 fL [facility] Comment:Testing performed by : [address] [address] NRBC abs 0.00 0.00 - 0.01 K/cumm [facility] Comment:Testing performed by : [address] [address] Blood 10/14/2024 8:45 AM CDT 10/14/2024 8:52 AM CDT Narrative [facility] - 10/14/2024 9:02 AM CDT If most recent labs were drawn prior to 4 AM, draw only prior to initiating procedure. Jesse Beatty MD LAB BLOOD ORDERABLES Katelin l Result Performing Organization Address City/State/[facility] Co de Phone Number [facility] [address] [facility] Department [place] [address] * ABO/Rh (10/14/2024 8:45 AM CDT) ABO/Rh O Positive Comment:Testing performed by : [address] [address] Blood 10/14/2024 8:45 AM CDT 10/14/2024 8:52 AM CDT Narrative VENANCIO - 10/14/2024 9:31 AM CDT Has the patient had Daratumumab or Isatuximab in the past 6 months?->Unknown Result [facility] Jesse Beatty MD LAB BLOOD BANK TEST ORDER BHAVANA Final Result Performing Organization Address [facility] Co de Phone Number ELAN[address] [address] * aPTT (10/14/2024 8:45 AM CDT) aPTT 31 22 - 37 sec Comment: Interpretive data aPTT test has not been evaluated for monitoring heparin therapy. The anti-Xa is the preferred test. Current interpretive data was last revised on 2019. Testing performed by: [address] [address] Blood 10/14/2024 8:45 AM CDT 10/14/2024 8:52 AM CDT Jesse Beatty MD LAB BLOOD ORDERABLES Katelin l Result Performing Organization Address [facility] de Phone Number ELAN[address] [place] [address] * Protime-INR (10/14/2024 8:45 AM CDT) PT 12.8 12.0 - 14.6 sec Comment:Testing performed by : [address] [address] INR 1.0 0.9 - 1.2 [facility] Comment: Ref Range High Interpretive data Oral anticoagulant therapeutic ranges: Venous thromboembolism prophylaxis or treatment: 2.0-3.0 CARDIOLOGY Standard range: 2.0-3.0 High-intensity range: 2.5-3.5 Refer to indication-specific guidelines for appropriate target ranges for prosthetic heart valve replacement. Current interpretive data was last revised on 2019. Testing performed by: [address] [address] Blood 10/14/2024 8:45 AM CDT 10/14/2024 8:52 AM CDT us Jesse Beatty MD LAB BLOOD ORDERABLES Katelin l Result Performing Organization Address City/[facility]/ZIP Co de Phone Number [address] [address] * Antibody screen (10/14/2024 8:45 AM CDT) Pathologist [facility] Maria C, indirect, Gel Interpretation Negative [facility] Comment:Testing performed by : [address] [address] Blood 10/14/2024 8:45 AM CDT 10/14/2024 8:52 AM CDT Narrative VENANCIO - 10/14/2024 9:31 AM CDT Has the patient had Daratumumab or Isatuximab in the past 6 months?->Unknown Jesse Beatty MD LAB BLOOD BANK TEST ORDER BHAVANA Final Result Performing Organization Address [facility] de Phone Number [address] [place] [address] * Basic metabolic panel (10/14/2024 8:45 AM CDT) [facility] Sodium 139 135 - 145 mmol/L Comment:Testing performed by : [address] [address] Potassium, pl 4.8 3.3 - 4.9 mmol/L [facility] Comment: Hemolyzed; Potassium value may be falsely elevated by as much as 1.0 mmol/L. Suggest redraw and reanalysis. Testing performed by: [address] [address] Chloride 103 97 - 110 mmol/L [facility] Comment:Testing performed by : [address] [address] CO2 28 22 - 32 mmol/L [facility] Comment:Testing performed by : [address] [address] Anion gap 8 2 - 15 mmol/L [facility] Comment:Testing performed by : [address] [address] BUN 18 6 - 25 mg/dL [facility] Comment:Testing performed by : [address] [address] Creatinine 0.84 0.60 - 1.10 mg/dL [facility] Comment:Testing performed by : [address] [address] Glucose 94 70 - 199 mg/dL VENANCIO [...] classification and Diagnosis of Diabetes Diabetes Care 2021; 46: S19-S40. Current interpretive data was last revised 2022. Testing performed by: [address] [address] Calcium 9.9 8.5 - 10.3 mg/dL [facility] Comment:Testing performed by : [address] [address] Blood 10/14/2024 8:45 AM CDT 10/14/2024 8:52 AM CDT Jesse Beatty MD LAB BLOOD ORDERABLES Katelin l Result Performing Organization Address City/State/[facility] Co de Phone Number [facility] [address] [facility] Department of Laboratories [place], [place] [id number] * ECG 12 lead (10/14/2024 8:24 AM CDT) Pathologist [facility] Ventricular Rate EKG/Min 81 BPM [facility] Atrial Rate 81 BPM [facility] AL-Interval (MSEC) 158 ms [facility] QRS-Interval (MSEC) 120 ms [facility] QT-Interval (MSEC) 384 ms [facility] QTc 446 ms [facility] P [place] 80 degrees [facility] R [place] 6 degrees [facility] T [place] 63 degrees [facility] Diagnosis Normal sinus rhythm Right bundle branch block Abnormal ECG No previous ECGs available Confirmed by JESSE BEATTY M.D. ([id number]) on 10/14/2024 11:09:52 AM [facility] [employer] 10/14/2024 8:24 AM CDT 10/14/2024 11:09 AM CDT us Jesse Beatty MD ECG ORDERABLES Final Res ult Reply.io [employer] [place] * CT Coronary Fractional Flow [place] (09/04/2024 1:14 PM CDT) Anatomical Region Laterality Modality Chest N/A Computed Tomogra phy 09/06/2024 8:5 7 AM CDT Impressions 09/06/2024 7:47 PM CDT ADDENDUM: Coronary CTA Fractional Flow [place] (FFR) The below FFR CT results are [...] agrees with it. Electronically signed by: Hank Pagdett M.D. Narrative Procedure Note Hank Padgett MD PhD - 09/06/2024 IMPRESSION: ADDENDUM: Coronary CTA Fractional Flow [place] (FFR) The below FFR CT results are [...] it. Electronically signed by: Mario Nascimento M.D. Elvia Mauro MD IMG CT PROCEDURES Final Resu lt * (ABNORMAL) POCT creatinine (08/26/2024 2:42 PM CDT) Creatinine POC 1.4(H) 0.6 - 1.1 mg/dL Blood 08/26/2024 2:42 PM CDT 08/26/2024 2:42 PM CDT Elvia Mauro MD LAB POCT ORDERABLES - DEVICE Final Result [facility] Department [place] [address] * Screening Mammogram (08/17/2012 3:04 PM CDT) Anatomical Region Laterality Modality Breast N/A Mammography 08/17/2012 3:04 PM CDT Narrative 09/08/2012 1:48 PM CDT TAYLOR PICKERING M.D. FINAL REPORT ACC# Date Time Exam [id number] Aug 17, 2012 15:04:00 [facility] [id number] Screening Mamm Bilat Technologist(s): Lydia Gutiérrez; ; EXAMINATION: ADDENDUM 09/08/2012 01:48PM ADDENDUM: 09/07/2012 The present examination has been compared to a prior imaging study performed at [facility] on 07/26/2008. Masses in both breasts are benign. Annual screening mammography is recommended. OVERALL FINAL ASSESSMENT: BI-RADS CATEGORY 2: Benign. END OF ADDENDUM Mammogram Findings: A Full-Field Digital Screening Mammogram was performed. Views obtained: bilateral craniocaudal; bilateral mediolateral oblique. Computer Aided Detection was performed with Hickies.3 version 9.3. There are scattered fibroglandular densities. [...] M.D. FINAL REPORT ACC# Date Time Exam [id number] Aug 17, 2012 15:04:00 [facility] [address] Screening Mamm Bilat Technologist(s): Lydia Gutiérrez; ; EXAMINATION: ADDENDUM 09/08/2012 01:48PM ADDENDUM: 09/07/2012 The present examination has been compared to a prior imaging study performed at [facility] on 07/26/2008. Masses in both breasts are benign. Annual screening mammography is recommended. OVERALL FINAL ASSESSMENT: BI-RADS CATEGORY 2: Benign. END OF ADDENDUM Mammogram Findings: A Full-Field Digital Screening Mammogram was performed. Views obtained: bilateral craniocaudal; bilateral mediolateral oblique. Computer Aided Detection was performed with Hickies.3 version 9.3. There are scattered fibroglandular densities. [...] PICKERING M.D. on Sep 08 2012 1:48P Historical Provider MD AUGUSTINE MAMMO PROCEDURES Katelin l Result from Last 3 Months or Most Recently Relevant to Health Maintenance Insurance [facility] MDCR HMO REF [facility] MEDICARE Address: [address] [address] IDPA [facility] MEDICARE ADVANTAGE [facility] MEDICARE ADVANTAGE [facility] MEDIC[facility] Address: [address] [address] [place] [address] Care Teams Pattern Attendant Relationship Specialty Start Date End Date Hari Dowd MD [address] [place] [id number] PCP - General Family Medicine 08/06/21
--- OUTSIDE RECORDS SUMMARY | 2024-10-23 21:58 | XMS_ITS | Data Portability ---
Author Organization [facility]y [facility] Address [address] [place] [address] Care Team Providers Care Trouble Dispatcher Name Role Phone HARI DOWD Primary Care Provider [phone] Assessment Encounter Date Assessment Date Assessment LastModified by Organization Details LastModified Time 09/20/2024 09/20/2024 Labs completed o n 07/26/2024 Sodium 139, Potassium 4.5, Chloride 103, Co2 28, BUN 28, Creatinine 1.27, Glucose 79, Calcium 9.7 Laboratories performed on 07/13/2024 troponin x3 were in the normal range, white blood cell count 7100, hemoglobin 12.0, platelet count 764634, sodium 139, potassium 4.1, chloride 103, bicarb 28, BUN 23, creatinine 0.69, glucose 129, calcium 9.5 Laboratories performed on 05/29/24. D-dimer 0.49, troponin I< 0.012, sodium 138, potassium 3.9, chloride 106, carbon dioxide 31, BUN 15, creatinine 0.60, EGFR> 60, glucose 125, calcium 9.5, bilirubin 0.5, AST 24, ALT 14, protein 7.0, albumin 3.9, alkaline phosphate 70, WBC 5.1, hemoglobin 12.1, hematocrit 30 8.7, platelets 262, BNP 826. ECG performed on 09/20/2024 shows normal sinus rhythm with a rate 82 beats per minute, incomplete right bundle-branch block, left atrial enlargement, old inferior infarction, compared to the previous EKG done 07/26/2023, PACs are no longer seen. ASSESSMENT Coronary artery disease with multivessel calcified atherosclerotic disease with at least moderate disease in the proximal right coronary artery and LAD with a positive CTA FFR in the right coronary artery Chest pain Abnormal EKG with right bundle-branch block and old inferior infarction with biatrial enlargement Chronic congestive heart failure with reduced ejection fraction Mitral regurgitation, mild Cardiomyopathy with ejection fraction of 40 to 45% by echocardiogram done on 07/14/2024 Essential hypertension-contr olled Hyperlipidemia on atorvastatin COPD Obesity Obstructive sleep apnea PLAN: I asked her to follow a low-sodium low-fat low-cholesterol diet. In light of her cardiomyopathy, history of chest pain and the positive cardiac CTA with CTA FFR being positive I would recommend she undergo cardiac catheterization and possible PCI. I did discuss with the risks, benefits alternatives of procedure with risks including but not limited to bleeding, infection, stroke, myocardial infarction, contrast allergy, hemodialysis, emergent surgery and even . She understood these risks and agreed to proceed. I asked her to continue on aspirin 81 mg daily, atorvastatin 40 mg daily, furosemide 40 mg daily, Jardiance 10 mg daily, losartan 100 mg daily, metoprolol succinate 50 mg daily and spironolactone 25 mg daily. I will add Imdur 30 mg p.o. q.a.m.. I will obtain a fasting lipid profile and a complete metabolic profile today. I will have her return in 4 weeks' time for re-evaluation. I asked her to return sooner if she has any cardiac issues or problems. I told her if she has any shortness of breath or any chest pain to call 911 and go to the ER. CARDIAC TESTING ECHOCARDIOGRAM 07/14/2024: Technically difficult study with limited views. Left ventricular chamber dimension is normal. Left ventricular systolic function is mildly reduced, estimated at 40-45%. There is mildly increased left ventricular wall thickness. The left ventricular diastolic function is grade 1 diastolic dysfunction. Right ventricular systolic function is normal. Left atrial chamber dimension is mildly enlarged. There is mild mitral valve regurgitation. ECHOCARDIOGRAM 09/06/2022: Normal sinus rhythm. The resting EKG shows right bundle branch block. Normal regadenoson ECG with no ischemic ST or T changes, following vasodilators stress. Left ventricle ejection fraction is 59% TID:0.86. Normal myocardial perfusion imaging with no evidence of ischemia or scar. CTA 08/26/2024: Evaluation is mildly limited secondary to motion artifact. Multivessel calcified atherosclerosis resulting in up to moderate stenosis of the proximal right and left anterior descending coronary arteries. There is an area of focal outpouching of the mid left anterior descending coronary artery, which may represent an area of positive remodeling versus artifact. Calculated calcium score of 1027.4. There is an acute FFR across a atherosclerotic plaque in the vertical segment of the right coronary artery with a delta FFR greater than 0.10. The FFR volume distal to the lesion is 0.53. There are diminished FFR values in the distal left circumflex, diagonal, and left anterior descending arteries which are not associated with the definitive plaque. The maximum anatomical stenosis is located in the mid right coronary artery with lesion specific abnormal FFR CT of 0.53. There is an acute FFR change across the lesion. CTA 02/07/2024: No evidence of pulmonary embolism to the proximal segmental level. Scattered linear opacities in the lung bases may reflect atelectasis and/or scarring. US VEIN DUPLEX 07/13/2024: No deep venous thrombosis in either lower limb. Not available 09/20/2024 12:24:20 Plan of Treatment Reminders Order Date Submit Date Provider Last Modified By Organization Details Last Modified Time Details Appointments ANY 15 2024 10:30A Vicki Mauro MD Not available Not available Not available ANY 15 2024 09:00A Vicki Dowd MD Not available Not available Not available Lab urinalys is, dipstick 2024 025 In-Office Order, Internal Use Only DO Not Attach Compendium DO Not Attach Compendium, Do Not Delete/merge, [id number] 09/27/2024 11:02:43 HbA1c (hemoglo bin A1c), blood 2024 025 In-Office Order, Internal Use Only DO Not Attach Compendium DO Not Attach Compendium, Do Not Delete/merge, [id number] 09/27/2024 11:07:24 lipid panel, serum 2024 [facility]25 [email or web address] (Lab), [address] [place], [address], 10/11/2024 12:03:36 CMP, serum or plasma 2024 [facility]25 [facility] [address] [place], [address], 10/11/2024 12:03:36 Referral None recorded . Procedures None recorded . Surgeries cardiac catheter ization (SURG) 2024 025 whit [facility] Patient Access Centralized Scheduling, Centralized Scheduling, [address] [facility] , [place], [address], 09/23/2024 10:14:37 Imaging electroc ardiogra m 2024 025 [email or web address] In-Office Order, Internal Use Only DO Not Attach Compendium DO Not Attach Compendium, Do Not Delete/merge, [id number] 09/20/2024 12:23:51 unlisted imaging order - Z-split study -w/CPAP 2024 [facility] (Rad), [address] [place], [address], 08/18/2024 04:31:38 PFT, complete 2024 025 [facility] (Rad), [address] [place], [address], 08/18/2024 04:31:38 Medication Orders hydrocod one 7.5 mg-aceta minophen 325 mg tablet 2024 025 [facility][id number], [address], [place], [id number], 09/27/2024 11:08:02 sulfamet hoxazole 800 mg-trime thoprim 160 mg tablet 2024 025 [facility][id number], [address], [place], [id number], 09/27/2024 11:07:44 isosorbi de mononitr ate ER 30 mg tablet,e xtended release 24 hr 2024 025 [id number], [address], [place], [id number], 09/20/2024 12:24:01 omeprazo le 40 mg capsule, delayed release 2024 [facility] #[id number], [address], [place], [id number], 08/06/2024 12:29:27 Patient TargetsNo targets recorded. Patient Instructions Encounter Date Encounter Id Patient Instructions Last Modified By Organization Details Last Modified Time 08/06/2024 [id number] A healthy lifest yle: care instructions Not available 08/06/2024 12:29:13 gastroesophageal reflux disease (GERD): care instructions Not available 08/06/2024 12:29:13 chronic obstruct sharath pulmonary disease (COPD): care instructions Not available 08/06/2024 12:29:13 learning about c opd and how to prevent lung infections Not available 08/06/2024 12:29:13 high cholesterol : care instructions Not available 08/06/2024 12:29:14 learning about h igh blood pressure Not available 08/06/2024 12:29:13 heart failure: c are instructions Not available 08/06/2024 12:29:13 learning about h eart failure Not available 08/06/2024 12:29:13 09/20/2024 [id number] A healthy lifest yle: care instructions Not available 09/20/2024 12:23:52 09/27/2024 [id number] A healthy lifest yle: care instructions Not available 09/27/2024 11:02:41 advance care planning: care instructions Not available 09/27/2024 11:02:41 preventing falls : care instructions Not available 09/27/2024 11:02:41 Quitting Tobacco : Care Instructions Not available 09/27/2024 11:02:41 [facility] Not available 09/27/2024 11:02:41 eating healthy foods: care instructions Not available 09/27/2024 11:02:41 AD8 Dementia Screening Interview Not available 09/27/2024 11:02:41 chronic obstruct sharath pulmonary disease (COPD): care instructions Not available 09/27/2024 11:02:42 sleep apnea: car e instructions Not available 09/27/2024 11:02:42 neuropathic pain : care instructions Not available 09/27/2024 11:02:42 Reason for Referral None Reported. Results Created Date Observation Date Name Description Value Unit Range Abnormal Flag Note LastModifiedBy Organization Detail LastModifiedTime 07/26/1907/26/2024 BASIC METAB OLIC PANEL sodium 139 mmol/ L 134-14 4 normal Not Available [facility] (Lab) [address] [place], [address], 07/26/2024 21:01:22 07/26/19 25 07/26/2024 BASIC METAB OLIC PANEL potassium 4.5 mmol/ L 3.5-5. 2 normal Not Available [facility]) [address] [facility], [place], [address], 07/26/2024 21:01:22 07/26/19 25 07/26/2024 BASIC METAB OLIC PANEL chloride 103 mmol/ L 96-106 normal Not Available [facility] (Lab) [address] [place], [address], 07/26/2024 21:01:22 07/26/19 25 07/26/2024 BASIC METAB OLIC PANEL carbon dioxide 28 mmol/ L 20-29 normal Not Available [facility] ([facility]) [address] [facility], [place], [address], 07/26/2024 21:01:22 07/26/19 25 07/26/2024 BASIC METAB OLIC PANEL anion gap 13.0 mmol/ L Not Available [facility] ([facility]) [address] [place], [address], 07/26/2024 21:01:22 07/26/19 25 07/26/2024 BASIC METAB OLIC PANEL blood urea nitrogen 28 mg/dL 8-27 high Not Available [facility] [address], [place], [address], 07/26/2024 21:01:22 07/26/19 25 07/26/2024 BASIC METAB OLIC PANEL creatinine 1.27 mg/dL 0.76-1 .27 normal Not Available [facility] (Lab) [address], [place], [address], 07/26/2024 21:01:22 07/26/19 25 07/26/2024 BASIC METAB OLIC PANEL glomerular filtration rate 46 mL/mi n/1 Not Available [facility] (Lab) [address], [place], [address], 07/26/2024 21:01:22 07/26/19 25 07/26/2024 BASIC METAB OLIC PANEL BUN creatinine ratio 22 10-28 normal Not Available [facility] [address], [place], [address], 07/26/2024 21:01:22 07/26/19 25 07/26/2024 BASIC METAB OLIC PANEL glucose 79 mg/dL 70-99 normal Not Available [facility] (Lab) [address], [place], [address], 07/26/2024 21:01:22 07/26/19 25 07/26/2024 BASIC METAB OLIC PANEL osmolality calculated 282 280-30 1 normal Not Available [facility] ([facility] [address], [place], [address], 07/26/2024 21:01:22 07/26/19 25 07/26/2024 BASIC METAB OLIC PANEL calcium 9.7 mg/dL 8.7-10 .3 normal Not Available [facility] ([facility]) [address] [place], [address], 07/26/2024 21:01:22 04/28/20 25 09/27/2024 HbA1c (hemo globi n A1c), blood HbA1c 5.5 Not Available In-Office Order Internal Use Only DO Not Attach Compendium DO Not Attach Compendium, Do Not Delete/merge, 09/27/2024 10:48:13 09/28/19 25 09/27/2024 urina lysis , dipst ick Leukocytes Negati ve Not Available In-Office Order Internal Use Only DO Not Attach Compendium DO Not Attach Compendium, Do Not Delete/merge, 09/27/2024 10:32:30 09/28/19 25 09/27/2024 urina lysis , dipst ick Nitrite negati ve Not Available In-Office Order Internal Use Only DO Not Attach Compendium DO Not Attach Compendium, Do Not Delete/merge, 09/27/2024 10:32:30 09/28/19 25 09/27/2024 urina lysis , dipst ick Urobilinogen .2 Not Available In-Of fice Order Internal Use Only DO Not Attach Compendium DO Not Attach Compendium, Do Not Delete/merge, 09/27/2024 10:32:30 09/28/1909/27/2024 urina lysis , dipst ick Protein Negati ve Not Available In-Office Order Internal Use Only DO Not Attach Compendium DO Not Attach Compendium, Do Not Delete/merge, 09/27/2024 10:32:30 09/28/1909/27/2024 urina lysis , dipst ick pH 7.0 Not Available In-Office Order Internal Use Only DO Not Attach Compendium DO Not Attach Compendium, Do Not Delete/merge, 09/27/2024 10:32:30 09/28/19 25 09/27/2024 urina lysis , dipst ick Blood Non-He molyze d: Trace Not Available In-Office Order Internal Use Only DO Not Attach Compendium DO Not Attach Compendium, Do Not Delete/merge, 09/27/2024 10:32:30 09/28/19 25 09/27/2024 urina lysis , dipst ick Specific Mobile 1.015 Not Available In-Off ice Order Internal Use Only DO Not Attach Compendium DO Not Attach Compendium, Do Not Delete/merge, 09/27/2024 10:32:30 09/28/19 25 09/27/2024 urina lysis , dipst ick Ketone Negati ve Not Available In-Office Order Internal Use Only DO Not Attach Compendium DO Not Attach Compendium, Do Not Delete/merge, 09/27/2024 10:32:30 09/28/19 25 09/27/2024 urina lysis , dipst ick Bilirubin Negati ve Not Available In-Office Order Internal Use Only DO Not Attach Compendium DO Not Attach Compendium, Do Not Delete/merge, 09/27/2024 10:32:30 09/28/19 25 09/27/2024 urina lysis , dipst ick Glucose 1000 Not Available In-Office Order Internal Use Only DO Not Attach Compendium DO Not Attach Compendium, Do Not Delete/merge, 09/27/2024 10:32:30 09/28/19 25 09/27/2024 urina lysis , dipst ick Appearance Clear Not Available In-Offi ce Order Internal Use Only DO Not Attach Compendium DO Not Attach Compendium, Do Not Delete/merge, 09/27/2024 10:32:30 09/28/19 25 09/27/2024 urina lysis , dipst ick Color Yellow Not Available In-Office Order Internal Use Only DO Not Attach Compendium DO Not Attach Compendium, Do Not Delete/merge, 09/27/2024 10:32:30 07/13/19 25 07/13/2024 US, doppl er, venou s No observ ation record ed. [place] [address], [place], [address], 07/15/2024 13:28:02 07/13/19 25 07/13/2024 CT, angio gram, chest + abdom en + pelvi s, w/wo contr ast No observ ation record ed. [place] [id number], [place], [address], 07/15/2024 13:30:01 07/14/19 25 07/14/2024 XR, chest , 2 view No observ ation record ed. [place] [id number] [facility] [address], [place], [address], 07/15/2024 13:30:39 07/14/19 25 07/14/2024 US, doppl er echoc ardio gram No observ ation record ed. [facility] [address] [facility] [address], [place], [address], 07/15/2024 13:31:30 07/26/19 25 07/26/2024 elect rocar diogr am No observ ation record ed. [email or web address] In-Office Order Internal Use Only DO Not Attach Compendium DO Not Attach Compendium, Do Not Delete/merge, [id number] 07/26/2024 13:04:08 07/26/19 elect rocar diogr am No observ ation record ed. [email or web address] Not Available 07/26 12:28:54 08/21/19 25 08/17/2024 polys omnog isabel, split night No observ ation record ed. [address] [facility] [address] [place], [address], 09/27/2024 11:01:13 08/30/19 25 08/26/2024 CT, angio gram, coron danny arter ies with fract ional flow reser ve No observ ation record ed. [address] [facility] [address] [facility], [place], [address], 09/27/2024 11:01:13 09/07/19 25 09/04/2024 CT, angio gram, coron danny arter ies with fract ional flow reser ve No observ ation record ed. [address] [facility] [address] [facility], [place], [address], 09/27/2024 11:01:12 09/16/19 25 09/04/2024 fract ional flow reser ve (ffr) (PROC ) No observ ation record ed. [facility] [address] [facility], [place], [address], 09/27/2024 11:01:12 09/21/19 25 09/20/2024 elect rocar diogr am No observ ation record ed. In-Office Order Internal Use Only DO Not Attach Compendium DO Not Attach Compendium, Do Not Delete/merge, [id number] 09/27/2024 11:01:12 09/21/19 elect rocar diogr am No observ ation record ed. Not Available 2024 11:01:12 10/20/19 25 08/17/2024 polys omnog isabel, split night No observ ation record ed. [facility] Not Available 2024 16:39:44 Result Notes None recorded. Problems Name Problem SNOMED Code Status Onset Date Resolution Date Notes Provider Name and Address Organization Details Recorded Time Chronic rhinitis 00181281 Active 2021 La Vir[place], [place] [facility] 14:28:48 Localized swelling, mass and lump, lower limb Active La Vir[place] [facility] 14:26:37 Gastroesop hageal reflux disease 122130369 Active La Vir[place] [facility] 14:28:48 Allergic rhinitis 96887587 Active La Vir[place] [facility] 14:28:48 Dermatitis Active La Vir[place] [facility] 14:28:48 Hyperlipid emia 12850282 Active 2024 Elvia Mauro MD Attn: Accounting, [address] [place], [address], [place] [facility] 12:29:58 Non-rheuma tic mitral regurgitat ion 096885907 Active 2024 Elvia Mauro MD Attn: Accounting, [address] [facility], [place], [address], [place] [facility] 12:29:59 Heart failure with reduced ejection fraction 674397374 Active 2024 Elvia Mauro MD Attn: Accounting, [address] [facility], [place], [address], [place] [facility] 12:30:00 History of cardiomyop athy 751405156866 104 Active 2024 Elvia Mauro MD Attn: Accounting, [address] [facility], [place], [address], [place] [facility] 12:30:01 Chest pain 26399594 Active 2024 Elvia Mauro MD Attn: Accounting, [address] [facility], [place], [address], [place] [facility] 12:30:05 Electrocar diogram abnormal 509429132 Active 2024 Elvia Mauro MD Attn: Accounting, [address] [facility], [place], [address], [place] [facility] 12:33:11 Long-term current use of diuretic 656523627440 80983 Active 2024 Elvia Mauro MD Attn: Accounting, [address] [place], [address], [place] [facility] 12:35:38 Coronary atheroscle rosis 629484664 Active 2024 Elvia Mauro MD Attn: Accounting, [address] [facility], [place], [address], [place] [facility] 12:20:30 Menopause present 044851413 Active La Vir[place] [facility] 14:28:48 Numbness of hand 107150063 Active La Vir[place] [facility] 14:28:48 Carpal tunnel syndrome 47080247 Active MEIR [place] [facility] 14:28:48 Spinal enthesopat hy 75923951 Active ME[place] [facility] 14:28:48 Osteoarthr itis 897167452 Active ME[place] [facility] 14:28:48 Chronic obstructiv e pulmonary disease 37792049 [place] [facility] 14:28:48 Obesity 439816495 Active [place] [facility] 14:28:48 Essential hypertensi on 95185425 Active MEIR [place] [facility] 14:28:48 Notes:Some problems listed i n Documents: #[id number], #[id number], #[id number], #[id number], #[id number], #[id number], #[id number], #[id number], #[id number], #[id number] could not be added to this patient's chart. Please review these documents and add these problems to the patient's chart manually as needed. Problem Notes None recorded. Procedures Surgical History Date Name Laterality Status Provider Name and Address Organization Details Recorded Time 2 Tubal Ligation completed Kristi Arenas MA [facility] 11/28/2014 10:25:14 1 Caesarean Section completed Kristi Arenas [place] [facility] 11/28/2014 10:25:14 Imaging Results Imaging Date Name Status LastModified by Organization Details LastModified Time 07/13/2024 US, doppler, venous completed [address] [place] [address], [address], 07/15/2024 13:28:02 07/13/2024 CT, angiogram, chest + abdomen + pelvis, w/wo contrast completed [address], [address], 07/15/2024 13:30:01 07/14/2024 XR, chest, 2 view completed [address], [place], [address], 07/15/2024 13:30:39 07/14/2024 US, doppler echocardiogram completed [address], [place], [address], 07/15/2024 13:31:30 07/26/2024 electrocardiogram completed [email or web address] In-Offi ce Order Internal Use Only DO Not Attach Compendium DO Not Attach Compendium, Do Not Delete/merge, [id number] 07/26/2024 13:04:08 07/26/2024 electrocardiogram completed [email or web address] Informa tion not available 07/26/2024 12:28:54 08/17/2024 polysomnogram, split night completed [address] [facility] [address] [place], [address], 09/27/2024 11:01:13 08/26/2024 CT, angiogram, coronary arteries with fractional flow reserve completed [address] [facility] [place] [address], [address], 09/27/2024 11:01:13 09/04/2024 CT, angiogram, coronary arteries with fractional flow reserve completed [address] [facility] [facility] [place], [address], 09/27/2024 11:01:12 09/04/2024 fractional flow reserve (ffr) (PROC) completed [address] [facility], [place], [address], 09/27/2024 11:01:12 09/20/2024 electrocardiogram completed [place] [id number] In-Offi ce Order Internal Use Only DO Not Attach Compendium DO Not Attach Compendium, Do Not Delete/merge, [id number] 09/27/2024 11:01:12 09/20/2024 electrocardiogram completed Informa tion not available 09/27/2024 11:01:12 08/17/2024 polysomnogram, split night completed [facility] Information not available 10/19/2024 16:39:44 Procedure Notes None recorded. Medical Equipment None Reported. Allergies No known drug allergies Medications Name Sig Start Date Stop Date Status Note LastModified by Organization Details LastModified Time Prescripti on - Prior Authorizat ion Request 08/21 completed Not Available Not Available Not Available losartan 50 mg tablet TAKE 2 TABLETS BY MOUTH DAILY 07/26 completed Not Available Not Available Not Available cyclobenza safia 10 mg tablet Take 1 tablet twice a day by oral route for 30 days. 2024 active NEEDED Not Available Not Available Not Available amoxicilli n 500 mg capsule Take 1 capsule every 12 hours by oral route. 10/09 completed Not Available Not Available Not Available furosemide 40 mg tablet TAKE 1 TABLET BY MOUTH EVERY DAY active Not Available Not Available No t Available atorvastat in 40 mg tablet Take 1 tablet every day by oral route for 90 days. 2024 active Not Available Not Available Not Avai lable Qvar 80 mcg/actuat ion Metered Aerosol oral inhaler INHALE TWO PUFFS BY MOUTH TWICE DAILY 08/21 completed Not Available Not Available Not Available albuterol sulfate 0.63 mg/3 mL solution for nebulizati on Inhale 3 mL by inhalati on route for 90 days. 08/21 completed Not Available Not Available Not Available prednisone 10 mg tablet TAKE 1 TABLET BY MOUTH 3 TIMES A DAY FOR 3 DAYS, THEN TAKE 1 TABLET BY MOUTH 2 TIMES A DAY FOR 2 DAYS, THEN TAKE 1 TABLET BY MOUTH ONCE FOR 1 DAY 07/26 completed Not Available Not Available Not Available doxycyclin e hyclate 100 mg capsule TAKE 1 CAPSULE BY MOUTH ONCE DAILY 07/26 completed Not Available Not Available Not Available atorvastat in 20 mg tablet TAKE 2 TABLETS BY MOUTH DAILY 07/26 completed Not Available Not Available Not Available clindamyci n HCl 300 mg capsule TAKE 1 CAPSULE BY MOUTH EVERY 6 HOURS FOR 10 DAYS 08/02 completed Not Available Not Available Not Available albuterol sulfate 2.5 mg/3 mL (0.083 %) solution for nebulizati on USE ONE VIAL VIA NEBULIZE R THREE TIMES DAILY 07/26 completed Not Available Not Available Not Available triamcinol one acetonide 0.5 % topical cream APPLY A THIN LAYER TO THE AFFECTED AREA TWICE DAILY 03/02 completed Not Available Not Available Not Available cetirizine 10 mg tablet Take 1 tablet every day by oral route for 90 days. 07/26 completed Not Available Not Available Not Available azithromyc in 250 mg tablet 1 TABLET BY MOUTH ONCE A DAY FOR OTHER - SEE COMMENTS FOR COPD EXACERBA TION 07/28 completed Not Available Not Available Not Available ibuprofen 800 mg tablet TAKE 1 TABLET BY MOUTH THREE TIMES DAILY NEEDED 07/26 completed Not Available Not Available Not Available metoprolol succinate ER 50 mg tablet,ext ended release 24 hr TAKE 1 TABLET BY MOUTH EVERY DAY active Not Available Not Available No t Available hydrocodon e 5 mg-acetami nophen 325 mg tablet Take 1 tablet every 6 hours by oral route. 09/20 completed Not Available Not Available Not Available Isovue-370 76 % intravenou s solution 100 mL by intraven . route. 06/13 completed Not Available Not Available Not Available meloxicam 15 mg tablet TAKE 1 TABLET BY MOUTH EVERY DAY 03/02 completed Not Available Not Available Not Available ondansetro n HCl 4 mg tablet TAKE 1 TABLET BY MOUTH EVERY 8 HOURS NEEDED FOR NAUSEA AND VOMITING 03/02 completed Not Available Not Available Not Available prednisone 20 mg tablet TAKE 2 TABLETS BY MOUTH DAILY 07/26 completed Not Available Not Available Not Available isosorbide mononitrat e ER 30 mg tablet,ext ended release 24 hr TAKE 1 TABLET BY MOUTH EVERY DAY IN THE MORNING active Not Available Not Available No t Available promethazi ne 6.25 mg-codeine 10 mg/5 mL syrup Take 5 mL 3 times a day by oral route as needed for 10 days. 08/21 completed Not Available Not Available Not Available metronidaz ole 500 mg tablet 500 mg by oral route. 06/13 completed Not Available Not Available Not Available amlodipine 5 mg tablet TAKE 1 TABLET BY MOUTH EVERY DAY active Not Available Not Available No t Available ciprofloxa isaias 500 mg tablet 08/21 completed Not Available Not Available Not Available sulfametho xazole 800 mg-trimeth oprim 160 mg tablet TAKE 1 TABLET BY MOUTH EVERY 12 HOURS FOR 7 DAYS active Not Available Not Available No t Available hydrocodon e 10 mg-acetami nophen 325 mg tablet TAKE 1 TABLET BY MOUTH TWICE DAILY 03/02 completed Not Available Not Available Not Available peg-electr olyte solution 420 gram oral solution MIX AND DRINK 1/2 AT 5PM ON 11/24 AND 1/2 AT 5AM ON 11/25 completed Not Available Not Available Not Available omeprazole 40 mg capsule,de layed release TAKE 1 CAPSULE BY MOUTH EVERY DAY active Not Available Not Available No t Available tramadol 50 mg tablet TAKE ONE TABLET BY MOUTH EVERY 12 HOURS FOR 30 DAYS 03/02 completed Not Available Not Available Not Available meloxicam 7.5 mg tablet 08/21 completed Not Available Not Available Not Available losartan 100 mg-hydroch lorothiazi de 25 mg tablet TAKE ONE TABLET BY MOUTH ONCE DAILY 03/02 completed Not Available Not Available Not Available terbinafin e HCl 250 mg tablet TAKE 1 TABLET BY MOUTH EVERY MORNING 08/02 completed Not Available Not Available Not Available amoxicilli n 875 mg tablet Take 1 tablet every 12 hours by oral route for 10 days. 10/09 completed Not Available Not Available Not Available Protonix 40 mg intravenou s solution 40 mg by intraven . route. 06/13 completed Not Available Not Available Not Available Aldactone 25 mg tablet Take 1 tablet every day by oral route. 2024 active Not Available Not Available Not Avai lable aspirin 325 mg tablet,del ayed release TAKE 1 TABLET BY MOUTH EVERY MORNING 03/02 completed Not Available Not Available Not Available benzonatat e 100 mg capsule TAKE 1 CAPSULE BY MOUTH THREE TIMES DAILY NEEDED FOR COUGH. DO NOT CHEW. SWALLOW WHOLE active Not Available Not Available No t Available hydrocodon e 7.5 mg-acetami nophen 325 mg tablet TAKE 1 TABLET BY MOUTH TWICE DAILY active Not Available Not Available No t Available cephalexin 500 mg capsule TAKE 1 CAPSULE BY MOUTH EVERY 6 HOURS FOR 7 DAYS 08/02 completed Not Available Not Available Not Available pantoprazo le 40 mg tablet,del ayed release TAKE 1 TABLET BY MOUTH EVERY 24 HOURS 07/26 completed Not Available Not Available Not Available ranitidine 150 mg tablet Take 1 tablet twice a day by oral route as directed for 90 days. 05/05 completed Not Available Not Available Not Available nitroglyce rin 0.4 mg sublingual tablet DISSOLVE ONE TABLET UNDER TONGUE NEEDED FOR CHEST PAIN EVERY 5 MINUTES FOR UP TO 3 DOSES 07/26 completed Not Available Not Available Not Available betamethas one dipropiona te 0.05 % topical cream APPLY A THIN LAYER TO THE AFFECTED AREA TOPICALL Y ONCE DAILY 07/26 completed Not Available Not Available Not Available omeprazole 20 mg capsule,de layed release Take 1 capsule every day by oral route for 30 days. 03/02 completed Not Available Not Available Not Available montelukas t 10 mg tablet TAKE 1 TABLET BY MOUTH ONCE DAILY 07/26 completed Not Available Not Available Not Available bisacodyl 5 mg tablet,del ayed release TAKE ALL 6 TABLETS BY MOUTH AT 8AM ON 11/24 completed Not Available Not Available Not Available hydrochlor othiazide 25 mg tablet TAKE 1 TABLET BY MOUTH EVERY DAY 03/02 completed Not Available Not Available Not Available furosemide 20 mg tablet TAKE 1 TABLET BY MOUTH DAILY 07/26 completed Not Available Not Available Not Available sodium chloride 0.9 % intravenou s solution 50 mL by intraven . route. 06/13 completed Not Available Not Available Not Available azelastine 137 mcg (0.1 %) nasal spray INSTILL TWO SPRAYS IN EACH NOSTRIL ONCE DAILY 07/26 completed Not Available Not Available Not Available Pepcid 20 mg tablet Take 1 tablet twice a day by oral route for 90 days. 03/02 completed Not Available Not Available Not Available levofloxac in 500 mg tablet 07/26 completed Not Available Not Available Not Available Robafen 100 mg/5 mL oral liquid Take 10 mL every 4 hours by oral route for 30 days. 10/09 completed Not Available Not Available Not Available levofloxac in 750 mg tablet TAKE 1 TABLET BY MOUTH ONCE DAILY 10/09 completed Not Available Not Available Not Available methylpred nisolone 4 mg tablets in a dose pack FOLLOW PACKAGE DIRECTIO NS 07/26 completed Not Available Not Available Not Available albuterol sulfate HFA 90 mcg/actuat ion aerosol inhaler INHALE 2 PUFFS BY MOUTH EVERY 4 HOURS 07/26 completed Not Available Not Available Not Available oxybutynin chloride 5 mg tablet TAKE 1 TABLET BY MOUTH THREE TIMES DAILY FOR 7 DAYS 10/09 completed Not Available Not Available Not Available ondansetro n 4 mg disintegra ting tablet 03/02 completed Not Available Not Available Not Available cefdinir 300 mg capsule Take 1 capsule every 12 hours by oral route. 03/02 completed Not Available Not Available Not Available losartan 100 mg tablet Take 1 tablet by mouth once daily for 90 days 2024 active Not Available Not Available Not Avai lable fluticason e propionate 50 mcg/actuat ion nasal spray,susp ension USE TWO SPRAY(S) IN EACH NOSTRIL ONCE DAILY 07/26 completed Not Available Not Available Not Available loratadine 10 mg tablet TAKE 1 CAPSULE BY MOUTH AT BEDTIME 03/02 completed Not Available Not Available Not Available naproxen 500 mg tablet TAKE 1 TABLET BY MOUTH WITH FOOD TWICE DAILY 07/26 completed Not Available Not Available Not Available Klor-Con M20 mEq tablet,ext ended release 20 milliequ ivalents by oral route. 06/13 completed Not Available Not Available Not Available Spiriva with HandiHaler 18 mcg and inhalation capsules Inhale 1 capsule every day by inhalati on route as directed for 90 days. 08/21 completed Not Available Not Available Not Available nitrofuran toin monohydrat e/macrocry stals 100 mg capsule TAKE 1 CAPSULE BY [...] completed Not Available Not Available Not Available ondansetro n HCl (PF) 4 mg/2 mL injection solution 4 mg by injectio n route. 06/13 completed Not Available Not Available Not Available budesonide -formotero l HFA 160 mcg-4.5 mcg/actuat ion aerosol inhaler Inhale 2 puffs twice a day by inhalati on route for 90 days. 07/26 completed Not Available Not Available Not Available diclofenac 1 % topical gel APPLY 2 GRAMS TO THE AFFECTED AREA FOUR TIMES DAILY 07/26 completed Not Available Not Available Not Available Flovent Diskus 100 mcg/actuat ion powder for inhalation Inhale 1 puff twice a day by inhalati on route. 08/21 completed Not Available Not Available Not Available Astepro 205.5 mcg (0.15 %) nasal spray Dewitt 1 spray twice a day by intranas al route for 30 days. 08/02 completed Not Available Not Available Not Available mometasone -formotero l HFA 200 mcg-5 mcg/actuat ion aerosol inhaler Inhale 2 puffs twice a day by inhalati on route for 90 days. active Not Available [...] MOUTH EVERY 12 HOURS FOR 7 DAYS 07/26 completed Not Available Not Available Not Available Jardiance 10 mg tablet TAKE 1 TABLET BY MOUTH EVERY DAY active Not Available Not Available No t Available ipratropiu m 20 mcg-albute rol 100 mcg/actuat ion mist for inhalation Inhale 1 puff 4 times a day by inhalati on route as needed. active Not Available Not Available No t Available Incruse Ellipta 62.5 mcg/actuat ion powder for inhalation Inhale 1 puff every day by inhalati on route for 90 days. 10/03/ 2022 10/01 /2024 completed Not Available Not Available Not Available ProAir RespiClick 90 mcg/actuat ion breath activated Inhale 2 puffs every 4 hours by inhalati on route for 30 days. 03/02 completed Not Available Not Available Not Available Robitussin Cough-Ches t Congestion DM 5 mg-100 mg/5 mL oral liquid Take 10 mL 4 times a day by oral route for 7 days. 03/02 completed Not Available Not Available Not Available Trelegy Ellipta 100 mcg-62.5 mcg-25 mcg powder for inhalation Inhale 1 puff every day by inhalati on route for 90 days. 03/02 completed Not Available Not Available Not Available Robitussin Cough-Ches t Congestion DM 5 mg-50 mg/5 mL oral liquid 08/02 completed Not Available Not Available Not Available Proair Digihaler 90 mcg/actuat ion aerosol powder breath act, sensor Inhale 2 puffs every 4 hours by inhalati on route for 90 days. 03/02 completed Not Available Not Available Not Available Afluria Qd 2019- (36 mos up)(PF)60 mcg (15 mcg x4)/0.5 mL IM syringe ADM 0.5ML IM UTD 10/09 completed Not Available Not Available Not Available Breztri Aerosphere 160 mcg-9mcg-4 .8mcg/actu ation HFA aerosol inhaler Inhale 2 puffs twice a day by inhalati on route for 90 days. 07/26 completed Not Available Not Available Not Available aspirin 81 mg capsule Take 1 capsule every day by oral route. active Not Available Not Available No t Available Paxlovid 300 mg (150 mg x 2)-100 mg tablets in a dose pack TAKE 2 TABS (300 MG) OF THE NIRMATRE LVIR AND 1 TAB OF RITONAVI R BY MOUTH TWICE DAILY FOR 5 DAYS 03/02 completed Not Available Not Available Not Available Vitals Date Recorded Body height Body mass index (BMI) Body weight Body temperature Respiratory rate Oxygen saturation Oxygen saturation in Arterial blood by Pulse oximetry Heart rate Systolic blood pressure Diastolic blood pressure Provider Name and Address Organization Details Last Updated DateTime 5 157.48 cm 34.4 kg/m2 23943.3 7 g 97.1 [degF] 18 /min 94 % 94 % 92 /min 130 mm[Hg] 68 mm[Hg] Megha Dumont LPN [facility] 5 12:09:57 Date Recorded Body height Body temperature Body mass index (BMI) Body weight Oxygen saturation Oxygen saturation in Arterial blood by Pulse oximetry Heart rate Respiratory rate Systolic blood pressure Diastolic blood pressure Provider Name and Address Organization Details Last Updated DateTime 5 157.48 cm 97.2 [degF] 35.2 kg/m2 55457.1 4 g 95 % 95 % 91 /min 18 /min 143 mm[Hg] 74 mm[Hg] Kristin Virgen MA [facility] 5 11:46:39 Date Recorded Body height Provider Name an d Address Organization Details Last Updated DateTime 09/20/2024 157.48 cm Bruce Bowen MA [facility] 2024 11:22:40 Date Recorded Body mass index (BMI) Body weight Heart rate Oxygen saturation Oxygen saturation in Arterial blood by Pulse oximetry Systolic blood pressure Diastolic blood pressure Provider Name and Address Organization Details Last Updated DateTime 5 36.5 kg/m2 25527.0 4 g 76 /min 96 % 96 % 112 mm[Hg] 72 mm[Hg] Helen Vang MA [facility] 5 11:33:37 Date Recorded Body height Body mass index (BMI) Body weight Oxygen saturation Oxygen saturation in Arterial blood by Pulse oximetry Heart rate Respiratory rate Body temperature Systolic blood pressure Diastolic blood pressure Provider Name and Address Organization Details Last Updated DateTime 5 157.48 cm 36.8 kg/m2 05906.0 7 g 97 % 97 % 91 /min 18 /min 98.6 [degF] 111 mm[Hg] 71 mm[Hg] Kristin Virgen MA [facility] 5 10:29:48 Social History Question Answer Notes LastModified by Organizat ion Details LastModified Time Tobacco Smoking Status Never Smoker Denise Arevalo MA null, [facility] 06/16/2014 11:45:42 Do You Have An Advance Directive? No Information n ot available 11/28/2014 What Is Your Level Of Caffeine Consumption? Occasional [email or web address] Information not available 06/16/2014 How Much Tobacco Do You Chew? None [email or web address] Information not available 11/28/2014 In The 14 [...] Type Of Diet Are You Following? REGULAR [email or web address] Information n ot available 11/28/2014 Education 12 Information no t available 11/28/2014 Are There Any Guns Present In Your Home? No [email or web address] Information not available 11/28/2014 Hard Of Hearing Or Deaf In One Or Both Ears? No Information not available 11/28/2014 Legally Blind In One Or Both Eyes? No [email or web address] Information no t available 11/28/2014 Marital Status Informatio n not available 11/28/2014 What Was The Date Of Your Most Recent Tobacco Screening? 09/20/2024 Information not available 09/20/2024 Performs Monthly Self-breast Exam? Yes [email or web address] Information no t available 11/28/2014 Seat Belts Used Routinely Yes [email or web address] Information not available 11/28/2014 Smoke Alarm In Home Yes [email or web address] Information not available 11/28/2014 How Much Tobacco Do You Smoke? No Information not available 11/28/2014 Do You Use Sunscreen Routinely? No [email or web address] Information not available 11/28/2014 Sex: Female Functional Status Question Answer Note LastModified by Organizat ion Details LastModified Time Do you use any illicit or recreational drugs? No Information not available 07/26/2024 Do you or have you ever used any other forms of tobacco or nicotine? No Information not available 07/26/2024 What is your level of alcohol consumption? None [email or web address] Information not available 06/16/2014 What is your exercise level? None [email or web address] Information not available 11/28/2014 Mental Status None recorded. Family History Relationship Description Onset Age of this Age Resolved Age Notes LastModified by Organization Details LastModified Time Mother Hypertensive disorder [email or web address] Not available 2015 10:58:00 Maternal Grandmother Asthma 80 [email or web address] Not available 01/31 10:58:00 Maternal Grandmother Malignant neoplasm of lung schaneyma Not available 2015 10:58:00 Maternal Grandfather Myocardial infarction 79 schaneyma Not available 02/14 10:58:00 Medical History Condition Response Coronary Artery Disease N Other N High Blood Pressure Y Atrial Fibrillation N Kidney or Bladder Problems N Thyroid Problems N GI Problems N Depression N COPD Y Blood Clots N Skin Problems N Anemia N Heart Attack (AL) N Anxiety Disorder N Diabetes N Muscle, Joint, or Bone Problems Y Arthritis Y Seizures/Epilepsy N Acid Reflux (GERD) Y Cancer N Back Problems Y Stroke N Asthma Y Allergies N High Cholesterol N Hepatitis N Liver Disease N Headaches N Hypertension Y Osteoporosis N Heart Failure N Gynecological History Statement/Question Response STIs/STDs N [...] 50 mcg/0.25mL dose 07/07/2020 completed Not Available [facility] 3 16:24:08 COVID-19, mRNA, LNP-S, PF, 100 mcg/0.5mL dose or 50 mcg/0.25mL dose 08/04/2020 completed Not Available [facility] 3 16:24:08 COVID-19, mRNA, LNP-S, PF, 100 mcg/0.5mL dose or 50 mcg/0.25mL dose 04/06/2021 completed Not Available [facility] 3 16:24:08 Influenza, split virus, quadrivalent, PF 03/25/2020 completed Not Available [facility] 3 16:24:08 Influenza, high-dose, quadrivalent, PF 04/29/2022 [...] SNOMED-CT Code Diagnosis ICD10 Code Diagnosis Note [id number] Hari Dowd MD [address] [address] 06/16/2014 10:02:08 06/25/2014 10:44:52 Osteoarthritis 785979235 meds and follow up Chronic ob structive pulmonary disease 27629029 inhalers and follow up Obesity 458712236 exerci se as available Essential hypertension 20342701 meds and follow up [id number] Hari Dowd MD [address] [address] 08/19/2014 11:56:07 08/19/2014 16:23:12 Chronic obstructive pulmonary disease 78812005 inhalers and follow up Essential hypertension 66139258 meds and follow up Obesity 467615361 exerci se as available Osteoarthritis 556698673 meds and follow up Gastroesop hageal reflux disease 371054705 meds and follow up Allergic rhinitis 69138431 meds and follow up Dermatitis 659236663 cre am and good skin care [id number] Hari Dowd MD [address] [address] 10/31/2014 10:03:51 11/11/2014 11:39:47 Chronic obstructive pulmonary disease 93990040 inhalers and follow up Dermatitis 053468278 cre am and good skin care Allergic rhinitis 51721311 meds and follow up Essential hypertension 30530133 meds and follow up Gastroesop hageal reflux disease 257598146 meds and follow up Obesity 835404605 exerci se as available Osteoarthritis 249347564 meds and follow up... reduce meds to twice daily thre months after surgery... hopefully off in 3 - 6 months [id number] Diane Fuller MD [address] [address] 11/28/2014 10:10:51 11/28/2014 16:00:12 Gynecologic examination 83092901 Menopause present 702794816 Complaints of hot flashes. OTC medication without improvemen t. Will obtain MMG and RTC to discuss HRT. [id number] Hari Dowd MD [address] [address] 02/20/2015 12:48:19 02/28/2015 17:39:30 Essential hypertension 58172073 meds and follow up... Osteoarthritis 239011465 Patient need stress test r/t surgical clearance for hip surgery. Obesity 891445097 exerci se as available Chronic ob structive pulmonary disease 29548687 inhalers and follow up Numbness of hand 873669525 send to referral.. . [id number] Hari Dowd MD [address] [address] 05/15/2015 09:34:58 05/29/2015 18:44:21 Chronic obstructive pulmonary disease 20628200 J44.9 inhalers and follow up Essential hypertension 72564221 I10 meds and follow up... Obesity 805499183 E66.9 exercise as available Osteoarthritis 457565096 M19.90 Patient need stress test r/t surgical clearance for hip surgery. Numbness of hand 8014284 04 R20.0 send to referral.. . Allergic rhinitis 681667 04 J30.9 meds and follow up Dermatitis 971508020 L30 .9 cream and good skin care [id number] Hamida Childers MD [facility] [address] [place] [address] 07/24/2015 10:43:41 07/28/2015 11:23:46 Carpal tunnel syndrome 58162928 G56.01 [id number] Hari Dowd MD [address] [address] 08/14/2015 09:58:37 09/04/2015 17:39:25 Chronic obstructive pulmonary disease 93608397 J44.9 inhalers and follow up Essential hypertension 70382271 I10 meds and follow up... Gastroesop hageal reflux disease 552215477 K21.9 meds and follow up Dermatitis 842870451 L30 .9 cream and good skin care Osteoarthritis 056835538 M19.90 meds and follow up Obesity 109818853 E66.9 exercise as available Allergic rhinitis 255942 04 J30.9 meds and follow up [id number] Hari Dowd MD [address] [address] 11/15/2015 10:08:30 11/22/2015 16:49:11 Chronic obstructive pulmonary disease 15609420 J44.9 inhalers and follow up Essential hypertension 78174343 I10 meds and follow up... Gastroesop hageal reflux disease 866811540 K21.9 meds and follow up Osteoarthritis 828076332 M19.90 meds and follow up Allergic rhinitis 498992 04 J30.9 meds and follow up [id number] Pawel Coffey MD [facility] [address] [place] [address] 12/25/2015 10:39:25 12/25/2015 13:08:50 Spinal enthesopathy 73192181 M46.06 [id number] Hari Dowd MD [address] [address] 02/15/2016 10:09:34 02/23/2016 12:21:34 Chronic obstructive pulmonary disease 32160416 J44.9 meds stop smoking... Essential hypertension 83581125 I10 meds and follow up... Gastroesop hageal reflux disease 898569652 K21.9 meds and follow up Osteoarthritis 358415878 M19.90 meds and follow up Allergic rhinitis 106625 04 J30.9 meds and follow up [id number] Hari Dowd MD [address] [address] 06/20/2016 12:36:45 06/24/2016 09:41:32 Chronic obstructive pulmonary disease 97675599 J44.9 inhalers and follow up Essential hypertension 09053338 I10 meds and follow up... Gastroesop hageal reflux disease 954632612 K21.9 meds and follow up Dermatitis 510532885 L30 .9 cream and good skin care Osteoarthritis 743571033 M19.90 meds and follow up Obesity 963660420 E66.9 exercise as available Allergic rhinitis 930291 04 J30.9 meds and follow up [id number] Hari Dowd MD [address] [address] 09/12/2016 11:32:58 09/20/2016 08:27:34 Essential hypertension 42502954 I10 meds and follow up... Chronic ob structive pulmonary disease 90513657 J44.9 inhalers and follow up Gastroesop hageal reflux disease 437220077 K21.9 meds and follow up Osteoarthritis 820827558 M19.90 meds and follow up Allergic rhinitis 722296 04 J30.9 meds and follow up Dermatitis 789624884 L30 .9 cream and good skin care [id number] Hari Dowd MD [address] [address] 11/29/2016 10:08:14 12/13/2016 11:42:24 [id number] Hari Dowd MD [place] [address] 12/12/2016 10:45:11 12/13/2016 10:10:45 Osteoarthritis 476960560 M19.90 meds and follow up... hips done in 2012... Essential hypertension 66720512 I10 meds and follow up... Gastroesop hageal reflux disease 004567085 K21.9 meds and follow up Chronic ob structive pulmonary disease 67273015 J44.9 inhalers and follow up Allergic rhinitis 104261 04 J30.9 meds and follow up Obesity 139942880 E66.9 exercise as available Dermatitis 618166071 L30 .9 cream and good skin care [id number] Hari Dowd MD [place] [address] 03/14/2017 10:47:43 03/14/2017 15:28:52 Chronic obstructive pulmonary disease 94154156 J44.9 inhalers and follow up Osteoarthritis 521105104 M19.90 meds and follow up.... bilateral hip replacemen t history... has knee and low back pain... Gastroesop hageal reflux disease 298637040 K21.9 meds and follow up Allergic rhinitis 757048 04 J30.9 meds and follow up [id number] Hari Dowd MD [place] [address] 08/15/2017 15:40:54 08/18/2017 12:34:40 Chronic obstructive pulmonary disease 42396385 J44.9 inhalers and follow up Osteoarthritis 570325321 M19.90 meds and follow up.... bilateral hip replacemen t history... has knee and low back pain... Gastroesop hageal reflux disease 915233785 K21.9 meds and follow up Allergic rhinitis 578499 04 J30.9 meds and follow up Essential hypertension 22202470 I10 meds and follow up... [id number] Hari Dowd MD [place] [address] 11/17/2017 11:12:36 11/18/2017 09:59:03 Chronic obstructive pulmonary disease 43071629 J44.9 inhalers and follow up... Xyzal/Nasa edgardo Osteoarthritis 349741212 M19.90 meds and follow up.... bilateral hip replacemen t history... has knee and low back pain... Allergic rhinitis 766500 04 J30.9 meds and follow up Gastroesop hageal reflux disease 658190150 K21.9 meds and follow up Essential hypertension 42523768 I10 meds and follow up... Obesity 638019479 E66.9 exercise as available. .. 183 Dermatitis 061960327 L30 .9 cream and good skin care [id number] Hari Dowd MD [place] [phone] 02/11/2018 10:55:29 02/12/2018 09:57:28 Obesity 993626756 E66.9 exercise as available. .. 057 [id number] Hari Dowd MD [place] [phone] 03/19/2018 16:14:08 03/20/2018 08:54:32 Essential hypertension 97435543 I10 meds and follow up... Chronic ob structive pulmonary disease 53183045 J44.9 inhalers and follow up... Xyzal/Nasa edgardo Osteoarthritis 467446818 M19.90 meds and follow up.... bilateral hip replacemen t history... has knee and low back pain... left shoulder Allergic rhinitis 592637 04 J30.9 meds and follow up Gastroesop hageal reflux disease 941785286 K21.9 meds and follow up Obesity 827561239 E66.9 exercise as available. .. 183 Dermatitis 480976166 L30 .9 cream and good skin care [id number] Hari Dowd MD [place] [phone] 06/19/2018 10:37:19 06/23/2018 08:21:43 Essential hypertension 35205958 I10 meds and follow up... Chronic ob structive pulmonary disease 08593823 J44.9 inhalers and follow up... Xyzal/Nasa edgardo Osteoarthritis 551394909 M19.90 meds and follow up.... bilateral hip replacemen t history... has knee and low back pain... left shoulder Allergic rhinitis 629661 04 J30.9 meds and follow up Gastroesop hageal reflux disease 143868113 K21.9 meds and follow up Obesity 293539829 E66.9 exercise as available. .. 183 Dermatitis 788070527 L30 .9 cream and good skin care [id number] Hari Dowd MD [place] [id number] 3 09/17/2018 10:53:11 09/17/2018 15:42:02 Essential hypertension 73151255 I10 meds and follow up... Chronic ob structive pulmonary disease 72741578 J44.9 inhalers and follow up... Xyzal/Nasa edgardo Osteoarthritis 326669215 M19.90 meds and follow up.... bilateral hip replacemen t history... has knee and low back pain... left shoulder Allergic rhinitis 939319 04 J30.9 meds and follow up Gastroesop hageal reflux disease 763749044 K21.9 meds and follow up Obesity 718571320 E66.9 exercise as available. .. 183 Dermatitis 403883869 L30 .9 cream and good skin care [id number] Hari Dowd MD [address] [address] 12/17/2018 11:04:11 12/18/2018 09:16:46 Essential hypertension 68719796 I10 meds and follow up... Chronic ob structive pulmonary disease 82777816 J44.9 inhalers and follow up... Xyzal/Nasa edgardo Allergic rhinitis 674640 04 J30.9 meds and follow up Gastroesop hageal reflux disease 295054190 K21.9 meds and follow up Obesity 009621088 E66.9 exercise as available. .. 183 Dermatitis 516125517 L30 .9 cream and good skin care Osteoarthritis of hip 23 5312639 M16.0 meds and follow up.... bilateral hip replacemen t history... has knee and low back pain... left shoulder Pain of le ft shoulder joint 0458961708 9441511 M25.512 see x-rays Osteoarthr itis of knee 550007889 M17.9 see x-rays Low back pain 089650049 M54.5 see x-ray [id number] Hari Dowd MD [address] [address] 03/19/2019 11:42:31 03/22/2019 09:10:02 Essential hypertension 36952919 I10 meds and follow up... Chronic ob structive pulmonary disease 44169216 J44.9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 9866426 6 L30.9 Allergic rhinitis 274280 04 J30.9 fluticason e... [id number] Hari Dowd MD [place] [address] 3 10/03/2023 11:28:03 10/06/2023 09:48:40 Obesity 437328211 E66.9 bmi=33.5 Osteoarthritis 684088748 M19.90 referral for injections with appt 10-23-2023 ... Chronic ob structive pulmonary disease 55970584 J44.9 inhalers and follow up... Edema of r ight lower leg 309819793 R60.0 U/S negative 02-19-2021 ... follow up... Essential hypertension 65336172 I10 meds and follow up.... [id number] 0 /HCTZ 25mg... Acute dermatitis 8412699 6 L30.9 Allergic rhinitis 718057 04 J30.9 fluticason e... [id number] Hari Dowd MD [address] [address] 12/10/2023 11:46:59 12/11/2023 09:09:06 Obesity 266879845 E66.8 bmi=33.2 Chronic ob structive pulmonary disease 41919045 J44.9 inhalers and follow up... Osteoarthritis 118540004 M19.90 referral for injections with ortho doing shoulders/ knees/back ... Essential hypertension 34502681 I10 meds and follow up.... [id number] 0 /HCTZ 25mg... Acute dermatitis 8978864 6 L30.9 stable now.. Allergic rhinitis 941238 04 J30.9 fluticason e... Edema of l ower extremity 707568625 R60.0 [id number] Hari Dowd MD [address] [address] 03/03/2024 14:49:37 03/05/2024 13:01:45 Obesity 745294858 E66.9 bmi=34.2 Administra tion of influenza vaccine 31966839 Z23 Essential hypertension 67539406 I10 meds and follow up.... losartan 100 mg Hyperlipidemia 96151654 E78.5 atorvastat in... Chronic ob structive pulmonary disease 56760373 J44.9 inhalers and follow up... Edema of r ight lower leg 469728398 R60.0 U/S negative 02-19-2021 ... follow up... use compressio n stockings. .. lasix 20 mg daily.. Gastroesop hageal reflux disease 570514459 K21.9 meds and follow up......pa ntoprazole Osteoarthritis 758022094 M19.90 referral for injections ...dosage changed [id number] Hari Dowd MD [address] [address] 04/26/2024 12:29:23 04/27/2024 10:29:23 Obesity 806215585 E66.9 bmi=34.8 Localized swelling of right lower leg 1401825271 6317526 R22.41 edema up to calf... negative U/S on 02-05-2024 and negative Sleep apnea 66109027 G47 .30 has sleep apnea, but couldnt tolerate CPAP several years ago with sinus issues... follow up pulm.. Chronic ob structive pulmonary disease 07904207 J44.9 inhalers and follow up... has appt next month... Osteoarthritis 582364704 M19.90 referral for injections ...dosage changed... Essential hypertension 16481907 I10 meds and follow up.... losartan 100 mg... Gastroesop hageal reflux disease 288928914 K21.9 meds and follow up......pa ntoprazole [id number] Hari Dowd MD [address] [address] 06/08/2024 10:15:57 06/09/2024 15:25:14 Osteoarthritis 211544069 M19.90 referral for injections ... sees ortho next week Obesity 296951362 E66.9 bmi=34.8 Chronic ob structive pulmonary disease 53208815 J44.9 inhalers and follow up... seeing pulm after 2 exacerbati ons... Sleep apnea 61334837 G47 .30 has sleep apnea, but couldnt tolerate CPAP several years ago with sinus issues... follow up pulm this week Gastroesop hageal reflux disease 094456600 K21.9 meds and follow up......pa ntoprazole Essential hypertension 53523724 I10 meds and follow up.... losartan 100 mg... started on amlodipine 5 mg in ER, so will watch BP/leg edema.. [id number] Hari Dowd MD [address] [address] 06/28/2024 10:15:40 06/29/2024 11:16:11 Morbid obesity 679581394 E66.01 BMI=35.7 Osteoarthritis 799906876 M19.90 referral for injections ... bilateral knee/shoul carina pain... seeing ortho Chronic ob structive pulmonary disease 81743438 J44.9 inhalers and follow up... follow up with pulm... Sleep apnea 70740992 G47 .30 has sleep apnea, but couldnt tolerate CPAP several years ago with sinus issues... Gastroesop hageal reflux disease 690828295 K21.9 meds and follow up......om eprazole per hospital Hyperlipidemia 49550910 E78.5 atorvastat in... Essential hypertension 86896209 I10 meds and follow up.... losartan 100 mg... Atypical chest pain 1025 65719 R07.89 [id number] Elvia Mauro MD [facility] [address] [place] [address] [address] [place] [address] 07/26/2024 11:22:04 07/27/2024 09:13:20 Chest pain 36775721 R07.9 Obesity 119980643 E66.9 Essential hypertension 79386858 I10 History of cardiomyopathy 1210301077 95902 Z86.79 Heart fail ure with reduced ejection fraction 969739591 I50.9 Non-rheuma tic mitral regurgitation 318882536 I34.0 Hyperlipidemia 55167292 E78.5 Electrocar diogram abnormal 836433017 R94.31 Long-term current use of diuretic 8653232352 9574421 Z79.378 [id number] Terry Vivar MD [facility] [address] [address] 07/28/2024 11:53:08 07/28/2024 12:52:25 Obstructive sleep apnea syndrome 94482340 G47.33 Sleep study Chronic ob structive pulmonary disease 55969672 J44.9 Continue MDI Dulera/Alb uterolMDI teaching Essential hypertension 05489141 I10 home meds [id number] Hari Dowd MD [address] [address] 08/06/2024 11:35:25 08/09/2024 12:12:59 Morbid obesity 754956850 E66.01 BMI=35.2 Chronic ob structive pulmonary disease 33389777 J44.9 inhalers and follow up... follow up with pulm... Congestive heart failure 44951522 I50.9 Lasix 40 mg.. Jardiance 10 mg Hyperlipidemia 30128764 E78.5 atorvastat in 40 mg Essential hypertension 05207137 I10 meds and follow up.... losartan 100 mg/amlodip ine 5 mg/aldacto ne 25 mg/metopro lol ER 50 mg... Gastroesop hageal reflux disease 560388816 K21.9 meds and follow up......om eprazole per hospital [id number] Elvia Mauro MD [facility] [address] [place] [address] 09/20/2024 11:12:50 09/21/2024 17:34:02 Essential hypertension 48609393 I10 Morbid obesity 027127527 E66.01 Chest pain 25360275 R07. 9 Electrocar diogram abnormal 405625062 R94.31 Heart fail ure with reduced ejection fraction 834992652 I50.9 History of cardiomyopathy 9033207323 13721 Z86.79 Coronary atherosclerosis 031871195 I25.112 Hyperlipidemia 20320794 E78.5 [id number] Hari Dowd MD [address] [address] 09/27/2024 09:48:40 09/28/2024 10:23:46 Adult health examination 662914281 Z00.00 Health Risk Assessment collected and reviewed Obese class II 580434903 1 [address]9466 E66.812 bmi=36.8 Polyuria 98801182 R35.89 Neuropathy 445494186 G62 .9 saw specialist and will follow up... on ASA... Hypertensive disorder 38 952871 I10 meds and follow up.... losartan 100 mg/amlodip ine 5 mg/aldacto ne 25 mg/metopro lol ER 50 mg... Disorder o f lipid metabolism 909858691 E78.9 meds and follow up... Sleep apnea 57053156 G47 .30 has sleep apnea, but couldnt tolerate CPAP several years ago with sinus issues... Pulmonary emphysema 8743 3001 J43.9 inhalers and follow up... follow up with pulm... Osteoarthritis 452534347 M19.90 referral for injections ... bilateral knee/shoul carina pain... seeing ortho Health Concerns Section Related Observation LastModified by Organization Detai ls LastModified Time None Recorded Concern Status LastModified by Organization Details LastModified Time None Recorded Advance Directives Directive N: Payers Encounter Date Sequence Insurance Name Policy Number Policy Chopra Covered Member ID Chopra Member ID Guarantor Name 07/28/2024 1 [facility] (MEDICARE REPLACEMENT/AD VANTAGE - HMO) [id number] [place] [id number] [place] 07/28/2024 2 [place] [facility] [place] [id number] Barbi Dena 08/06/2024 1 [employer] [facility] (MEDICARE REPLACEMENT/AD VANTAGE - HMO) [id number] [place] [id number] [place] 08/06/2024 2 [place] OR [place]ICARE REPLACEMENT PRIMARY) [place] [id number] [place] 09/20/2024 1 [facility] (MEDICARE REPLACEMENT/AD VANTAGE - HMO) [id number] Barbi L Dena [id number] [place] 09/20/2024 2 [place] OR [place]IC[place] REPLACEMENT PRIMARY) [place] [id number] Barbi Dena 09/27/2024 1 [facility] (MEDICARE REPLACEMENT/AD VANTAGE - HMO) [id number] Barbi L Dena [id number] Barbi Dena 09/27/2024 2 [place] OR MEDICARE REPLACEMENT PRIMARY) Barbi Dena [id number] Barbi Dena Notes Date Note Type Note Provider Name and Address Organization Details Recorded Time 5 text/html ref for COPD Baseline SOB nad DOEoccasional coughshe was [facility] for COPD exacerbationprevious smoker. Quit 22 years ago. smoked upto 1/2 PPD for 23 years.Has GERD due to PUD +snoreHas EDS+fatiguegained about 8 lbs over last 6 months Terry Vivar MD [address] [place], [address], [place] - [facility] 07/28/2024 12:24:35 5 text/html sleep study 08-13-[address] [facility]... has been smoke- free x 1 month... injected knees/shoulders without optimum result. note left shoulder locks... Hari Clay, MD Attn: Accounting,[address] [facility], [place], [address], [facility] 08/06/2024 12:29:43 5 text/html Ms. Fernandes is a 68-year-old female who returns for follow-up visit. She did undergo a cardiac CTA with CTA FFR on 09/04/2024 which showed 08/26/2024 with the evaluation being mildly limited secondary to motion artifact. Multivessel calcified atherosclerosis resulting in up to moderate stenosis of the proximal right and left anterior descending coronary arteries. There is an area of focal outpouching of the mid left anterior descending coronary artery, which may represent an area of positive remodeling versus artifact. Calculated calcium score of 1027.4. There is an acute FFR across a atherosclerotic plaque in the vertical segment of the right coronary artery with a delta FFR greater than 0.10. The FFR volume distal to the lesion is 0.53. There are diminished FFR values in the distal left circumflex, diagonal, and left anterior descending arteries which are not associated with the definitive plaque. The maximum anatomical stenosis is located in the mid right coronary artery with lesion specific abnormal FFR CT of 0.53. There is an acute FFR change across the lesion. She has not noticed any swelling in her legs of late. She has not had any more chest pain but can get some shortness of breath only with long distances and is improved since being on the diuretics, including furosemide, spironolactone and Jardiance. She has not had any further orthopnea or PND since being discharged from the hospital. she denies any dizziness, syncope or palpitations. Elvia Mauro MD Attn: Accounting,[address] [facility], [place], [address], [facility] 09/20/2024 12:34:40 5 text/html moscoso BP med added to current meds and has neuropathy sx of hand/feet for 6 months... no injuries... no focal deficits... no S/H ideations... no smoking... stopped recreational smoking and cough has improved... knee/shoulder pain still significant... gets injections in knees... Hari Dowd MD Attn: Accounting,[address] [facility], [place], [address], [facility] 09/27/2024 11:07:33 OBGyn Episode No OBEpisode recorded.
[2024-10-23 21:59] VITALS: BP 125/97; PULSE 92; RESP 20; TEMP 36.4; O2SAT 98
--- OUTSIDE RECORDS SUMMARY | 2024-10-23 22:40 | XMS_ITS | Referral Summary ---
Author Organization [facility] Address [address] [place] [address] Care Team Providers Care Reinforcing Steel Placer Name Role Phone Hari Dowd MD Primary Care Provider [phone] Encounters Date Type Department Care Team Description 10/14/2024 10:00 AM CDT - 10/14/2024 10:45 AM CDT Surgery [facility] Cardiac Respite Coordinator [address] [place] [address] Jesse Beatty MD LEFT HEART CATHETERIZATION WITH CORONARY ANGIOGRAPHY AND WITH OR WITHOUT LEFT VENTRICULOGRAM [id number] 10/14/2024 8:04 AM CDT - 10/14/2024 2:24 PM CDT Hospital Encounter [facility] Card[facility] Respite Coordinator [address] [place] [id number] Jesse Beatty MD 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 Discharge Disposition: Discharge to home or self care 09/23/2024 Telephone [facility] Medical [facility] Cardiology [address] [facility] [address] [place] [phone] Jesse Beatty MD [facility] 09/23/2024 Telephone [facility] Cardiology [address] [facility] [address] [phone] Sergio Moreno MD 09/03/2024 2:00 PM CDT - 09/03/2024 11:59 PM CDT Hospital Encounter [facility] [address] [place] [address], [place] [address] Cardiomyopathy, unspecified type (HCC); Abnormal findings on diagnostic imaging of heart and coronary circulation Discharge Disposition: Discharge to home or self care 08/26/2024 2:09 PM CDT - 08/26/2024 11:59 PM CDT Hospital Encounter [facility] [address] [place] [address] Cardiomyopathy, unspecified type (HCC) Discharge Disposition: Discharge to home or self care 07/26/2024 Orders Only [facility] Medical Group Cardiology [address] [place] [address] Quynh Moreno MD from Last [...] Diagnosed Date Atherosclerotic heart diseas e of [place] coronary artery with refractory angina pectoris 09/24/2024 PVD (peripheral vascular disease) 08/06/2021 Assessment & Plan (08/06/2021 4:15 PM PERMANENT WAVER): Assessment/plan: Bilateral lower extremity claudication with noninvasives [...] 08/06/2021 Assessment & Plan (08/06/2021 4:15 PM PERMANENT WAVER): Assessment/plan: Pepcid Ovarian retention cyst 10/07/2012 Hypertension 08/17/2012 Assessment & Plan (08/06/2021 4:15 PM PERMANENT WAVER): Assessment/plan: Losartan Immunizations Immunization Administration Dates Next [...] on file Legal Sex Female 3:16 AM PERMANENT WAVER Gender Identity Not on file Sexual Orientation [...] 157.5 cm (5' 2) 08/06/2021 1:41 PM PERMANENT WAVER Body Mass Index 36.51 08/06/2021 1:41 PM PERMANENT WAVER Plan of Treatment Not on file Procedures Procedure Name Priority Date/Time Associated Diagnosis Comments CORONARY FLOW VELOCITY (CFR) / INSTATANEOUS FLOW VELOCITY (IFR), 1ST VESSEL Routine 10/14/2024 10:01 AM CDT 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 The patient was brought to the laborer driver and placed on the table. Right radial [...] Coronary Artery Angiogram was performed using a [place] Catheter. Right Coronary Artery Angiogram was performed using a [place] Catheter. Left Ventricular Hemodynamics were measured using [place] Catheter, no left ventriculogram was done. At [...] Positive B Comment:Testing performed by : [facility], [address] [place] [address]., [id number] Blood 10/14/2024 9:02 AM CDT 10/14/2024 9:11 AM CDT us Jesse Beatty MD LAB BLOOD ORDERABLES Katelin masterson Result Performing Organization Address [facility] Co de Phone Number VENANCIO [address] [place] [address] MHB * eGFR (10/14/2024 8:45 AM CDT) [...] last reviewed 2021. Testing performed by: [facility], [address] [place] [address]., [id number] Blood 10/14/2024 8:45 AM CDT 10/14/2024 8:52 AM CDT us Jesse Beatty MD LAB BLOOD ORDERABLES Katelin l Result Performing Organization Address City/[facility]/ZIP Co de Phone Number VENANCIO [address] [place] [address] * Differential, auto (10/14/2024 8:45 AM CDT) Neutrophil abs 3.35 1.50 - 6.50 K/cumm Comment:Testing performed by : [address], [place]., [address] Imm gran abs 0.03 0.00 - 0.10 K/cumm [facility] Comment:Testing performed by : [facility], [address] [place] [address], [place]., [address] Lymphocyte abs 1.21 0.80 - 3.30 K/cumm [facility] Comment:Testing performed by : [address], [place]., [address] Monocyte abs 0.53 0.20 - 0.80 K/cumm [facility] Comment:Testing performed by : [address], [place]., [address] Eosinophil abs 0.22 0.00 - 0.50 K/cumm [facility] Comment:Testing performed by : [address], [place]., [address] Basophil abs 0.05 0.00 - 0.10 K/cumm [facility] Comment:Testing performed by : [address] [address] Neutrophil pct 62.2 % [facility] Comment: Interpretive Data Percent cell count reference ranges are not reported, since discordance with absolute values may lead to misinterpretation of CBC data. Current Interpretive Data was last revised on 2017. Testing performed by: [address] [address] Imm gran pct 0.6 % [facility] Comment: Interpretive Data Percent cell count reference ranges are not reported, since discordance with absolute values may lead to misinterpretation of CBC data. Current Interpretive Data was last revised on 2017. Testing performed by: [address] [address] Lymphocyte pct 22.4 % [facility] Comment: Interpretive Data Percent cell count reference ranges are not reported, since discordance with absolute values may lead to misinterpretation of CBC data. Current Interpretive Data was last revised on 2017. Testing performed by: [address] [address] Monocyte pct 9.8 % [facility] Comment: Interpretive Data Percent cell count reference ranges are not reported, since discordance with absolute values may lead to misinterpretation of CBC data. Current Interpretive Data was last revised on 2017. Testing performed by: [address] [address] Eosinophil pct 4.1 % VENANCIO Comment: Interpretive Data Percent cell count reference ranges are not reported, since discordance with absolute values may lead to misinterpretation of CBC data. Current Interpretive Data was last revised on 2017. Testing performed by: [address] [address] Basophil pct 0.9 % VE[facility] Comment: Interpretive Data Percent cell count reference ranges are not reported, since discordance with absolute values may lead to misinterpretation of CBC data. Current Interpretive Data was last revised on 2017. Testing performed by: [address] [address] Blood 10/14/2024 8:45 AM CDT 10/14/2024 8:52 AM CDT us Jesse Beatty MD LAB BLOOD ORDERABLES Katelin l Result [facility] [address] [facility] [place] [address] * (ABNORMAL) CBC with auto differential (10/14/2024 8:45 AM CDT) WBC 5.39 3.80 - 9.90 K/cumm Comment:Testing performed by : [address] [address] Hgb 11.9 11.9 - 15.5 g/dL VE[facility]IO Comment:Testing performed by : [address] [address] Hct 38.5 35.6 - 45.5 % [facility] Comment:Testing performed by : [address] [address] Plt 286 150 - 400 K/cumm [facility] Comment:Testing performed by : [address] [address] MPV 9.7 9.1 - 12.3 fL [facility] Comment:Testing performed by : [address] [address] RBC 3.83(L) 3.90 - 5.20 M/cumm [facility] Comment:Testing performed by : [address] [address] MCV 100.5(H) 81.3 - 96.4 fL [facility] Comment:Testing performed by : [address] [address] MCH 31.1 27.1 - 33.3 pg [facility]NA[facility]IO Comment:Testing performed by : [address] [address] MCHC 30.9(L) 32.3 - 35.7 g/dL VENANCIO Comment:Testing performed by : [address] [address] RDW CV 13.7 11.1 - 14.9 % VENANCIO Comment:Testing performed by : [address] [address] RDW SD 50.7(H) 35.7 - 48.1 fL [facility]IO Comment:Testing performed by : [address] [address] NRBC abs 0.00 0.00 - 0.01 K/cumm [facility] Comment:Testing performed by : [address] [address] Blood 10/14/2024 8:45 AM CDT 10/14/2024 8:52 AM CDT Narrative VENANCIO - 10/14/2024 9:02 AM CDT If most recent labs were drawn prior to 4 AM, draw only prior to initiating procedure. us Jesse Beatty MD LAB BLOOD ORDERABLES Katelin masterson Result [facility] [address] [facility] [place] [address] * ABO/Rh (10/14/2024 8:45 AM CDT) ABO/Rh O Positive Comment:Testing performed by : [address] [address] Blood 10/14/2024 8:45 AM CDT 10/14/2024 8:52 AM CDT Narrative VENANCIO - 10/14/2024 9:31 AM CDT Has the patient had Daratumumab or Isatuximab in the past 6 months?->Unknown Jesse Beatty MD LAB BLOOD BANK TEST ORDER BHAVANA Final Result Performing Organization Address [facility] de Phone Number [address] [place] [address] * aPTT (10/14/2024 8:45 AM CDT) Pathologist [facility] aPTT 31 22 - 37 sec Comment: Interpretive data aPTT test has not been evaluated for monitoring heparin therapy. The anti-Xa is the preferred test. Current interpretive data was last revised on 2019. Testing performed by: [address] [address] Blood 10/14/2024 8:45 AM CDT 10/14/2024 8:52 AM CDT Jesse Beatty MD LAB BLOOD ORDERABLES Katelin l Result Performing Organization Address [facility] Co de Phone Number [address] [place] [address] * Protime-INR (10/14/2024 8:45 AM CDT) Pathologist [facility] PT 12.8 12.0 - 14.6 sec Comment:Testing performed by : [address] [address] INR 1.0 0.9 - 1.2 VENANCIO Comment: Ref Range High Interpretive data Oral anticoagulant therapeutic ranges: Venous thromboembolism prophylaxis or treatment: 2.0-3.0 CARDIOLOGY Standard range: 2.0-3.0 High-intensity range: 2.5-3.5 Refer to indication-specific guidelines for appropriate target ranges for prosthetic heart valve replacement. Current interpretive data was last revised on 2019. Testing performed by: [address] [address] Blood 10/14/2024 8:45 AM CDT 10/14/2024 8:52 AM CDT Jesse Beatty MD LAB BLOOD ORDERABLES Katelin l Result Performing Organization Address [facility] Co de Phone Number [address] [place] [address] * Antibody screen (10/14/2024 8:45 AM CDT) Pathologist [facility] Maria C, indirect, Gel Interpretation Negative ABSC Comment:Testing performed by : [address] [address] Blood 10/14/2024 8:45 AM CDT 10/14/2024 8:52 AM CDT Narrative VENANCIO - 10/14/2024 9:31 AM CDT Has the patient had Daratumumab or Isatuximab in the past 6 months?->Unknown Jesse Beatty MD LAB BLOOD BANK TEST ORDER BHAVANA Final Result Performing Organization Address [facility] de Phone Number [address] [place] [address] * Basic metabolic panel (10/14/2024 8:45 AM CDT) Pathologist [facility] Sodium 139 135 - 145 mmol/L Comment:Testing performed by : [address] [address] Potassium, pl 4.8 3.3 - 4.9 mmol/L VENANCIO Comment: Hemolyzed; Potassium value may be falsely elevated by as much as 1.0 mmol/L. Suggest redraw and reanalysis. Testing performed by: [address] [address] Chloride 103 97 - 110 mmol/L VENANCIO Comment:Testing performed by : [address] [address] CO2 28 22 - 32 mmol/L VENANCIO Comment:Testing performed by : [address] [address] Anion gap 8 2 - 15 mmol/L VENANCIO Comment:Testing performed by : [address] [address] BUN 18 6 - 25 mg/dL VENANCIO Comment:Testing performed by : [address] [address] Creatinine 0.84 0.60 - 1.10 mg/dL VENANCIO Comment:Testing performed by : [address] [address] Glucose 94 70 - 199 mg/dL VENANCIO [...] was last revised 2022. Testing performed by: [address] [address] Calcium 9.9 8.5 - 10.3 mg/dL VENA[facility]IO Comment:Testing performed by : [address] [address] Blood 10/14/2024 8:45 AM CDT 10/14/2024 8:52 AM CDT us Jesse Beatty MD LAB BLOOD ORDERABLES Katelin masterson Result [facility] [address] [facility] [place] [address] * ECG 12 lead (10/14/2024 8:24 AM CDT) Ventricular Rate EKG/Min 81 BPM [facility] Atrial Rate 81 BPM [facility] CT-Interval (MSEC) 158 ms [facility] QRS-Interval (MSEC) 120 ms [facility] QT-Interval (MSEC) 384 ms [facility] QTc 446 ms [facility] P [place] 80 degrees [facility] R [place] 6 degrees [facility] T [place] 63 degrees [facility] Diagnosis Normal sinus rhythm Right bundle branch block Abnormal ECG No previous ECGs available Confirmed by JESSE BEATTY M.D. ([id number]) on 10/14/2024 11:09:52 AM [facility] 10/14/2024 8:24 AM CDT 10/14/2024 11:09 AM CDT us Jesse Beatty MD ECG ORDERABLES Final Res ult [facility] * CT Coronary Fractional Flow Nunda (09/04/2024 1:14 PM CDT) Anatomical Region Laterality Modality Chest N/A Computed Tomogra phy 09/06/2024 8:57 AM CDT Impressions 09/06/2024 7:47 PM CDT ADDENDUM: Coronary CTA Fractional Flow Nunda (FFR) The below FFR CT results are [...] 09/06/2024 IMPRESSION: ADDENDUM: Coronary CTA Fractional Flow Nunda (FFR) The below FFR CT results are [...] POCT ORDERABLES - DEVICE Final Result [facility] [place] [address] * Screening Mammogram (08/17/2012 3:04 PM CDT) Anatomical Region Laterality Modality Breast N/A Mammography 08/17/2012 3:04 PM CDT Narrative 09/08/2012 1:48 PM CDT TAYLOR PICKERING M.D. FINAL REPORT ACC# Date Time Exam [id number] Aug 17, 2012 15:04:00 [facility] [id number] Screening Mamm Bilat Technologist(s): Lydia Gutiérrez; ; EXAMINATION: ADDENDUM 09/08/2012 01:48PM ADDENDUM: 09/07/2012 The present examination has been compared to a prior imaging study performed at [facility] on 07/26/2008. Masses in both breasts are benign. Annual screening mammography is recommended. OVERALL FINAL ASSESSMENT: BI-RADS CATEGORY 2: Benign. END OF ADDENDUM Mammogram Findings: A Full-Field Digital Screening Mammogram was performed. Views obtained: bilateral craniocaudal; bilateral mediolateral oblique. Computer Aided Detection was performed with Nexopia.3 version 9.3. There are scattered fibroglandular densities. [...] M.D. FINAL REPORT ACC# Date Time Exam [id number] Aug 17, 2012 15:04:00 [facility] [id number] Screening Mamm Bilat Technologist(s): Lydia Gutiérrez; ; EXAMINATION: ADDENDUM 09/08/2012 01:48PM ADDENDUM: 09/07/2012 The present examination has been compared to a prior imaging study performed at [facility] on 07/26/2008. Masses in both breasts are benign. Annual screening mammography is recommended. OVERALL FINAL ASSESSMENT: BI-RADS CATEGORY 2: Benign. END OF ADDENDUM Mammogram Findings: A Full-Field Digital Screening Mammogram was performed. Views obtained: bilateral craniocaudal; bilateral mediolateral oblique. Computer Aided Detection was performed with Nexopia.3 version 9.3. There are scattered fibroglandular densities. [...] to Health Maintenance Insurance [facility] MDCR HMO REF [facility] MEDICARE Address: [address] [address] [place] [address] [facility] MEDICARE ADVANTAGE [facility] MEDIC[facility] Address: [address] [address] [place] [address] [facility] MEDICARE AD[facility]ANTAGE [facility] MEDICARE Address: [address] [address] [place] [address] Care Teams Reinforcing Steel Placer Relationship Specialty Start Date End Date Hari Dowd MD [address] [place] [address] PCP - General Family Medicine 08/06/21
--- OUTSIDE RECORDS SUMMARY | 2024-10-23 22:40 | XMS_ITS | Clinical Summary ---
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 09/24/2024 PVD (peripheral vascular disease) 08/06/2021 Assessment & Plan (08/06/2021 4:15 PM FACTORY MAINTENANCE TECHNICIAN): Assessment/plan: Bilateral lower extremity claudication with noninvasives [...] 08/06/2021 Assessment & Plan (08/06/2021 4:15 PM FACTORY MAINTENANCE TECHNICIAN): Assessment/plan: Pepcid Ovarian retention cyst 10/07/2012 Hypertension 08/17/2012 Assessment & Plan (08/06/2021 4:15 PM FACTORY MAINTENANCE TECHNICIAN): Assessment/plan: Losartan Encounters Date Type Department Care Team Description 10/14/2024 10:00 AM CDT - 10/14/2024 10:45 AM CDT Surgery [facility] [address] [place] [address] [id number] Jesse Beatty MD LEFT HEART CATHETERIZATION WITH CORONARY ANGIOGRAPHY AND WITH OR WITHOUT LEFT VENTRICULOGRAM [id number] 10/14/2024 8:04 AM CDT - 10/14/2024 2:24 PM CDT Hospital Encounter [facility] [address] [place] [address] Jesse Beatty MD 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 Discharge Disposition: Discharge to home or self care 09/23/2024 Telephone [facility] Cardiology [address] [facility] [address] [place] [address] Jesse Beatty MD [facility] 09/23/2024 Telephone [facility] Cardiology [address] [facility] [address] [address] Sergio Moreno MD 09/03/2024 2:00 PM CDT - 09/03/2024 11:59 PM CDT Hospital Encounter [facility] [address] [place] [address] Cardiomyopathy, unspecified type (HCC); Abnormal findings on diagnostic imaging of heart and coronary circulation Discharge Disposition: Discharge to home or self care 08/26/2024 2:09 PM CDT - 08/26/2024 11:59 PM CDT Hospital Encounter [facility] [address] [place] [address] Cardiomyopathy, unspecified type (HCC) Discharge Disposition: Discharge to home or self care 07/26/2024 Orders Only [facility] Cardiology [address] [place] [phone] Quynh Moreno MD from Last 3 Months Immunizations Immunization Administration Dates Next Due Hep A, Unspecified 06/02/1980 Surgical History Surgery Date Site/Laterality Comments TOTAL HIP ARTHROPLASTY bilateral SECTION CARDIAC CATHETERIZATION 10/14/2024 N/A Procedure: LEFT HEART CATHETERIZATION WITH CORONARY ANGIOGRAPHY AND WITH OR WITHOUT LEFT VENTRICULOGRAM [id number]; Surgeon: Jesse Beatty MD; Location: [facility]; Service: Cardiovascular; Laterality: N/A; CARDIAC CATHETERIZATION 10/14/2024 N/A Procedure: Coronary Flow Velocity (CFR) / Instantaneous Flow Velocity (IFR), 1st Vessel; Surgeon: Jesse Beatty MD; Location: [facility]; Service: Cardiovascular; Laterality: N/A; Medical History Medical [...] on file Legal Sex Female 3:16 AM FACTORY MAINTENANCE TECHNICIAN Gender Identity Not on file Sexual Orientation [...] 157.5 cm (5' 2) 08/06/2021 1:41 PM FACTORY MAINTENANCE TECHNICIAN Body Mass Index 36.51 08/06/2021 1:41 PM FACTORY MAINTENANCE TECHNICIAN Plan of Treatment Health Maintenance Due Date [...] 10:01 AM CDT 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 Right radial [...] Coronary Artery Angiogram was performed using a Woronoco Catheter. Right Coronary Artery Angiogram was performed using a Woronoco Catheter. Left Ventricular Hemodynamics were measured using Woronoco Catheter, no left ventriculogram was done. At [...] Confirmation Testing (10/14/2024 9:02 AM CDT) Pathologist [facility] ABO/Rh Confirmation O Positive [facility] Comment:Testing performed by : [facility], [address] [place] [address]., [id number] Blood 10/14/2024 9:02 AM CDT 10/14/2024 9:11 AM CDT Jesse Beatty MD LAB BLOOD ORDERABLES Katelin l Result ELANKLY [address] [facility] [place] [address] MHB * eGFR (10/14/2024 8:45 [...] was last reviewed 2021. Testing performed by: [address] [address] Blood 10/14/2024 8:45 AM CDT 10/14/2024 8:52 AM CDT us Jesse Beatty MD LAB BLOOD ORDERABLES Katelin masterson Result Performing Organization Address City/State/[facility] Co de Phone Number [facility] [address] [facility] [place] [address] * Differential, auto (10/14/2024 8:45 AM CDT) Neutrophil abs 3.35 1.50 - 6.50 K/cumm Comment:Testing performed by : [address] [address] Imm gran abs 0.03 0.00 - 0.10 K/cumm VENA[facility]IO Comment:Testing performed by : [address] [address] Lymphocyte abs 1.21 0.80 - 3.30 K/cumm [facility]NA[facility]IO Comment:Testing performed by : [address] [address] Monocyte abs 0.53 0.20 - 0.80 K/cumm [facility] Comment:Testing performed by : [address] [address] Eosinophil abs 0.22 0.00 - 0.50 K/cumm [facility] Comment:Testing performed by : [address] [address] Basophil abs 0.05 0.00 - 0.10 K/cumm [facility] Comment:Testing performed by : [address] [address] Neutrophil pct 62.2 % [facility] Comment: Interpretive Data Percent cell count reference ranges are not reported, since discordance with absolute values may lead to misinterpretation of CBC data. Current Interpretive Data was last revised on 2017. Testing performed by: [address] [address] Imm gran pct 0.6 % [facility] Comment: Interpretive Data Percent cell count reference ranges are not reported, since discordance with absolute values may lead to misinterpretation of CBC data. Current Interpretive Data was last revised on 2017. Testing performed by: [address] [address] Lymphocyte pct 22.4 % [facility] Comment: Interpretive Data Percent cell count reference ranges are not reported, since discordance with absolute values may lead to misinterpretation of CBC data. Current Interpretive Data was last revised on 2017. Testing performed by: [address] [address] Monocyte pct 9.8 % [facility] Comment: Interpretive Data Percent cell count reference ranges are not reported, since discordance with absolute values may lead to misinterpretation of CBC data. Current Interpretive Data was last revised on 2017. Testing performed by: [address] [address] Eosinophil pct 4.1 % [facility] Comment: Interpretive Data Percent cell count reference ranges are not reported, since discordance with absolute values may lead to misinterpretation of CBC data. Current Interpretive Data was last revised on 2017. Testing performed by: [address] [address] Basophil pct 0.9 % [facility] Comment: Interpretive Data Percent cell count reference ranges are not reported, since discordance with absolute values may lead to misinterpretation of CBC data. Current Interpretive Data was last revised on 2017. Testing performed by: [address] [address] Blood 10/14/2024 8:45 AM CDT 10/14/2024 8:52 AM CDT us Jesse Beatty MD LAB BLOOD ORDERABLES Katelin masterson Result VENA[facility]IO [facility] [facility] [place] [address] * (ABNORMAL) CBC with auto differential (10/14/2024 8:45 AM CDT) WBC 5.39 3.80 - 9.90 K/cumm Comment:Testing performed by : [address] [address] Hgb 11.9 11.9 - 15.5 g/dL [facility] Comment:Testing performed by : [address] [address] Hct 38.5 35.6 - 45.5 % [facility] Comment:Testing performed by : [address] [address] Plt 286 150 - 400 K/cumm [facility] Comment:Testing performed by : [address] [address] MPV 9.7 9.1 - 12.3 fL [facility] Comment:Testing performed by : [address] [address] RBC 3.83(L) 3.90 - 5.20 M/cumm [facility] Comment:Testing performed by : [address] [address] MCV 100.5(H) 81.3 - 96.4 fL [facility] Comment:Testing performed by : [address] [address] MCH 31.1 27.1 - 33.3 pg [facility] Comment:Testing performed by : [address] [address] MCHC 30.9(L) 32.3 - 35.7 g/dL [facility] Comment:Testing performed by : [address] [address] RDW CV 13.7 11.1 - 14.9 % [facility] Comment:Testing performed by : [address] [address] RDW SD 50.7(H) 35.7 - 48.1 fL [facility] Comment:Testing performed by : [address] [address] NRBC abs 0.00 0.00 - 0.01 K/cumm [facility] Comment:Testing performed by : [address] [address] Blood 10/14/2024 8:45 AM CDT 10/14/2024 8:52 AM CDT Narrative VENANCIO - 10/14/2024 9:02 AM CDT If most recent labs were drawn prior to 4 AM, draw only prior to initiating procedure. Jesse Beatty MD LAB BLOOD ORDERABLES Katelin l Result Performing Organization Address City/State/[facility] Co de Phone Number [facility] [address] [place] [address] * ABO/Rh (10/14/2024 8:45 AM CDT) ABO/Rh O Positive Comment:Testing performed by : [address] [address] Blood 10/14/2024 8:45 AM CDT 10/14/2024 8:52 AM CDT Narrative VENANCIO - 10/14/2024 9:31 AM CDT Has the patient had Daratumumab or Isatuximab in the past 6 months?->Unknown Result [facility] Jesse Beatty MD LAB BLOOD BANK TEST ORDER BHAVANA Final Result Performing Organization Address [facility] Co de Phone Number ELAN[address] [address] * aPTT (10/14/2024 8:45 AM CDT) aPTT 31 22 - 37 sec Comment: Interpretive data aPTT test has not been evaluated for monitoring heparin therapy. The anti-Xa is the preferred test. Current interpretive data was last revised on 2019. Testing performed by: [address] [address] Blood 10/14/2024 8:45 AM CDT 10/14/2024 8:52 AM CDT Jesse Beatty MD LAB BLOOD ORDERABLES Katelin l Result Performing Organization Address [facility] de Phone Number ELAN[address] [place] [address] * Protime-INR (10/14/2024 8:45 AM CDT) PT 12.8 12.0 - 14.6 sec Comment:Testing performed by : [address] [address] INR 1.0 0.9 - 1.2 [facility] Comment: Ref Range High Interpretive data Oral anticoagulant therapeutic ranges: Venous thromboembolism prophylaxis or treatment: 2.0-3.0 CARDIOLOGY Standard range: 2.0-3.0 High-intensity range: 2.5-3.5 Refer to indication-specific guidelines for appropriate target ranges for prosthetic heart valve replacement. Current interpretive data was last revised on 2019. Testing performed by: [address] [address] Blood 10/14/2024 8:45 AM CDT 10/14/2024 8:52 AM CDT us Jesse Beatty MD LAB BLOOD ORDERABLES Katelin l Result Performing Organization Address City/[facility]/ZIP Co de Phone Number [address] [address] * Antibody screen (10/14/2024 8:45 AM CDT) Pathologist [facility] Maria C, indirect, Gel Interpretation Negative [facility] Comment:Testing performed by : [address] [address] Blood 10/14/2024 8:45 AM CDT 10/14/2024 8:52 AM CDT Narrative VENANCIO - 10/14/2024 9:31 AM CDT Has the patient had Daratumumab or Isatuximab in the past 6 months?->Unknown Jesse Beatty MD LAB BLOOD BANK TEST ORDER BHAVANA Final Result Performing Organization Address [facility] de Phone Number [address] [place] [address] * Basic metabolic panel (10/14/2024 8:45 AM CDT) [facility] Sodium 139 135 - 145 mmol/L Comment:Testing performed by : [address] [address] Potassium, pl 4.8 3.3 - 4.9 mmol/L [facility] Comment: Hemolyzed; Potassium value may be falsely elevated by as much as 1.0 mmol/L. Suggest redraw and reanalysis. Testing performed by: [address] [address] Chloride 103 97 - 110 mmol/L [facility] Comment:Testing performed by : [address] [address] CO2 28 22 - 32 mmol/L [facility] Comment:Testing performed by : [address] [address] Anion gap 8 2 - 15 mmol/L [facility] Comment:Testing performed by : [address] [address] BUN 18 6 - 25 mg/dL [facility] Comment:Testing performed by : [address] [address] Creatinine 0.84 0.60 - 1.10 mg/dL [facility] Comment:Testing performed by : [address] [address] Glucose 94 70 - 199 mg/dL VENANCIO [...] was last revised 2022. Testing performed by: [address] [address] Calcium 9.9 8.5 - 10.3 mg/dL [facility] Comment:Testing performed by : [address] [address] Blood 10/14/2024 8:45 AM CDT 10/14/2024 8:52 AM CDT Jesse Beatty MD LAB BLOOD ORDERABLES Katelin l Result Performing Organization Address City/State/[facility] Co de Phone Number [facility] [address] [facility] Department of Laboratories [place], [place] [id number] * ECG 12 lead (10/14/2024 8:24 AM CDT) Pathologist [facility] Ventricular Rate EKG/Min 81 BPM [facility] Atrial Rate 81 BPM [facility] [place]-Interval (MSEC) 158 ms [facility] QRS-Interval (MSEC) 120 ms [facility] QT-Interval (MSEC) 384 ms [facility] QTc 446 ms [facility] P [place] 80 degrees [facility] R [place] 6 degrees [facility] T [place] 63 degrees [facility] Diagnosis Normal sinus rhythm Right bundle branch block Abnormal ECG No previous ECGs available Confirmed by JESSE BEATTY M.D. ([id number]) on 10/14/2024 11:09:52 AM [facility] [employer] 10/14/2024 8:24 AM CDT 10/14/2024 11:09 AM CDT us Jesse Beatty MD ECG ORDERABLES Final Res ult [employer] * CT Coronary Fractional Flow [place] (09/04/2024 1:14 PM CDT) Anatomical Region Laterality Modality Chest N/A Computed Tomogra phy 09/06/2024 8:5 7 AM CDT Impressions 09/06/2024 7:47 PM CDT ADDENDUM: Coronary CTA Fractional Flow [place] (FFR) The below FFR CT results are [...] 09/06/2024 IMPRESSION: ADDENDUM: Coronary CTA Fractional Flow [place] (FFR) The below FFR CT results are [...] LAB POCT ORDERABLES - DEVICE Final Result [facility] [address] [facility] Department [place] [address] * Screening Mammogram (08/17/2012 3:04 PM CDT) Anatomical Region Laterality Modality Breast N/A Mammography 08/17/2012 3:04 PM CDT Narrative 09/08/2012 1:48 PM CDT TAYLOR PICKERING M.D. FINAL REPORT ACC# Date Time Exam [id number] Aug 17, 2012 15:04:00 [facility] [address] Screening Mamm Bilat Technologist(s): Lydia Gutiérrez; ; [...] oblique. Computer Aided Detection was performed with [email or web address] version 9.3. There are scattered fibroglandular densities. [...] M.D. FINAL REPORT ACC# Date Time Exam [id number] Aug 17, 2012 15:04:00 [facility] [address] Screening Mamm Bilat Technologist(s): Lydia Gutiérrez; ; [...] oblique. Computer Aided Detection was performed with [email or web address] version 9.3. There are scattered fibroglandular densities. [...] Most Recently Relevant to Health Maintenance Insurance [facility] MDCR HMO REF [facility] Address: [address] [address] IDPA [facility] MEDICARE ADVANTAGE [facility] MEDICARE ADVANTAGE [facility] Address: [address] [address] [place] [address] Care Teams Outside Industrial Sales Representative Relationship Specialty Start Date End Date Hari Dowd MD [address] [place] [address] PCP - General Family Medicine 08/06/21
--- OUTSIDE RECORDS SUMMARY | 2024-10-23 22:40 | XMS_ITS | CONTINUITY OF CARE DOCUMENT ---
Author Name jericho echavarria Address Unknown Organization [facility] Address [address] [place] [address] Phone [phone] Care Team Providers Care Filter Washer And Presser Name Role Phone Ani Cook MD Unavailable BRUNO WORRELL MD Unavailable [phone] BRUNO WORRELL MD Unavailable [phone] PROBLEMS Condition Status Date Provider Notes Diabetes mellitus, type 2 active Koki Velasco per Syncope active Koki Macias INSURANCE PROVIDERS Payer name Policy type / Coverage type [place] red republican ID [facility] COMPLETE CARE [id number] (PPO C-SNP) Commercial insurance company [id number] HEALTHCARE AND FAMILY SERVICES Medicaid 1 [id number] TREATMENT PLAN Date Name Stress [employer]
[2024-10-23 22:52] LABS: Add Urine Microscopic? YES; Bacteria Urine Rare /hpf; Bilirubin Urine Negative (Negative); Blood Urine 3+ (Negative); Glucose Urine UA 3+ mg/dL (Negative); Ketones Urine Trace mg/dL (Negative); Leukocyte Esterase Ur 1+ LEU/UL (Negative); Nitrate Urine Negative (Negative); Non Pathogenic Casts 0-2; Protein Urine 2+ mg/dL (Negative); RBC Urine >100 /hpf (0-2); Specific Grav Ur 1.029 (1.001-1.035); Squamous Epithelial Cell Urine Moderate /hpf (Few); WBC Urine 51-100 /hpf (0-3); pH Urine 5.5 (5.0-9.0)
[2024-10-23 23:04] LABS: Color Urine Amber (Yellow)
[2024-10-23 23:05] LABS: Appearance Urine Cloudy (Clear)
--- NOTE | 2024-10-23 23:19 | ED.FEMALEGU ---
HPI - Female Genitourinary General Chief complaint: Vaginal Bleeding <Светлана Moise APRN - Last Filed: 10/24/24 02:22> Stated complaint: vaginal bleeding <Светлана Moise APRN - Last Filed: 10/24/24 02:22> Time Seen by Provider: 10/23/24 22:22 <Светлана Moise APRN - Last Filed: 10/24/24 02:22> History of Present Illness HPI Narrative: Patient is a 65-year-old female who presents to the ER with vaginal bleeding. She reports the bleeding started this afternoon and reports it's acting like I got my period. Patient reports she is past menopause. She denies any burning, urgency, recent fevers, or vaginal discharge. Patient denies any recent rough intercourse. She endorses a history of COPD, CHF, on high blood pressure, and had a cardiac catheterization last week. Patient reports she is unsure when she had her last Pap smear. She also endorses intermittent numbness in her fingertips and legs. <Светлана Moise APRN - Last Filed: 10/24/24 02:22> Related Data Home medications: Home Medications ?Medication ?Instructions ?Recorded ?Confirmed ?Last Taken ?Type ibuprofen 800 mg tablet 800 mg PO TID PRN Pain (Scale 08/01/20 07/13/24 Unknown History Score 4-6) cyclobenzaprine 10 mg tablet 10 mg PO TID PRN pain 10/23/23 07/13/24 07/12/24 History hydrocodone 7.5 mg-acetaminophen 1 tablet PO QHS PRN pain 10/23/23 07/13/24 07/12/24 History 325 mg tablet amlodipine 5 mg tablet 5 mg PO DAILY 07/13/24 07/13/24 07/12/24 History atorvastatin 40 mg tablet 40 mg PO DAILY 07/13/24 07/13/24 Unknown History benzonatate 100 mg capsule 100 mg PO TID 07/13/24 07/13/24 Unknown History losartan 100 mg tablet 100 mg PO DAILY 07/13/24 07/13/24 07/12/24 History mometasone-formoterol HFA 200 2 puff inhalation BID 07/13/24 07/13/24 07/13/24 History mcg-5 mcg/actuation aerosol inhaler (Dulera) omeprazole 40 mg capsule,delayed 40 mg PO DAILY 07/13/24 07/13/24 07/12/24 History release <Светлана Moise APRN - Last Filed: 10/24/24 02:22> Allergies/Adverse reactions: Allergies Allergy/AdvReac Type Severity Reaction Status Date / Time No Known Allergies Allergy Unknown Verified 10/23/24 22:03 <Светлана Moise APRN - Last Filed: 10/24/24 02:22> Review of Systems Review of Systems: All systems reviewed & are unremarkable except as noted in HPI and below <Светлана Moise APRN - Last Filed: 10/24/24 02:22> [facility] Past Medical History Medical History: Medical History Anxiety Chronic obstructive pulmonary disease Chronic GERD Hiatal hernia Osteoarthritis Asthma Chronic back pain Nephrolithiasis Hypertension <Светлана Moise APRN - Last Filed: 10/24/24 02:22> Surgical History Surgical History: Surgical History History of total left hip replacement (12/2014) History of section History of total hip replacement (05/2013) <Светлана Moise APRN - Last Filed: 10/24/24 02:22> Family History Family History: Family History Mother Hypertension <Светлана Moise APRN - Last Filed: 10/24/24 02:22> Social History Social History: Social History Social History: Lives in [place], [place]. She has 3 children. 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 She smoked a pack of cigarettes a day for 27 years and quit in 1989. No alcohol or drug abuse. Candy Bowen, daughter. Code status: Full code. Smoking packs per day: 1 Smoking cigarettes per day: 20.0 Years smoked: 24 Smoking pack-years: 24.00 Smoking status: Former smoker Tobacco type: cigarettes Smoking end date: 07/13/24 Alcohol intake: never Substance use: never Substance use type: does not use Do You Feel Safe in your Home?: Yes Lack of Transportation: No Lack of Food: Never True Current Housing: I Have Housing Concerned About Future Housing: No Difficulty Paying Gas/Electric Bills: No Difficulty Paying for Meds: No Currently Unemployed: No Education: High School Diploma/GED Difficulty w/ Childcare or Family Care: No Spiritual care concerns: No <Светлана Moise, FLUME TENDER - Last Filed: 10/24/24 02:22> Exam Narrative: GENERAL: Well appearing, well-nourished, non-toxic, in no acute distress. HEAD: Normocephalic, atraumatic. NECK: Supple. No adenopathy, no masses. RESPIRATORY: Airway patent, respirations nonlabored. Clear to auscultation bilaterally, no rales, rhonchi, wheezing. CARDIOVASCULAR: Regular rate and rhythm without murmurs, rubs, or gallops. Peripheral pulses 2+ and equal bilaterally. ABDOMINAL: Soft, nontender, nondistended, no hepatosplenomegaly. Normoactive BS. MUSCULOSKELETAL: Moves all extremities. Strength/ROM intact without gross deformities. SKIN: Warm, dry, normal color. No rashes. NEURO: A&O X3. Speech clear. Cranial nerves II-XII intact. No ataxic movements. PSYCHIATRIC: Appropriate mood and affect. Normal interaction. 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 CT as below is concerning for tumor. I did evaluate patient at bedside and told her this. She does not have ore sampler and I urged her to follow up with the name provided by calling on Friday. I did call the lab to ask about the delay in obtaining gonorrhea chlamydia swab result and they had told me that would result in 14min from when I called but then they called and said there was an error. Given low suspicion, I did advise that they could process it again but there is no reason for patient to reamin in the ED for another 90 minutes. OBGYn can follow up on this if positive. Patient is not anemic. She is given ED return precautions. Otherwise stable for discharge. <Coty Espinoza MD - Last Filed: 10/24/24 03:52> Vital Signs Vital signs: Vital Signs Temperature 97.6 F 10/23/24 21:59 Pulse Rate 92 10/23/24 21:59 Respiratory Rate 20 10/23/24 21:59 Blood Pressure 125/97 H 10/23/24 21:59 Pulse Oximetry 98 10/23/24 21:59 Oxygen Delivery Room Air 10/23/24 21:59 Temperature 97.6 F 10/23/24 21:59 Pulse Rate 87 10/24/24 03:27 Respiratory Rate 18 10/24/24 03:27 Blood Pressure 133/72 10/24/24 03:27 Pulse Oximetry 96 10/24/24 03:27 Oxygen Delivery Room Air 10/23/24 21:59 <Светлана Moise APRN - Last Filed: 10/24/24 02:22> Vital Signs Temperature 97.6 F 10/23/24 21:59 Pulse Rate 92 10/23/24 21:59 Respiratory Rate 20 10/23/24 21:59 Blood Pressure 125/97 H 10/23/24 21:59 Pulse Oximetry 98 10/23/24 21:59 Oxygen Delivery Room Air 10/23/24 21:59 Temperature 97.6 F 10/23/24 21:59 Pulse Rate 87 10/24/24 03:27 Respiratory Rate 18 10/24/24 03:27 Blood Pressure 133/72 10/24/24 03:27 Pulse Oximetry 96 10/24/24 03:27 Oxygen Delivery Room Air 10/23/24 21:59 <Coty Espinoza MD - Last Filed: 10/24/24 03:52> MDM - Female Genitourinary MDM Narrative Medical decision making narrative: Patient is a 65-year-old female who presents to the ER with vaginal bleeding. She reports the bleeding started this afternoon and reports it's acting like I got my period. Patient reports she is past menopause. She denies any burning, urgency, recent fevers, or vaginal discharge. Patient denies any recent rough intercourse. She endorses a history of COPD, CHF, on high blood pressure, and had a cardiac catheterization last week. Patient reports she is unsure when she had her last Pap smear. She also endorses intermittent numbness in her fingertips and legs. Labs Ordered: CBC, CMP, PTT, INR, UA, STD swabs Imaging Ordered: CT abdomen pelvis Medications Ordered: Macrobid 100 mg p.o. Results: Pt's urinalysis indicate she has a urinary tract infection. 0215- Care signed out to Dr. Espinoza. <Светлана Moise APRN - Last Filed: 10/24/24 02:22> Differential Diagnosis Differential diagnosis: Likely urinary tract infection, trichomoniasis and dysmenorrhea <Светлана Moise APRN - Last Filed: 10/24/24 02:22> Lab Data Attestation: I reviewed the patient's lab results. <Светлана Moise FLUME TENDER - Last Filed: 10/24/24 02:22> Result diagrams: 10/23/24 23:49 10/23/24 23:49 <Светлана Moise APRN - Last Filed: 10/24/24 02:22> Labs: Lab Results 10/23/24 10/23/24 Range/Units 22:31 23:49 WBC 7.3 (4.5-10.0) K/mm3 RBC 4.09 L (4.2-5.4) M/mm3 Hgb 12.7 (12.0-15.0) g/dL Hct 41.4 (37.0-47.0) % MCV 101.2 H (80-100) fl MCH 31.1 (26-34) pg MCHC 30.7 L (32-36) g/dl RDW 13.6 (11.5-14.5) % Plt Count 305 (150-375) k/mm3 MPV 9.5 (7.4-10.4) fl Immature Gran % (Auto) 0.7 H (0-0.5) % Neut % (Auto) 72.5 (45.5-73.1) % Lymph % (Auto) 17.5 L (18.3-44.2) % Christian % (Auto) 5.9 (2.6-8.5) % Eos % (Auto) 3.0 (0-4.4) % Baso % (Auto) 0.4 (0.2-1.2) % Lymph # (Auto) 1.28 (0.9-3.2) K/mm3 Christian # (Auto) 0.4 (0.1-0.6) K/mm3 Eos # (Auto) 0.2 (0-0.3) K/mm3 Baso # (Auto) 0.0 (0.0-0.1) K/mm3 Abs Immat Gran (auto) 0.05 H (0.00-0.031) K/mm3 Absolute Neuts (auto) 5.3 (1.3-6.7) K/mm3 Absolute Nucleated RBC 0.000 (0.0-0.012) K/mm3 Nucleated RBC % 0.0 (0.0-0.2) % PT 13.3 (11.1-14.7) Seconds INR 1.0 APTT 30.6 (22.3-36.8) Seconds Sodium 139 (137-145) mmol/L Potassium 4.1 (3.4-5.0) mmol/L Chloride 101 (98-107) mmol/L Carbon Dioxide 30 (22-30) mmol/L Anion Gap 8 (4-12) mmol/L BUN 25 H (7-17) mg/dL Creatinine 1.11 H (0.7-1.0) mg/dL Estim Creat Clear Calc 44 ml/min Estimated GFR 49 L (59 - ) Glucose 158 H (65-110) mg/dL Calcium 9.4 (8.4-10.2) mg/dL Total Bilirubin 0.5 (0.2-1.3) mg/dL AST 43 H (14-36) U/L ALT 25 (6-35) U/L Alkaline Phosphatase 66 (38-126) U/L Total Protein 8.0 (6.3-8.2) g/dL Albumin 4.4 (3.5-5.1) g/dL Urine Color Maryjane (Yellow) Urine Appearance Cloudy H (Clear) Urine pH 5.5 (5.0-9.0) Ur Specific [place] 1.029 (1.001-1.035) Urine Protein 2+ H (Negative) mg/dL Urine Glucose (UA) 3+ H (Negative) mg/dL Urine Ketones Trace H (Negative) mg/dL Ur Blood (Man) 3+ H (Negative) Urine Nitrate Negative (Negative) Urine Bilirubin Negative (Negative) Urine Urobilinogen 1.0 (<2.0) mg/dL Leukocyte Esterase Rfl 1+ H (Negative) TESSY/UL Urine RBC >100 H (0-2) /hpf Urine WBC 51-100 H (0-3) /hpf Ur Squamous Epith Cells Moderate (Few) /hpf Urine Bacteria Rare /hpf Urine Casts 0-2 C. trachomatis (PCR) Pending N. gonorrhoeae (PCR) Pending T. vaginalis (PCR) Not detected (NOT DETECTE) <Светлана Moise, FLUME TENDER - Last Filed: 10/24/24 02:22> Lab Results 10/23/24 10/23/24 Range/Units 22:31 23:49 WBC 7.3 (4.5-10.0) K/mm3 RBC 4.09 L (4.2-5.4) M/mm3 Hgb 12.7 (12.0-15.0) g/dL Hct 41.4 (37.0-47.0) % MCV 101.2 H (80-100) fl MCH 31.1 (26-34) pg MCHC 30.7 L (32-36) g/dl RDW 13.6 (11.5-14.5) % Plt Count 305 (150-375) k/mm3 MPV 9.5 (7.4-10.4) fl Immature Gran % (Auto) 0.7 H (0-0.5) % Neut % (Auto) 72.5 (45.5-73.1) % Lymph % (Auto) 17.5 L (18.3-44.2) % Christian % (Auto) 5.9 (2.6-8.5) % Eos % (Auto) 3.0 (0-4.4) % Baso % (Auto) 0.4 (0.2-1.2) % Lymph # (Auto) 1.28 (0.9-3.2) K/mm3 Christian # (Auto) 0.4 (0.1-0.6) K/mm3 Eos # (Auto) 0.2 (0-0.3) K/mm3 Baso # (Auto) 0.0 (0.0-0.1) K/mm3 Abs Immat Gran (auto) 0.05 H (0.00-0.031) K/mm3 Absolute Neuts (auto) 5.3 (1.3-6.7) K/mm3 Absolute Nucleated RBC 0.000 (0.0-0.012) K/mm3 Nucleated RBC % 0.0 (0.0-0.2) % PT 13.3 (11.1-14.7) Seconds INR 1.0 APTT 30.6 (22.3-36.8) Seconds Sodium 139 (137-145) mmol/L Potassium 4.1 (3.4-5.0) mmol/L Chloride 101 (98-107) mmol/L Carbon Dioxide 30 (22-30) mmol/L Anion Gap 8 (4-12) mmol/L BUN 25 H (7-17) mg/dL Creatinine 1.11 H (0.7-1.0) mg/dL Estim Creat Clear Calc 44 ml/min Estimated GFR 49 L (59 - ) Glucose 158 H (65-110) mg/dL Calcium 9.4 (8.4-10.2) mg/dL Total Bilirubin 0.5 (0.2-1.3) mg/dL AST 43 H (14-36) U/L ALT 25 (6-35) U/L Alkaline Phosphatase 66 (38-126) U/L Total Protein 8.0 (6.3-8.2) g/dL Albumin 4.4 (3.5-5.1) g/dL Urine Color Maryjane (Yellow) Urine Appearance Cloudy H (Clear) Urine pH 5.5 (5.0-9.0) Ur Specific [place] 1.029 (1.001-1.035) Urine Protein 2+ H (Negative) mg/dL Urine Glucose (UA) 3+ H (Negative) mg/dL Urine Ketones Trace H (Negative) mg/dL Ur Blood (Man) 3+ H (Negative) Urine Nitrate Negative (Negative) Urine Bilirubin Negative (Negative) Urine Urobilinogen 1.0 (<2.0) mg/dL Leukocyte Esterase Rfl 1+ H (Negative) TESSY/UL Urine RBC >100 H (0-2) /hpf Urine WBC 51-100 H (0-3) /hpf Ur Squamous Epith Cells Moderate (Few) /hpf Urine Bacteria Rare /hpf Urine Casts 0-2 C. trachomatis (PCR) Pending N. gonorrhoeae (PCR) Pending T. vaginalis (PCR) Not detected (NOT DETECTE) <Coty Espinoza MD - Last Filed: 10/24/24 03:52> Imaging Data Radiologist's impression: CT Abd and Pelvis with Contrast: Soft tissue mass in the pelvis, measures 8.5 x 10.8 cm, and is located superior to the uterus. This is suspicious for a ovarian tumor. Gynecology/oncology evaluation recommended. <Coty Espinoza MD - Last Filed: 10/24/24 03:52> Discharge Plan Discharge Clinical Impression: Mass, ovarian, UTI (urinary tract infection), Abnormal uterine bleeding <Светлана Moise APRN - Last Filed: 10/24/24 02:22> Patient Disposition: Home <Светлана Moise APRN - Last Filed: 10/24/24 02:22> Condition: Stable <Светлана Moise APRN - Last Filed: 10/24/24 02:22> Instructions: Antibiotic Form, Abnormal (Dysfunctional) Uterine Bleeding (ED), Urinary Tract Infection in Women (DC) <Светлана Moise APRN - Last Filed: 10/24/24 02:22> Additional Instructions: As we discussed, you have a urinary tract infection and were prescribed an antibiotic and received the 1st dose in the emergency department. However, your CT scan is concerning for an ovarian mass and it is important you follow-up with the ore sampler listed below by calling for an appointment. You are not currently anemic (your red blood cells were appropriate). Acetaminophen/Tylenol (maximum 4000 mg per day) is safe to take with NSAIDs (ibuprofen/Motrin) for pain relief. Return to the emergency department if you are saturating 2 maxi pads an hour for more than 2-3 hours, if you faint/nearly pass out, have intractable pain, or for any other new or worsening or unmanaged symptoms <Светлана Moise APRN - Last Filed: 10/24/24 02:22> Patient Language: Serbian <Светлана Moise APRN - Last Filed: 10/24/24 02:22> Prescriptions: New nitrofurantoin monohyd/m-cryst [Macrobid] 100 mg capsule 100 mg PO Q12H 5 Days Qty: 10 0RF Rx Instructions: must administer with a meal/food acetaminophen 500 mg capsule 1,000 mg PO Q6H PRN (Reason: pain) Qty: 30 0RF ibuprofen 600 mg tablet 600 mg PO TID PRN (Reason: pain) Qty: 30 0RF No Action cyclobenzaprine 10 mg tablet 10 mg PO TID PRN (Reason: pain) hydrocodone-acetaminophen 7.5-325 mg tablet 1 tablet PO QHS PRN (Reason: pain) ibuprofen 800 mg Tablet 800 mg PO TID PRN (Reason: Pain (Scale Score 4-6)) amlodipine 5 mg tablet 5 mg PO DAILY atorvastatin 40 mg tablet 40 mg PO DAILY losartan 100 mg tablet 100 mg PO DAILY omeprazole 40 mg capsule,delayed release(DR/EC) 40 mg PO DAILY Dulera 200-5 mcg/actuation HFA aerosol inhaler 2 puff INHALATION BID benzonatate 100 mg capsule 100 mg PO TID furosemide 40 mg Tablet 40 mg PO DAILY 30 Days Qty: 30 0RF metoprolol succinate 50 mg Tablet Extended Release 24 Hr 50 mg PO QAM 60 Days Qty: 60 1RF spironolactone 25 mg Tablet 25 mg PO QAM 60 Days Qty: 60 1RF Jardiance 10 mg Tablet 10 mg PO DAILY Qty: 30 1RF Combivent Respimat 20-100 mcg/actuation mist 1 puff inhalation QID PRN (Reason: shortness of breath or wheezing) Qty: 4 1RF Rx Instructions: space evenly during waking hours <Светлана Moise APRN - Last Filed: 10/24/24 02:22> Follow-up/Referrals: Kirkland,Hari Oh MD [Primary Care Provider] - Migel Rogers MD [Physician] - <Светлана Moise APRN - Last Filed: 10/24/24 02:22> Stand Alone Forms: Work/School Release IP <Светлана Moise APRN - Last Filed: 10/24/24 02:22> Time of Disposition: 03:51 <Светлана Moise APRN - Last Filed: 10/24/24 02:22> 03:51 <Coty Espinoza MD - Last Filed: 10/24/24 03:52>
[2024-10-24] LABS: Basophils Percent Auto 0.4 % (0.2-1.2); Eosinophils Absolute Auto 0.2 K/mm3 (0-0.3); Hematocrit 41.4 % (37.0-47.0); Hemoglobin 12.7 g/dL (12.0-15.0); Immature Granulocyte Absolute 0.05 K/mm3 (0.00-0.031); Immature Granulocyte Percent A 0.7 % (0-0.5); Lymphocytes Absolute Auto 1.28 K/mm3 (0.9-3.2); Lymphocytes Percent Auto 17.5 % (18.3-44.2); Mean Corpuscular HGB Conc 30.7 g/dl (32-36); Mean Corpuscular Hemoglobin 31.1 pg (26-34); Mean Corpuscular Volume 101.2 fl (80-100); Mean Platelet Volume 9.5 fl (7.4-10.4); Monocytes Absolute Auto 0.4 K/mm3 (0.1-0.6); Monocytes Percent Auto 5.9 % (2.6-8.5); Neutrophils Absolute Auto 5.3 K/mm3 (1.3-6.7); Neutrophils Percent Auto 72.5 % (45.5-73.1); Platelet Count Result 305 k/mm3 (150-375); Red Blood Count 4.09 M/mm3 (4.2-5.4); Red Cell Distribution Width 13.6 % (11.5-14.5); White Blood Count 7.3 K/mm3 (4.5-10.0)
[2024-10-24 00:01] VITALS: BP 128/76
[2024-10-24 00:07] LABS: Alanine Aminotransferase 25 U/L (6-35); Albumin Level 4.4 g/dL (3.5-5.1); Alkaline Phosphatase 66 U/L (38-126); Anion Gap 8 mmol/L (4-12); Aspartate Amino Transferase 43 U/L (14-36); Bilirubin,Total 0.5 mg/dL (0.2-1.3); Blood Urea Nitrogen 25 mg/dL (7-17); Calcium 9.4 mg/dL (8.4-10.2); Carbon Dioxide 30 mmol/L (22-30); Chloride 101 mmol/L (98-107); Estimated CRCL calculation 44 ml/min; Estimated Glomerular Filt Rate 49; Glucose 158 mg/dL (65-110); Potassium 4.1 mmol/L (3.4-5.0); Sodium 139 mmol/L (137-145)
[2024-10-24 00:18] LABS: Prothrombin Time 13.3 Seconds (11.1-14.7)
[2024-10-24 00:19] LABS: Partial Thromboplastin Time 30.6 Seconds (22.3-36.8)
[2024-10-24 01:48] LABS: Trichomonas Vag PCR NOT DETECTED (NOT DETECTE)
[2024-10-24] MEDS: NITROFURANTOIN MONOHYD MACROCR 100 MG CAP PO (01:52)
[2024-10-24 02:27] VITALS: BP 131/73; RESP 18; O2SAT 98
[2024-10-24 03:27] VITALS: BP 133/72; PULSE 87; RESP 18; O2SAT 96
[2024-10-24] MEDS: HYDROcodone/acetaminophen (*CRX) 5-325 MG TABLET 1 TAB PO (04:19)
[2024-10-24 05:01] LABS: Chlamydia trachomatis NOT DETECTED (NOT DETECTE); Neisseria gonorrhoeae PCR NOT DETECTED (NOT DETECTE)
== END 2024-10-24 04:45 | disposition home or self-care (01) ==
PROVIDERS: Registered Nurse; Emergency Provider Student in an Organized Health Care Education/Training Program; PCP Family Medicine
DX: N83.9 Noninflammatory disorder of ovary, fallopian tube and broad ligament, unspecified (principal); N39.0 Urinary tract infection, site not specified; N93.9 Abnormal uterine and vaginal bleeding, unspecified; Z11.3 Encounter for screening for infections with a predominantly sexual mode of transmission; I50.9 Heart failure, unspecified; I11.0 Hypertensive heart disease with heart failure; J44.9 Chronic obstructive pulmonary disease, unspecified; K44.9 Diaphragmatic hernia without obstruction or gangrene; K21.9 Gastro-esophageal reflux disease without esophagitis; M19.90 Unspecified osteoarthritis, unspecified site; F41.9 Anxiety disorder, unspecified; Z96.642 Presence of left artificial hip joint; Z87.442 Personal history of urinary calculi; Z87.891 Personal history of nicotine dependence
CPT/HCPCS: 36415; 74177; 80053; 81001; 85025; 85610; 85730; 87086; 87491; 87591; 87661; 99284; A9270; Q9967

== ENCOUNTER 2024-10-26 13:04 | Emergency (ER) | payer MEDICARE, MEDICAID, SELFPAY ==
--- NOTE | ~2024-10-26 | US_ITS ---
EXAM: PELVIC ULTRASOUND HISTORY: R ovarian mass, pain, bleeding COMPARISON: None. Reference is made to the CT examination of the abdomen and pelvis dated 10/24/2024 FINDINGS: UTERUS: 10.0 x 4.2 x 5.4 cm. The endometrium is thickened and nodular and demonstrates internal vascularity. The endometrium measures 22 mm in greatest anterior to posterior dimension. A rounded focus of mixed echogenicity, also with internal vascularity is identified along the anterio r margin of the body of the uterus measuring 22 x 20 x 22 mm, possibly a uterine fibroid. RIGHT OVARY: Despite prolonged interrogation, the right ovary was not visualized. RIGHT ADNEXA: Within the right adnexa is an well-circumscribed rounded focus of decreased echogenicity measuring 8 x 9.5 x 9.8 cm, with internal flow. No discrete distinction/fat plane is detected between the uterus and this right adnexal mass. LEFT OVARY: Despite prolonged interrogation, the left ovary was not visualized. LEFT ADNEXA: Unremarkable No free fluid is identified within the pelvis. IMPRESSION: Findings within the uterus and right adnexa for which malignancy is suspected. If, prior to resection, better characterization is needed, contrast enhanced MRI may be performed. Reviewed, dictated and finalized at location A. IMPRESSION: Findings within the uterus and right adnexa for which malignancy is suspected. If, prior to resection, better characterization is needed, contrast enhanced MR I may be performed.
--- OUTSIDE RECORDS SUMMARY | 2024-10-26 13:12 | XMS_ITS | Clinical Summary ---
Author Organization [facility] [employer] Address [address] [place] [address] Care Team Providers Care Septic Cleaner Name Role Phone Unavailable Primary Care Provider Unavailabl e Source Comments [facility],non-owned Affiliates and Associated Physician Practices is amultiple site organization consisting of ambulatory clinics and hospital sitesin [place], [place], [place] and [place]. This disclosure is being madepursuant to the Care Everywhere program and may not contain all information available regarding this patient. 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 Gender Identity Not on file Sexual Orientation Not on file Plan of Treatment Upcoming Encounters Date Type Department Care Team (Late st Contact Info) Description 2024 11:00 AM CDT Office Visit [facility] - Vascular Surgery [address] [place] [id number] Riley Langley MD [address] [id number] Health Maintenance Due Date Last Done Comments BONE DENSITY TESTING 1955 COLOGUARD (AGES 45-75) - COL ON CA SCREENING 1955 COLON MONITORING 1955 COLONOSCOPY - COLON CA SCREENING 1955 CT COLONOGRAPHY - COLON CA SCREENING 1955 Colorectal Cancer Screening 1955 FIT - COLON CA SCREENING 1955 FLEX SIG - COLON CA SCREENING 1955 LIPID TESTING 1955 HEPATITIS C SCREENING 10/23/1973 DTAP/TDAP/TD VACCINES (1 - Tdap) 10/27/1974 PNEUMOCOCCAL VACCINE 50+ (1 of 1 - PCV) 10/27/2005 ZOSTER VACCINE (1 of 2) 10/27/2005 MAMMOGRAM 08/17/2014 08/17/2012 COVID-19 VACCINE (1 - 2023-2 5 season) 2024 DEPRESSION SCREENING 06/02/2024 MEDICARE AWV CALENDAR YEAR 2024 INFLUENZA VACCINE (Season Ended) 2025 Respiratory Syncytial Virus (RSV) Vaccine Pt: or over 60 yrs (1 - 1-dose 75+ series) 10/27/2030 HEPATITIS B VACCINE Aged Out No longe r eligible based on patient's age to complete this topic HIB VACCINE Aged Out No longer eligi ble based on patient's age to complete this topic HPV VACCINE Aged Out No longer eligi ble based on patient's age to complete this topic MENINGOCOCCAL (Group B) VACC INE SHARED DECISION-MAKING Aged Out No longer eligibl e based on patient's age to complete this topic MENINGOCOCCAL GROUPS A/C/Y/W VACCINE Aged Out No longer eligible b ased on patient's age to complete this topic Insurance MANAGED MEDICARE [facility] MEDICAID - OUT OF STATE [facility] MANAGED MEDICARE ADV
[2024-10-26 13:13] VITALS: BP 118/73; PULSE 92; RESP 16; TEMP 36.4; O2SAT 98
--- NOTE | 2024-10-26 14:57 | ED.FEMALEGU ---
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 Patient reports she was seen here on 10/23. Diagnosed with a urinary tract infection. CT scan of the abdomen/ pelvis at that time showed a right-sided ovarian mass. 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 States she is still bleeding. Reports going through 3-4 pads per day. Reports pain in his R lower abdomen. Denies nausea, vomiting, dizziness, fevers. She is not on any anticoagulation. GENERAL: Well-appearing, well-nourished, and in no acute distress. HEAD: Normocephalic, atraumatic. CHEST: Clear to auscultation. ?No respiratory distress. HEART: Regular rate and rhythm.? ABD: No significant tenderness in abdomen. NEURO: ?Alert and oriented x3. Patient screened in triage and initial orders placed.? ?Additional care and disposition to be based upon?diagnostic testing and treatment. <Tiesha Palacios PA-C - Last Filed: 10/26/24 15:03> Focused HPI: Patient is a 68-year-old female who presents the ED with report of vaginal bleeding. Patient reports she was seen here on 10/23. Diagnosed with a urinary tract infection. CT scan of the abdomen/ pelvis at that time showed a right-sided ovarian mass. 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 States she is still bleeding. Reports going through 3-4 pads per day. Reports pain in his R lower abdomen. Denies nausea, vomiting, dizziness, fevers. She is not on any anticoagulation. GENERAL: Well-appearing, well-nourished, and in no acute distress. HEAD: Normocephalic, atraumatic. CHEST: Clear to auscultation. ?No respiratory distress. HEART: Regular rate and rhythm.? ABD: No significant tenderness in abdomen. NEURO: ?Alert and oriented x3. Patient screened in triage and initial orders placed.? ?Additional care and disposition to be based upon?diagnostic testing and treatment. <Lamonte Sanders MD - Last Filed: 10/26/24 21:26> Source: patient and old records reviewed <Tiesha Palacios PA-C - Last Filed: 10/26/24 15:03> Mode of arrival: ambulatory <Tiesha Palacios PA-C - Last Filed: 10/26/24 15:03> Limitations: no limitations <Tiesha Palacios PA-C - Last Filed: 10/26/24 15:03> History of Present Illness HPI Narrative: I agree with the above HPI <Lamonte Sanders MD - Last Filed: 10/26/24 21:26> Related Data Home medications: Home Medications ?Medication ?Instructions ?Recorded ?Confirmed ?Last Taken ?Type ibuprofen 800 mg tablet 800 mg PO TID PRN Pain (Scale 08/01/20 07/13/24 Unknown History Score 4-6) cyclobenzaprine 10 mg tablet 10 mg PO TID PRN pain 10/23/23 07/13/24 07/12/24 History hydrocodone 7.5 mg-acetaminophen 1 tablet PO QHS PRN pain 10/23/23 07/13/24 07/12/24 History 325 mg tablet amlodipine 5 mg tablet 5 mg PO DAILY 07/13/24 07/13/24 07/12/24 History atorvastatin 40 mg tablet 40 mg PO DAILY 07/13/24 07/13/24 Unknown History benzonatate 100 mg capsule 100 mg PO TID 07/13/24 07/13/24 Unknown History losartan 100 mg tablet 100 mg PO DAILY 07/13/24 07/13/24 07/12/24 History mometasone-formoterol HFA 200 2 puff inhalation BID 07/13/24 07/13/24 07/13/24 History mcg-5 mcg/actuation aerosol inhaler (Dulera) omeprazole 40 mg capsule,delayed 40 mg PO DAILY 07/13/24 07/13/24 07/12/24 History release <Tiesha Palacios PA-C - Last Filed: 10/26/24 15:03> Allergies/Adverse reactions: Allergies Allergy/AdvReac Type Severity Reaction Status Date / Time No Known Allergies Allergy Unknown Verified 10/26/24 18:30 <Tiesha Palacios PA-C - Last Filed: 10/26/24 15:03> Review of Systems Review of Systems: All systems reviewed & are unremarkable except as noted in HPI and below <Lamonte Sanders MD - Last Filed: 10/26/24 21:26> [facility] Past Medical History Medical History: Medical History Anxiety Chronic obstructive pulmonary disease Chronic GERD Hiatal hernia Osteoarthritis Asthma Chronic back pain Nephrolithiasis Hypertension <Tiesha Palacios PA-C - Last Filed: 10/26/24 15:03> Surgical History Surgical History: Surgical History History 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 She has 3 children. 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 She smoked a pack of cigarettes a day for 27 years and quit in 1989. No alcohol or drug abuse. Candy Bowen, daughter. Code status: Full code. Smoking packs per day: 1 Smoking cigarettes per day: 20.0 Years smoked: 24 Smoking pack-years: 24.00 Smoking status: Former smoker Tobacco type: cigarettes Smoking end date: 07/13/24 Alcohol intake: never Substance use: never Substance use type: does not use Do You Feel Safe in your Home?: Yes Lack of Transportation: No Lack of Food: Never True Current Housing: I Have Housing Concerned About Future Housing: No Difficulty Paying Gas/Electric Bills: No Difficulty Paying for Meds: No Currently Unemployed: No Education: High School Diploma/GED Difficulty w/ Childcare or Family Care: No Spiritual care concerns: No <DAGOBERTO Vizcarra Last Filed: 10/26/24 15:03> Exam Narrative: APPEARANCE: Well appearing, no pain, no distress, well-nourished. HEAD: normocephalic, atraumatic. EYES: PERRLA/EOMI, conjunctivae clear. THROAT: Pharynx clear, no exudate. NECK: Supple. No adenopathy, no masses. RESPIRATORY: Airway patent, respirations nonlabored. Clear to auscultation bilaterally, no rales, rhonchi, wheezing. CARDIOVASCULAR: Regular rate and rhythm without murmurs rubs or gallops. ABDOMINAL: Soft, nontender, nondistended, normal bowel sounds MUSCULOSKELETAL: Moves all extremities. Strength/ROM intact, No edema, No calf tenderness. NEURO: Alert. Cranial nerves II through XII intact. Good gait. Good coordination SKIN: Warm, dry. Normal Color <Lamonte Sanders MD - Last Filed: 10/26/24 21:26> Course Vital Signs Vital signs: Vital Signs Temperature 97.6 F 10/26/24 13:13 Pulse Rate 92 10/26/24 13:13 Respiratory Rate 16 10/26/24 13:13 Blood Pressure 118/73 10/26/24 13:13 Pulse Oximetry 98 10/26/24 13:13 Oxygen Delivery Room Air 10/26/24 13:13 Temperature 97.0 F L 10/26/24 19:47 Pulse Rate 83 10/26/24 19:47 Respiratory Rate 20 10/26/24 19:47 Blood Pressure 131/82 10/26/24 19:47 Pulse Oximetry 100 10/26/24 19:47 Oxygen Delivery Room Air 10/26/24 18:23 <Tiesha Palacios PA-C - Last Filed: 10/26/24 15:03> Vital Signs Temperature 97.6 F 10/26/24 13:13 Pulse Rate 92 10/26/24 13:13 Respiratory Rate 16 10/26/24 13:13 Blood Pressure 118/73 10/26/24 13:13 Pulse Oximetry 98 10/26/24 13:13 Oxygen Delivery Room Air 10/26/24 13:13 Temperature 97.0 F L 10/26/24 19:47 Pulse Rate 83 10/26/24 19:47 Respiratory Rate 20 10/26/24 19:47 Blood Pressure 131/82 10/26/24 19:47 Pulse Oximetry 100 10/26/24 19:47 Oxygen Delivery Room Air 10/26/24 18:23 <Lamonte Sanders MD - Last Filed: 10/26/24 21:26> MDM - Female Genitourinary MDM Narrative Medical decision making narrative: MSE by MARIE in triage. <Tiesha Palacios PA-C - Last Filed: 10/26/24 15:03> MSE by MARIE in triage. 68-year-old female present to the emergency department for evaluation for persistent vaginal bleeding. Was initially evaluated on 10/23 and was provided outpatient follow-up with OB Gyne for concern for abdominal mass. Patient states she was unable to secure outpatient follow-up due to the provided not taking her specific insurance. Patient states since then she still been using 3-4 pads per day. Ultrasound today did confirm an abdominal mass within the right adnexa is an well-circumscribed rounded focus of decreased echogenicity measuring 8 x 9.5 x 9.8 cm, with internal flow. No discrete distinction/fat plane is detected between the uterus and this right adnexal mass. Case was discussed with Dr. Rose Marie Lujan and patient will have close outpatient follow-up. Patient's vital signs within normal limits. Patient is currently afebrile with no leukocytosis and hemoglobin of 12.5. INR 0.9. <Lamonte Sanders MD - Last Filed: 10/26/24 21:26> Differential Diagnosis Differential diagnosis: Likely ovarian cyst and other <Lamonte Sanders MD - Last Filed: 10/26/24 21:26> Lab Data Attestation: I reviewed the patient's lab results. <Lamonte Sanders MD - Last Filed: 10/26/24 21:26> Result diagrams: 10/26/24 17:31 <Tiesha Palacios PA-C - Last Filed: 10/26/24 15:03> Labs: Lab Results 10/26/24 10/26/24 Range/Units 17:31 20:06 WBC 6.1 (4.5-10.0) K/mm3 RBC 4.06 L (4.2-5.4) M/mm3 Hgb 12.5 (12.0-15.0) g/dL Hct 42.3 (37.0-47.0) % MCV 104.2 H (80-100) fl MCH 30.8 (26-34) pg MCHC 29.6 L (32-36) g/dl RDW 13.2 (11.5-14.5) % Plt Count 303 (150-375) k/mm3 MPV 9.5 (7.4-10.4) fl Immature Gran % (Auto) 1.0 H (0-0.5) % Neut % (Auto) 62.3 (45.5-73.1) % Lymph % (Auto) 22.5 (18.3-44.2) % Mcdonough % (Auto) 9.4 H (2.6-8.5) % Eos % (Auto) 4.3 (0-4.4) % Baso % (Auto) 0.5 (0.2-1.2) % Lymph # (Auto) 1.37 (0.9-3.2) K/mm3 Mcdonough # (Auto) 0.6 (0.1-0.6) K/mm3 Eos # (Auto) 0.3 (0-0.3) K/mm3 Baso # (Auto) 0.0 (0.0-0.1) K/mm3 Abs Immat Gran (auto) 0.06 H (0.00-0.031) K/mm3 Absolute Neuts (auto) 3.8 (1.3-6.7) K/mm3 Absolute Nucleated RBC 0.000 (0.0-0.012) K/mm3 Band Neutrophils % Not Reportable Nucleated RBC % 0.0 (0.0-0.2) % Platelet Estimate Adequate (Adequate) Hypochromasia 1+ Ovalocytes 1+ Schistocytes None seen PT 12.2 (11.1-14.7) Seconds INR 0.9 APTT 29.6 (22.3-36.8) Seconds CA 125 Antigen Pending <Tiesha N. Gaudreault, PA-C - Last Filed: 10/26/24 15:03> Lab Results 10/26/24 10/26/24 Range/Units 17:31 20:06 WBC 6.1 (4.5-10.0) K/mm3 RBC 4.06 L (4.2-5.4) M/mm3 Hgb 12.5 (12.0-15.0) g/dL Hct 42.3 (37.0-47.0) % MCV 104.2 H (80-100) fl MCH 30.8 (26-34) pg MCHC 29.6 L (32-36) g/dl RDW 13.2 (11.5-14.5) % Plt Count 303 (150-375) k/mm3 MPV 9.5 (7.4-10.4) fl Immature Gran % (Auto) 1.0 H (0-0.5) % Neut % (Auto) 62.3 (45.5-73.1) % Lymph % (Auto) 22.5 (18.3-44.2) % Mcdonough % (Auto) 9.4 H (2.6-8.5) % Eos % (Auto) 4.3 (0-4.4) % Baso % (Auto) 0.5 (0.2-1.2) % Lymph # (Auto) 1.37 (0.9-3.2) K/mm3 Mcdonough # (Auto) 0.6 (0.1-0.6) K/mm3 Eos # (Auto) 0.3 (0-0.3) K/mm3 Baso # (Auto) 0.0 (0.0-0.1) K/mm3 Abs Immat Gran (auto) 0.06 H (0.00-0.031) K/mm3 Absolute Neuts (auto) 3.8 (1.3-6.7) K/mm3 Absolute Nucleated RBC 0.000 (0.0-0.012) K/mm3 Band Neutrophils % Not Reportable Nucleated RBC % 0.0 (0.0-0.2) % Platelet Estimate Adequate (Adequate) Hypochromasia 1+ Ovalocytes 1+ Schistocytes None seen PT 12.2 (11.1-14.7) Seconds INR 0.9 APTT 29.6 (22.3-36.8) Seconds CA 125 Antigen Pending <Lamonte Sanders MD - Last Filed: 10/26/24 21:26> Imaging Data Radiologist's impression: Impressions Pelvis Ultrasound 10/26/24 15:58 IMPRESSION: Findings within the uterus and right adnexa for which malignancy is suspected. If, prior to resection, better characterization is needed, contrast enhanced MRI may be performed. <Lamonte Sanders MD - Last Filed: 10/26/24 21:26> Discharge Plan Discharge Clinical Impression: Abnormal vaginal bleeding, Abdominal mass <Tiesha Palacios PA-C - Last Filed: 10/26/24 15:03> Patient Disposition: Home <DAGOBERTO Vizcarra Last Filed: 10/26/24 15:03> Condition: Stable <DAGOBERTO Vizcarra Last Filed: 10/26/24 15:03> Instructions: Antibiotic Form <DAGOBERTO Vizcarra Last Filed: 10/26/24 15:03> Additional Instructions: You are being provided follow-up with Dr. Rose Marie Lujan. They should be calling you tomorrow. Drink plenty of fluids, follow a well-balanced diet. [place] for pain control as needed. <Tiesha Palacios PA-C - Last Filed: 10/26/24 15:03> Patient Language: Slovenian <Tiesha Palacios PA-C - Last Filed: 10/26/24 15:03> Prescriptions: New hydrocodone-acetaminophen 5-325 mg tablet 1 tablet PO Q12H PRN (Reason: pain) Qty: 14 0RF No Action cyclobenzaprine 10 mg tablet 10 mg PO TID PRN (Reason: pain) hydrocodone-acetaminophen 7.5-325 mg tablet 1 tablet PO QHS PRN (Reason: pain) ibuprofen 800 mg Tablet 800 mg PO TID PRN (Reason: Pain (Scale Score 4-6)) amlodipine 5 mg tablet 5 mg PO DAILY atorvastatin 40 mg tablet 40 mg PO DAILY losartan 100 mg tablet 100 mg PO DAILY omeprazole 40 mg capsule,delayed release(DR/EC) 40 mg PO DAILY Dulera 200-5 mcg/actuation HFA aerosol inhaler 2 puff INHALATION BID benzonatate 100 mg capsule 100 mg PO TID furosemide 40 mg Tablet 40 mg PO DAILY 30 Days Qty: 30 0RF metoprolol succinate 50 mg Tablet Extended Release 24 Hr 50 mg PO QAM 60 Days Qty: 60 1RF spironolactone 25 mg Tablet 25 mg PO QAM 60 Days Qty: 60 1RF Jardiance 10 mg Tablet 10 mg PO DAILY Qty: 30 1RF Combivent Respimat 20-100 mcg/actuation mist 1 puff inhalation QID PRN (Reason: shortness of breath or wheezing) Qty: 4 1RF Rx Instructions: space evenly during waking hours nitrofurantoin monohyd/m-cryst [Macrobid] 100 mg capsule 100 mg PO Q12H 5 Days Qty: 10 0RF Rx Instructions: must administer with a meal/food acetaminophen 500 mg capsule 1,000 mg PO Q6H PRN (Reason: pain) Qty: 30 0RF ibuprofen 600 mg tablet 600 mg PO TID PRN (Reason: pain) Qty: 30 0RF <Tiesha Palacios PA-C - Last Filed: 10/26/24 15:03> Follow-up/Referrals: [place],Hari Oh MD [Primary Care Provider] - Rose Marie Lujan MD [Physician] - <Tiesha Palacios PA-C - Last Filed: 10/26/24 15:03>
--- OUTSIDE RECORDS SUMMARY | 2024-10-26 15:05 | XMS_ITS | Clinical Summary ---
Author Organization [facility] Address [address] [place] [address] Care Team Providers Care Check Examiner Name Role Phone Unavailable Primary Care Provider Unavailabl e Source Comments [facility],non-owned Affiliates and Associated Physician Practices is amultiple site organization consisting of ambulatory clinics and hospital sitesin [place], [place], [place] and [place]. This disclosure is being madepursuant to the Care Everywhere program and may not contain all information available regarding this patient. 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
[2024-10-26 17:35] LABS: Basophils Percent Auto 0.5 % (0.2-1.2); Eosinophils Absolute Auto 0.3 K/mm3 (0-0.3); Eosinophils Percent Auto 4.3 % (0-4.4); Hematocrit 42.3 % (37.0-47.0); Hemoglobin 12.5 g/dL (12.0-15.0); Immature Granulocyte Absolute 0.06 K/mm3 (0.00-0.031); Lymphocytes Absolute Auto 1.37 K/mm3 (0.9-3.2); Lymphocytes Percent Auto 22.5 % (18.3-44.2); Mean Corpuscular HGB Conc 29.6 g/dl (32-36); Mean Corpuscular Hemoglobin 30.8 pg (26-34); Mean Corpuscular Volume 104.2 fl (80-100); Mean Platelet Volume 9.5 fl (7.4-10.4); Monocytes Absolute Auto 0.6 K/mm3 (0.1-0.6); Monocytes Percent Auto 9.4 % (2.6-8.5); Neutrophils Absolute Auto 3.8 K/mm3 (1.3-6.7); Neutrophils Percent Auto 62.3 % (45.5-73.1); Platelet Count Result 303 k/mm3 (150-375); Red Blood Count 4.06 M/mm3 (4.2-5.4); Red Cell Distribution Width 13.2 % (11.5-14.5); White Blood Count 6.1 K/mm3 (4.5-10.0)
[2024-10-26 17:52] LABS: INR 0.9; Partial Thromboplastin Time 29.6 Seconds (22.3-36.8); Prothrombin Time 12.2 Seconds (11.1-14.7)
[2024-10-26 17:56] LABS: Hypochromasia 1+; Ovalocytes 1+; Platelet Estimate Adequate (Adequate)
[2024-10-26 17:57] LABS: Schistocytes None Seen
[2024-10-26 18:23] VITALS: BP 140/70; PULSE 89; RESP 18; TEMP 36.7; O2SAT 99
--- NOTE | 2024-10-26 19:41 | PC.NURSE ---
1940-CALLED TO LAB. REQUESTED BLOOD TUBE FOR ORDERED BLOOD TEST.
[2024-10-26 19:47] VITALS: BP 131/82; PULSE 83; RESP 20; TEMP 36.1; O2SAT 100
[2024-10-28 01:50] LABS: CA-125 34 U/mL (<35)
== END 2024-10-26 20:04 | disposition home or self-care (01) ==
PROVIDERS: Physician Assistant; Emergency Provider Emergency Medicine; PCP Family Medicine
DX: N93.9 Abnormal uterine and vaginal bleeding, unspecified (principal); R19.09 Other intra-abdominal and pelvic swelling, mass and lump; R10.31 Right lower quadrant pain; I10 Essential (primary) hypertension; J44.9 Chronic obstructive pulmonary disease, unspecified; K21.9 Gastro-esophageal reflux disease without esophagitis; K44.9 Diaphragmatic hernia without obstruction or gangrene; F41.9 Anxiety disorder, unspecified; Z96.642 Presence of left artificial hip joint; Z87.442 Personal history of urinary calculi; Z87.891 Personal history of nicotine dependence; Z79.84 Long term (current) use of oral hypoglycemic drugs; Z79.899 Other long term (current) drug therapy
CPT/HCPCS: 36415; 76856; 85025; 85610; 85730; 86304; 99284

== ENCOUNTER 2025-02-18 15:19 | Emergency (ER) | payer MEDICARE, SELFPAY ==
[2025-02-18 15:20] VITALS: BP 114/99; PULSE 91; RESP 16; TEMP 36.9; O2SAT 96
--- OUTSIDE RECORDS SUMMARY | 2025-02-18 15:22 | XMS_ITS | Clinical Summary ---
Author Organization [facility] Office Center Address [address] [place] [address] Care Team Providers Care Stewardess Supervisor Name Role Phone Hari Dowd MD Primary Care Provider [phone] Allergies No known active allergies Medications montelukast (SINGULAIR) 10 mg tablet Take 1 tablet (10 mg total) by mouth nightly Active cetirizine (ZyrTEC) 10 mg tablet Take 1 tablet (10 mg total) by mouth as needed for allergies Active isosorbide mononitrate ER (IMDUR) 30 mg 24 hr tabletIndications :prevention of anginal pain in coronary artery disease Take 1 tablet (30 mg total) by mouth every morning 09/21/19 25 Active amLODIPine (NORVASC) 5 mg tabletIndications :hypertension Take 1 tablet (5 mg total) by mouth every morning 08/20/19 25 Active aspirin 81 mg chewable tabletIndications :prevention of thrombosis Take 1 tablet (81 mg total) by mouth every morning Active atorvastatin (LIPITOR) 40 mg tabletIndications :hyperlipidemia Take 1 tablet (40 mg total) by mouth every morning Active metoprolol XL (TOPROL-XL) 50 mg extended release tabletIndications :hypertension Take 1 tablet (50 mg total) by mouth every morning 08/31/19 25 Active spironolactone (ALDACTONE) 25 mg tabletIndications :chronic heart failure Take 1 tablet (25 mg total) by mouth every morning Active losartan (COZAAR) 100 mg tabletIndications :hypertension Take 1 tablet (100 mg total) by mouth every morning Active omeprazole (PriLOSEC) 40 mg capsuleIndication s:Treatment of Non-Bleeding Gastric Disorder Take 1 capsule (40 mg total) by mouth every morning 08/20/19 25 Active Jardiance 10 mg tabletIndications :Heart Failure Take 1 tablet (10 mg total) by mouth every morning Active cyclobenzaprine (FLEXERIL) 10 mg tablet Take 1 tablet (10 mg total) by mouth as needed for muscle spasms 08/03/19 25 Active ibuprofen 200 mg tab/capIndication s:Pain Take 2 tablet/capsule (400 mg total) by mouth every 6 (six) hours as needed for pain Active ipratropium-albut Juan A (DUO-NEB) 0.5-2.5 mg/3 mL nebulizer solutionIndicatio ns:Chronic Obstructive Pulmonary Disease with Bronchospasms Take by nebulization as needed for wheezing or shortness of breath Active furosemide (LASIX) 40 mg tabletIndications :Peripheral Edema due to Chronic Heart Failure Take 2 tablets (80 mg total) by mouth every morning 180 tablet 12/18/19 25 Active acetaminophen 500 mg capsuleIndication s:Pain Take 2 capsules (1,000 mg total) by mouth every 6 (six) hours as needed for pain 30 tablet 12/30/19 25 Active gabapentin (NEURONTIN) 300 mg capsuleIndication s:Pain Take 1 capsule (300 mg total) by mouth 2 (two) times a day 60 capsule 11 12/30/19 25 2025 Active ondansetron ODT (ZOFRAN-ODT) 4 mg disintegrating tabletIndications :Nausea and Vomiting Take 1 tablet (4 mg total) by mouth every 6 (six) hours as needed for nausea or vomiting 20 tablet 12/30/19 25 Active simethicone (MYLICON) 80 mg chewable tabletIndications :Flatulence Take 1 tablet (80 mg total) by mouth 4 (four) times a day as needed for flatulence (bloating, fullness, and discomfort of gastrointestinal gas) 30 tablet 12/30/19 25 Active oxyCODONE (ROXICODONE) 5 mg immediate release tabletIndications :Pain Take 1 tablet (5 mg total) by mouth every 4 (four) hours as needed for pain 15 tablet 12/30/19 25 Active HYDROcodone-aceta minophen (NORCO) 7.5-325 mg per tablet Take 1 tablet twice a day by oral route for 30 days. 01/12/20 Active Active Problems Problem Noted Date Diagnosed Date Post-operative state 12/28/2024 Diastolic dysfunction 12/17/2024 Assessment & Plan (12/17/2024 10:02 AM CDT): Patient with grade 1 diastolic dysfunction noted on echocardiogram. I have discussed with her she absolutely needs to monitor her salt and liquid intake. I have recommended a 2 g per day sodium diet and a 2. L fluid restriction. I have also recommended daily weights. The patient is to call the office if she gains more than 3 lb in 24 hours or 5 lb in 1 week. Bilateral lower extremity edema 12/17/2024 Assessment & Plan (12/17/2024 10:02 AM CDT): I have recommended limiting her sodium and fluid intake. I have also recommended elevating her legs. I have recommended increasing her Lasix to 80 mg p.o. q.a.m. for the next 2 days. I have told the patient I would be hesitant to increase her diuretics further as this may lead to intravascular dehydration. 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 Continue antianginals. She is stable from a cardiac standpoint to undergo hysterectomy. Heart failure with reduced ejection fraction Hyperlipidemia 07/25/2024 Non-rheumatic mitral regurgitation 07/25/2024 Lumbar radiculopathy 07/20/2023 Diabetes mellitus, type 2 09/04/2022 PVD (peripheral vascular disease) 08/06/2021 Assessment & Plan (12/17/2024 10:02 AM CDT): Patient complains of claudication symptoms I have recommended she follow up with vascular surgery. Orders: Ambulatory referral to Cardiology Assessment & Plan (08/06/2021 4:15 PM LIEUTENANT SHIFT SUPERVISOR): Assessment/plan: Bilateral lower extremity claudication with noninvasives [...] 08/06/2021 Assessment & Plan (08/06/2021 4:15 PM LIEUTENANT SHIFT SUPERVISOR): Assessment/plan: Pepcid Adnexal cyst 10/07/2012 Hypertension 08/17/2012 Assessment & Plan (12/17/2024 10:02 AM CDT): Blood pressure well controlled on current medication. Orders: Ambulatory referral to Cardiology Assessment & Plan (08/06/2021 4:15 PM LIEUTENANT SHIFT SUPERVISOR): Assessment/plan: Losartan Encounters Date Type Department Care Team Description 02/10/2025 1:30 PM CDT Office Visit [facility] Obstetrics and Gynecology [address] [facility] Advanced Medicine 13th [place] [address] Flakita Cortes NP Postop check (Primary Dx); Endometrial cancer 02/01/2025 Telephone [facility] Advanced [facility] Gynecologic Oncology [facility] [address] [place] [address] Trinh Newby RN 01/26/2025 Telephone [facility] Obstetrics and Gynecology [address] [facility] Advanced Medicine 13th [place] [address] [place] [address] Delma Neves RN 01/13/2025 1:15 PM CDT Office Visit [facility] Obstetrics and Gynecology [address] [facility] 13th [place] [address] Josue Ortiz MD Post-operative state (Primary Dx); Postmenopausal bleeding 12/28/2024 5:16 PM CDT Anesthesia Event [facility] Operating Room [address] [place] [address] Marin Garcia MD Montgomery, Andrea J., NP 12/28/2024 2:30 PM CDT - 12/28/2024 5:40 PM CDT Surgery [facility] Operating Room [address] [place] [address] Josue Ortiz MD XI HYSTERECTOMY - LAPAROSCOPIC ROBOTIC ASSISTED mini laparotomy 12/28/2024 12:12 PM CDT - 12/29/2024 2:50 PM CDT Hospital Encounter [facility] [place] [address] Josue Ortiz MD Endometrial cancer (HCC) Discharge Disposition: Discharge to home or self care 12/27/2024 Telephone [facility] Obstetrics and Gynecology [address] [place] [address] Josue Ortiz MD Surgery Confirmation 12/21/2024 Telephone [facility] Obstetrics and Gynecology [address] [facility] 13th [place] [address] Mikaela Fuentes cardiac clearance 12/17/2024 8:30 AM CDT Office Visit [facility] Medical Group Cardiology [address] [facility] [address] [address] Heidi Gray MD Atherosclerotic heart disease of [place] coronary artery with refractory angina pectoris (Primary Dx); Hypertension, unspecified type; PVD (peripheral vascular disease); Diastolic dysfunction; Bilateral lower extremity edema; Heart failure with reduced ejection fraction (HCC) 12/17/2024 Telephone [facility] Obstetrics and Gynecology [address] [facility] 13th [place] [address] Jason Fuentesise baby aspirin 12/17/2024 Telephone [facility] Medical [facility] Cardiology [address] [phone] Heidi Gray MD Card Clearance 12/16/2024 8:00 AM CDT Pre-Admission Testing [facility] Center for Preoperative Assessment and Planning [facility]) [address] [place] [address] Preoperative testing (Primary Dx); Endometrial cancer (HCC) 12/08/2024 9:00 AM CDT - 12/08/2024 11:59 PM CDT Hospital Encounter [facility] Cardiac Testing [address] [place] [address] Hypertension, unspecified type; PVD (peripheral vascular disease); Heart failure with reduced ejection fraction (HCC) Discharge Disposition: Discharge to home or self care 12/07/2024 9:46 AM CDT - 12/07/2024 11:59 PM CDT Hospital Encounter [facility] Rad[facility] ([facility]) [address] [place] [address] Discharge Disposition: Discharge to home or self care 12/07/2024 9:43 AM CDT - 12/07/2024 11:59 PM CDT Hospital Encounter [facility] ([facility]) [address] [place] [address] Diagnosis unknown Discharge Disposition: Discharge to home or self care 12/07/2024 Telephone [facility] Medicine Obstetrics and Gynecology [address] [facility] Advanced Medicine 13th [place] [address] Jason Fuentesise surgery scheduling 12/01/2024 Orders Only [facility] Medicine Obstetrics and Gynecology [address] [facility] Advanced Medicine 13th [place] [address] Delma Neves RN Hypertension, unspecified type (Primary Dx); PVD (peripheral vascular disease); Heart failure with reduced ejection fraction (HCC) 11/30/2024 Telephone [facility] Medicine Obstetrics and Gynecology [address] [facility] [address] [place] [address] [place] [address] Delma Neves RN 11/29/2024 Orders Only [facility] Obstetrics and Gynecology [address] [facility] 13th [place] [address] [place] [address] Delma Neevs RN Hypertension, unspecified type (Primary Dx); PVD (peripheral vascular disease); Heart failure with reduced ejection fraction (HCC) 11/25/2024 4:45 PM CDT Telemedicine [facility] Obstetrics and Gynecology [address] [facility] 13th [place] [address] [place] [address] Josue Ortiz MD Adnexal cyst (Primary Dx); Endometrial cancer (HCC) from Last 3 Months Immunizations Immunization Administration Dates Next Due Hep A, Unspecified 06/02/1980 Influenza, Quadrivalent, Hig h Dose, Preservative Free, Intrr 03/03/2023,04/29/2022 Influenza, Quadrivalent, Spl it, Preservative Free, Intramuscular 03/25/2020,06/20/2018 Influenza, Trivalent, High D ose, Split, Preservative Free, Intramuscular 03/03/2024 Moderna Sars-cov-2 Bivalent Vaccine 50 Mcg/0.5 mL (12+ YRS)-Blue/Lopez 04/29/2022 Surgical History Surgery Date Site/Laterality Comments TOTAL HIP ARTHROPLASTY bilateral SECTION CARDIAC CATHETERIZATION 10/14/2024 N/A Procedure: LEFT HEART CATHETERIZATION WITH CORONARY ANGIOGRAPHY AND WITH OR WITHOUT LEFT VENTRICULOGRAM 20915; Surgeon: Jesse Beatty MD; Location: [facility] CARDIAC OPHTHALMIC TECHNICIAN APPRENTICE; Service: Cardiovascular; Laterality: N/A; CARDIAC CATHETERIZATION 10/14/2024 N/A Procedure: Coronary Flow Velocity (CFR) / Instantaneous Flow Velocity (IFR), 1st Vessel; Surgeon: Jesse Beatty MD; Location: [facility] CARDIAC OPHTHALMIC TECHNICIAN APPRENTICE; Service: Cardiovascular; Laterality: N/A; Medical History Medical History Date Comments Seasonal allergies Hypertension GERD (gastroesophageal reflux disease) Asthma Hyperlipidemia CHF (congestive heart failure) (HCC) Bleeding disorder Arthritis ANSELMO (obstructive sleep apnea) Family History Medical History Relation Name Comments Breast cancer Daughter Heart disease Maternal Grandfather Breast cancer Niece Uterine cancer Niece Heart disease Paternal Grandmother Anesthesia problems Neg Hx Relation Name Status Comments Daughter Maternal Grandfather Niece Paternal Grandmother Social History Tobacco Use Types Packs/Day Years Used Date Smoking Tobacco: Former Cigarettes 0.1 31 1 974 - 2005 Smokeless Tobacco: Never Tobacco Cessation:Counseling Given: Not Answered AUDIT-C Answer Date Recorded Q1: How often do you have a drink containing alc ohol? Monthly or less 12/16/2024 Q2: How many drinks containi ng alcohol do you have on a typical day when you are drinking? 1 or 2 12/16/2024 Q3: How often do you have si x or more drinks on one occasion? Never 12/16/2024 Personal Safety Answer Date Recorded Have you ever been in or are you currently in a harmful physical or emotional relationship or is someone making you feel afraid or unsafe? Denies 12/28/2024 Comments No Sex and Gender Information Value Date Recorded Sex Assigned at Not on file Legal Sex Female 3:16 AM LIEUTENANT SHIFT SUPERVISOR Gender Identity Not on file Sexual Orientation Not on file Obstetrics History Para Term AB IAB SAB Ectopic Multiple Livin g Live Births 3 3 3 3 Date Outcome GA Total Labor Labor/2nd/3rd Weight Sex Type Anes PTL Rand A1 A5 Name Clin Term Term Term Last Filed Vital Signs Vital Sign Reading Time Taken Comments Blood Pressure 100/67 02/10/2025 1:40 PM CDT Pulse 93 02/10/2025 1:40 PM CDT Temperature 36.3 C (97.4 F) 02/10/2025 1:40 PM CDT Respiratory Rate 20 02/10/2025 1:40 PM CDT Oxygen Saturation 99% 02/10/2025 1:40 PM CDT Inhaled Oxygen Concentration - - Weight 99 kg (218 lb 4.8 oz) 02/10/2025 1:40 PM CDT Height 152.4 cm (5') 02/10/2025 1:40 PM CDT Body Mass Index 42.63 02/10/2025 1:40 PM CDT Plan of Treatment Upcoming Encounters Date Type Department Care Team (Late st Contact Info) Description 12/17/2024 11:59 PM CDT Anesthesia Event [facility] Cardiology [address] [place] [address] [address] Germán Pan, PIG FARM MANAGER [address] [facility] [phone] [place] [address] Health Maintenance Due Date Last Done Comments Albumin Creatinine Ratio, Urine 1955 Colon Cancer Screening-Colonoscopy 1955 Depression Screening 1955 Hemoglobin A1C 1955 Hepatitis C Screening 1955 Osteoporosis Screening-Bone Density Scan 1955 Dilated Eye Exam 1955 Foot Exam 1955 Lipid Panel 1955 DTaP/Tdap/Td Vaccine (1 - Tdap) 10/27/1966 Hepatitis B Screening 10/27/1973 Pneumococcal vaccine 65+ (1 of 2 - PCV) 10/27/1974 Zoster Vaccine (1 of 2) 10/27/2005 Breast Cancer Screening-Mammogram 08/17/2013 013 Well Visit 65+ 10/27/2020 Covid-19 Vaccine (5 - 2024-2 6 season) 2025 04/29/2022, 04/06/2021, 08/04/2020, Additional history exists Influenza Vaccine (#1) 2025 , 03/03/2023, 04/29/2022, Additional history exists Fall Risk Assessment 12/29/2025 12/29/2024 eGFR 12/29/2025 12/29/2024, 11/30, 10/14/2024 Procedures Procedure Name Priority Date/Time Associated Diagnosis Comments POCT GLUCOSE DEVICE Routine 12/29/2024 1 2:00 PM CDT POCT GLUCOSE DEVICE Routine 12/29/2024 8 :25 AM CDT EGFR Timed 12/29/2024 5:48 AM CDT DIFFERENTIAL AUTO Timed 12/29/2024 5:4 8 AM CDT PHOSPHORUS Timed 12/29/2024 5:48 AM CDT MAGNESIUM Timed 12/29/2024 5:48 AM CDT COMPREHENSIVE METABOLIC PANEL Timed 12/29/2024 5:48 AM CDT CBC WITH AUTO DIFFERENTIAL Timed 12/29/2024 5:48 AM CDT POCT GLUCOSE DEVICE Routine 12/28/2024 1 0:20 PM CDT POCT GLUCOSE DEVICE Routine 12/28/2024 8 :03 PM CDT SURGICAL PATHOLOGY Routine 12/28/2024 8: 00 PM CDT Endometrial cancer POCT GLUCOSE DEVICE Routine 12/28/2024 6 :17 PM CDT CYTOLOGY Routine 12/28/2024 6:12 PM CDT Endometrial cancer (HCC) PERIPHERAL LINE Routine 12/28/2024 5:54 PM CDT ANESTHESIA INTUBATION Routine 12/28/2024 5:53 PM CDT LYSIS OF ADHESIONS 12/28/2024 5: 19 PM CDT Endometrial cancer (HCC) Case Notes 12/08- Waiting for WIT (EF) CYSTOSCOPY 12/28/2024 5:19 PM CDT Endometrial cancer (HCC) Case Notes 12/08- Waiting for WIT (EF) XI SALPINGO/OOPHORECTOM Y - LAPAROSCOPIC ROBOTIC ASSISTED 12/28/2024 5:19 PM CDT Endometrial cancer (HCC) Case Notes 12/08- Waiting for WIT (EF) XI HYSTERECTOMY - LAPAROSCOPIC ROBOTIC ASSISTED 12/28/2024 5:19 PM CDT Endometrial cancer (HCC) Case Notes 12/08- Waiting for WIT (EF) B CHECK SAMPLE STAT 12/28/2024 1:08 PM CDT EGFR Routine 12/16/2024 9:44 AM CDT Preoperative testing DIFFERENTIAL AUTO Routine 12/16/2024 9:4 4 AM CDT Preoperative testing BASIC METABOLIC PANEL Routine 12/16/2024 9:44 AM CDT Preoperative testing CBC WITH AUTO DIFFERENTIAL Routine 12/16/2024 9:44 AM CDT Preoperative testing TYPE AND SCREEN 14 DAY Routine 12/16/2024 9:44 AM CDT Preoperative testing CANCER ANTIGEN 19-9 Routine 12/16/2024 9 :44 AM CDT Endometrial cancer (HCC) CEA Routine 12/16/2024 9:44 AM CDT Endometrial cancer (HCC) CA 125 Routine 12/16/2024 9:44 AM CDT Endometrial cancer (HCC) TRANSTHORACIC ECHO (TTE) COMPLETE W DOPPLER/CF WO CONTRAST Routine 12/08/2024 9:49 AM CDT Hypertension, unspecified type PVD (peripheral vascular disease) Heart failure with reduced ejection fraction (HCC) US OUTSIDE CONSULT Routine 12/07/2024 9: [address] BODY OUTSIDE CONSULT Routine 12/07/2024 9:43 AM CDT Diagnosis unknown SCREENING MAMMOGRAM Routine 08/17/2012 3 :04 PM CDT from Last 3 Months or Most Recently Relevant to Health Maintenance Results * POCT glucose (12/29/2024 12:00 PM CDT) Glucose, POC 160 70 - 199 mg/dL Blood 12/29/2024 12:0 0 PM CDT 12/29/2024 12:00 PM CDT us Josue Ortiz MD LAB POCT ORDERABLES - DEV ICE Final Result [facility] Department [place] [address] * POCT glucose (12/29/2024 8:25 AM CDT) Glucose, POC 141 70 - 199 mg/dL Blood 12/29/2024 8:25 AM CDT 12/29/2024 8:25 AM CDT Josue Ortiz MD LAB POCT ORDERABLES - DEV ICE [place] [address] * eGFR (12/29/2024 5:48 AM CDT) eGFR 62 >=60 mL/min/1. 73 m2 Comment: Interpretive Data [...] Current interpretive data was last reviewed 2021. Blood 12/29/2024 5:48 AM CDT 12/29/2024 6:37 AM CDT us Josue Ortiz MD LAB BLOOD ORDERABLES Katelin l Result [facility] [place] [address] * (ABNORMAL) Differential, auto (12/29/2024 5:48 AM CDT) Neutrophil abs 8.90(H) 1.50 - 6.50 K/cumm Imm gran abs 0.03 0.00 - 0.10 K/cumm [facility] Lymphocyte abs 0.46(L) 0.80 - 3.30 K/cumm [facility] Monocyte abs 0.81(H) 0.20 - 0.80 K/cumm [facility] Eosinophil abs 0.00 0.00 - 0.50 K/cumm [facility] Basophil abs 0.01 0.00 - 0.10 K/cumm [facility] Neutrophil pct 87.2 % [facility] Comment: Interpretive Data Percent cell count reference ranges are not reported, since discordance with absolute values may lead to misinterpretation of CBC data. Current Interpretive Data was last revised on 2017. Imm gran pct 0.3 % [facility] Comment: Interpretive Data Percent cell count reference ranges are not reported, since discordance with absolute values may lead to misinterpretation of CBC data. Current Interpretive Data was last revised on 2017. Lymphocyte pct 4.5 % [facility] Comment: Interpretive Data Percent cell count reference ranges are not reported, since discordance with absolute values may lead to misinterpretation of CBC data. Current Interpretive Data was last revised on 2017. Monocyte pct 7.9 % [facility] Comment: Interpretive Data Percent cell count reference ranges are not reported, since discordance with absolute values may lead to misinterpretation of CBC data. Current Interpretive Data was last revised on 2017. Eosinophil pct 0.0 % [facility] Comment: Interpretive Data Percent cell count reference ranges are not reported, since discordance with absolute values may lead to misinterpretation of CBC data. Current Interpretive Data was last revised on 2017. Basophil pct 0.1 % [facility] Comment: Interpretive Data Percent cell count reference ranges are not reported, since discordance with absolute values may lead to misinterpretation of CBC data. Current Interpretive Data was last revised on 2017. Blood 12/29/2024 5:48 AM CDT 12/29/2024 6:35 AM CDT Josue Ortiz MD LAB BLOOD ORDERABLES Katelin zelalem Result Performing Organization Address [facility] Co de Phone Number [facility] Department [place] [address] * (ABNORMAL) CBC with auto differential (12/29/2024 5:48 AM CDT) Pathologist [facility] WBC 10.21(H) 3.80 - 9.90 K/cumm Hgb 11.7(L) 11.9 - 15.5 g/dL [facility] Hct 37.6 35.6 - 45.5 % [facility] Plt 242 150 - 400 K/cumm [facility] MPV 10.7 9.1 - 12.3 fL [facility] RBC 3.86(L) 3.90 - 5.20 M/cumm [facility] MCV 97.4(H) 81.3 - 96.4 fL [facility] MCH 30.3 27.1 - 33.3 pg [facility] MCHC 31.1(L) 32.3 - 35.7 g/dL [facility] RDW CV 12.5 11.1 - 14.9 % [facility] RDW SD 44.7 35.7 - 48.1 fL [facility] NRBC abs 0.00 0.00 - 0.01 K/cumm [facility] Blood 12/29/2024 5:48 AM CDT 12/29/2024 6:35 AM CDT Josue Ortiz MD LAB BLOOD ORDERABLES Katelin l Result Performing Organization Address [facility]/ZIP Co de Phone Number [facility] Department [place] [address] * Phosphorus (12/29/2024 5:48 AM CDT) Pathologist [facility] Phosphorus, pl 3.7 2.3 - 4.5 mg/dL Blood 12/29/2024 5:48 AM CDT 12/29/2024 6:37 AM CDT Josue Ortiz MD LAB BLOOD ORDERABLES Katelin l Result Performing Organization Address City/[facility] Co de Phone Number [facility] [place] [address] * (ABNORMAL) Magnesium (12/29/2024 5:48 AM CDT) Pathologist [facility] Magnesium 3.1(H) 1.4 - 2.5 mg/dL Blood 12/29/2024 5:48 AM CDT 12/29/2024 6:37 AM CDT Josue Ortiz MD LAB BLOOD ORDERABLES Katelin l Result Performing Organization Address [facility] de Phone Number [facility] Department [place] [address] * Comprehensive metabolic panel (12/29/2024 5:48 AM CDT) Pathologist [facility] Sodium 139 135 - 145 mmol/L Potassium, pl 4.8 3.3 - 4.9 mmol/L [facility] Chloride 102 97 - 110 mmol/L [facility] CO2 26 22 - 32 mmol/L [facility] Anion gap 11 2 - 15 mmol/L [facility] BUN 19 6 - 25 mg/dL [facility] Creatinine 0.98 0.60 - 1.10 mg/dL [facility] Glucose 169 70 - 199 mg/dL [facility] Comment: Interpretive Data Fasting glucose >/= 126 [...] Current interpretive data was last revised 2022. Calcium 9.3 8.5 - 10.3 mg/dL [facility] Bilirubin, total 0.3 0.1 - 1.2 mg/dL [facility] Protein, pl 7.2 6.5 - 8.5 g/dL [facility] Albumin 3.7 3.5 - 5.0 g/dL [facility] Alk phos 91 40 - 130 Units/L [facility] ALT 9 7 - 45 Units/L [facility] AST 24 10 - 45 Units/L [facility] Blood 12/29/2024 5:48 AM CDT 12/29/2024 6:37 AM CDT Josue Ortiz MD LAB BLOOD ORDERABLES Katelin l Result [facility] Department [place] [address] * POCT glucose (12/28/2024 10:20 PM CDT) Glucose, POC 151 70 - 199 mg/dL Blood 12/28/2024 10:2 0 PM CDT 12/28/2024 10:20 PM CDT Josue Ortiz MD LAB POCT ORDERABLES - DEV ICE Final Result [facility] Department [place] [address] * POCT glucose (12/28/2024 8:03 PM CDT) Glucose, POC 170 70 - 199 mg/dL Blood 12/28/2024 8:03 PM CDT 12/28/2024 8:03 PM CDT Josue Ortiz MD LAB POCT ORDERABLES - DEV ICE Final Result [facility] Department [place] [address] * Surgical pathology (12/28/2024 8:00 PM CDT) Tissue (Uterus with/without tubes & ovaries, Neoplastic) 12/28/2024 8:00 PM CDT Tissue specimen (specimen) (Ovary(ies) with or without tube, tumor) 12/28/2024 8:55 PM CDT Narrative PATHOLOGY [facility] - 01/12/2025 4:57 PM CDT EPIC results best viewed via link to PDF [facility] of [place] [address] Note to Patients: This report may contain a detailed description of human tissue sent by a health care provider to the laboratory for pathologic evaluation. The content of this report is essential for diagnosis and may provide important critical findings. This information may be unfamiliar to patients to review without a medical professional present. It is advised that the patient review this report in the presence of a health care provider who can answer questions and explain the details. SURGICAL PATHOLOGY REPORT FINAL Patient Name: TAMELA HER Gender: F : 1955 (Age: 69) Address: [address] [place], [place] [id number] Hospital #: [id number] Taken:12/28/2024 Received:12/29/2024 Reported: 01/12/2025 Patient Type: [facility] OP In Bed Service: Gynecology Location: [place] [address] Physician(s): Siomara Marrero M.D. Diagnosis: A. 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 Sindhu Davidson M.D. Report Electronically Reviewed and Signed Out By Sindhu Davidson M.D. 01/12/2025 16:57:46 Microscopic Description and Comment: Microscopic examination substantiates the above cited diagnosis. 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 In order to exclude a component of squamous metaplasia or a high-grade component, a panel of immunostains (single antibody procedures with appropriate controls) is performed. There is no reaction with squamous markers p63 or p40. An immunostain for P53 shows wild type activity. Much of the tumor is exophytic polypoid into the myometrium. This case has been internally reviewed. Bull Hernandez M.D. History: The patient is a 69-year-old woman with endometrial cancer diagnosed on biopsy. Operative procedure: Laparoscopic robotic assisted hysterectomy and salpingo-oophorectomy Specimen(s) Received: A: Uterus, cervix, left tube and ovary B: Right tube and ovary Gross Description: Received in two formalin jars labeled with the patient's identifiers. A. The specimen is additionally labeled as uterus, cervix, left tube and ovary. The uterus with attached cervix in aggregate weighs 131g and measures 8.7 cm fundus to cervical os, 5.0 cm in bicornuate dimension, and 5.0 cm anterior to posterior. The uterine serosa is glistening pale to dark purple and has one posterior subserosal leiomyoma measuring 2.8 x 2.5 x 1.6 cm, the cut surface of which is white and whorled without cysts, hemorrhage, or necrosis. The cervical os is round, patent, and measures 1.0 x 0.6 cm. The uterus and cervix are bivalved to reveal a triangular endometrial cavity (2.0 x 2.0 x 1.0 cm) containing a castro-manzo, friable, exophytic tumor measuring 3.0 x 2.5 x 1.0 cm. The uterus is serially sectioned to reveal a rubbery castro- pink myometrium (thickness of up to 2.0 cm). The endometrial tumor is seen invading the myometrium to more than 50%. There is multiple, round, intramural leiomyomas ranging from 0.5 x 0.5 cm to 1.4 x 1.8 x 1.0 cm, the cut surfaces of which are white and whorled without cysts, hemorrhage, or necrosis. The container also contains few, castro-manzo, friable detached tumor fragments aggregating to 2.0 x 2.0 cm. The left fallopian tube and left ovary are not identified either attached to the uterus or floating in the container. In 14 cassettes as follows: A1 Anterior cervix, A2 Anterior lower uterine segment, A3-A5 Full-thickness anterior endomyometrium, A6 Intramural presumed leiomyoma, A7 Posterior cervix, A8 Posterior lower uterine segment with subserosal leiomyoma, A9-A11 Full-thickness posterior endomyometrium, A12 Detached tumor fragments, A13 Putative left fallopian tube and adnexa, A14 Putative left ovary and adnexa Jar 2. B. The specimen is additionally labeled as right tube and ovary. The right fimbriated fallopian tube (1.0 cm in length 0.5 cm in diameter) and ovary (10.5 x 9.5 x 8.0 cm) in aggregate weighs 498 g. The tube is cut serially and reveals a pinpoint lumen without any abnormality. There is a hard, white, smooth ovarian tumor measuring 10.5 x 9.5 x 8.5 cm, the cut surface of which is white, homogenous with an area of necrosis measuring 0.8 x 0.7 cm. There is a orange pigmented area on the cut surface of the ovarian tumor measuring 5.0 x 4.0 x 2.5 cm. One area resembles the ovarian parenchyma and measures 2.0 x 2.0 cm. In 4 cassettes as follows: B1 Putative fallopian tube with fimbria, B2-B3 Putative ovary, B4 Ovarian tumor (1 section per cm of tumor) Jar 3. 12/29/2024 15:55 PA(s): Sharee Madison, MS, PA ([facility])CM CANCER CASE SUMMARY FOR CARCINOMA OF THE ENDOMETRIUM Procedure: Total hysterectomy and bilateral salpingo-oophorectomy Peritoneal washing Hysterectomy Type: Laparoscopic, robotic-assisted Specimen integrity: Received intact Tumor Site: Endometrium Tumor size: Cannot be determined Histologic type: Endometrioid carcinoma, NOS Histologic grade: FIGO grade 2 (includes low grade endometrioid) Myometrial Invasion: Present Depth of invasion: 4 mm Myometrial thickness: 14 mm Percentage of myometrial invasion: 28% Estimated greater than or equal to 50% myometrial invasion Adenomyosis: Present, uninvolved by carcinoma Uterine Serosa Involvement: Not identified Lower Uterine Segment Involvement: Not identified Cervical Stromal Involvement: Not applicable Other Tissue/Organ Involvement: Not identified Peritoneal/Ascitic Fluid: Not submitted/unknown Margins: Not applicable Lymphovascular Invasion: Not identified Regional Lymph Nodes: No lymph nodes submitted or found Distant Metastasis: Not applicable Pathologic Staging (pTNM, AJCC 8th edition): TNM descriptors: Primary tumor (pT): pT1a: Tumor limited to endometrium or invades less than one-half of the myometrium Regional lymph nodes (pN): Not applicable Additional Pathologic Findings: None identified The pathologic stage assigned here should be regarded as provisional, and may change after integration of clinical data not provided with this specimen. CAP VERSION: Endometrium 4.4.0.0 By this signature, I attest that the above diagnosis is based upon my personal examination of the slides(and/or other material). Addenda/Procedures The performance characteristics of some immunohistochemical stains, fluorescence in-situ hybridization tests and immunophenotyping by flow cytometry cited in this report (if any) were determined by the Surgical Pathology and Flow Cytometry Departments at [facility] as part of an ongoing quality control specialist program and in compliance with federally mandated regulations drawn from the Clinical Laboratory Improvement Act of 1988 (CLIA '88). Some of these tests rely on the use of analyte specific reagents and are subject to specific labeling requirements by the US Food and Drug Administration. Such diagnostic tests may only be performed in a facility that is certified by the Department of Health and Human Services as a high complexity laboratory under CLIA '88. The FDA has determined that such clearance or approval is not necessary. This test is used for clinical purposes. It should not be regarded as investigational or for research. Nevertheless, federal rules concerning the medical use of analyte specific reagents require that the following disclaimer be attached to the report: This test was developed and its performance characteristics determined by the Surgical Pathology and Flow Cytometry Departments of [facility]. It has not been cleared or approved by the U. S. Food and Drug Administration. IMAGES AND SCANNED DOCUMENTS, IF INCLUDED, ONLY VIEWABLE IN PDF VERSION OF REPORT Josue Ortiz MD LAB PATHOLOGY ORDERABLES Final Result Performing Organization Address City/[facility]/ZIP Co de Phone Number PATHOLOGY [facility] [address] Floor [place], [place] [phone] * POCT glucose (12/28/2024 6:17 PM CDT) Glucose, POC 109 70 - 199 mg/dL Blood 12/28/2024 6:17 PM CDT 12/28/2024 6:17 PM CDT Josue Ortiz MD LAB POCT ORDERABLES - DEV ICE Final Result Performing Organization Address City/[facility] Co de Phone Number [facility] Department [place] [address] * Cytology (12/28/2024 6:12 PM CDT) Fluid (Pelvic Washing (Cytology)) 12/28/2024 6:12 PM CDT Narrative PATHOLOGY [facility] - 01/02/2025 11:10 PM CDT EPIC results best viewed via link to PDF [facility] Laboratory [place] [address] Note to Patients: This report may contain a detailed description of human tissue sent by a health care provider to the laboratory for pathologic evaluation. The content of this report is essential for diagnosis and may provide important critical findings. This information may be unfamiliar to patients to review without a medical professional present. It is advised that the patient review this report in the presence of a health care provider who can answer questions and explain the details. CYTOPATHOLOGY REPORT FINAL Patient Name: TAMELA HER Gender: F : 1955 (Age: 69) Address: [address] [place], [place] [phone] Hospital #: [id number] Taken:12/28/2024 Received:12/29/2024 Reported: 01/02/2025 Patient Type: [facility] OP In Bed Service: Gynecology Location: [place] [address] Physician(s): Siomara Marrero M.D. FINAL DIAGNOSIS A. Pelvic washing: - Negative for malignancy 12/30/2024 16:06 By this signature, I attest that the above diagnosis is based upon my personal examination of the slides(and/or other material indicated in the diagnosis). Sindhu Davidson M.D. Report Electronically Reviewed and Signed Out By Sindhu Davidson M.D. 01/02/2025 23:10:52 Jerry Jj MS, CT(ASCP)PA Gross Description A. Pelvic washin ml clear fluid - 1 Pap stained ThinPrep. (vo) Clinical Diagnosis and History The patient is a 69 year old woman with FIGO grade 2 endometrioid adenocarcinoma, who undergoes definitive surgical management. REPORT IMAGES AND SCANNED DOCUMENTS, IF INCLUDED, ONLY VIEWABLE IN PDF VERSION OF REPORT The performance characteristics of some immunohistochemical stains, in-situ hybridization and fluorescence in-situ hybridization tests and immunophenotyping by flow cytometry cited in this report (if any) were determined by the Surgical Pathology and Flow Cytometry Departments at [facility] as part of an ongoing quality control specialist program and in compliance with federally mandated regulations drawn from the Clinical Laboratory Improvement Act of 1988 (CLIA '88). Some of these tests rely on the use of analyte specific reagents and are subject to specific labeling requirements by the US Food and Drug Administration. Such diagnostic tests may only be performed in a facility that is certified by the Department of Health and Human Services as a high complexity laboratory under CLIA '88. The FDA has determined that such clearance or approval is not necessary. This test is used for clinical purposes. It should not be regarded as investigational or for research. Nevertheless, federal rules concerning the medical use of analyte specific reagents require that the following disclaimer be attached to the report: This test was developed and its performance characteristics determined by the Surgical Pathology and Flow Cytometry Departments of [facility]. It has not been cleared or approved by the U. S. Food and Drug Administration. us Josue Ortiz MD LAB CYTOLOGY ORDERABLES F inal Result PATHOLOGY [facility] [address] [place], [place] [phone] * Peripheral IV Catheter (12/28/2024 5:54 PM CDT) Narrative Hari Thurman MD - 12/28/2024 5:54 PM CDT Hari Thurman MD 12/28/2024 5:54 PM Peripheral IV Catheter Patient location: OR Staff: Placed by: Anesthesiologist: Ger Gutierrez MD Preprocedure prep: Prep solution: alcohol PPE: gloves and provider hat/mask PIV line: Laterality: left Site: hand Catheter size: 18 g Technique: direct visualization Procedure details: good blood return Number of attempts: 1 us Ger Gutierrez MD ANESTHESIA ORDERABLES Final Res ult * Airway (12/28/2024 5:53 PM CDT) Hari Perry MD - 12/28/2024 5:53 PM CDT Hari Thurman MD 12/28/2024 5:54 PM Airway Patient location: OR Urgency: elective Indications for airway management: anesthesia and airway protection Difficult airway: no Staff: Supervising provider: Ger Gutierrez MD Placed by: Resident: aHri Thurman MD Emergent airway documentation: Risks and benefits discussed: yes Consent obtained: yes Consent given by: patient Airway prep: Preoxygenated: yes Patient position: sniffing Mask difficulty assessment: 1 - vent by mask Spontaneous ventilation during airway: absent Sedation level during airway: GA Final airway details: Final airway type: endotracheal airway Tube type: ETT ETT size: 7.0 mm Technique used for successful ETT placement: video laryngoscopy Devices/Methods used in placement: stylet Insertion site: oral Blade type: Germán Video blade type: Worthington Blade size: 3 Cormack-Lehane (video): grade I - full view of glottis ETT to lips: 21 cm Placement verified by: auscultation and CO2 detection Airway secured with: silk tape Number of attempts: 1 Planned trial extubation: yes Ger Gutierrez MD ANESTHESIA ORDERABLES Final Res ult * Check Sample (12/28/2024 1:08 PM CDT) Pathologist [facility] ABO Rh O Positive [facility] OTHER 12/28/2024 1:08 PM CDT 12/28/2024 1:20 PM CDT Josue Ortiz MD LAB BLOOD ORDERABLES Katelin l Result Performing Organization Address [facility] Co de Phone Number [facility] Department [place] [employer] [place] [address] [facility] * TYPE AND SCREEN 14 DAY (12/16/2024 9:44 AM CDT) Pathologist [facility] Maria C, indirect Negative ABO Rh O Positive [facility] Blood 12/16/2024 9:44 AM CDT 12/16/2024 10:39 AM CDT Narrative [facility] - 12/16/2024 11:23 AM CDT Is this test being ordered in advance for a procedure?->Yes Expected date of procedure:->12/28/24 Has the patient been transfused in the past 3 months?->No Has the patient been in the past 3 months?->No Joanne Madrid NP LAB BLOOD BANK TEST O RDERABLES Final Result Performing Organization Address City/[facility]/ZIP Co de Phone Number [facility] [place] [address] * eGFR (12/16/2024 9:44 AM CDT) Pathologist [facility] eGFR 62 >=60 mL/min/1. 73 m2 Comment: Interpretive Data [...] Current interpretive data was last reviewed 2021. Blood 12/16/2024 9:44 AM CDT 12/16/2024 10:25 AM CDT Joanne Madrid NP LAB BLOOD ORDERABLES Final Result [facility] Department [place] [address] * Differential, auto (12/16/2024 9:44 AM CDT) Neutrophil abs 3.33 1.50 - 6.50 K/cumm Imm gran abs 0.02 0.00 - 0.10 K/cumm [facility] Lymphocyte abs 1.18 0.80 - 3.30 K/cumm [facility] Monocyte abs 0.45 0.20 - 0.80 K/cumm [facility] Eosinophil abs 0.25 0.00 - 0.50 K/cumm [facility] Basophil abs 0.04 0.00 - 0.10 K/cumm [facility] Neutrophil pct 63.2 % [facility] Comment: Interpretive Data Percent cell count reference ranges are not reported, since discordance with absolute values may lead to misinterpretation of CBC data. Current Interpretive Data was last revised on 2017. Imm gran pct 0.4 % [facility] Comment: Interpretive Data Percent cell count reference ranges are not reported, since discordance with absolute values may lead to misinterpretation of CBC data. Current Interpretive Data was last revised on 2017. Lymphocyte pct 22.4 % [facility] Comment: Interpretive Data Percent cell count reference ranges are not reported, since discordance with absolute values may lead to misinterpretation of CBC data. Current Interpretive Data was last revised on 2017. Monocyte pct 8.5 % [facility] Comment: Interpretive Data Percent cell count reference ranges are not reported, since discordance with absolute values may lead to misinterpretation of CBC data. Current Interpretive Data was last revised on 2017. Eosinophil pct 4.7 % [facility] Comment: Interpretive Data Percent cell count reference ranges are not reported, since discordance with absolute values may lead to misinterpretation of CBC data. Current Interpretive Data was last revised on 2017. Basophil pct 0.8 % [facility] Comment: Interpretive Data Percent cell count reference ranges are not reported, since discordance with absolute values may lead to misinterpretation of CBC data. Current Interpretive Data was last revised on 2017. Blood 12/16/2024 9:44 AM CDT 12/16/2024 10:25 AM CDT Joanne Madrid NP LAB BLOOD ORDERABLES Final Result [facility] Department [place] [address] * (ABNORMAL) CBC with auto differential (12/16/2024 9:44 AM CDT) WBC 5.27 3.80 - 9.90 K/cumm Hgb 12.1 11.9 - 15.5 g/dL [facility] Hct 38.8 35.6 - 45.5 % [facility] Plt 245 150 - 400 K/cumm [facility] MPV 10.2 9.1 - 12.3 fL [facility] RBC 3.96 3.90 - 5.20 M/cumm [facility] MCV 98.0(H) 81.3 - 96.4 fL [facility] MCH 30.6 27.1 - 33.3 pg [facility] MCHC 31.2(L) 32.3 - 35.7 g/dL [facility] RDW CV 12.4 11.1 - 14.9 % [facility] RDW SD 45.0 35.7 - 48.1 fL [facility] NRBC abs 0.00 0.00 - 0.01 K/cumm [facility] Blood 12/16/2024 9:44 AM CDT 12/16/2024 10:25 AM CDT Joanne Madrid [employer] LAB BLOOD ORDERABLES Final Result Performing Organization Address [facility] Co de Phone Number [facility] [place] [address] * Cancer antigen 19-9 (12/16/2024 9:44 AM CDT) CA 19-9 ag <2.0 <=35.0 units/mL Comment: Interpretive Data The Shawn CA 19-9 assay procedure was used. Results from different manufacturers or methods may not be comparable. Serial testing should be performed using the same method. Blood 12/16/2024 9:44 AM CDT 12/16/2024 10:25 AM CDT Josue Ortiz MD LAB BLOOD ORDERABLES Katelin l Result Performing Organization Address City/[facility] Co de Phone Number [facility] [place] [address] * CA 125 (12/16/2024 9:44 AM CDT) CA 125 ag 19.5 0.0 - 38.1 units/mL Comment: Interpretive Data The Shawn CA 125 assay procedure was used. Results from different manufacturers or methods may not be comparable. Serial testing should be performed using the same method. Blood 12/16/2024 9:44 AM CDT 12/16/2024 10:25 AM CDT Josue Ortiz MD LAB BLOOD ORDERABLES Katelin l Result Performing Organization Address [facility] Co de Phone Number [facility] [place] [address] * (ABNORMAL) CEA (12/16/2024 9:44 AM CDT) CEA 6.2(H) <=5.0 ng/mL Comment: Interpretive Data: Reference Range: Non-Smokers: 0.0 5.0 ng/mL Smokers: 0.0 6.5 ng/mL The Shawn CEA assay procedure was used. Results from different manufacturers or methods may not be comparable. Serial testing should be performed using the same method. Current interpretive data was last revised 2021. Blood 12/16/2024 9:44 AM CDT 12/16/2024 10:25 AM CDT Josue Ortiz MD LAB BLOOD ORDERABLES Katelin l Result Performing Organization Address [facility] Co de Phone Number [facility] [place] [address] * (ABNORMAL) Basic metabolic panel (12/16/2024 9:44 AM CDT) Sodium 143 135 - 145 mmol/L Potassium, pl 5.0(H) 3.3 - 4.9 mmol/L [facility] Chloride 102 97 - 110 mmol/L [facility] CO2 36(H) 22 - 32 mmol/L [facility] Anion gap 5 2 - 15 mmol/L [facility] BUN 20 6 - 25 mg/dL [facility] Creatinine 0.99 0.60 - 1.10 mg/dL [facility] Glucose 99 70 - 199 mg/dL [facility] Comment: Interpretive Data Fasting glucose >/= 126 [...] Current interpretive data was last revised 2022. Calcium 10.1 8.5 - 10.3 mg/dL [facility] Blood 12/16/2024 9:44 AM CDT 12/16/2024 10:25 AM CDT us Joanne Madrid NP LAB BLOOD ORDERABLES Final Result [facility] Department [place] [address] * TRANSTHORACIC ECHO (TTE) COMPLETE W DOPPLER/CF WO CONTRAST (12/08/2024 9:49 AM CDT) Estimated EF 55 % CONS SCIMAGE Anatomical Region Laterality Modality Ultrasound 12/08/2024 9:14 AM CDT Narrative 12/08/2024 10:10 AM CDT Transthoracic Echocardiographic Report Patient Name: TAMELA HER L : 1955 (69y 1m) Gender: F Study Date: 12/08/2024 09:14:58 AM Ht(Inch): 60 Wt(Lb): 208 BSA: 2 Basket Hand Braider: DIEGO Rodriguez,RVT Order Provider: JOSUE ORTIZ Heart Rate: 81 BMI: 40.62 BP: 127/61 Ref Provider: JOSUE ORTIZ PROCEDURES: Echocardiographic Report: ([id number]) Transthoracic complete echo, 2D, spectral and tissue Doppler, color flow Doppler, M-mode. Technically difficult study due to: Technically difficult study due to Body Habitus. Technically difficult study due to underlying lung condition. INDICATIONS: I10 Essential (primary) hypertension, I73.9 Peripheral vascular disease, unspecified, and I50.20 Unspecified systolic (congestive) heart failure. FINDINGS: Left Ventricle: Normal left ventricular cavity size. Mild concentric left ventricular hypertrophy. Normal left ventricular systolic function. The Ejection Fraction is visually estimated to be 55 %. Diastolic Function E to A reversal Suggestive of abnormal relaxation during early diastole, E to E' ratio is 8-15 which is in the indeterminate zone and left ventricular diastolic parameters are consistent with Grade I diastolic dysfunction (normal LA pressure). No Thrombus noted in Left Ventricle. Regional Wall Motion: There are no regional wall motion abnormalities. Right Ventricle: Right ventricular dilatation. Normal right ventricular systolic function. Left Atrium: The left atrium is normal in size. Right Atrium: Mildly dilated right atrium. Atrial Septum: Interatrial Septum is not well visualized due to poor echo windows. Mitral Valve: Value normal in structure and fuction. Aortic Valve: Value normal in structure and fuction. Tricuspid Valve: Value normal in structure and fuction. Pulmonic Valve: Pulmonic Valve not well visualized due to poor echo windows. Pericardium: No pericardial effusion. Aorta: Normal aortic root. IVC: IVC is normal in size. IVC Collapses normally with inspiration. The estimated RA pressure is 0-5 mmHg. CONCLUSIONS: 1. Normal left ventricular systolic function. The Ejection Fraction is visually estimated to be 55 %. 2. Mild dilatation of the right ventricle and of the right atrium. MEASUREMENTS: 2D/MM Value Range Doppler Value LVIDd 2D 3.05 cm [ 3.50 - 5.70 ] AV Peak Alvin 1.10 m/s LVIDs 2D 2.20 cm [ 3.10 - 4.60 ] AV Peak PG 4.84 mmHg IVSd 2D 0.80 cm [ 0.60 - 1.20 ] LVOT Peak Alvin 0.74 m/s LVPWd 2D 1.26 cm [ 0.60 - 1.10 ] LVOT Peak PG 2.19 mmHg LV Thickness Ratio 0.63 MV E Peak Alvin 0.71 m/s LV Mass 2D 88.92 g MV A Peak Alvin 0.96 m/s LV Mass Index 2D 44.46 g/m2 MV E/A 0.70 ratio RWT 0.83 MV Decel Time 67.00 msec Visually Estimated EF 55 % Med E` Alvin 0.06 m/s LA Dimension 2D 2.60 cm [ 1.90 - 4.00 ] Lat E` Alvin 0.08 m/s LA Length 4C 5.51 cm Average E/E` 1014.29 AoR Diam 2D 2.00 cm [ 2.00 - 3.70 ] Ao Root Index 1.00 cm/m2 [ 1.00 - 2.00 ] - ATTESTATION: I have reviewed and interpreted the pertinent images and measurements of this study. I attest to the conclusions in the final report that is provided above. DISCLAIMER: The study images and the final report will be retained in the patient chart by the [facility] for the legally required time period. This chart constitutes the legal record of any testing performed. Electronically Signed By: Sultan Leidy MUÑOZ 12/08/2024 10:10:20 AM CDT Procedure Note Sultan Leonel Forbes MD - 12/08/2024 Transthoracic Echocardiographic Report Patient Name: TAMELA HER L : 1955 (69y 1m) Gender: F Study Date: 12/08/2024 09:14:58 AM Ht(Inch): 60 Wt(Lb): 208 BSA: 2 Basket Hand Braider: DIEGO Rodriguez,RVT Order Provider: JOSUE ORTIZ Heart Rate: 81 BMI: 40.62 BP: 127/61 Ref Provider: JOSUE ORTIZ PROCEDURES: Echocardiographic Report: ([id number]) Transthoracic complete echo, 2D,spectral and tissue Doppler, color flow Doppler, M-mode. Technically difficult study due to: Technically difficult study due toBody Habitus. Technically difficult study due to underlying lung condition. INDICATIONS: I10 Essential (primary) hypertension, I73.9 Peripheral vascular disease,unspecified, and I50.20 Unspecified systolic (congestive) heart failure. FINDINGS: Left Ventricle: Normal left ventricular cavity size. Mild concentric leftventricular hypertrophy. Normal left ventricular systolic function. The EjectionFraction is visually estimated to be 55 %. Diastolic Function E to A reversal Suggestive ofabnormal relaxation during early diastole, E to E' ratio is 8-15 which is in theindeterminate zone and left ventricular diastolic parameters are consistent with Grade Idiastolic dysfunction (normal LA pressure). No Thrombus noted in Left Ventricle. Regional Wall Motion: There are no regional wall motion abnormalities. Right Ventricle: Right ventricular dilatation. Normal right ventricularsystolic function. Left Atrium: The left atrium is normal in size. Right Atrium: Mildly dilated right atrium. Atrial Septum: Interatrial Septum is not well visualized due to poor echowindows. Mitral Valve: Value normal in structure and fuction. Aortic Valve: Value normal in structure and fuction. Tricuspid Valve: Value normal in structure and fuction. Pulmonic Valve: Pulmonic Valve not well visualized due to poor echowindows. Pericardium: No pericardial effusion. Aorta: Normal aortic root. IVC: IVC is normal in size. IVC Collapses normally with inspiration. Theestimated RA pressure is 0-5 mmHg. CONCLUSIONS: 1. Normal left ventricular systolic function. The Ejection Fraction isvisually estimated to be 55 %. 2. Mild dilatation of the right ventricle and of the right atrium. MEASUREMENTS: 2D/MM Value Range DopplerValue LVIDd 2D 3.05 cm [ 3.50 - 5.70 ] AV Peak Vel1.10 m/s LVIDs 2D 2.20 cm [ 3.10 - 4.60 ] AV Peak PG4.84 mmHg IVSd 2D 0.80 cm [ 0.60 - 1.20 ] LVOT Peak Vel0.74 m/s LVPWd 2D 1.26 cm [ 0.60 - 1.10 ] LVOT Peak PG2.19 mmHg LV Thickness Ratio 0.63 MV E Peak Vel0.71 m/s LV Mass 2D 88.92 g MV A Peak Vel0.96 m/s LV Mass Index 2D 44.46 g/m2 MV E/A0.70 ratio RWT 0.83 MV Decel Time67.00 msec Visually Estimated EF 55 % Med E` Vel0.06 m/s LA Dimension 2D 2.60 cm [ 1.90 - 4.00 ] Lat E` Vel0.08 m/s LA Length 4C 5.51 cm Average E/E`1014.29 AoR Diam 2D 2.00 cm [ 2.00 - 3.70 ] Ao Root Index 1.00 cm/m2 [ 1.00 - 2.00 ] - ATTESTATION: I have reviewed and interpreted the pertinent images and measurements ofthis study. I attest to the conclusions in the final report that is provided above. DISCLAIMER: The study images and the final report will be retained in the patientchart by the [facility] for the legally required time period. This chart constitutesthe legal record of any testing performed. Electronically Signed By: Sultan Leidy MUÑOZ 12/08/2024 10:10:20 AM CDT us Josue Ortiz MD CV ECHO PROCEDURES Final Result * US Outside Consult (12/07/2024 9:46 AM CDT) Anatomical Region Laterality Modality Ultrasound 12/07/2024 12:0 9 PM CDT Impressions 12/07/2024 12:09 PM CDT This ultrasound study was initially nominated as a consult on outside images via Image Sharing Service. However, a consult was not performed because the image quality is nondiagnostic. Accordingly, there will be no separate report of this study generated by a [facility] Radiologist. Electronically signed by: Haris Wolff M.D. Narrative 12/07/2024 12:09 PM CDT EXAMINATION: CHANGE CONSULT ON OUTSIDE IMAGES TO REFERENCE IMAGES Procedure Note Haris Wolff MD - 12/07/2024 EXAMINATION: CHANGE CONSULT ON OUTSIDE IMAGES TO REFERENCE IMAGES IMPRESSION: This ultrasound study was initially nominated as a consult on outside images via Image Sharing Service. However, a consult was not performed because the image quality is nondiagnostic. Accordingly, there will be no separate report of this study generated by a [facility] Radiologist. Electronically signed by: Haris Wolff M.D. us Josue Ortiz MD IMG US PROCEDURES Final R esult * CT Body Outside Consult (12/07/2024 9:43 AM CDT) Anatomical Region Laterality Modality Body N/A Computed Tomogra phy 12/07/2024 10:5 3 AM CDT Impressions 12/07/2024 11:17 AM CDT 1. Right adnexal soft tissue mass demonstrates interval increase in size over time. This may be ovarian in origin such as an ovarian fibroma (given the MRI findings) versus involvement by known endometrial carcinoma. 2. Heterogeneous hypodensity is seen within the central aspect of the endometrial cavity, likely relating to biopsy-proven endometrial carcinoma. 3. No evidence of metastasis in the abdomen or pelvis. The findings, conclusions and recommendations within this report do not replace the initial findings, conclusions and recommendations made at the facility where the study was performed based upon the imaging and clinical condition at that time. Comparison with the prior report and clinical history is necessary. The provided images may or may not represent the [place] source data set and thus may contain changes that may lower the accuracy of this second-opinion interpretation. Dictated by: Mayra Villegas M.D. The radiology attending physician has personally reviewed this study, and had reviewed and/or edited this written report and agrees with it. Electronically signed by: Nikhil Murrell M.D. Narrative 12/07/2024 11:17 AM CDT EXAMINATION: RADIOLOGY CONSULTATION ON OUTSIDE IMAGING STUDY STUDY INITIALLY PERFORMED: 10/24/2024 at [facility]. TYPE OF STUDY: Multiple CT images of the abdomen and pelvis with intravenous contrast are provided at the time of this interpretation. CONTRAST ROUTE: Contrast was administered via the intravenous route. The protocol was adequate to address the clinical question. The outside final report was not available at the time of this second opinion interpretation. TYPE OF CONSULTATION: Consult on outside imaging study with images submitted through Outside Image Sharing Service DATE OF CONSULTATION: 12/07/2024 9:47 AM HISTORY: 69-year-old female with grade 2 endometrioid adenocarcinoma biopsy-proven in 10/2024. Planned for robotic-assisted total laparoscopic hysterectomy, bilateral salpingo-oophorectomy, and sentinel lymph node biopsy. COMPARISON: Pelvic ultrasound 10/26/2024 and CTA runoff 08/29/2021 FINDINGS: Imaged lower chest: Minimal bibasilar atelectasis. Mitral annular calcifications. Abdomen and pelvis: Noncirrhotic liver morphology. No focal suspicious hepatic lesion on the single phase enhancement. No biliary ductal dilation. Gallbladder is nondistended. Homogeneous pancreatic enhancement without suspicious lesion or pancreatic ductal dilation. Spleen is normal in size without suspicious lesion. Stable 1.6 cm left adrenal nodule. Right adrenal gland is unremarkable. Symmetric renal enhancement. No hydronephrosis. Multifocal regions of cortical thinning compatible with renal scarring. A couple of tiny renal cysts. Urinary bladder is incompletely distended through the limitations of streak artifact. Atherosclerotic calcifications in the aortobiiliac vessels. No aneurysm. No evidence of obstruction. Appendix is unremarkable. The uterus is partially obscured by streak artifact with a heterogeneously hypodense appearance of the endometrial cavity measuring up to 1.7 cm in thickness (series 3, image 115). Redemonstration of soft tissue mass abutting the right aspect of the uterine fundus which has demonstrated interval increase in size over time. This now measures 11.0 x 11.0 x 10.7 cm, previously 9.7 x 9.5 x 9.7 cm on 08/29/2021 (series 3, image 105; series 602, image 83). This was seen on MRI 09/01/2012 where it demonstrated T1 and T2 signal. No significant ascites. No free intraperitoneal air. No abdominopelvic lymphadenopathy. Mild multilevel degenerative changes in the imaged spine, most pronounced at L4-L5. Grade 1 degenerative anterolisthesis at L5-S1. Scattered lumbar facet arthropathy. Bilateral total hip arthroplasties result in streak artifact in the pelvis. Procedure Note Nikhil Murrell MD - 12/07/2024 EXAMINATION: RADIOLOGY CONSULTATION ON OUTSIDE IMAGING STUDY STUDY INITIALLY PERFORMED: 10/24/2024 at [facility]. TYPE OF STUDY: Multiple CT images of the abdomen and pelvis with intravenous contrast are provided at the time of this interpretation. CONTRAST ROUTE: Contrast was administered via the intravenous route. The protocol was adequate to address the clinical question. The outside final report was not available at the time of this second opinion interpretation. TYPE OF CONSULTATION: Consult on outside imaging study with images submitted through Outside Image Sharing Service DATE OF CONSULTATION: 12/07/2024 9:47 AM HISTORY: 69-year-old female with grade 2 endometrioid adenocarcinoma biopsy-proven in 10/2024. Planned for robotic-assisted total laparoscopic hysterectomy, bilateral salpingo-oophorectomy, and sentinel lymph node biopsy. COMPARISON: Pelvic ultrasound 10/26/2024 and CTA runoff 08/29/2021 FINDINGS: Imaged lower chest: Minimal bibasilar atelectasis. Mitral annular calcifications. Abdomen and pelvis: Noncirrhotic liver morphology. No focal suspicious hepatic lesion on the single phase enhancement. No biliary ductal dilation. Gallbladder is nondistended. Homogeneous pancreatic enhancement without suspicious lesion or pancreatic ductal dilation. Spleen is normal in size without suspicious lesion. Stable 1.6 cm left adrenal nodule. Right adrenal gland is unremarkable. Symmetric renal enhancement. No hydronephrosis. Multifocal regions of cortical thinning compatible with renal scarring. A couple of tiny renal cysts. Urinary bladder is incompletely distended through the limitations of streak artifact. Atherosclerotic calcifications in the aortobiiliac vessels. No aneurysm. No evidence of obstruction. Appendix is unremarkable. The uterus is partially obscured by streak artifact with a heterogeneously hypodense appearance of the endometrial cavity measuring up to 1.7 cm in thickness (series 3, image 115). Redemonstration of soft tissue mass abutting the right aspect of the uterine fundus which has demonstrated interval increase in size over time. This now measures 11.0 x 11.0 x 10.7 cm, previously 9.7 x 9.5 x 9.7 cm on 08/29/2021 (series 3, image 105; series 602, image 83). This was seen on MRI 09/01/2012 where it demonstrated T1 and T2 signal. No significant ascites. No free intraperitoneal air. No abdominopelvic lymphadenopathy. Mild multilevel degenerative changes in the imaged spine, most pronounced at L4-L5. Grade 1 degenerative anterolisthesis at L5-S1. Scattered lumbar facet arthropathy. Bilateral total hip arthroplasties result in streak artifact in the pelvis. IMPRESSION: 1. Right adnexal soft tissue mass demonstrates interval increase in size over time. This may be ovarian in origin such as an ovarian fibroma (given the MRI findings) versus involvement by known endometrial carcinoma. 2. Heterogeneous hypodensity is seen within the central aspect of the endometrial cavity, likely relating to biopsy-proven endometrial carcinoma. 3. No evidence of metastasis in the abdomen or pelvis. The findings, conclusions and recommendations within this report do not replace the initial findings, conclusions and recommendations made at the facility where the study was performed based upon the imaging and clinical condition at that time. Comparison with the prior report and clinical history is necessary. The provided images may or may not represent the [place] source data set and thus may contain changes that may lower the accuracy of this second-opinion interpretation. Dictated by: Mayra Villegas M.D. The radiology attending physician has personally reviewed this study, and had reviewed and/or edited this written report and agrees with it. Electronically signed by: Nikhil Murrell M.D. Josue Ortiz MD IMG CT PROCEDURES Final R esult * Screening Mammogram (08/17/2012 3:04 PM CDT) Anatomical Region Laterality Modality Breast N/A Mammography 08/17/2012 3:04 PM CDT Narrative 09/08/2012 1:48 PM CDT TAYLOR PICKERING M.D. FINAL REPORT ACC# Date Time Exam [id number] Aug 17, 2012 15:04:00 [facility] [id number] Screening Mamm Bilat Technologist(s): Lydia Gutiérrez; ; EXAMINATION: ADDENDUM 09/08/2012 01:48PM ADDENDUM: 09/07/2012 The present examination has been compared to a prior imaging study performed at [facility] on 07/26/2008. Masses in both breasts are benign. Annual screening mammography is recommended. OVERALL FINAL ASSESSMENT: BI-RADS CATEGORY 2: Benign. END OF ADDENDUM Mammogram Findings: A Full-Field Digital Screening Mammogram was performed. Views obtained: bilateral craniocaudal; bilateral mediolateral oblique. Computer Aided Detection was performed with CoffeeTable.3 version 9.3. There are scattered fibroglandular densities. [...] M.D. FINAL REPORT ACC# Date Time Exam [id number] Aug 17, 2012 15:04:00 [facility] [id number] Screening Mamm Bilat Technologist(s): Lydia Gutiérrez; ; EXAMINATION: ADDENDUM 09/08/2012 01:48PM ADDENDUM: 09/07/2012 The present examination has been compared to a prior imaging study performed at [facility] on 07/26/2008. Masses in both breasts are benign. Annual screening mammography is recommended. OVERALL FINAL ASSESSMENT: BI-RADS CATEGORY 2: Benign. END OF ADDENDUM Mammogram Findings: A Full-Field Digital Screening Mammogram was performed. Views obtained: bilateral craniocaudal; bilateral mediolateral oblique. Computer Aided Detection was performed with R2, Cenova 1.3 version 9.3. There are scattered fibroglandular densities. [...] Most Recently Relevant to Health Maintenance Insurance [facility] MDCR HMO REF IDPA [facility] MEDICARE ADVANTAGE [facility] MEDICARE ADVANTAGE Advance Directives For more information, please contact: [phone] * Full Code (Latest Code Status on File) Date Activated Date Inactivated Comments 12/29/2024 12:09 AM 12/29/2024 7:10 PM Care Teams Stewardess Supervisor Relationship Specialty Start Date End Date Hari Dowd MD [address] [place] [id number] PCP - General Family Medicine 08/06/21
--- OUTSIDE RECORDS SUMMARY | 2025-02-18 15:22 | XMS_ITS ---
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 Orders: Ambulatory referral to Cardiology Assessment & Plan (08/06/2021 4:15 PM RAILROAD CONSTRUCTION DIRECTOR): Assessment/plan: Losartan Current Treatment and Therapy Plans No current plan information found. Past Treatment and Therapy Plans No past plan information found. Lifetime Dose Tracking * Chemical Lifetime Dose Automatic Entry Manual Entr y Fluoro Time 3.4 minutes 0 minutes 3.4 minutes Air kerma at the reference point (Ka,r) 986 mGy 0 mGy 986 mGy DLP 2,643 mGycm 2,643 mGycm 0 mGycm DAP 70.9 Gy-cm2 0 Gy-cm2 70.9 Gy-cm2
--- NOTE | 2025-02-18 17:46 | ED.EXTPRO ---
HPI - Extremity Problem General Chief complaint: Extremity Problem,Nontraumatic Stated complaint: bilateral leg and hand pain Time Seen by Provider: 02/18/25 17:03 Source: patient Mode of arrival: ambulatory Limitations: no limitations History of Present Illness HPI Narrative: Patient is a 69-year-old female who presents the ED with report of bilateral arm and leg pain. Patient reports she has been having intermittent pain/tingling/burning in her bilateral legs and arms into her fingertips for the past several months. Symptoms have become worse over the past 1 week. She denies any recent strenuous activity. She denies history of diabetes or known neuropathy. She is on Jardiance however. Denies swelling, numbness, weakness of extremities. Denies bowel or bladder incontinence, neck or back pain. Related Data Home Medications ?Medication ?Instructions ?Recorded ?Confirmed ?Last Taken ?Type ibuprofen 800 mg tablet 800 mg PO TID PRN Pain (Scale 08/01/20 07/13/24 Unknown History Score 4-6) cyclobenzaprine 10 mg tablet 10 mg PO TID PRN pain 10/23/23 07/13/24 07/12/24 History hydrocodone 7.5 mg-acetaminophen 1 tablet PO QHS PRN pain 10/23/23 07/13/24 07/12/24 History 325 mg tablet amlodipine 5 mg tablet 5 mg PO DAILY 07/13/24 07/13/24 07/12/24 History atorvastatin 40 mg tablet 40 mg PO DAILY 07/13/24 07/13/24 Unknown History benzonatate 100 mg capsule 100 mg PO TID 07/13/24 07/13/24 Unknown History losartan 100 mg tablet 100 mg PO DAILY 07/13/24 07/13/24 07/12/24 History mometasone-formoterol HFA 200 2 puff inhalation BID 07/13/24 07/13/24 07/13/24 History mcg-5 mcg/actuation aerosol inhaler (Dulera) omeprazole 40 mg capsule,delayed 40 mg PO DAILY 07/13/24 07/13/24 07/12/24 History release Allergies Allergy/AdvReac Type Severity Reaction Status Date / Time No Known Allergies Allergy Unknown Verified 10/26/24 18:30 Review of Systems Review of Systems: All systems reviewed & are unremarkable except as noted in HPI. All systems reviewed & are unremarkable except as noted in HPI and below PMFSH Past Medical History Medical History Anxiety Chronic obstructive pulmonary disease Chronic GERD Hiatal hernia Osteoarthritis Asthma Chronic back pain Nephrolithiasis Hypertension Surgical History Surgical History History of total left hip replacement (12/2014) History of section History of total hip replacement (05/2013) Family History Family History Mother Hypertension Social History Social History Social History: Lives in [place], [place]. She has 3 children. Former [employer]. She smoked a pack of cigarettes a day for 27 years and quit in 1989. No alcohol or drug abuse. Candy Bowen, daughter. Code status: Full code. Smoking packs per day: 1 Smoking cigarettes per day: 20.0 Years smoked: 24 Smoking pack-years: 24.00 Smoking status: Former smoker Tobacco type: cigarettes Smoking end date: 07/13/24 Alcohol intake: never Substance use: never Substance use type: does not use Do You Feel Safe in your Home?: Yes Lack of Transportation: No Lack of Food: Never True Current Housing: I Have Housing Concerned About Future Housing: No Difficulty Paying Gas/Electric Bills: No Difficulty Paying for Meds: No Currently Unemployed: No Education: High School Diploma/GED Difficulty w/ Childcare or Family Care: No Spiritual care concerns: No Exam Narrative: GENERAL: Well appearing, morbidly obese with BMI of 58.7, non-toxic, in no acute distress. HEAD: Normocephalic, atraumatic. RESPIRATORY: Airway patent, respirations nonlabored. CARDIOVASCULAR: Regular rate and rhythm without murmurs, rubs, or gallops. Peripheral pulses are intact. MUSCULOSKELETAL: Moves all extremities. No gross deformities. No reproducible tenderness throughout extremities. No swelling of extremities. Sensation is intact throughout all extremities. No weakness appreciated. SKIN: Warm, dry, normal color. NEURO: A&O X3. Speech clear. Cranial nerves II-XII grossly intact. Steady gait. No ataxic movements. PSYCHIATRIC: Appropriate mood and affect. Normal interaction. Course Vital Signs Vital signs: Vital Signs Temperature 98.5 F 02/18/25 15:20 Pulse Rate 91 02/18/25 15:20 Respiratory Rate 16 02/18/25 15:20 Blood Pressure 114/99 H 02/18/25 15:20 Pulse Oximetry 96 02/18/25 15:20 Oxygen Delivery Room Air 02/18/25 15:20 Temperature 98.5 F 02/18/25 15:20 Pulse Rate 72 02/18/25 19:45 Respiratory Rate 18 02/18/25 19:45 Blood Pressure 142/78 H 02/18/25 19:45 Pulse Oximetry 97 02/18/25 19:45 Oxygen Delivery Room Air 02/18/25 15:20 MDM - Extremity (Nontraumatic) MDM Narrative Medical decision making narrative: Patient presented to ED with several month history of intermittent pain/aching/tingling of extremities. Vital signs are stable upon arrival. Patient is neurovascularly intact. No focal deficits. Low suspicion for acute neurologic process. No evidence of cord compression or cauda equina. Less suspicious for radicular-type symptoms. No red flag symptoms. No recent strenuous activity. CK WNL. Low suspicion for rhabdomyolysis. Stable electrolytes. No swelling of extremities or evidence of rash/cellulitis. No trauma. She denies history of diabetes or previously diagnosed peripheral neuropathy, however per med rec, patient appears to have been on gabapentin and Jardiance in the past. Symptoms seem most consistent with peripheral neuropathy. Will start patient on gabapentin. She is also prescribed [place] at home. Advised to continue medications, follow-up closely with primary care doctor. Given return precautions. She is in agreement with plan. Discharged in stable condition. Medical Records Attestation: I reviewed the patient's medical records. Lab Data Attestation: I reviewed the patient's lab results. 02/18/25 18:36 02/18/25 18:36 Labs: Lab Results 02/18/25 Range/Units 18:36 WBC 6.0 (4.5-10.0) K/mm3 RBC 3.65 L (4.2-5.4) M/mm3 Hgb 10.9 L (12.0-15.0) g/dL Hct 36.1 L (37.0-47.0) % MCV 98.9 (80-100) fl MCH 29.9 (26-34) pg MCHC 30.2 L (32-36) g/dl RDW 13.2 (11.5-14.5) % Plt Count 275 (150-375) k/mm3 MPV 9.5 (7.4-10.4) fl Immature Gran % (Auto) 0.7 H (0-0.5) % Neut % (Auto) 56.0 (45.5-73.1) % Lymph % (Auto) 28.6 (18.3-44.2) % Cherry % (Auto) 10.8 H (2.6-8.5) % Eos % (Auto) 3.2 (0-4.4) % Baso % (Auto) 0.7 (0.2-1.2) % Lymph # (Auto) 1.70 (0.9-3.2) K/mm3 Cherry # (Auto) 0.6 (0.1-0.6) K/mm3 Eos # (Auto) 0.2 (0-0.3) K/mm3 Baso # (Auto) 0.0 (0.0-0.1) K/mm3 Abs Immat Gran (auto) 0.04 H (0.00-0.031) K/mm3 Absolute Neuts (auto) 3.3 (1.3-6.7) K/mm3 Absolute Nucleated RBC 0.000 (0.0-0.012) K/mm3 Nucleated RBC % 0.0 (0.0-0.2) % Sodium 135 L (137-145) mmol/L Potassium 4.3 (3.4-5.0) mmol/L Chloride 101 (98-107) mmol/L Carbon Dioxide 27 (22-30) mmol/L Anion Gap 7 (4-12) mmol/L BUN 37 H D (7-17) mg/dL Creatinine 1.04 H (0.7-1.0) mg/dL Estim Creat Clear Calc 58 ml/min Estimated GFR 53 L (59 - ) Glucose 128 H (65-110) mg/dL Calcium 9.3 (8.4-10.2) mg/dL Magnesium 2.5 H (1.6-2.3) mg/dL Total Bilirubin 0.3 (0.2-1.3) mg/dL AST 28 (14-36) U/L ALT 18 (6-35) U/L Alkaline Phosphatase 82 (38-126) U/L Total Creatine Kinase 46 (30-135) U/L Total Protein 7.2 (6.3-8.2) g/dL Albumin 3.8 (3.5-5.1) g/dL Discharge Plan Discharge Clinical Impression: Pain in both upper extremities, Pain in both lower extremities, Neuropathy Patient Disposition: Home Condition: Stable Instructions: Antibiotic Form, Peripheral Neuropathy (ED), Leg Pain (ED), Arm Pain (ED) Additional Instructions: Take gabapentin as prescribed. Continue Tylenol, ibuprofen as needed for pain. Your home [place] as needed for pain. You may use ice to areas of pain. Follow-up closely with your primary care doctor for further evaluation. Call office Friday to make follow-up appointment. Return for new or worsening concerns. Patient Language: Georgian Prescriptions: New gabapentin 100 mg capsule 100 mg PO BID Qty: 60 0RF No Action cyclobenzaprine 10 mg tablet 10 mg PO TID PRN (Reason: pain) hydrocodone-acetaminophen 7.5-325 mg tablet 1 tablet PO QHS PRN (Reason: pain) ibuprofen 800 mg Tablet 800 mg PO TID PRN (Reason: Pain (Scale Score 4-6)) amlodipine 5 mg tablet 5 mg PO DAILY atorvastatin 40 mg tablet 40 mg PO DAILY losartan 100 mg tablet 100 mg PO DAILY omeprazole 40 mg capsule,delayed release(DR/EC) 40 mg PO DAILY Dulera 200-5 mcg/actuation HFA aerosol inhaler 2 puff INHALATION BID benzonatate 100 mg capsule 100 mg PO TID furosemide 40 mg Tablet 40 mg PO DAILY 30 Days Qty: 30 0RF metoprolol succinate 50 mg Tablet Extended Release 24 Hr 50 mg PO QAM 60 Days Qty: 60 1RF spironolactone 25 mg Tablet 25 mg PO QAM 60 Days Qty: 60 1RF Jardiance 10 mg Tablet 10 mg PO DAILY Qty: 30 1RF Combivent Respimat 20-100 mcg/actuation mist 1 puff inhalation QID PRN (Reason: shortness of breath or wheezing) Qty: 4 1RF Rx Instructions: space evenly during waking hours nitrofurantoin monohyd/m-cryst [Macrobid] 100 mg capsule 100 mg PO Q12H 5 Days Qty: 10 0RF Rx Instructions: must administer with a meal/food acetaminophen 500 mg capsule 1,000 mg PO Q6H PRN (Reason: pain) Qty: 30 0RF ibuprofen 600 mg tablet 600 mg PO TID PRN (Reason: pain) Qty: 30 0RF hydrocodone-acetaminophen 5-325 mg tablet 1 tablet PO Q12H PRN (Reason: pain) Qty: 14 0RF Follow-up/Referrals: Nile,Hari Oh MD [Primary Care Provider, Unknown] Time of Disposition: 19:22
[2025-02-18] MEDS: ACETAMINOPHEN 500 MG TABLET 1000 MG PO (18:01)
[2025-02-18] MEDS: GABAPENTIN 100 MG CAPSULE PO (18:01)
[2025-02-18 18:42] LABS: Hematocrit 36.1 % (37.0-47.0); Hemoglobin 10.9 g/dL (12.0-15.0); Immature Granulocyte Percent A 0.7 % (0-0.5); Lymphocytes Absolute Auto 1.70 K/mm3 (0.9-3.2); Mean Corpuscular HGB Conc 30.2 g/dl (32-36); Mean Corpuscular Hemoglobin 29.9 pg (26-34); Mean Corpuscular Volume 98.9 fl (80-100); Nucleated Red Blood Cells Absolute Auto 0.000 K/mm3 (0.0-0.012); Nucleated Red Blood Cells Perc 0.0 % (0.0-0.2); Platelet Count Result 275 k/mm3 (150-375); Red Blood Count 3.65 M/mm3 (4.2-5.4); White Blood Count 6.0 K/mm3 (4.5-10.0)
[2025-02-18 19:01] LABS: Alanine Aminotransferase 18 U/L (6-35); Albumin Level 3.8 g/dL (3.5-5.1); Alkaline Phosphatase 82 U/L (38-126); Anion Gap 7 mmol/L (4-12); Aspartate Amino Transferase 28 U/L (14-36); Bilirubin,Total 0.3 mg/dL (0.2-1.3); Blood Urea Nitrogen 37 mg/dL (7-17); Calcium 9.3 mg/dL (8.4-10.2); Carbon Dioxide 27 mmol/L (22-30); Chloride 101 mmol/L (98-107); Creatine Kinase 46 U/L (30-135); Estimated CRCL calculation 58 ml/min; Estimated Glomerular Filt Rate 53; Glucose 128 mg/dL (65-110); Magnesium 2.5 mg/dL (1.6-2.3); Potassium 4.3 mmol/L (3.4-5.0); Sodium 135 mmol/L (137-145); Total Protein 7.2 g/dL (6.3-8.2)
[2025-02-18] MEDS: KETOROLAC 30 MG/ML VIAL (*BKC) IM (19:38)
[2025-02-18 19:45] VITALS: BP 142/78; PULSE 72; RESP 18; O2SAT 97
== END 2025-02-18 19:46 | disposition home or self-care (01) ==
PROVIDERS: Emergency Provider Physician Assistant; PCP Family Medicine
DX: M79.602 Pain in left arm (principal); M79.601 Pain in right arm; M79.605 Pain in left leg; M79.604 Pain in right leg; G62.9 Polyneuropathy, unspecified; Z87.891 Personal history of nicotine dependence
CPT/HCPCS: 36415; 80053; 82550; 83735; 85025; 96372; 99283; A9270; J1885